=== PATIENT | female | born 1960 | race Caucasian/White ===

== ENCOUNTER 2017-04-04 17:57 | Observation (INO) | payer MEDICAID, SELFPAY ==
[2017-04-04] VITALS (23 sets, daily range): BP systolic 150–192; BP diastolic 57–89; PULSE 47–70; RESP 13–18; TEMP 36.6–37.1; O2SAT 94–100; BMI 44.2; BMI 44.6; BMI 44.7
--- NOTE | 2017-04-04 18:01 | EKG12_ITS ---
Test Reason : STROKE Blood Pressure : / mmHG Vent. Rate : 062 BPM Atrial Rate : 062 BPM P-R Int : 196 ms QRS Dur : 080 ms QT Int : 456 ms P-R-T Axes : 083 003 -17 degrees QTc Int : 462 ms Normal sinus rhythm Normal ECG Confirmed by ESAU VALLEJO, JAIDEN ([id number]), assistant production editor KARIN BLACKBURN ([id number]) on 04/10/2017 2:52:18 PM Referred By: GUDELIA Confirmed By:JAIDEN CIFUENTES MD
--- NOTE | 2017-04-04 18:01 | CT_ITS ---
STUDY: CT BRAIN WITHOUT CONTRAST REASON FOR EXAM: Female, 57 years old. Facial droop, slurred speech RADIATION DOSAGE (If Supplied By Facility): CTDIvol = ( 44.99 ) mGy, DLP = ( 796.11 ) mGycm TECHNIQUE: Transaxial CT imaging of the brain was performed without administration of intravenous contrast material. Individualized dose optimization techniques were used for this CT. COMPARISON: May 20, 2014. FINDINGS: Normal soft tissue structures. Normal calvarium. Normal size ventricles and extra-axial spaces for the patient's age. Normal white matter tracts of the cerebral hemispheres. Normal basal ganglia and thalami. Normal brainstem. Normal cerebellum. There is no intracranial hemorrhage. There are no findings of an acute ischemic infarction. Mucosal thickening of the maxillary sinuses. CT/Brain/Head without Contrast IMPRESSION: No acute intracranial pathology of the brain. Bilateral maxillary sinus disease. N.B. : The above information has been verbally conveyed by Roberto Carlos Parkinson DO to Martín Dyer [facility] ED RN, on 04/04/2017 20:21:01 (ET). Electronically Signed: Roberto Carlos Parkinson DO at 20:18 EST Tel [phone], Service support , N.B. : The above information has been verbally conveyed by Roberto Carlos Parkinson DO to Martín Dyer [facility] ED RN, on 04/04/2017 20:21:01 (ET).
[2017-04-04 18:31] LABS: Absolute Lymphocyte Count 3.05 X10^3/ul (0.83-4.51); Absolute Neutrophil Count 4.2 X10^3/uL (2.0-7.7); Basophil# 0.07 X10^3/uL; Basophil% 0.8 % (0-1); Eosinophil# 0.14 X10^3/uL; Eosinophils% 1.6 % (0-5); Hematocrit 41.5 % (37-47); Hemoglobin 13.9 g/dl (12.0-15.0); Lymphocyte # 3.05 X10^3/ul (4.0); Lymphocyte % 35.2 % (19-41); Mean Corp Hgb Conc 33.5 g/gl (32-36); Mean Corpuscular Volume 89.6 fL (81-99); Mean Platelet Vol. 9.8 fl (6.2-12.0); Monocyte# 1.15 X10^3/uL; Monocyte% 13.3 % (0-10); Neutrophil # 4.19 X10^3/uL (2.7-7.7); Neutrophil % 48.3 % (47-70); Platelet Count 195 K/mm3 (150-450); RBC Distribution Width CV 14.6 % (11.6-14.6); RBC Distribution Width SD 47.4 fl (35.1-43.9); Red Blood Count 4.63 M/mm3 (4.2-5.4); White Blood Count 8.7 K/mm3 (4.4-11.0)
[2017-04-04 18:34] LABS: POSITIVE COUNT NO; POSITIVE DIFFERENTIAL NO; POSITIVE MORPHOLOGY NO
[2017-04-04] MEDS: Labetalol 20 MG/4 ML Vial IV (18:35)
--- NOTE | 2017-04-04 18:38 | ED.RN ---
PER DR GALEAS GIVE 20 MG LABETOLOL
[2017-04-04] MEDS: 0.9% Normal Saline 1,000 ML 100 ML IV (18:41)
[2017-04-04 18:45] LABS: Anion Gap 9 (5-15); BUN 23 mg/dL (7-18); BUN/Creat Ratio 23.6 RATIO (10-20); Calcium,Total 9.3 mg/dL (8.5-10.1); Chloride 106 mmol/L (98-107); Creatinine, Serum 0.98 mg/dL (0.55-1.02); EST Glomerular Filtration Rate 63 mL/min (>60); Est Glom Filt Rate - Afr Amer 76 mL/min (>60); Estimated Creatinine Clearance 68.49 ml/min; Glucose 93 mg/dL (70-110); Potassium 3.5 mmol/L (3.5-5.1); Sodium Level 138 mmol/L (136-145)
--- NOTE | 2017-04-04 18:47 | ED.RN ---
DR GALEAS NOTIFIED PT HR 49
[2017-04-04 19:01] LABS: International Normalized Ratio 1.1; Prothrombin Time (Protime)PT. 14.1 SECONDS (11.7-14.9)
--- NOTE | 2017-04-04 19:03 | ED.RN ---
TPA STOPPED PER DR GALEAS. PT FACIAL DROOP NOW ON THE RIGHT SIDE. DR GALEAS AT THE BEDSIDE
--- NOTE | 2017-04-04 19:06 | ED.RN ---
TPA DISCONNECTED FROM THE PT IV SITE
--- NOTE | 2017-04-04 19:09 | ED.RN ---
FACIAL DROOP ON THE RIGHT RATHER THAN THE LEFT
--- NOTE | 2017-04-04 19:39 | NURSING ---
PT WENT THROUGH A DYSPHAGIA SCREEN AND SHE HAD PASSED WAS ABLE TO SWALLOW WATER AND CONSUME THE APPLESAUCE WITH NO PROBLEM AND NO EVIDENCE OF CHOKING. WHILE IN THE ROOM THE PT HAS BEEN TALKING WITH THE SISTER NO PROBLEM AND NO EVIDENCE OF APHASIA/ DYSARTHRIA WHEN SPEAKING BUT WHEN DOING THE MINI STROKE BOOKLET WITH HER SHE HAD SOME APHASIA.
[2017-04-04 20:31] LABS: Valproic Acid (Depakene) Level 74 ug/mL (50-100)
--- NOTE | 2017-04-04 21:07 | PCM.HP.STD ---
Problem List (1) Conversion disorder Status: Acute (2) Coronary atherosclerosis of [place] coronary vessel Status: Chronic Qualifiers: Associated angina: angina presence unspecified (3) Hyperlipidemia Status: Chronic Qualifiers: Hyperlipidemia type: unspecified Qualified Code(s): E78.5 - Hyperlipidemia, unspecified (4) Hypertension Status: Chronic Qualifiers: Hypertension type: essential hypertension Qualified Code(s): I10 - Essential (primary) hypertension (5) Hypothyroidism Status: Chronic Qualifiers: Hypothyroidism type: unspecified Qualified Code(s): E03.9 - Hypothyroidism, unspecified (6) Obesity Status: Chronic Qualifiers: Body mass index: BMI 40.0-44.9 (7) Tobacco use disorder Status: Chronic (8) History of TIAs Status: Chronic History of Present Illness Date of Admission: 04/04/17 Chief Complaint: Facial droop - 1 day The patient is a 57 year old F with PMHx of depression, hypothyroidism, hyperlipidemia, hypertension, CVA status post mastectomy comes in with complains of facial droop which was noticed today. Patient admits to being under lots of stress. Patient was being worked up for TIA and was started on TPA when the right facial droop switched to left facial droop. Patient admits that she gets these symptoms when she is on the stress, no weakness in her extremities or headaches. Denies any dizziness or palpitations or chest pain. Vitals in the ED was stable with temperature of 98.0 Fahrenheit, heart rate of 58, respiratory rate was 13, SPO2 is 97% on room air. His admitting CBCD and CMP as well as INR PTT were all normal. CT scan of the brain was negative for any acute intracranial pathology. Past Medical History Past Medical History (Chronic Problems): Chronic Problems Coronary atherosclerosis of [place] coronary vessel (Chronic) History of epilepsy (Chronic) Hyperlipidemia (Chronic) Hypertension (Chronic) Hypothyroidism (Chronic) Obesity (Chronic) Tobacco use disorder (Chronic) History of TIAs (Chronic) Breast cancer, left breast (Chronic) 04/07/15 L mastectomy w/ L sentinel node Bx Morbid obesity (Chronic) Anxiety and depression (Chronic) COPD (chronic obstructive pulmonary disease) (Chronic) Bilateral leg edema (Chronic) Delayed wound healing (Chronic) Malnutrition (Chronic) Leg edema (Chronic) Allergies No Known Allergies Allergy (Verified 05/09/15 13:53) Home Medications: Ambulatory Orders Medication Instructions Recorded Aspirin [Aspirin, Baby] 81 mg PO DAILY@0800 05/09/15 Atorvastatin Calcium [Lipitor] 40 mg PO QHS 05/09/15 BuPROPion (SR) [Wellbutrin Sr] 300 mg PO DAILY 05/09/15 Divalproex Sodium [Depakote] 1,000 mg PO BID 05/09/15 Furosemide [Lasix] 40 mg PO DAILY 05/09/15 Levothyroxine [Synthroid] 200 mcg PO DAILY 05/09/15 Pregabalin [Lyrica] 50 mg PO BID 05/09/15 Sertraline HCl [Zoloft] 100 mg PO BID 05/09/15 Amlodipine [Norvasc] 10 mg PO DAILY 07/12/16 Anastrozole [Arimidex] 1 mg PO DAILY 07/12/16 Ergocalciferol [Vitamin D] 50,000 unit PO 07/12/16 Furosemide [Lasix] 20 mg PO QHS 07/12/16 Oxcarbazepine [Trileptal] 300 mg PO BID 07/12/16 Spironolactone [Aldactone] 25 mg PO DAILY 07/12/16 Lisinopril [Zestril] 20 mg PO BID 04/04/17 Surgical History: noncontributory, - - L breast masectomy, x 2, T+A. Smoking Status: Current every day smoker Tobacco Use: Cigarettes Alcohol: None Drugs: None - *Family History Maternal History Items: Heart Disease Paternal History Items: No pertinent history Sibling History Items: - - Cirrhosis of the liver Review of Systems Constitutional: Denies: Anorexia, Chills, Fever, Weakness, Weight Change Eyes: Denies: Blurred vision, Cataracts, Conjunctivae Inflammation HEENT: Denies: Difficulty Hearing, Difficulty Swallowing, Head Aches, Sinus Congestion, Sinus Drainage Cardiovascular: Denies: Chest Pain, Claudication, Chest Pressure, Chest Tightness, Orthopnea, Palpitations, Paroxysmal Noc. Dyspnea Respiratory: Denies: Cough, Shortness of Breath, Shortness of breath at rest, Shortness of breath upon exertion, Sputum production Gastrointestinal: Denies: Abdominal Pain, Nausea, Vomiting Genitourinary: Denies: Dysuria, Frequency, Incontinence Musculoskeletal: Denies: Joint Pain, Joint stiffness, Joint swelling, Joint Tenderness Skin: Denies: Dryness, Jaundice, Rash, Wounds Neurological: Denies: Double vision, Difficulty swallowing, Focal weakness, Numbness, Tingling Psychiatric: Denies: Anxiety, Depression, Homicidal Ideations, Suicidal Ideations Hematologic/ Lymphatic: Denies: Easy Bruising, Easy Bleeding VTE Information - Inpt Only VTE Present on Admission: No VTE Pharm Prophylaxis ordered?: Yes Patient Problems: Active and Suspected Problems Conversion disorder (Acute) - Physical Exam General: Alert, Oriented x3, Cooperative, No apparent distress HEENT: Atraumatic, PERRLA, EOMI, Normocephalic Oral: Moist Mucosa Neck: Supple Lungs: Clear to auscultation, Normal air movement Cardiovascular: Regular rate, Regular Rhythm, Normal S1, Normal S2, No murmurs Abdomen: Bowel Sounds Present, Soft, Non Tender, Non-Distended, No Hepato-splenomegaly Extremities: No edema Skin: No rashes Musculoskeletal: No Tenderness to Palpation of Joints or Extremities Lymphatic: No Cervical, Supraclavicular, or Inguinal Adenopathy Neurological: Cranial nerves II-XII grossly intact Psych/Mental Status: Normal Affect, Appropriate Vital Signs Temp Pulse Resp BP Pulse Ox 98.7 F 53 L 15 158/62 H 96 04/04/17 19:10 04/04/17 21:00 04/04/17 21:00 04/04/17 21:00 04/04/17 21:00 Oxygen Flow Rate 2 Oxygen Delivery Method Nasal Cannula Weight: 140 kg Body Mass Index (BMI) 44.2 Finger Stick Blood Glucose 112 Laboratory Tests Past 24 Hrs 04/04/17 04/04/17 04/04/17 18:10 18:10 18:10 WBC 8.7 RBC 4.63 Hgb 13.9 Hct 41.5 MCV 89.6 MCH 30.0 MCHC 33.5 RDW 14.6 RDW Differential 47.4 H Plt Count 195 MPV 9.8 Immature Gran % (Auto) 0.800 Neut % (Auto) 48.3 Lymph % (Auto) 35.2 [place] % (Auto) 13.3 H Eos % (Auto) 1.6 Baso % (Auto) 0.8 Absolute Neuts (auto) 4.2 Absolute Lymphs (auto) 3.05 Total Counted Not Reportable PT 14.1 INR 1.1 APTT 31.0 Sodium 138 Potassium 3.5 Chloride 106 Carbon Dioxide 23.0 Anion Gap 9 BUN 23 H Creatinine 0.98 Estim Creat Clear Calc 68.49 Est GFR (MDRD) Af Amer 76 Est GFR (MDRD) Non-Af 63 BUN/Creatinine Ratio 23.6 H Glucose 93 Calcium 9.3 Troponin I < 0.02 Valproic Acid 04/04/17 19:23 WBC RBC Hgb Hct MCV MCH MCHC RDW RDW Differential Plt Count MPV Immature Gran % (Auto) Neut % (Auto) Lymph % (Auto) [place] % (Auto) Eos % (Auto) Baso % (Auto) Absolute Neuts (auto) Absolute Lymphs (auto) Total Counted PT INR APTT Sodium Potassium Chloride Carbon Dioxide Anion Gap BUN Creatinine Estim Creat Clear Calc Est GFR (MDRD) Af Amer Est GFR (MDRD) Non-Af BUN/Creatinine Ratio Glucose Calcium Troponin I Valproic Acid 74 Assessment/Plan Active and Suspected Problems Conversion disorder (Acute) 70-year-old female past medical history of depression, breast CA status post mastectomy, history of TIAs, comes in with complaints of left facial droop, was worked up in the ED for TIA, started to receive TPA, patient was noted to still have switched from right facial droop to left facial droop. 1. Conversion disorder, less likely to be TIA, discussed with neurologist by the emergency physician, recommended admission to telemetry bed Plan: Admit to telemetry, monitor patient closely, would not go through the TIA/stroke protocol, would only repeat MRI of the brain as well as MRA the head and neck because of patient's reported history of TIAs. Will give patient 1 dose of Ativan before she goes for MRI because of history of claustrophobia, neurologyconsult 2. Depression, on Wellbutrin 3. Hypertension, controlled, on lisinopril, spironolactone, her vitals closely 4. Hypothyroidism, on Synthroid 5. Hyperlipidemia, on atorvastatin 6. DVT prophylaxis with Lovenox subcu Code Visit OBSV E&M: [id number] Initial observation care L3
--- NOTE | 2017-04-04 21:20 | HP.PCM_ITS ---
Problem List (1) Conversion disorder Status: Acute (2) Coronary atherosclerosis of [place] coronary vessel Status: Chronic Qualifiers: Associated angina: angina presence unspecified (3) Hyperlipidemia Status: Chronic Qualifiers: Hyperlipidemia type: unspecified Qualified Code(s): E78.5 - Hyperlipidemia , unspecified (4) Hypertension Status: Chronic Qualifiers: Hypertension type: essential hypertension Qualified Code(s): I10 - Essential (primary) hypertension (5) Hypothyroidism Status: Chronic Qualifiers: Hypothyroidism type: unspecified Qualified Code(s): E03.9 - Hypothyroidism , unspecified (6) Obesity Status: Chronic Qualifiers: Body mass index: BMI 40.0-44.9 (7) Tobacco use disorder Status: Chronic (8) History of TIAs Status: Chronic History of Present Illness Date of Admission: 04/04/17 Chief Complaint: Facial droop - 1 day The patient is a 57 year old F with PMHx of depression, hypothyroidism, hyperlipidemia, hypertension, CVA status post mastectomy comes in with complains of facial droop which was noticed today. Patient admits to being under lots of stress. Patient was being worked up for TIA and was started on TPA when the right facial droop switched to left facial droop. Patient admits that she gets these symptoms when she is on the stress, no weakness in her extremities or headaches. Denies any dizziness or palpitations or chest pain. Vitals in the ED was stable with temperature of 98.0 Fahrenheit, heart rate of 58, respiratory rate was 13, SPO2 is 97% on room air. His admitting CBCD and CMP as well as INR PTT were all normal. CT scan of the brain was negative for any acute intracranial pathology. Past Medical History Past Medical History (Chronic Problems): Chronic Problems Coronary atherosclerosis of [place] coronary vessel (Chronic) History of epilepsy (Chronic) Hyperlipidemia (Chronic) Hypertension (Chronic) Hypothyroidism (Chronic) Obesity (Chronic) Tobacco use disorder (Chronic) History of TIAs (Chronic) Breast cancer, left breast (Chronic) 04/07/15 L mastectomy w/ L sentinel node Bx Morbid obesity (Chronic) Anxiety and depression (Chronic) COPD (chronic obstructive pulmonary disease) (Chronic) Bilateral leg edema (Chronic) Delayed wound healing (Chronic) Malnutrition (Chronic) Leg edema (Chronic) Allergies No Known Allergies Allergy (Verified 05/09/15 13:53) Home Medications: Ambulatory Orders Medication Instructions Recorded Aspirin [Aspirin, Baby] 81 mg PO DAILY@0800 05/09/15 Atorvastatin Calcium [Lipitor] 40 mg PO QHS 05/09/15 BuPROPion (SR) [Wellbutrin Sr] 300 mg PO DAILY 05/09/15 Divalproex Sodium [Depakote] 1,000 mg PO BID 05/09/15 Furosemide [Lasix] 40 mg PO DAILY 05/09/15 Levothyroxine [Synthroid] 200 mcg PO DAILY 05/09/15 Pregabalin [Lyrica] 50 mg PO BID 05/09/15 Sertraline HCl [Zoloft] 100 mg PO BID 05/09/15 Amlodipine [Norvasc] 10 mg PO DAILY 07/12/16 Anastrozole [Arimidex] 1 mg PO DAILY 07/12/16 Ergocalciferol [Vitamin D] 50,000 unit PO 07/12/16 Furosemide [Lasix] 20 mg PO QHS 07/12/16 Oxcarbazepine [Trileptal] 300 mg PO BID 07/12/16 Spironolactone [Aldactone] 25 mg PO DAILY 07/12/16 Lisinopril [Zestril] 20 mg PO BID 04/04/17 Surgical History: noncontributory, - - L breast masectomy, x 2, T+A. Smoking Status: Current every day smoker Tobacco Use: Cigarettes Alcohol: None Drugs: None - *Family History Maternal History Items: Heart Disease Paternal History Items: No pertinent history Sibling History Items: - - Cirrhosis of the liver Review of Systems Constitutional: Denies: Anorexia, Chills, Fever, Weakness, Weight Change Eyes: Denies: Blurred vision, Cataracts, Conjunctivae Inflammation HEENT: Denies: Difficulty Hearing, Difficulty Swallowing, Head Aches, Sinus Congestion, Sinus Drainage Cardiovascular: Denies: Chest Pain, Claudication, Chest Pressure, Chest Tightness, Orthopnea, Palpitations, Paroxysmal Noc. Dyspnea Respiratory: Denies: Cough, Shortness of Breath, Shortness of breath at rest, Shortness of breath upon exertion, Sputum production Gastrointestinal: Denies: Abdominal Pain, Nausea, Vomiting Genitourinary: Denies: Dysuria, Frequency, Incontinence Musculoskeletal: Denies: Joint Pain, Joint stiffness, Joint swelling, Joint Tenderness Skin: Denies: Dryness, Jaundice, Rash, Wounds Neurological: Denies: Double vision, Difficulty swallowing, Focal weakness, Numbness, Tingling Psychiatric: Denies: Anxiety, Depression, Homicidal Ideations, Suicidal Ideations Hematologic/ Lymphatic: Denies: Easy Bruising, Easy Bleeding VTE Information - Inpt Only VTE Present on Admission: No VTE Pharm Prophylaxis ordered?: Yes Patient Problems: Active and Suspected Problems Conversion disorder (Acute) - Physical Exam General: Alert, Oriented x3, Cooperative, No apparent distress HEENT: Atraumatic, PERRLA, EOMI, Normocephalic Oral: Moist Mucosa Neck: Supple Lungs: Clear to auscultation, Normal air movement Cardiovascular: Regular rate, Regular Rhythm, Normal S1, Normal S2, No murmurs Abdomen: Bowel Sounds Present, Soft, Non Tender, Non-Distended, No Hepato- splenomegaly Extremities: No edema Skin: No rashes Musculoskeletal: No Tenderness to Palpation of Joints or Extremities Lymphatic: No Cervical, Supraclavicular, or Inguinal Adenopathy Neurological: Cranial nerves II-XII grossly intact Psych/Mental Status: Normal Affect, Appropriate Vital Signs Temp Pulse Resp BP Pulse Ox 98.7 F 53 L 15 158/62 H 96 04/04/17 19:10 04/04/17 21:00 04/04/17 21:00 04/04/17 21:00 04/04/17 21:00 Oxygen Flow Rate 2 Oxygen Delivery Method Nasal Cannula Weight: 140 kg Body Mass Index (BMI) 44.2 Finger Stick Blood Glucose 112 Laboratory Tests Past 24 Hrs 04/04/17 04/04/17 04/04/17 18:10 18:10 18:10 WBC 8.7 RBC 4.63 Hgb 13.9 Hct 41.5 MCV 89.6 MCH 30.0 MCHC 33.5 RDW 14.6 RDW Differential 47.4 H Plt Count 195 MPV 9.8 Immature Gran % (Auto) 0.800 Neut % (Auto) 48.3 Lymph % (Auto) 35.2 [place] % (Auto) 13.3 H Eos % (Auto) 1.6 Baso % (Auto) 0.8 Absolute Neuts (auto) 4.2 Absolute Lymphs (auto) 3.05 Total Counted Not Reportable PT 14.1 INR 1.1 APTT 31.0 Sodium 138 Potassium 3.5 Chloride 106 Carbon Dioxide 23.0 Anion Gap 9 BUN 23 H Creatinine 0.98 Estim Creat Clear Calc 68.49 Est GFR (MDRD) Af Amer 76 Est GFR (MDRD) Non-Af 63 BUN/Creatinine Ratio 23.6 H Glucose 93 Calcium 9.3 Troponin I < 0.02 Valproic Acid 04/04/17 19:23 WBC RBC Hgb Hct MCV MCH MCHC RDW RDW Differential Plt Count MPV Immature Gran % (Auto) Neut % (Auto) Lymph % (Auto) [place] % (Auto) Eos % (Auto) Baso % (Auto) Absolute Neuts (auto) Absolute Lymphs (auto) Total Counted PT INR APTT Sodium Potassium Chloride Carbon Dioxide Anion Gap BUN Creatinine Estim Creat Clear Calc Est GFR (MDRD) Af Amer Est GFR (MDRD) Non-Af BUN/Creatinine Ratio Glucose Calcium Troponin I Valproic Acid 74 Assessment/Plan Active and Suspected Problems Conversion disorder (Acute) 70-year-old female past medical history of depression, breast CA status post mastectomy, history of TIAs, comes in with complaints of left facial droop, was worked up in the ED for TIA, started to receive TPA, patient was noted to still have switched from right facial droop to left facial droop. 1. Conversion disorder, less likely to be TIA, discussed with neurologist by the emergency physician, recommended admission to telemetry bed Plan: Admit to telemetry, monitor patient closely, would not go through the TIA/ stroke protocol, would only repeat MRI of the brain as well as MRA the head and neck because of patient's reported history of TIAs. Will give patient 1 dose of Ativan before she goes for MRI because of history of claustrophobia, neurologyconsult 2. Depression, on Wellbutrin 3. Hypertension, controlled, on lisinopril, spironolactone, her vitals closely 4. Hypothyroidism, on Synthroid 5. Hyperlipidemia, on atorvastatin 6. DVT prophylaxis with Lovenox subcu Code Visit OBSV E&M: [id number] Initial observation care L3
--- NOTE | 2017-04-04 21:38 | NURSING ---
This RN reviewing patient information for admission to floor, transfer orders state to continue tpa order for tpa vital signs, Dr Garza contacted to verify orders. Dr Garza states to call Dr. Cruz to clarify where patient needs to go. Dr Cruz contacted to clarify... states that due to patient receiving partial dose of tpa that patient needs to go to ICU. Nursing gas meter repair supervisor notified, Dr Garza paged to notify.
--- NOTE | 2017-04-04 22:00 | NURSING ---
Pt recieved to icu 5 via ed cart, pt moves self to icu bed without waiting for asssitance from staff. [facility] completed with Doreen CALLOWAY from ER.
--- NOTE | 2017-04-04 22:27 | NURSING ---
NOTICED WITH THE PT THAT WHEN NEW STAFF SEE THE PT SHE WILL CHANGE SOME OF HER SYMPTOMS, FAMILY HAS STATED THAT SHE CAN BE ATTENTION SEEKING.
--- NOTE | 2017-04-04 22:29 | ED.DCSUM_ITS ---
- ER Visit Summary Date of Service: 04/04/17 Chief Complaint: Stroke History of Present Illness: The patient is a [address] Jackson. Family reports that they left to go shopping and came back 2 hours later and that she had a difficult time speaking, had a facial droop, and was unable to move her left side. Patient has a history of seizures, but she reports that she did not have a seizure today. She denies having had similar symptoms previously. Physical Examination: Vitals: Stable. Afebrile. Neurological: NIH scale is 10. She is unable to state her age. She has a left facial droop. She has weakness in her left arm and leg. She has paresthesias in her left arm and leg. General: A&O x 3. NAD. Cardiovascular exam: Regular rate and rhythm, no murmur, rub or gallop. Respiratory exam: Clear to auscultation bilaterally. No wheezes or stridor. Abdominal exam: Soft, nontender, nondistended, normal bowel sounds. No peritoneal signs. Extremity: No clubbing, cyanosis, or edema. Test Results: CT brain shows bilateral maxillary sinus disease. No intracranial hemorrhage. EKG is sinus at 62 with artifact. No ischemic changes. Troponin is negative. CBC is remarkable for monocytes of 13. Chem-7 is remarkable for BUN of 23. Emergency Department Course and Treatment: I had a prolonged discussion with the patient and family at the bedside. The contraindications for TPA were gone through individually. I did discuss further the risk of intracranial hemorrhage. They have opted to receive this medication. As we infused the TPA the nurse alerted me that the patient's facial droop was now on the right. She continues to have left-sided weakness. I reviewed the patient's prior records. She had a similar presentation in 2013 that was deemed to be a conversion disorder and at that time refused an MRI. I spoke with Dr. Cruz and had a rocio conversation with the patient in the TPA was stopped. She does report that she is under a great deal of stress. Treatment Plan: After discussion with Dr. Cruz it was decided that the patient would best be served by admission to the hospital and MRI. She was discussed with the hospitalist who has admitted her. Disposition: Admitted in improved condition. Impression: 1. Left-sided weakness. 2. History of conversion disorder. This note was generated with Dragon dictation software. It may contain incorrect words, spelling, and punctuation that were not noted in review of the chart prior to signing ED Disposition - Plan for ED Patient: Disposition: Acute Care Hospital [facility] Chief Complaint: Neuro S/Sx
[2017-04-04] MEDS: Furosemide 20 MG Tablet PO (23:15)
[2017-04-04] MEDS: Lisinopril 20 MG Tablet PO (23:15)
[2017-04-04] MEDS: Divalproex Sodium 250 MG Tablet 1000 MG PO (23:15)
[2017-04-04] MEDS: Pregabalin 50 MG Capsule PO (23:15)
[2017-04-04] MEDS: Sertraline 100 MG Tablet PO (23:15)
[2017-04-04] MEDS: Atorvastatin Calcium 40 MG Tablet PO (23:15)
[2017-04-04] MEDS: OXcarbazepine 300 MG Tablet PO (23:16)
[2017-04-04 23:46] LABS: M R Staph aureus DNA By PCR Negative (Negative); Probe Check PASS; Specimen Processing Control PASS
[2017-04-05] VITALS (34 sets, daily range): BP systolic 109–169; BP diastolic 58–127; PULSE 44–67; RESP 10–25; TEMP 36.4–37.3; O2SAT 89–99; BMI 44.6
[2017-04-05] MEDS: Acetaminophen 325 MG Tablet 650 MG PO ×2 (00:34→20:50)
[2017-04-05 05:01] LABS: Hemoglobin 12.4 g/dl (12.0-15.0); Mean Corp Hgb Conc 32.6 g/gl (32-36); Mean Corpuscular Hgb 29.8 pg (27.0-32.0); Mean Corpuscular Volume 91.3 fL (81-99); Mean Platelet Vol. 9.3 fl (6.2-12.0); Platelet Count 152 K/mm3 (150-450); RBC Distribution Width CV 14.6 % (11.6-14.6); RBC Distribution Width SD 49.1 fl (35.1-43.9); Red Blood Count 4.16 M/mm3 (4.2-5.4); White Blood Count 9.6 K/mm3 (4.4-11.0)
[2017-04-05 05:03] LABS: Scan Indicated on CBC? Y/N NO
[2017-04-05 05:16] LABS: Anion Gap 10 (5-15); BUN 22 mg/dL (7-18); BUN/Creat Ratio 25.1 RATIO (10-20); Calcium,Total 8.7 mg/dL (8.5-10.1); Chloride 107 mmol/L (98-107); Creatinine, Serum 0.88 mg/dL (0.55-1.02); EST Glomerular Filtration Rate 71 mL/min (>60); Est Glom Filt Rate - Afr Amer 86 mL/min (>60); Estimated Creatinine Clearance 73.71 ml/min; Glucose 82 mg/dL (70-110); Potassium 3.5 mmol/L (3.5-5.1); Sodium Level 143 mmol/L (136-145)
[2017-04-05] MEDS: Levothyroxine 100 MCG Tablet 200 MCG PO (05:56)
[2017-04-05] MEDS: 0.9% NaCl Peripheral Flush Adult/Peds IV (05:58)
--- NOTE | 2017-04-05 06:55 | PCM.CON.CC ---
Reason for Consult Date of Consultation: 04/05/17 Reason for Consultation: CVA status post TPA History of Present Illness: The patient is a 57-year-old female, with a history as outlined below, who presented to the emergency department on April 04 with complaints of dysarthric speech, left-sided weakness and a facial droop. The patient reportedly had a similar presentation in 2013, which was deemed to be a conversion disorder. On initial presentation, the patient was noted to be bradycardic with a heart rate of 49. She was, nonetheless, hemodynamically stable and maintaining appropriate oxygen saturations on 2 L via nasal cannula. She had no evidence of a leukocytosis and her coagulation profile was within normal limits. Chemistry profile was largely unremarkable. The patient underwent a CT scan of her head which revealed no acute intracranial pathology, but did reveal bilateral maxillary sinus disease. The patient's initial NIH score was documented to be 10. Given her symptoms, and following a discussion with neurology, the decision was made to proceed with TPA administration. Nevertheless, the patient only received a partial dose of the TPA, as it was stopped prematurely due to inconsistencies in the patient's neurological findings. The patient was subsequently admitted to the medical intensive care unit for ongoing management, with plans for repeat head imaging today. Past Medical History Past Medical History (Chronic Problems): Chronic Problems Coronary atherosclerosis of [place] coronary vessel (Chronic) History of epilepsy (Chronic) Hyperlipidemia (Chronic) Hypertension (Chronic) Hypothyroidism (Chronic) Obesity (Chronic) Tobacco use disorder (Chronic) History of TIAs (Chronic) Breast cancer, left breast (Chronic) 04/07/15 L mastectomy w/ L sentinel node Bx Morbid obesity (Chronic) Anxiety and depression (Chronic) COPD (chronic obstructive pulmonary disease) (Chronic) Bilateral leg edema (Chronic) Delayed wound healing (Chronic) Malnutrition (Chronic) Leg edema (Chronic) Allergies No Known Allergies Allergy (Verified 05/09/15 13:53) Home Medications: Ambulatory Orders Medication Instructions Recorded Aspirin [Aspirin, Baby] 81 mg PO DAILY@0800 05/09/15 Atorvastatin Calcium [Lipitor] 40 mg PO QHS 05/09/15 BuPROPion (SR) [Wellbutrin Sr] 300 mg PO DAILY 05/09/15 Divalproex Sodium [Depakote] 1,000 mg PO BID 05/09/15 Furosemide [Lasix] 40 mg PO DAILY 05/09/15 Levothyroxine [Synthroid] 200 mcg PO DAILY 05/09/15 Pregabalin [Lyrica] 50 mg PO BID 05/09/15 Sertraline HCl [Zoloft] 100 mg PO BID 05/09/15 Amlodipine [Norvasc] 10 mg PO DAILY 07/12/16 Anastrozole [Arimidex] 1 mg PO DAILY 07/12/16 Ergocalciferol [Vitamin D] 50,000 unit PO 07/12/16 Furosemide [Lasix] 20 mg PO QHS 07/12/16 Oxcarbazepine [Trileptal] 300 mg PO BID 07/12/16 Spironolactone [Aldactone] 25 mg PO DAILY 07/12/16 Lisinopril [Zestril] 20 mg PO BID 04/04/17 Surgical History: noncontributory, - - L breast masectomy, x 2, T+A. Smoking Status: Current every day smoker Tobacco Use: Cigarettes Alcohol: None Drugs: None - *Family History Maternal History Items: Heart Disease Paternal History Items: No pertinent history Sibling History Items: - - Cirrhosis of the liver Review of Systems Constitutional: Denies: Chills, Fever, Weight Change HEENT: Denies: Head Aches, Sinus Congestion, Sinus Drainage Cardiovascular: Denies: Chest Pain, Palpitations Respiratory: Denies: Cough, Shortness of breath at rest, Sputum production Gastrointestinal: Denies: Abdominal Pain, Nausea, Vomiting Genitourinary: Denies: Dysuria Musculoskeletal: Denies: Joint Pain, Joint Tenderness Skin: Denies: Rash, Wounds Neurological: Reports: Change in Speech Psychiatric: Reports: Anxiety, Depression Hematologic/ Lymphatic: Denies: Easy Bruising, Easy Bleeding Patient Problems: Active and Suspected Problems Conversion disorder (Acute) Headache (Acute) Objective: The patient's most recent lab work, culture data and imaging studies have all been personally reviewed. - Physical Exam General: Alert, Cooperative, No apparent distress HEENT: Atraumatic, PERRLA, Normocephalic Oral: Moist Mucosa, No Gingival or Mucosal Lesions/ Ulcerations Neck: Supple, No Nodes, Trachea Midline Lungs: Normal air movement, No rhonchi, No wheeze, No rales Cardiovascular: Regular rate, Regular Rhythm, Normal S1, Normal S2, No murmurs Abdomen: Bowel Sounds Present, Soft, Non Tender, Obese Extremities: No clubbing, No cyanosis, No edema Skin: No rashes, No breakdown Musculoskeletal: No Tenderness to Palpation of Joints or Extremities Lymphatic: No Cervical, Supraclavicular, or Inguinal Adenopathy Neurological: - - No focal deficits. Psych/Mental Status: Flat Affect Vital Signs Temp Pulse Resp BP Pulse Ox 97.6 F L 47 L 12 131/64 H 92 04/05/17 06:00 04/05/17 06:00 04/05/17 06:00 04/05/17 06:00 04/05/17 06:00 Oxygen Flow Rate 2 Oxygen Delivery Method Nasal Cannula Weight: 308 lb 13.882 oz Body Mass Index (BMI) 44.6 Intake and Output for Last 24 Hours 04/03/17 04/04/17 04/05/17 23:59 23:59 23:59 Intake Total 100 / 100 691 / 691 Output Total 250 / 250 400 / 400 Balance -150 / -150 291 / 291 Laboratory Tests Past 24 Hrs 04/04/17 04/05/17 04/05/17 22:20 04:50 04:50 WBC 9.6 RBC 4.16 L Hgb 12.4 Hct 38.0 MCV 91.3 MCH 29.8 MCHC 32.6 RDW 14.6 RDW Differential 49.1 H Plt Count 152 MPV 9.3 Sodium 143 Potassium 3.5 Chloride 107 Carbon Dioxide 26.0 Anion Gap 10 BUN 22 H Creatinine 0.88 Estim Creat Clear Calc 73.71 Est GFR (MDRD) Af Amer 86 Est GFR (MDRD) Non-Af 71 BUN/Creatinine Ratio 25.1 H Glucose 82 Calcium 8.7 MRSA (PCR) Negative Clinical Impression(s) from Imaging Studies Brain CT 04/04/17 18:01 IMPRESSION: No acute intracranial pathology of the brain. Bilateral maxillary sinus disease. N.B. : The above information has been verbally conveyed by Roberto Carlos Parkinson DO to Martín Dyer [facility] ED RN, on 04/04/2017 20:21:01 (ET). Electronically Signed: Roberto Carlos Parkinson DO at 20:18 EST Tel [phone], Service support , N.B. : The above information has been verbally conveyed by Roberto Carlos Parkinson DO to Martín Dyer, [facility] ED RN, on 04/04/2017 20:21:01 (ET). Assessment/Plan Active and Suspected Problems Conversion disorder (Acute) Headache (Acute) RECOMMENDATIONS: 1. Continue management per TPA protocol. 2. MRI plan for this morning. Neurology is following. 3. Follow-up CT head this evening. 4. Permissive hypertension in bedside swallow evaluation. 5. Wean supplemental oxygen to maintain saturations at or above 90%. Encourage incentive spirometer use. 6. Mobilize patient as tolerated. Physical therapy evaluation. 7. Check TSH, given bradycardia. IMPRESSIONS: 1. Facial droop and transient weakness There was initial concern for CVA, for which the patient received a partial dose of TPA. She was subsequently admitted to the ICU for ongoing observation. Neurology has been consulted with plans for MRI this morning. Repeat CT scan has been scheduled for this evening 24 hours post TPA administration. We will plan to continue management per TPA protocol. The patient reportedly had a similar episode to this multiple years ago, which was felt to be the consequence of a conversion disorder. 2. Hypothyroidism Continue Synthroid. Given the patient's bradycardia, will check TSH level. 3. History of breast cancer/hypertension/hyperlipidemia/depression/anxiety/unspecified seizure disorder/morbid obesity Complicates care, management, recovery and prognosis. Continue home medications as indicated. This note was generated with Qpynation software. It may contain incorrect words, spelling, and punctuation that were not noted in checking the note before signing. Given the lack of ongoing ICU needs, will sign off. Please call with any additional questions. Code Visit Inpatient E&M: 30393 Init Hosp L2
--- NOTE | 2017-04-05 07:27 | MRI_ITS ---
STUDY: MRA NECK WITH AND WITHOUT CONTRAST REASON FOR EXAM: Female, 57 years old. Facial droop. Previous TIAs. History of breast carcinoma. TECHNIQUE: 3-D gmmc-ol-[id number] (TOF) imaging was performed in an 1.5 T MRI scanner. 9 ml of Gadavist was administered for the contrast enhanced images. COMPARISON: None. FINDINGS: RIGHT CAROTID ARTERIES: Normal right common carotid artery (CCA). Normal right common carotid bulb. Normal origin of the right internal carotid (ICA) artery without a hemodynamically significant stenosis. Normal visualized cervical portion of the right internal carotid artery. Normal origin of the right external carotid artery (ECA). LEFT CAROTID ARTERIES: Normal left common carotid artery (CCA). Normal left common carotid bulb. Normal origin of the left internal carotid (ICA) artery without a hemodynamically significant stenosis. Normal visualized cervical portion of the left internal carotid artery. Normal origin of the left external carotid artery (ECA). VERTEBRAL ARTERIES: Normal antegrade flow within the bilateral vertebral artery without a hemodynamically significant stenosis.Widely patent intradural segments of the vertebral arteries. There is an intersegmental anastomosis between the distal intradural segments of the vertebral arteries from the fenestrated proximal basilar artery. This is a developmental variation of normal MRI/MRA Neck WITH and W/O Contrast IMPRESSION: 1. Normal aortic arch and origins of the great vessels. 2. Widely patent common carotid arteries, common carotid bifurcations, internal and external carotid arteries. 3. Widely patent codominant vertebral arteries in the cervical segments and intradural segments. 4. Persistent intersegmental anastomosis between the distal intradural segments of the vertebral arteries rather than a fenestrated proximal basilar artery. This is a developmental variation of normal. 5. Nonvisualization of the subclavian origin of the codominant right vertebral artery. High-grade stenosis of the subclavian origin of the right vertebral artery is difficult to exclude. 6. No suspicious stenosis of the subclavian origin of the codominant left vertebral artery. Electronically Signed: Brice Sanford MD at 12:56 EST , Service support ,
[2017-04-05 07:30] LABS: Bedside Glucose 112 mg/dL (70-110)
--- NOTE | 2017-04-05 07:31 | PCM.PN.HOSP ---
Patient Problems: Active and Suspected Problems Conversion disorder (Acute) Subjective: 70-year-old lady with past medical history is none for left breast CA status post mastectomy currently on Arimidex who presented with left facial droop. A suspicion of acute CVA was entertained in the ED patient apparently did receive TPA and subsequently admitted to the intensive care unit for further management Objective: GENERAL: cooperative HEENT: Clear conjunctiva, NECK; supple, normal thyroid, . CHEST: Clear to auscultation bilaterally, HEART: Regular S1 S2, no audible murmurs ABDOMEN: soft, non-tender, normoactive bowel sounds, RECTAL: deferred EXTREMITIES: No edema, no clubbing, no cyanosis. PLATING OPERATOR: Awake, alert and oriented to time, place and person, no lateralizing signs. SKIN: No Rash Vitals/I&O's: Vital Signs Temp Pulse Resp BP Pulse Ox 97.6 F L 47 L 12 131/64 H 92 04/05/17 06:00 04/05/17 06:00 04/05/17 06:00 04/05/17 06:00 04/05/17 06:00 Oxygen Flow Rate 2 Oxygen Delivery Method Nasal Cannula Weight: 140.1 kg Body Mass Index (BMI) 44.6 Intake and Output for Last 24 Hours 04/03/17 04/04/17 04/05/17 23:59 23:59 23:59 Intake Total 100 / 100 691 / 691 Output Total 250 / 250 400 / 400 Balance -150 / -150 291 / 291 Laboratory Results 04/04/17 22:20: MRSA (PCR) Negative 04/05/17 04:50: WBC 9.6, RBC 4.16 L, Hgb 12.4, Hct 38.0, MCV 91.3, MCH 29.8, MCHC 32.6, RDW 14.6, RDW Differential 49.1 H, Plt Count 152, MPV 9.3 04/05/17 04:50: Sodium 143, Potassium 3.5, Chloride 107, Carbon Dioxide 26.0, Anion Gap 10, BUN 22 H, Creatinine 0.88, Estim Creat Clear Calc 73.71, Est GFR (MDRD) Af Amer 86, Est GFR (MDRD) Non-Af 71, BUN/Creatinine Ratio 25.1 H, Glucose 82, Calcium 8.7 Current Medications Acetaminophen (Tylenol) 650 mg PO Q6H PRN PRN PRN Reason: PAIN Last Admin: 04/05/17 00:34 Dose: 650 mg Amlodipine Besylate (Norvasc) 10 mg PO DAILY [facility] Anastrozole (Arimidex) 1 mg PO DAILY [facility] Aspirin (Aspirin, Baby) 81 mg PO DAILY@0800 [facility] Atorvastatin Calcium (Lipitor) 40 mg PO QHS [facility] Last Admin: 04/04/17 23:15 Dose: 40 mg Bupropion HCl (Wellbutrin Xl) 300 mg PO DAILY [facility] Divalproex Sodium (Depakote) 1,000 mg PO BID [facility] Last Admin: 04/04/17 23:15 Dose: 1,000 mg Furosemide (Lasix) 20 mg PO QHS [facility] Last Admin: 04/04/17 23:15 Dose: 20 mg Furosemide (Lasix) 40 mg PO DAILY [facility] Influenza Virus Vaccine Quadrival (Fluarix/Fluzone) 0.5 ml IM .ONCE ONE Stop: 04/05/17 10:01 Levothyroxine Sodium (Synthroid) 200 mcg PO DAILY@0600 [facility] Last Admin: 04/05/17 05:56 Dose: 200 mcg Lisinopril (Zestril) 20 mg PO BID [facility] Last Admin: 04/04/17 23:15 Dose: 20 mg Magnesium Hydroxide (Milk Of Magnesia) 30 ml PO DAILY PRN PRN Reason: Constipation Oxcarbazepine (Trileptal) 300 mg PO BID [facility] Last Admin: 04/04/17 23:16 Dose: 300 mg Pregabalin (Lyrica) 50 mg PO BID [facility] Last Admin: 04/04/17 23:15 Dose: 50 mg Sertraline HCl (Zoloft) 100 mg PO BID [facility] Last Admin: 04/04/17 23:15 Dose: 100 mg Sodium Chloride () 5 - 30 ml IV UD PRN PRN Reason: SALINE FLUSH Last Admin: 04/05/17 05:58 Dose: 10 ml Spironolactone (Aldactone) 25 mg PO DAILY [facility] Assessment/Plan Active and Suspected Problems Conversion disorder (Acute) 70-year-old lady with past medical history is none for left breast CA status post mastectomy currently on Arimidex who presented with left facial droop. A suspicion of acute CVA was entertained in the ED patient apparently did receive TPA and subsequently admitted to the intensive care unit for further management 1. Right facial droop: Initial MRI was negative for acute CVA subsequent imaging studies with MRI MRA ordered for further evaluation. Admitted to the intensive care unit where patient is being management protocol with consultation placed to neurology 2. Left breast CA status post mastectomy patient currently on Arimidex 4. Essential hypertension blood pressure stable 5. Hypothyroidism-patient is on levothyroxine home dose continued 6. Dyslipidemia-patient is on statin therapy, continued at home dose X 7. Obstructive sleep apnea per history 8. Depression with anxiety patient is on Wellbutrin 9. Morbid obesity with BMI of 45 lifestyle modification including weight loss advised 10. History of seizure disorder patient is on TEDs did continue 11. DVT prophylaxis SCDs for now since patient did receive TPA Code Visit Inpatient E&M: 74899 Subs Hosp L3
--- NOTE | 2017-04-05 07:49 | MRI_ITS ---
STUDY: MRA OF THE HEAD WITHOUT CONTRAST REASON FOR EXAM: Female, 57 years old. Facial droop. Previous TIAs. History of breast carcinoma. TECHNIQUE: 3-D wgfd-[id number]-twvybb (TOF) imaging was performed with MIPs. The study was performed unenhanced. COMPARISON: 01/07/2013. FINDINGS: Normal bilateral petrous carotid arteries. Normal right cavernous carotid artery with a normal supraclinoid bifurcation. Normal left cavernous carotid artery with a normal supraclinoid bifurcation. Normal right A1 segment of the anterior cerebral artery. Normal left A1 segment of the anterior cerebral artery. Normal intact anterior communicating artery (ACOM). Normal bilateral A2 segments of the anterior cerebral arteries. Normal right M1 and M2 segments of the middle cerebral arteries, with a normal M1 bifurcation. Normal left M1 and M2 segments of the middle cerebral arteries, with a normal M1 bifurcation. Widely patent right posterior communicating artery (PCOM). Hypoplastic left posterior communicating artery (PCOM). Normal bilateral vertebral arteries. Normal basilar artery with a normal basilar bifurcation. The visualized bilateral superior cerebellar (SCA) arteries are normal. Normal bilateral P1, P2 and visualized P3 segments of the posterior cerebral arteries. There is no demonstrated aneurysm of the [place] of [place]. There is no major vessel occlusion or hemodynamically significant stenosis. There is no demonstrated abnormality of the visualized brain. MRI/MRA Head ONLY without Contrast IMPRESSION: Normal MRA of the head Electronically Signed: Brice Sanford MD at 12:31 EST , Service support ,
--- NOTE | 2017-04-05 07:49 | MRI_ITS ---
STUDY: MRI BRAIN WITHOUT CONTRAST REASON FOR EXAM: Female, 57 years old. Facial droop. Previous TIAs. History of breast carcinoma. TECHNIQUE: Standardized multiplanar fat and water weighted pulse sequences were obtained. COMPARISON: 01/01/2013. FINDINGS: No restricted diffusion to suspect acute or subacute ischemic infarct. No focal signal abnormalities throughout the brain parenchyma. All the pulse sequences are within normal limits. The lind matter, white matter, ventricles and cisterns are normal. Normal size of the ventricles and extra-axial spaces for the patient's age. Normal white matter tracts of the supratentorial brain. Normal bilateral basal ganglia. Normal thalami. There is no extra-axial fluid accumulation. Normal flow voids within the major intracranial circulation suggesting patency by spin echo criteria. Normal sella turcica, pituitary gland, infundibular stalk, optic chiasm and hypothalamus. Normal tectal plate and pineal gland. Normal midbrain, naye and medulla. Normal cerebellum. Normal basal cisterns. Normal bilateral temporal bones. Normal bilateral internal auditory canals. No demonstrated orbital abnormality, within the constraints of a routine brain study. Pronounced mucosal thickening of the maxillary sinuses. Normal calvarium and skull base. Normal visualized soft tissue structures. Normal visualized upper cervical spine. MRI/Brain without Contrast IMPRESSION: 1. Normal unenhanced MRI of the brain. 2. Pronounced mucosal thickening in the maxillary sinuses are the only new findings since 01/01/2013. Electronically Signed: Brice Sanford MD at 12:33 EST , Service support ,
[2017-04-05] MEDS: Sertraline 100 MG Tablet PO ×2 (08:49→21:52)
[2017-04-05] MEDS: Spironolactone 25 MG Tablet PO (08:49)
[2017-04-05] MEDS: Furosemide 40 MG Tablet PO (08:50)
[2017-04-05] MEDS: Lisinopril 20 MG Tablet PO ×2 (08:50→21:52)
[2017-04-05] MEDS: amLODIPine 10 MG Tablet PO (08:50)
[2017-04-05] MEDS: Anastrozole 1 MG Tablet PO (08:52)
[2017-04-05] MEDS: LORazepam 1 MG Tablet PO (08:56)
[2017-04-05] MEDS: Pregabalin 50 MG Capsule PO ×2 (08:56→21:52)
[2017-04-05] MEDS: OXcarbazepine 300 MG Tablet PO ×2 (08:57→21:52)
[2017-04-05] MEDS: Divalproex Sodium 250 MG Tablet 1000 MG PO ×2 (08:58→21:51)
[2017-04-05 12:46] LABS: Thyroid Stim Hormone (TSH) 3.51 uIU/mL (0.358-3.74)
--- NOTE | 2017-04-05 13:38 | CON.PCM_ITS ---
Problem List (1) Headache Status: Acute Qualifiers: Headache type: unspecified Headache chronicity pattern: chronic headache Intractability: intractable Qualified Code(s): R51 - Headache (2) Left-sided muscle weakness Status: Acute (3) Weakness on left side of face Status: Acute Reason for Consult Date of Consultation: 04/05/17 Reason for Consultation: Left sided weakness, slurred speech and headache History of Present Illness: The patient is a 57 year old CF with PMH HTN, HLD, H/O Epilepsy, H/O breast cancer s/p mastectomy and chemotherapy, Depression, ? H/O TIA, hypothyroidism, morbid obesity admitted with acute onset slurred speech, left facial droop. Patient was admitted with stroke like symptoms, NIHSS documented to be 10 on admission, discussed with Dr. Cruz and IVtpa was started, but then per documentation patient had inconsistent neurological findings with right facial droop and it was noted that she probably had malingering episode similar to this in 2013 (when she had refused MRI brain per documentation) and hence tpa was stopped by the ED. History is obtained from patient, her daughter and medical records. Per daughter prior to this event she had palpitations, felt as if her heart was racing but was no diaphoretic. Per daughter patient is under lot of stress. Patient also complained of FONTAINE prior to this episode and along with the episode, which was more frontal and pressure like, with photophobia. She did have HAs for some time but have not been diagnosed with Migraine. She has Epilepsy for about 8 years per daughter and gets GTCs lasting few seconds, with occasional tongue bite, urinary incontinence and post ictal state. The last seizure she had was about 2 yrs ago, takes Depakote and Trileptal for the seizure prophylaxis per daughter. At present patient denies any facial droop, motor weakness but continues to complaint of some numbness in the face and left LE. At baseline per daughter, she lives with her, does not drive, denies repeated falls, ambulates with a walker, needs assistance for her ADLs. [] Past Medical History Past Medical History (Chronic Problems): Chronic Problems Coronary atherosclerosis of [place] coronary vessel (Chronic) History of epilepsy (Chronic) Hyperlipidemia (Chronic) Hypertension (Chronic) Hypothyroidism (Chronic) Obesity (Chronic) Tobacco use disorder (Chronic) History of TIAs (Chronic) Breast cancer, left breast (Chronic) 04/07/15 L mastectomy w/ L sentinel node Bx Morbid obesity (Chronic) Anxiety and depression (Chronic) COPD (chronic obstructive pulmonary disease) (Chronic) Bilateral leg edema (Chronic) Delayed wound healing (Chronic) Malnutrition (Chronic) Leg edema (Chronic) Allergies No Known Allergies Allergy (Verified 05/09/15 13:53) Home Medications: Ambulatory Orders Medication Instructions Recorded Aspirin [Aspirin, Baby] 81 mg PO DAILY@0800 05/09/15 Atorvastatin Calcium [Lipitor] 40 mg PO QHS 05/09/15 BuPROPion (SR) [Wellbutrin Sr] 300 mg PO DAILY 05/09/15 Divalproex Sodium [Depakote] 1,000 mg PO BID 05/09/15 Furosemide [Lasix] 40 mg PO DAILY 05/09/15 Levothyroxine [Synthroid] 200 mcg PO DAILY 05/09/15 Pregabalin [Lyrica] 50 mg PO BID 05/09/15 Sertraline HCl [Zoloft] 100 mg PO BID 05/09/15 Amlodipine [Norvasc] 10 mg PO DAILY 07/12/16 Anastrozole [Arimidex] 1 mg PO DAILY 07/12/16 Ergocalciferol [Vitamin D] 50,000 unit PO 07/12/16 Furosemide [Lasix] 20 mg PO QHS 07/12/16 Oxcarbazepine [Trileptal] 300 mg PO BID 07/12/16 Spironolactone [Aldactone] 25 mg PO DAILY 07/12/16 Lisinopril [Zestril] 20 mg PO BID 04/04/17 Surgical History: noncontributory, - - L breast masectomy, x 2, T+A. Lives: With Family Smoking Status: Current every day smoker - smokes more than a PPD Tobacco Use: Cigarettes Alcohol: None Drugs: None - *Family History Maternal History Items: Heart Disease Paternal History Items: No pertinent history Sibling History Items: - - Cirrhosis of the liver Review of Systems Constitutional: Reports: - - complete ROS negative except as documented in HPI Patient Problems: Active and Suspected Problems Conversion disorder (Acute) Headache (Acute) - Physical Exam General: Alert, Oriented x3, Cooperative HEENT: Atraumatic, PERRLA, EOMI, Normocephalic Neck: Supple, No JVD, Negative Carotid Bruits Lungs: Clear to auscultation, Normal air movement Cardiovascular: Regular rate, No murmurs Abdomen: Bowel Sounds Present, Soft, Non Tender Extremities: No edema, Capillary Refill Less than 3 Seconds Skin: No rashes, No breakdown Musculoskeletal: No Tenderness to Palpation of Joints or Extremities Neurological: - - consious, awake, just woke up from sleep, CN 2-12 grossly intact, Power 5/5 both UE/LE, no pronator drift, no sensory loss except subjective evidence of decreased sensation to light touch left LE, no cerebellar signs, Reflexes + B/L B/S/T/K/A, gait deferred, speech normal. Psych/Mental Status: Normal Affect, Appropriate Vital Signs Temp Pulse Resp BP Pulse Ox 98.3 F 51 L 15 132/67 H 92 04/05/17 13:00 04/05/17 13:00 04/05/17 13:00 04/05/17 13:00 04/05/17 13:00 Oxygen Flow Rate 2 Oxygen Delivery Method Room Air Weight: 140.1 kg Body Mass Index (BMI) 44.6 Intake and Output for Last 24 Hours 04/03/17 04/04/17 04/05/17 23:59 23:59 23:59 Intake Total 100 / 100 991 / 991 Output Total 250 / 250 650 / 650 Balance -150 / -150 341 / 341 Laboratory Tests Past 24 Hrs 04/04/17 04/05/17 04/05/17 22:20 04:50 04:50 WBC 9.6 RBC 4.16 L Hgb 12.4 Hct 38.0 MCV 91.3 MCH 29.8 MCHC 32.6 RDW 14.6 RDW Differential 49.1 H Plt Count 152 MPV 9.3 Sodium 143 Potassium 3.5 Chloride 107 Carbon Dioxide 26.0 Anion Gap 10 BUN 22 H Creatinine 0.88 Estim Creat Clear Calc 73.71 Est GFR (MDRD) Af Amer 86 Est GFR (MDRD) Non-Af 71 BUN/Creatinine Ratio 25.1 H Glucose 82 Calcium 8.7 TSH MRSA (PCR) Negative 04/05/17 04:50 WBC RBC Hgb Hct MCV MCH MCHC RDW RDW Differential Plt Count MPV Sodium Potassium Chloride Carbon Dioxide Anion Gap BUN Creatinine Estim Creat Clear Calc Est GFR (MDRD) Af Amer Est GFR (MDRD) Non-Af BUN/Creatinine Ratio Glucose Calcium TSH 3.51 MRSA (PCR) Assessment/Plan Active and Suspected Problems Conversion disorder (Acute) Headache (Acute) The patient is a 57 year old CF with PMH HTN, HLD, H/O Epilepsy, H/O breast cancer s/p mastectomy and chemotherapy, Depression, ? H/O TIA, hypothyroidism, morbid obesity admitted with acute onset slurred speech, left facial droop. Patient was admitted with stroke like symptoms, NIHSS documented to be 10 on admission, ED discussed with Dr. Cruz and IVtpa was started, but then per documentation patient had inconsistent neurological findings with right facial droop and it was noted that she probably had malingering episode similar to this in 2013 (when she had refused MRI brain per documentation) and hence tpa was stopped by the ED. Per daughter prior to this event she had palpitations, felt as if her heart was racing but was no diaphoretic. Per daughter patient is under lot of stress. Patient also complained of FONTAINE prior to this episode and along with the episode, which was more frontal and pressure like, with photophobia. She did have HAs for some time but have not been diagnosed with Migraine. She has Epilepsy for about 8 years per daughter and gets GTCs lasting few seconds, with occasional tongue bite, urinary incontinence and post ictal state. The last seizure she had was about 2 yrs ago, takes Depakote and Trileptal for the seizure prophylaxis per daughter. At present patient denies any facial droop, motor weakness but continues to complaint of some numbness in the face and left LE. At baseline per daughter, she lives with her, does not drive, denies repeated falls, ambulates with a walker, needs assistance for her ADL Impression Possible Complicated Migraine vs TIA (less likely) vs Conversion d/o H/O Epilepsy Plan -Post tpa protocol -Recommend repeat CT head 24 hrs post tpa -MRI Brain and MRA head/neck reported normal -Recommend continuing ASA post 24 hrs after tpa -Continue Depakote 1000 mg BID and Trileptal 300 mg BID (home dose of her AEDs) -On Lipitor 40 mg PO q hs -Recommend TTE, LDL, Hba1c -Recommend Decadron 4 mg IV q 6 hrly for 24 hrs -Recommend Magnesium Sulphate 1 g IV once -GI/DVT prophylaxis -Recommend PT/OT -Fall precautions. -Goal BP < 130/80 mmHg and Hba1c < 7% -Recommend follow up with Psychiatry and psychology as outpatient. Patient does see a psychiatrist and counselor as outpatient. -Follow up with Neurology as outpatient in 4-6 weeks for FONTAINE. -Please call with questions if any -Thank you for allowing us to participate in patient's care and management I spent 60 minutes of critical care time in the ICU taking history, doing physical examination, reviewing records, coordinating care and counseling the patient and her daughter.
--- NOTE | 2017-04-05 13:45 | ECHOD_ITS ---
Reason For Study: TIA Procedure This was a 2D Doppler, Color Flow transthoracic echocardiogram. Exam performed portable in ICU/CCU. Left Ventricle Normal size and thickness. The estimated ejection fraction is 65 %. Normal diastology for age. No regional wall motion abnormalities noted. Right Ventricle Normal size and thickness. Normal systolic function. Atria Normal left atrium. Normal right atrium. Normal atrial septum. Mitral Valve The mitral valve is structurally normal. No prolapse or stenosis seen. Tricuspid Valve Normal tricuspid valve. Unable to estimate RV systolic pressure/pulmonary artery pressure due to technically difficult study. Aortic Valve Normal aortic valve. Trisinus/trileaflet aortic valve. Pulmonic Valve Normal pulmonic valve. Great Vessels Normal aortic root. Normal arch. Normal inferior vena cava. Inferior vena cava collapse with sniff. MMode/2D Measurements & Calculations LVIDd: 5.3 cm IVSd: 1.3 cm LVOT diam: 2.0 cm LVIDs: 3.2 cm LVPWd: 1.1 cm LVOT area: 3.2 cm2 FS: 38.7 % Ao root diam: 3.0 cm LAV(MOD-bp): 51.5 ml LA dimension: 4.2 cm LAV(MOD-bp) Indexed: 20.8 ml/m2 LA A4 area: 17.8 cm2 LAV(MOD-sp2): 52.6 ml LAV(MOD-sp4): 47.1 ml RA A4 area: 15.2 cm2 Time Measurements MV dec time: 0.26 sec Doppler Measurements & Calculations MV E max nathan: 95.8 cm/sec Lat Peak E' Nathan: 8.6 cm/sec Med Peak E' Nathan: 8.3 cm/sec MV A max nathan: 81.6 cm/sec E/E' lat: 11.1 E/E' med: 11.6 MV E/A: 1.2 MV V2 max: 131.9 cm/sec MV P1/2t max nathan: 131.9 cm/sec Ao V2 max: 148.3 cm/sec MV max P.0 mmHg MV P1/2t: 69.2 msec Ao max P.8 mmHg MV V2 mean: 60.7 cm/sec MV dec slope: 558.8 cm/sec2 Ao V2 mean: 95.0 cm/sec MV mean P.8 mmHg MVA(P1/2t): 3.2 cm2 Ao mean P.0 mmHg MV V2 VTI: 44.5 cm Ao V2 VTI: 30.0 cm MVA(VTI): 1.9 cm2 AURELIA(I,D): 2.8 cm2 AURELIA(V,D): 2.2 cm2 LV V1 max: 103.2 cm/sec SV(LVOT): 82.9 ml PA V2 max: 123.3 cm/sec LV V1 max P.3 mmHg LV V1 mean P.1 mmHg LV V1 mean: 67.6 cm/sec LV V1 VTI: 26.3 cm Interpretation Summary The estimated ejection fraction is 65 %. Normal diastology for age. Unable to estimate RV systolic pressure/pulmonary artery pressure due to technically difficult study. Compared to echo report dated 12/03/2013, no appreciable changes noted. The study was technically difficult. Ordering Physician: Johan Turpin Referring Physician: Moni Jackson Performed By: Jamel Coleman RCS
[2017-04-05 14:09] LABS: Cholesterol 137 mg/dL (200); High Density Lipoprotein 40 mg/dL; Triglycerides 138 mg/dL; Very Low Density Lipoprotein 28 mg/dL (5-40)
[2017-04-05 14:33] LABS: Hemoglobin A1c 5.7 % (4.2-6.3)
--- NOTE | 2017-04-05 15:28 | CASEMGMT ---
Social Work: Referral to see patient from Jovani Gomes RN for possible mental health concerns. Patient admitted for TIA vs. conversion disorder. Attempted to speak with patient in room. Patient's daughter present in room as well. Patient was very lethargic and aroused only long enough to give this SW permission to speak with her daughter. Patient's daughter (Ami) who is 17 and her brother ([place]) who is 14 live with patient. Daughter states that patient's sister is also very involved in patient's life. Daughter states that patient needs help with ADL's although patient does try to be things on her own. Patient has left side weakness form a stroke about 2 1/2 years ago per daughter. Daughter states that patient went to [place] after the stroke for rehab. Patient has a walker, BSC, hospital bed, wheelchair, shower chair and CPAP machine in the home. Patient had a home health nurse who visits once a week for an assessment according to daughter. Daughter believes the RN is from [facility]. Per daughter, patient has someone with her 95% of the time. Patient has [employer] and collects [employer] benefits. Patient receives $347.00 in food stamps for the household. Patient utilizes [employer] for transportation. Per daughter patient's monthly income is able to meet monthly expenses. Patient's daughter states that patient does not drink alcohol or use illicit drugs but does states that patient smokes one plus packs of cigarettes a day. Per daughter patient has a history of depression and daughter states I think it is from all of her health issues. Daughter does state that patient's depression appears to be getting worse. Per patient's MAR, patient is currently taking Zoloft and Wellbutrin. Per daughter, [facility]. Per daughter, patient sees Dr. Regalado 2-3 times a month. Daughter states that patient does have stressors in the home at this time but does not elaborate except to say that my brother is very mean to my mom and they yell at each other alot. This SW asked if brother's father is involved to assist with the behaviors. Daughter states that father is involved but does not live in the home. Discussed options for discharge. Patient's daughter states it is the goal for patient to return home if able but daughter feels patient would be willing to go to a SNF short term if needed and recommended for rehab. Daughter with questions regarding assistance in the home wheel worker. Discussed possibility of home care waiver for care in the home. Daughter aware that this service may take months to set up so this is not a current option for assistance in the home. Daughter states that she is willing take care of my mom but states that she would need some help. Support provided to daughter as she appears to be concerned about future care for patient. Daughter aware that SW will follow closely to assist with D/C planning and emotional support. PLAN: D/C destination undetermined at this time. TONY Rojas
--- NOTE | 2017-04-05 19:43 | CT_ITS ---
STUDY: CT BRAIN WITHOUT CONTRAST REASON FOR EXAM: Female, 57 years old. Post TPA RADIATION DOSAGE (If Supplied By Facility): CTDIvol = ( 44.99 ) mGy, DLP = ( 812.98 ) mGycm TECHNIQUE: Transaxial CT imaging of the brain was performed without administration of intravenous contrast material. Individualized dose optimization techniques were used for this CT. COMPARISON: April 04, 2017. FINDINGS: Normal soft tissue structures. Normal calvarium. Normal size ventricles and extra-axial spaces for the patient's age. Normal white matter tracts of the cerebral hemispheres. Normal basal ganglia and thalami. Normal brainstem. Normal cerebellum. There is no intracranial hemorrhage. There are no findings of an acute ischemic infarction. Mucosal thickening of the maxillary sinuses. CT/Brain/Head without Contrast IMPRESSION: No acute intracranial pathology of the brain. Electronically Signed: Roberto Carlos Parkinson DO at 21:06 EST Tel [phone], Service support ,
[2017-04-05] MEDS: Furosemide 20 MG Tablet PO (21:52)
[2017-04-05] MEDS: Atorvastatin Calcium 40 MG Tablet PO (21:52)
[2017-04-06] VITALS (12 sets, daily range): BP systolic 138–167; BP diastolic 52–75; PULSE 46–61; RESP 11–21; TEMP 36.6–37.1; O2SAT 93–100
[2017-04-06] MEDS: 0.9% NaCl Peripheral Flush Adult/Peds IV ×2 (00:12→05:42)
[2017-04-06] MEDS: CHLORHEXIDINE GLUC 2% CLOTH 1 EACH TOWELETTE TOPICAL (05:43)
[2017-04-06] MEDS: Levothyroxine 100 MCG Tablet 200 MCG PO (06:16)
--- NOTE | 2017-04-06 09:46 | PCM.DC ---
- Discharge Diagnoses Current Active Problems: Current Active and Chronic Problems Conversion disorder (Acute) Headache (Acute) You will use the following diet at home:: Cardiac Discharge Activity: May Not Drive Allergies/Adverse Reactions: Allergies No Known Allergies Allergy (Verified 05/09/15 13:53) Medications to take at Discharge Aspirin [Aspirin, Baby] 81 mg PO DAILY@0800 05/09/15 Atorvastatin Calcium [Lipitor] 40 mg PO QHS 05/09/15 BuPROPion (SR) [Wellbutrin Sr] 300 mg PO DAILY 05/09/15 Divalproex Sodium [Depakote] 1,000 mg PO BID 05/09/15 Furosemide [Lasix] 40 mg PO DAILY 05/09/15 Levothyroxine [Synthroid] 200 mcg PO DAILY 05/09/15 Pregabalin [Lyrica] 50 mg PO BID 05/09/15 Sertraline HCl [Zoloft] 100 mg PO BID 05/09/15 Amlodipine [Norvasc] 10 mg PO DAILY 07/12/16 Anastrozole [Arimidex] 1 mg PO DAILY 07/12/16 Ergocalciferol [Vitamin D] 50,000 unit PO 07/12/16 Furosemide [Lasix] 20 mg PO QHS 07/12/16 Oxcarbazepine [Trileptal] 300 mg PO BID 07/12/16 Spironolactone [Aldactone] 25 mg PO DAILY 07/12/16 Lisinopril [Zestril] 20 mg PO BID 04/04/17 Primary Care Physician: Moni Jackson MD [Primary Care Provider] - Please follow up with your Primary Care Physician in: in 5-7 days Proposed Discharge Date: 04/06/17
--- NOTE | 2017-04-06 09:49 | DS.PCM_ITS ---
Discharge Date and Diagnosis - Problem List Patient Problems: Active and Suspected Problems Conversion disorder (Acute) Headache (Acute) Date of Admission: 04/04/17 Date of Discharge: 04/06/17 - Primary Discharge Diagnosis Active and Suspected Problems Conversion disorder (Acute) Headache (Acute) - Secondary Discharge Diagnosis Chronic Problems Coronary atherosclerosis of [place] coronary vessel (Chronic) History of epilepsy (Chronic) Hyperlipidemia (Chronic) Hypertension (Chronic) Hypothyroidism (Chronic) Obesity (Chronic) Tobacco use disorder (Chronic) History of TIAs (Chronic) Breast cancer, left breast (Chronic) 04/07/15 L mastectomy w/ L sentinel node Bx Morbid obesity (Chronic) Anxiety and depression (Chronic) COPD (chronic obstructive pulmonary disease) (Chronic) Bilateral leg edema (Chronic) Delayed wound healing (Chronic) Malnutrition (Chronic) Leg edema (Chronic) Hospital Course and Treatment Imaging Results: Clinical Impression(s) from Imaging Studies Brain CT 04/04/17 18:01 IMPRESSION: No acute intracranial pathology of the brain. Bilateral maxillary sinus disease. N.B. : The above information has been verbally conveyed by Roberto Carlos Parkinson DO to Martín Dyer [facility] ED RN, on 04/04/2017 20:21:01 (ET). Electronically Signed: Roberto Carlos Parkinson DO at 20:18 EST Tel [phone], Service support , N.B. : The above information has been verbally conveyed by Roberto Carlos Parkinson DO to Martín Dyer [facility] RN, on 04/04/2017 20:21:01 (ET). Neck MRA 04/05/17 07:27 IMPRESSION: 1. Normal aortic arch and origins of the great vessels. 2. Widely patent common carotid arteries, common carotid bifurcations, internal and external carotid arteries. 3. Widely patent codominant vertebral arteries in the cervical segments and intradural segments. 4. Persistent intersegmental anastomosis between the distal intradural segments of the vertebral arteries rather than a fenestrated proximal basilar artery. This is a developmental variation of normal. 5. Nonvisualization of the subclavian origin of the codominant right vertebral artery. High-grade stenosis of the subclavian origin of the right vertebral artery is difficult to exclude. 6. No suspicious stenosis of the subclavian origin of the codominant left vertebral artery. Electronically Signed: Brice Sanford MD at 12:56 EST , Service support , Brain MRI 04/05/17 07:49 IMPRESSION: 1. Normal unenhanced MRI of the brain. 2. Pronounced mucosal thickening in the maxillary sinuses are the only new findings since 01/01/2013. Electronically Signed: Brice Sanford MD at 12:33 EST , Service support , Head MRA 04/05/17 07:49 IMPRESSION: Normal MRA of the head Electronically Signed: Brice Sanford MD at 12:31 EST , Service support , Brain CT 04/05/17 19:43 IMPRESSION: No acute intracranial pathology of the brain. Electronically Signed: Roberto Carlos Parkinson DO at 21:06 EST Tel [phone], Service support , Operations: None Summary of Care Provided: 70-year-old lady with past medical history is none for left breast CA status post mastectomy currently on Arimidex who presented with left facial droop. A suspicion of acute CVA was entertained in the ED patient apparently did receive TPA and subsequently admitted to the intensive care unit for further management 1. Right facial droop: Acute CVA was ruled out with MRI. Patient was seen in consultation by Dr. Turpin with neurology who felt patient had a complex migraine management was as he recommended 2. Acute complex migraine patient was managed with magnesium sulfate as well as Decadron as recommended by neurology 3. Left breast CA status post mastectomy patient currently on Arimidex 4. Essential hypertension blood pressure stable 5. Hypothyroidism-patient is on levothyroxine home dose continued 6. Dyslipidemia-patient is on statin therapy, continued at home dose X 7. Obstructive sleep apnea per history 8. Depression with anxiety patient is on Wellbutrin 9. Morbid obesity with BMI of 45 lifestyle modification including weight loss advised 10. History of seizure disorder patient is on TEDs did continue 11. DVT prophylaxis SCDs for now since patient did receive TPA Discharge Diet: Low fat/ Low Cholesterol Discharge Activity: May Not Drive Home Medications: Medications to take at Discharge Aspirin [Aspirin, Baby] 81 mg PO DAILY@0800 05/09/15 Atorvastatin Calcium [Lipitor] 40 mg PO QHS 05/09/15 BuPROPion (SR) [Wellbutrin Sr] 300 mg PO DAILY 05/09/15 Divalproex Sodium [Depakote] 1,000 mg PO BID 05/09/15 Furosemide [Lasix] 40 mg PO DAILY 05/09/15 Levothyroxine [Synthroid] 200 mcg PO DAILY 05/09/15 Pregabalin [Lyrica] 50 mg PO BID 05/09/15 Sertraline HCl [Zoloft] 100 mg PO BID 05/09/15 Amlodipine [Norvasc] 10 mg PO DAILY 07/12/16 Anastrozole [Arimidex] 1 mg PO DAILY 07/12/16 Ergocalciferol [Vitamin D] 50,000 unit PO 07/12/16 Furosemide [Lasix] 20 mg PO QHS 07/12/16 Oxcarbazepine [Trileptal] 300 mg PO BID 07/12/16 Spironolactone [Aldactone] 25 mg PO DAILY 07/12/16 Lisinopril [Zestril] 20 mg PO BID 04/04/17 Primary Care Physician: Moni Jackson MD [Primary Care Provider] - Please follow up with your Primary Care Physician in: in 5-7 days Disposition: Home Minutes spent on discharge:: 35 Patient Condition:: Stable Meaningful Use Info Meaningful Use Diagnoses (Choose all that apply): None applicable Code Visit Inpatient E&M: 59431 Disch Hosp
--- NOTE | 2017-04-06 10:51 | CASEMGMT ---
Pt is being discharged home today. SW spoke w/pt, SW woke pt up several times during our conversation. Pt confirms can manage at home. Pt confirms has [facility] for nursing, is agreeable to have SW add PT and aide services. SW called [facility], spoke w/Myriam, they can add aide services if authorized and PT. SW faxed all discharge instructions including face to face and order to [facility]. SW also spoke w/pt about counseling, pt confirms sees a psychiatrist at [facility], is agreeable to have counseling there as well. SW called [facility], pt has not been to see the psychiatrist since June, missed two appointments and cancelled one appointment. SW was able to make an appt for counseling on April 10 at 4:30pm and to see the psychiatrist on April 18 at 2:30pm. They asked SW to fax clinical information to them. SW wrote the appointments down and reviewed them w/the pt, then left them w/the nurse to review again w/the pt and give to her w/the discharge instructions. SW asked pt about getting to the appointments. Pt states she ran out of rides from [facility], but called and got more rides so she will be able to get to these appointments. SW encouraged her to call and set up transport as soon as she gets home. Pt signed a release for SW to send clinical information to [facility]. SW also asked pt about Waiver Services, pt is agreeable to complete the application and have SW mail it in to [facility]. SW and pt completed the application and SW mailed it to [facility]. SW faxed clinical information to [facility]. No further needs anticipated, pt home w/home health w/PT, RN and aide services, application sent to [facility] for Waiver, and appts set up at [facility]. TONY Mcmanus, MANAGER [place]
--- NOTE | 2017-04-06 10:57 | NURSING ---
pt states she wants to take all of her medications at home since she is being discharged
== END 2017-04-06 13:30 | disposition home or self-care (01) | DRG 425 ==
LOC: ED 20:34 → ICU 21:54 → PCU 10-25 09:57
PROVIDERS: Internal Medicine Critical Care Medicine; Psychiatry & Neurology Neurology; Admitting Provider Internal Medicine; Emergency Provider Emergency Medicine; Family Provider Internal Medicine; PCP Internal Medicine; Visit Provider Internal Medicine
DX: F44.9 Dissociative and conversion disorder, unspecified (principal); E66.01 Morbid (severe) obesity due to excess calories; J44.9 Chronic obstructive pulmonary disease, unspecified; G43.109 Migraine with aura, not intractable, without status migrainosus; R29.810 Facial weakness; E03.9 Hypothyroidism, unspecified; F17.210 Nicotine dependence, cigarettes, uncomplicated; I10 Essential (primary) hypertension; E78.5 Hyperlipidemia, unspecified; I25.10 Atherosclerotic heart disease of native coronary artery without angina pectoris; G40.909 Epilepsy, unspecified, not intractable, without status epilepticus; F41.8 Other specified anxiety disorders; G47.33 Obstructive sleep apnea (adult) (pediatric); Z79.82 Long term (current) use of aspirin; Z85.3 Personal history of malignant neoplasm of breast; Z90.10 Acquired absence of unspecified breast and nipple; Z68.42 Body mass index [BMI] 45.0-49.9, adult
CPT/HCPCS: 51702; 70450; 70544; 70549; 70551; 80048; 80061; 80164; 82962; 83036; 84443; 84484; 85025; 85027; 85610; 85730; 87641; 93005; 93306; 97802; 99218; 99251; 99285; A9585; J2997; J7030; Q9957; 90686; A4216; G0378; G0463

== ENCOUNTER 2017-07-12 14:20 | Emergency (ER) | payer MEDICAID, SELFPAY ==
[2017-07-12 14:21] VITALS: BP 142/69; PULSE 46; RESP 22; TEMP 36.2; O2SAT 96; BMI 43.7
[2017-07-12 14:25] VITALS: PULSE 44
--- NOTE | 2017-07-12 14:43 | NURSING ---
CALLED [facility] FOR MED LIST, TALKED TO DAVIS. SHE WILL FAX MED LIST
--- NOTE | 2017-07-12 15:02 | RAD_ITS ---
STUDY: X-RAY CHEST REASON FOR EXAM: Female, 57 years old. Chest pain. TECHNIQUE: Single AP portable view of the chest. COMPARISON: Comparison is made with prior study dated December 01, 2014. FINDINGS: EKG electrodes are seen. The lungs are clear and expanded. There is no demonstrated pleural abnormality. There is borderline cardiomegaly. Normal mediastinum and janice. Normal visualized pulmonary arteries. Normal visualized aortic arch and descending thoracic aorta. Normal visualized thoracic spine. Normal visualized ribs, clavicles, and shoulders. There is no demonstrated abnormality of the visualized soft tissue structures of the upper abdomen. RAD/Chest 1 View (Portable) IMPRESSION: No acute abnormality is seen. Electronically Signed: Jerry Sellers MD at 15:34 EDT Tel [phone], Service support ,
--- NOTE | 2017-07-12 15:02 | EKG12_ITS ---
Test Reason : CP Blood Pressure : / mmHG Vent. Rate : 046 BPM Atrial Rate : 046 BPM P-R Int : 202 ms QRS Dur : 096 ms QT Int : 538 ms P-R-T Axes : 061 -06 025 degrees QTc Int : 470 ms Sinus bradycardia Otherwise normal ECG Confirmed by AUDRA HUERTAS ([id number]), assistant editor KARIN BLACKBURN ([id number]) on 07/17/2017 2:05:41 PM Referred By: JOLIE Confirmed By:AUDRA HUERTAS
[2017-07-12 15:20] LABS: Absolute Lymphocyte Count 3.31 X10^3/ul (0.83-4.51); Absolute Neutrophil Count 3.4 X10^3/uL (2.0-7.7); Basophil# 0.06 X10^3/uL; Basophil% 0.8 % (0-1); Eosinophil# 0.14 X10^3/uL; Eosinophils% 1.8 % (0-5); Hematocrit 40.7 % (37-47); Hemoglobin 13.2 g/dl (12.0-15.0); Lymphocyte # 3.31 X10^3/ul (4.0); Lymphocyte % 41.5 % (19-41); Mean Corp Hgb Conc 32.4 g/gl (32-36); Mean Corpuscular Hgb 29.7 pg (27.0-32.0); Mean Corpuscular Volume 91.7 fL (81-99); Mean Platelet Vol. 9.7 fl (6.2-12.0); Monocyte# 1.08 X10^3/uL; Monocyte% 13.5 % (0-10); Neutrophil # 3.36 X10^3/uL (2.7-7.7); POSITIVE COUNT NO; POSITIVE DIFFERENTIAL NO; POSITIVE MORPHOLOGY NO; Platelet Count 188 K/mm3 (150-450); RBC Distribution Width CV 13.9 % (11.6-14.6); RBC Distribution Width SD 46.5 fl (35.1-43.9); Red Blood Count 4.44 M/mm3 (4.2-5.4)
--- NOTE | 2017-07-12 15:27 | ED.VISSUMM ---
- ER Visit Summary Date of Service: 07/12/17 Chief Complaint: Chest pain and confusion History of Present Illness: The patient is a 57 F who states when she woke this morning she felt weak and slightly not levelheaded. She states her daughter took her heart rate as well as her nurse and they noted to be the high 30s low 40s. She states that she felt a stabbing left-sided chest pain while waiting for the ambulance. EMS documents that she noted a chest pressure for them. Prehospital EKG showed a heart rate of 52. She notes no recent medication changes other than the addition of a new anxiety medicine several months ago. Multiple medical problems including hypertension high cholesterol COPD obesity hypothyroidism conversion disorder lymphedema. Physical Examination: Afebrile vital signs are stable. Noted heart rate of 44 Gen: Well-nourished well-developed obese Head: Normocephalic atraumatic Eyes: Perrl EOMI ENT: TMs clear no rhinorrhea moist mucous membranes Neck: Supple no lymphadenopathy no JVD nontender CVS: Bradycardic rate rhythm no murmurs normal S1-S2 Respiratory: No distress clear to auscultation bilaterally chest nontender Abdomen: Soft nontender nondistended normal bowel sounds no masses Back: Nontender Extremity: Nontender bilateral 2+ lower extremity edema Skin: Normal color no rash Neuro: alert orientated ?3 CN II-XII intact normal strength sensation reflexes gait cerebellar Psych: Flat affect Test Results: eKG shows a sinus bradycardia at a rate of 46. CBC BMP magnesium troponin were negative. Chest x-ray negative. Emergency Department Course and Treatment: Patient's heart rate has remained in the 40s. She ambulated without difficulty. Reviewing the patient's chart going back to 2013 and she has documented heart rates in the 40s in the 50s. I do not believe that this is a new finding for the patient. Patient also has a significant psychiatric history which includes conversion disorder. I believe the patient can follow-up with her primary care doctor. Patient's MARITZA score is 2. There is a report in the computer about coronary artery disease I do not see any heart catheterization report. Patient has no prior knowledge of cardiac disease. Her only other point is for aspirin use. Impression: 1. Sinus bradycardia 2. Chest pain This note was generated with [employer] dictation software. It may contain incorrect words, spelling, and punctuation that were not noted in review of the chart prior to signing ED Disposition - Plan for ED Patient: Disposition: Home or Assisted Living Chief Complaint: Chest Pain Instructions: ED Bradycardia, ED Chest Pain Atypical Unkn Cause Referrals: Moni Jackson MD [Primary Care Provider] - (Call today to schedule follow-up from today's visit) Victorino Chilel MD [STAFF PHYSICIAN] - (Call today to schedule follow-up from today's visit)
[2017-07-12 15:30] LABS: Anion Gap 7 (5-15); BUN 21 mg/dL (7-18); BUN/Creat Ratio 19.8 RATIO (10-20); Calcium,Total 9.1 mg/dL (8.5-10.1); Chloride 106 mmol/L (98-107); Creatinine, Serum 1.06 mg/dL (0.55-1.02); EST Glomerular Filtration Rate 57 mL/min (>60); Est Glom Filt Rate - Afr Amer 69 mL/min (>60); Glucose 88 mg/dL (74-106); Potassium 3.8 mmol/L (3.5-5.1); Sodium Level 142 mmol/L (136-145)
[2017-07-12 15:32] LABS: Valproic Acid (Depakene) Level 46 ug/mL (50-100)
[2017-07-12 16:00] LABS: Magnesium 2.5 mg/dL (1.6-2.6)
[2017-07-12 16:07] VITALS: BP 165/77; PULSE 43; RESP 18; O2SAT 94
[2017-07-12 16:22] VITALS: BP 151/59; PULSE 43; RESP 14; O2SAT 97
[2017-07-12 17:16] VITALS: BP 159/74; PULSE 42; RESP 18; O2SAT 97
--- NOTE | 2017-07-12 17:16 | ED.RN ---
THIS NURSE REVIEWED D/C INSTRUCTIONS WITH PT. PT VERBALIZED UNDERSTANDING OF INSTRUCTIONS. IV D/C. IV CATHETER INTACT. PT TOLERATED WELL. PT DENIES FURTHER NEEDS OR QUESTIONS AT THIS TIME
== END 2017-07-12 17:25 | disposition home or self-care (01) ==
PROVIDERS: Emergency Provider Emergency Medicine; Family Provider Internal Medicine; PCP Internal Medicine
DX: R07.89 Other chest pain (principal); R00.1 Bradycardia, unspecified; R53.1 Weakness; F41.9 Anxiety disorder, unspecified; I10 Essential (primary) hypertension; E78.00 Pure hypercholesterolemia, unspecified; J44.9 Chronic obstructive pulmonary disease, unspecified; E03.9 Hypothyroidism, unspecified; I89.0 Lymphedema, not elsewhere classified; E66.9 Obesity, unspecified; Z68.41 Body mass index [BMI] 40.0-44.9, adult; Z71.3 Dietary counseling and surveillance; F44.9 Dissociative and conversion disorder, unspecified; Z86.73 Personal history of transient ischemic attack (TIA), and cerebral infarction without residual deficits; Z72.0 Tobacco use; Z79.899 Other long term (current) drug therapy; Z79.82 Long term (current) use of aspirin
CPT/HCPCS: 71045; 80048; 80164; 83735; 84484; 85025; 93005; 99285; A4216

== ENCOUNTER → 2017-09-05 08:55 | Outpatient (CLI) | payer MEDICAID, SELFPAY | PROVIDERS: Family Provider Internal Medicine; PCP Internal Medicine; Visit Provider Internal Medicine Cardiovascular Disease | DX: R00.1 Bradycardia, unspecified (principal); I25.10 Atherosclerotic heart disease of native coronary artery without angina pectoris; R07.89 Other chest pain | CPT/HCPCS: 93225; 93226 ==

== ENCOUNTER → 2017-11-07 06:57 | Outpatient (CLI) | payer MEDICAID, SELFPAY ==
--- NOTE | 2017-11-07 10:00 | STRESSREP_ITS ---
Stress Test Report Date: 11/07/2017 Procedure: Pharmacologic stress nuclear imaging study Indications: Chest pain Consent: Per the patient Procedure: The patient underwent pharmacologic (Regadenoson) evaluation with a peak heart rate of 121 beats per minute (74 predicted maximal heart rate) and a peak blood pressure of 150/92 mmHg. The baseline ECG demonstrated sinus bradycardia. The peak pharmacologic ECG demonstrated no obvious ECG changes. There were no cardiac dysrhythmias pretest, during pharmacologic infusion, or recovery. There was no complaint of chest discomfort during pharmacologic infusion or recovery. The examination was discontinued secondary to completion of protocol. Impression: 1. Pharmacologic (Regadenoson) evaluation 2. Peak pharmacologic ECG with no obvious ECG changes. 3. There were no cardiac dysrhythmias pretest, during pharmacologic infusion, or recovery 4. Nuclear images pending Myocardial perfusion imaging study: Technique: The patient was injected with 14.2 millicuries of technetium 99m Cardiolite and subsequently rest SPECT Cardiolite nuclear imaging was obtained in the horizontal long, vertical long, and short axis views. The patient underwent pharmacologic (Regadenoson) evaluation with a peak heart rate of 121 beats per minute (74 % percent predicted maximal heart rate) and a peak blood pressure of 150/92 mmHg. The patient was injected with 45 millicuries of technetium 99m Cardiolite and subsequently stress SPECT Cardiolite nuclear imaging was obtained in the horizontal long, vertical long, and short axis views. A gated Cardiolite study at peak stress was obtained. Interpretation: Rest and stress SPECT Cardiolite nuclear imaging status post realignment, normalization, and attenuation correction demonstrate relative uniform tracer uptake and myocardial perfusion appearing within normal limits. There is end systolic thickening and brightening. The gated Cardiolite study demonstrates myocardial thickening and inward wall motion. The reported LVEF is 55 %. Impression: 1. Rest and stress SPECT Cardiolite nuclear imaging demonstrate relative uniform tracer uptake and myocardial perfusion appearing within normal limits. 2. The gated Cardiolite study reports an LVEF of 55 %. This note was generated with [employer] software. It may contain incorrect words, spelling, and punctuation that were not noted in checking the note before signing.
== END ==
PROVIDERS: Family Provider Internal Medicine; PCP Internal Medicine; Visit Provider Internal Medicine Cardiovascular Disease
DX: R00.1 Bradycardia, unspecified (principal); R07.89 Other chest pain
CPT/HCPCS: 78452; 93017; A9500; A4216; J2785

== ENCOUNTER 2018-05-03 12:49 | Inpatient (IN) | payer MEDICAID, SELFPAY ==
[2018-05-03] VITALS (13 sets, daily range): BP systolic 171–189; BP diastolic 73–85; PULSE 54–62; RESP 13–16; TEMP 36.2–36.5; O2SAT 88–98; BMI 44.2; BMI 44.3; BMI 43.2
--- NOTE | 2018-05-03 13:11 | CT_ITS ---
STUDY: CT CERVICAL SPINE WITHOUT CONTRAST REASON FOR EXAM: Female, 58 years old. History of fall. RADIATION DOSAGE (If Supplied By Facility): CTDIvol = ( 47.5 ) mGy, DLP = ( 1891.06 ) mGycm TECHNIQUE: High resolution transaxial imaging was performed without contrast material. Sagittal and coronal images were reconstructed. Individualized dose optimization techniques were used for this CT. COMPARISON: None FINDINGS: Normal craniovertebral junction. There are degenerative changes of the anterior atlantoaxial articulation. Normal odontoid process. There is straightening of the normal cervical lordosis. Normal vertebral bodies and posterior osseous elements. C2-3: Normal endplates. Normal disc height and morphology. Normal central canal and intervertebral neuroforamina. C3-4: Normal endplates. Normal disc height and morphology. Normal central canal and intervertebral neuroforamina. Facet joint osteoarthritis and hypertrophy on the left side. C4-5: Mild anterior spondylosis. The disc space is relatively well maintained. C5-6: Moderate degree of disc space narrowing. Anterior spondylosis. C6-7: Moderate degree of disc space narrowing. Anterior and posterior spondylosis causing deformity of the anterior thecal sac and mild degree of bilateral neural foraminal stenosis. C7-T1: Normal endplates. Normal disc height and morphology. Normal central canal and intervertebral neuroforamina. Normal visualized soft tissue structures. CT/Spine Cervical without Contras IMPRESSION: Multilevel degenerative changes, as described above. Electronically Signed: Jerry Sellers MD at 15:15 EST Tel [phone], Service support ,
--- NOTE | 2018-05-03 13:11 | EKG12_ITS ---
Test Reason : FALL Blood Pressure : / mmHG Vent. Rate : 057 BPM Atrial Rate : 057 BPM P-R Int : 194 ms QRS Dur : 094 ms QT Int : 518 ms P-R-T Axes : 042 -02 032 degrees QTc Int : 504 ms Sinus bradycardia Left ventricular hypertrophy with repolarization abnormality Prolonged QT Abnormal ECG Confirmed by GERARDO VALLEJO, MAKAYLA ([id number]), content editor KARIN BLACKBURN ([id number]) on 05/08/2018 10:58:12 AM Referred By: JOSH Confirmed By:MAKAYLA CARRILLO MD
--- NOTE | 2018-05-03 13:11 | RAD_ITS ---
STUDY: X-RAY - PELVIS REASON FOR EXAM: Female, 58 years old. Pain following a fall. TECHNIQUE: One view of the pelvis was obtained. COMPARISON: None. FINDINGS: There is a non-specific bowel gas pattern. Normal visualized soft tissue structures. Normal bilateral iliac wings, sacroiliac joints and visualized sacrum. Normal visualized bilateral superior and inferior pubic rami. Normal pubic symphysis. Normal ischial tuberosities. Normal visualized right femoral head. There is osteoarthritic spur formation of the right acetabular rim. There is mild articular joint space narrowing of the right hip. Normal visualized left femoral head. Normal left acetabulum. There is mild articular joint space narrowing of the left hip. RAD/Pelvis 1 or 2 Views IMPRESSION: Mild degree of degenerative changes of the hip joints. Electronically Signed: Jerry Sellers MD at 14:44 EST Tel [phone], Service support ,
--- NOTE | 2018-05-03 13:11 | RAD_ITS ---
STUDY: X-RAY - RIGHT KNEE REASON FOR EXAM: Female, 58 years old. History of fall. Pain. TECHNIQUE: 2 view(s) of the knee. COMPARISON: None. FINDINGS: Normal visualized distal femur. Normal visualized proximal tibia and fibula. Normal proximal tibiofibular articulation. There is moderate degenerative arthrosis of the medial femorotibial compartment with moderate joint space narrowing. There is moderate degenerative arthrosis of the lateral femorotibial compartment with moderate joint space narrowing. There is mild degenerative arthrosis of the patellofemoral articulation. Small joint effusion. Soft tissue swelling. RAD/Knee 1 or 2 Views IMPRESSION: Degenerative arthrosis. Soft tissue swelling. Small joint effusion. Electronically Signed: Jerry Sellers MD at 14:30 EST Tel [phone], Service support ,
--- NOTE | 2018-05-03 13:11 | RAD_ITS ---
STUDY: X-RAY - LUMBAR SPINE REASON FOR EXAM: Female, 58 years old. History of fall. Low back pain. TECHNIQUE: 3 view(s) of the lumbar spine were obtained. COMPARISON: None FINDINGS: Normal lumbar lordosis. There is no substantial scoliosis. There is a normal alignment of the vertebrae. There is multilevel endplate spondylosis of the lumbar vertebrae. There is multi-level degenerative disc disease with multi-level disc space narrowing. Facet joint osteoarthritis. Moderate amount of fecal material is seen in rectosigmoid colon. RAD/Lumbar Spine 2 or 3 Views IMPRESSION: Degenerative changes of the spine, as detailed above. Electronically Signed: Jerry Sellers MD at 14:40 EST Tel [phone], Service support ,
--- NOTE | 2018-05-03 13:11 | RAD_ITS ---
STUDY: X-RAY - LEFT KNEE REASON FOR EXAM: Female, 58 years old. Pain following a fall. TECHNIQUE: AP and lateral view(s) of the knee. COMPARISON: None. FINDINGS: Normal visualized distal femur. Normal visualized proximal tibia and fibula. Normal proximal tibiofibular articulation. There is moderate degenerative arthrosis of the medial femorotibial compartment with moderate joint space narrowing. There is mild degenerative arthrosis of the lateral femorotibial compartment. There is mild degenerative arthrosis of the patellofemoral articulation. Small joint effusion. RAD/Knee 1 or 2 Views IMPRESSION: Degenerative arthrosis. Small joint effusion. Electronically Signed: Jerry Sellers MD at 14:30 EST Tel [phone], Service support ,
--- NOTE | 2018-05-03 13:11 | CT_ITS ---
STUDY: CT BRAIN WITHOUT CONTRAST REASON FOR EXAM: Female, 58 years old. History of fall. RADIATION DOSAGE (If Supplied By Facility): CTDIvol = ( 60.81 ) mGy, DLP = ( 1089.89 ) mGycm TECHNIQUE: Transaxial CT imaging of the brain was performed without administration of intravenous contrast material. Individualized dose optimization techniques were used for this CT. COMPARISON: Comparison is made with prior study dated April 05, 2017. FINDINGS: Normal soft tissue structures. Normal calvarium. There is mild cerebral atrophy with widening of the extra-axial spaces and ventricular dilatation. Normal white matter tracts of the cerebral hemispheres. Normal basal ganglia and thalami. Normal brainstem. Normal cerebellum. There is no intracranial hemorrhage. There are no findings of an acute ischemic infarction. Atherosclerotic calcification of the cavernous portions of the internal carotid arteries bilaterally. Normal visualized paranasal sinuses. CT/Brain/Head without Contrast IMPRESSION: Chronic involutional changes of the brain. Electronically Signed: Jerry Sellers MD at 14:59 EST Tel [phone], Service support ,
--- NOTE | 2018-05-03 13:11 | RAD_ITS ---
STUDY: X-RAY CHEST REASON FOR EXAM: Female, 58 years old. History of fall. Drowsiness. TECHNIQUE: Single AP portable view of the chest. COMPARISON: None. FINDINGS: EKG electrodes are seen. Stable mild elevation of the right hemidiaphragm. There is no demonstrated pleural abnormality. Normal size heart. Normal mediastinum and janice. Normal visualized pulmonary arteries. There is atherosclerotic tortuosity of the aortic arch and descending thoracic aorta. Normal visualized thoracic spine. Normal visualized ribs, clavicles, and shoulders. There is no demonstrated abnormality of the visualized soft tissue structures of the upper abdomen. RAD/Chest 1 View (Portable) IMPRESSION: No acute abnormality is seen. Electronically Signed: Jerry Sellers MD at 14:29 EST Tel [phone], Service support ,
--- NOTE | 2018-05-03 13:15 | RAD_ITS ---
STUDY: X-RAY - LEFT HAND REASON FOR EXAM: Female, 58 years old. History of fall. Pain TECHNIQUE: 3 view(s) of the hand. COMPARISON: None. FINDINGS: Normal radiocarpal articulation. Normal distal radioulnar joint. Normal visualized carpal bones. Normal carpal articulations Normal carpometacarpal articulation of the thumb. Normal second through fifth carpometacarpal joints. Normal metacarpi. Normal metacarpophalangeal joint of the thumb. Normal interphalangeal joint of the thumb. Normal proximal and distal phalanges of the thumb. Normal metacarpophalangeal joints of the second through fifth fingers. Normal proximal and distal interphalangeal joints of the second through fifth fingers. Normal phalanges of the second through fifth fingers. The soft tissue structures are unremarkable. RAD/Hand Min 3 Views IMPRESSION: Normal x-ray examination of the hand. Electronically Signed: Jerry Sellers MD at 14:31 EST Tel [phone], Service support ,
[2018-05-03 13:46] LABS: Base Excess -1 mmol/L (-2 to +2); Bicarbonate 23.7 mmol/L (22-26); Blood Gas Specimen Type ART; O2 Delivery Device Room Air; PO2 55 mmHG (75-100); SITE R Radial; SO2 88 % (95-99); Time Given 1342; Total Carbon Dioxide 25 mmol/L; pCO2 40.6 mmHg (35-45); pH 7.38 (7.35-7.45)
[2018-05-03 13:48] LABS: Absolute Lymphocyte Count 2.31 X10^3/ul (0.83-4.51); Absolute Neutrophil Count 3.2 X10^3/uL (2.0-7.7); Basophil# 0.03 X10^3/uL; Basophil% 0.4 % (0-1); Hematocrit 39.8 % (37-47); Lymphocyte # 2.31 X10^3/ul (4.0); Lymphocyte % 34.2 % (19-41); Mean Corp Hgb Conc 32.7 g/gl (32-36); Mean Corpuscular Hgb 29.2 pg (27.0-32.0); Mean Corpuscular Volume 89.4 fL (81-99); Mean Platelet Vol. 9.2 fl (6.2-12.0); Monocyte# 0.99 X10^3/uL; Monocyte% 14.6 % (0-10); Neutrophil % 47.4 % (47-70); POSITIVE COUNT NO; POSITIVE DIFFERENTIAL NO; POSITIVE MORPHOLOGY NO; Platelet Count 173 K/mm3 (150-450); RBC Distribution Width CV 15.2 % (11.6-14.6); RBC Distribution Width SD 49.7 fl (35.1-43.9); Red Blood Count 4.45 M/mm3 (4.2-5.4); White Blood Count 6.8 K/mm3 (4.4-11.0)
[2018-05-03 14:04] LABS: Anion Gap 8 (5-15); BUN 17 mg/dL (7-18); Calcium,Total 8.7 mg/dL (8.5-10.1); Chloride 108 mmol/L (98-107); Creatinine, Serum 1.06 mg/dL (0.55-1.02); EST Glomerular Filtration Rate 57 mL/min (>60); Est Glom Filt Rate - Afr Amer 68 mL/min (>60); Estimated Creatinine Clearance 62.56 ml/min; Glucose 96 mg/dL (74-106); Potassium 3.3 mmol/L (3.5-5.1); Sodium Level 142 mmol/L (136-145); Thyroid Stim Hormone (TSH) 4.12 uIU/mL (0.358-3.74)
[2018-05-03 14:35] LABS: Valproic Acid (Depakene) Level 109 ug/mL (50-100)
[2018-05-03 14:57] LABS: Bacteria 0 SEEN /hpf (None Seen); Red Blood Cells-Urine 0 SEEN /hpf (0-5); White Blood Cells 0 SEEN /hpf (0-5)
[2018-05-03 15:13] LABS: Color, Urine Yellow (Yellow); Glucose, Dipstick Normal (Normal); Ketone-Dipstick 5 mg/dl (Negative); Leukocyte Esterase-Dipstick Negative /ul (Negative); Nitrite-Dipstick Negative (Negative); Occult Blood-Urine 10 /ul (Negative); Protein-Dipstick 30 mg/dl (Negative); Urine Bilirubin Dipstick Negative (Negative); Urine Clarity Clear (Clear); Urine Urobilinogen Normal (Normal)
[2018-05-03 15:21] LABS: Squamous Epithelial Cells - UA 0-5 SEEN /hpf (5-10)
[2018-05-03 15:22] LABS: Hyaline Cast 0-5 SEEN /lpf (0-5); Mucous, Urine RARE /hpf (<or=2+)
--- NOTE | 2018-05-03 15:35 | ED.VISSUMM ---
- ER Visit Summary Date of Service: 05/03/18 Chief Complaint: Falls History of Present Illness: The patient is a 58 F with a history of morbid obesity and obstructive sleep apnea among her other chronic medical conditions. [facility] They have her leave the facility for 8 hours a day. She left today and has fallen twice since leaving the facility. On 1 of the falls, she did lose consciousness briefly. She did hit her head. She also complains of left hand and bilateral knee pain. Denies blood thinner use. She is not compliant with BiPAP. No other complaints. History is very limited as the patient is very somnolent. Physical Examination: Afebrile and hemodynamically normal. Patient is somnolent but arouses to voice. She will answer with very brief answers and then fall asleep again. Head and neck are grossly atraumatic. Neck is nontender. Heart regular. Lungs clear. Abdomen soft and nontender. Tender to palpation to her left hand and bilateral knees. No deformity. No laxity. Neurovascularly intact distally. Patient has venous stasis changes and lymphedema to her legs bilaterally. No focal or lateralizing neurologic abnormalities. GCS 14. Test Results: EKG showed sinus rhythm with a rate of 57. CBC normal. Potassium 3.3 and chloride 108. Creatinine 1.06. Urinalysis unremarkable. Troponin normal. Depakote level slightly elevated at 109. TSH slightly elevated at 4.12. PH 7.345, PCO2 40.6, PO2 55. Chest x-ray was unremarkable. X-rays of her hands, knees, pelvis, and lumbar spine show degenerative changes and bilateral knee effusions, but was otherwise unremarkable for fractures. CT head and C-spine unremarkable. Chronic changes only. Emergency Department Course and Treatment: Patient presents with hypersomnolence. I suspect a lot of this is related to non-adherence to her BiPAP. Her machine is in storage. According to her family, she sleeps throughout most of the day. She is extremely somnolent and I believe this contributed to her falls. I suspect that her medications also play a role. I cannot find signs of sepsis, cardiac condition, or any other causes of her symptoms. She does not have any apparent serious trauma from her falls. On reevaluation, the patient can only stay awake for a few seconds. She was placed on a nasal cannula for borderline hypoxia. I cannot safely discharge her as she cannot stay awake for more than a few seconds. She does not feel safe being discharged. I am concerned that if she is discharged, she will fall again at this point. I spoke with the hospitalist for further care. Treatment Plan: As above Disposition: Admission Impression: 1. Falls 2. Closed head injury 3. Hypothyroidism 4. Bilateral knee pain 5. Hypersomnolence This note was generated with [employer] dictation software. It may contain incorrect words, spelling, and punctuation that were not noted in review of the chart prior to signing ED Disposition - Plan for ED Patient: Chief Complaint: Fall Referrals: Moni Jackson MD [Primary Care Provider] -
--- NOTE | 2018-05-03 15:39 | HP.PCM_ITS ---
Problem List (1) Conversion disorder Status: Chronic (2) Anxiety and depression Status: Chronic (3) Bilateral leg edema Status: Chronic (4) Breast cancer, left breast Status: Chronic Qualifiers: Breast location: unspecified site of breast Qualified Code(s): C50.912 - Malignant neoplasm of unspecified site of left female breast Comment: 04/07/15 L mastectomy w/ L sentinel node Bx (5) COPD (chronic obstructive pulmonary disease) Status: Chronic Qualifiers: COPD type: unspecified COPD Qualified Code(s): J44.9 - Chronic obstructive pulmonary disease, unspecified (6) Coronary atherosclerosis of lummi coronary vessel Status: Chronic Qualifiers: Associated angina: angina presence unspecified (7) History of TIAs Status: Chronic (8) History of epilepsy Status: Chronic (9) Hyperlipidemia Status: Chronic Qualifiers: Hyperlipidemia type: unspecified Qualified Code(s): E78.5 - Hyperlipidemia, unspecified (10) Hypertension Status: Chronic Qualifiers: Hypertension type: essential hypertension Qualified Code(s): I10 - Essential (primary) hypertension (11) Hypothyroidism Status: Chronic Qualifiers: Hypothyroidism type: unspecified Qualified Code(s): E03.9 - Hypothyroidism, unspecified (12) Morbid obesity Status: Chronic (13) Tobacco use disorder Status: Chronic History of Present Illness Date of Admission: 05/03/18 Chief Complaint: Fall, hit head and face The patient is a 58 y/o F w/ PMHx: Chronic COPD w/ Chronic Hypoxic Respiratory Failure w/ continued Tobacco use, Hypertension, Hyperlipidemia, CAD without PCI, Morbid Obesity, Hypothyroidism, Seizure disorder, Anxiety and Depression, MOI supposed to be on CPAP, Hx Breast CA s/p L mastectomy w/ L sentinel node Bx, History of Conversion disorder w/ prior TIA evaluations who presents to the [facility] ED on 05/03/17 with history of recent transition to the [employer] as her and her son lost their usual living situation starting this past Monday he notes with history of patient leaving the [employer] per protocol for 8 hours with her walker catching on a curb, falling forward onto her head which occurred then again a second time with a brief seconds only loss of consciousness witnessed per her son prompting transition to the ED. Upon presentation to the ED the patient is lethargic and has remained so in the ED. Work-up in the ED included T 97.7, heart rate 62, BP 172/79, respiratory rate 16, 95% on room air although does have single noted vital sign point of 88% on room air improving to 94% on 2 L nasal cannula, BC with WBC 6.8, hemoglobin 13, platelet 173 without market shift, ABG with PO2 88%, PO2 55 on room air, BMP with potassium 3.3, chloride 108, BUN/creatinine 17/1.06, troponin <0.015, TSH 4.12, UA w/ ascitic gravity 1.020, urine protein 30 was unremarkable, valproic acid level 109, EKG with no acute evidence of ischemia, CT brain with chronic involutional changes, the cervical spine with multilevel degenerative changes with no acute findings, chest x-ray with no acute findings, plain film of the right knee with dege nerative arthrosis, soft tissue swelling and small joint effusion, pain film of the left knee with degenerative arthrosis and small joint effusion, lumbar spine plain film with degenerative changes with no acute findings, plain film pelvis with mild degree of degenerative changes of both hip joints, left hand plain film unremarkable. In the ED patient administered normal saline. Past Medical History Past Medical History (Chronic Problems): Chronic Problems History of TIAs (Chronic) Tobacco use disorder (Chronic) Obesity (Chronic) Hypothyroidism (Chronic) Hypertension (Chronic) Hyperlipidemia (Chronic) Conversion disorder (Chronic) Leg edema (Chronic) Malnutrition (Chronic) Delayed wound healing (Chronic) History of epilepsy (Chronic) Bilateral leg edema (Chronic) COPD (chronic obstructive pulmonary disease) (Chronic) Anxiety and depression (Chronic) Morbid obesity (Chronic) Breast cancer, left breast (Chronic) 04/07/15 L mastectomy w/ L sentinel node Bx Coronary atherosclerosis of lummi coronary vessel (Chronic) Allergies No Known Allergies Allergy (Verified 05/03/18 12:53) Home Medications: Ambulatory Orders Medication Instructions Recorded Aspirin [Aspirin, Baby] 81 mg PO DAILY@0800 05/09/15 Atorvastatin Calcium [Lipitor] 40 mg PO QHS 05/09/15 Pregabalin [Lyrica] 50 mg PO BID 05/09/15 Amlodipine [Norvasc] 10 mg PO DAILY 07/12/16 Anastrozole [Arimidex] 1 mg PO DAILY 07/12/16 Ergocalciferol [Vitamin D] 50,000 unit PO QWEEK 07/12/16 Furosemide [Lasix] 20 mg PO QHS 07/12/16 Oxcarbazepine [Trileptal] 300 mg PO BID 07/12/16 Spironolactone [Aldactone] 25 mg PO DAILY 07/12/16 Lisinopril [Zestril] 20 mg PO BID 04/04/17 Albuterol Inhaler [Ventolin Hfa 2 puff INHALATION Q4H PRN PRN 07/12/17 (SP)] Naproxen [Naprosyn] 500 mg PO BID PRN PRN 07/12/17 Bupropion HCl [Wellbutrin Sr] 100 mg PO BID 05/03/18 Divalproex Sodium 1,000 mg PO BID 05/03/18 Furosemide [Lasix] 40 mg PO DAILY 05/03/18 Levothyroxine Sodium [Synthroid] 100 mcg PO SUSA 05/03/18 Levothyroxine Sodium [Synthroid] 200 mcg PO MOTUWETHFR 05/03/18 Sertraline HCl [Zoloft] 200 mg PO DAILY 05/03/18 hydrOXYzine pamoate capsule 25 mg PO TID PRN PRN 05/03/18 [Vistaril pamoate capsule] traZODone [Desyrel] 100 mg PO QHS 05/03/18 Surgical History: - - L breast masectomy, x 2, T+A. 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 Tobacco Use: Cigarettes Alcohol: None Drugs: None - *Family History Maternal History Items: Heart Disease Paternal History Items: No pertinent history Sibling History Items: - - Cirrhosis of the liver Review of Systems Constitutional: Reports: Malaise, Weakness, Fatigue. Denies: Chills, Fever, Weight Change HEENT: Reports: Head Aches. Denies: Sinus Congestion, Sinus Drainage Cardiovascular: Denies: Chest Pain, Palpitations Respiratory: Denies: Cough, Shortness of breath at rest, Sputum production Gastrointestinal: Denies: Abdominal Pain, Nausea, Vomiting Genitourinary: Denies: Dysuria Musculoskeletal: Denies: Joint Pain, Joint Tenderness Skin: Denies: Rash, Wounds Neurological: Reports: Balance problems, Confusion, Seizures. Denies: Focal weakness, Numbness, Tingling Psychiatric: Reports: Anxiety, Depression. Denies: Homicidal Ideations, Suicidal Ideations Hematologic/ Lymphatic: Denies: Easy Bruising, Easy Bleeding VTE Information - Inpt Only VTE Present on Admission: No VTE Mechan Device Prophylaxis: SCD's VTE Pharm Prophylaxis ordered?: Yes Subjective: Seated upright in the ED bed, awakens to stimuli, lethargic. Objective: Physical Examination: General: awakens to stimuli, intermittently alert, not answering orientation questions, intermittently cooperative, lethargic, seated upright in the ED bed in no apparent distress. Skin: normal color, turgor, no icterus, cyanosis, although she was falling onto her face there is no obvious acute ecchymoses, chronic BL LE chronic venous stasis skin changes. HEENT: AT/NC, EOMI, PERRLA, mildly dry MM, no carotid bruits, unable to discern JVD secondary to habitus. Lungs: Diminished BS BL, > bases, decreased effort, no rales, ronchi or wheezing. Heart: Regular rate and rhythm; no gallop, rub audible. Abdomen: soft, morbidly obese, NTTP, ND, normal BS, unable to discern HSM secondary to habitus. Extremities: no cyanosis, clubbing, or edema. Neurological: awakens to stimuli, intermittently alert, not answering orientation questions, intermittently cooperative, lethargic, seated upright in the ED bed in no apparent distress; cognitive function not baseline intact; pupils equally reactive to light and accomodation; cranial nerves difficult to be assessed given lethargy; moving all 4 extremities, strength difficult to assess given sedate status, severely globally decreased. Psychiatric: affect appears flat, lethargic, no acute evidence of depressive or anxiety feelings. - Physical Exam Vital Signs Temp Pulse Resp BP Pulse Ox 97.7 F L 55 L 14 186/73 H 94 05/03/18 12:56 05/03/18 15:03 05/03/18 15:03 05/03/18 15:03 05/03/18 15:29 Oxygen Flow Rate (L/min) 2 Oxygen Delivery Method Nasal Cannula Weight: 308 lb 6.827 oz Body Mass Index (BMI) 44.2 Finger Stick Blood Glucose 112 Laboratory Tests Past 24 Hrs 05/03/18 05/03/18 05/03/18 13:30 13:30 13:30 WBC 6.8 RBC 4.45 Hgb 13.0 Hct 39.8 MCV 89.4 MCH 29.2 MCHC 32.7 RDW 15.2 H RDW Differential 49.7 H Plt Count 173 MPV 9.2 Immature Gran % (Auto) 0.400 Neut % (Auto) 47.4 Lymph % (Auto) 34.2 [place] % (Auto) 14.6 H Eos % (Auto) 3.0 Baso % (Auto) 0.4 Absolute Neuts (auto) 3.2 Absolute Lymphs (auto) 2.31 Total Counted Not Reportable Specimen Type Sample Site pH Bicarbonate Actual POC Total CO2 Base Excess O2 Saturation ABG pCO2 ABG pO2 O2 Delivery Device Blood Gas Notified Whom Blood Gas Notified Time Sodium 142 Potassium 3.3 L Chloride 108 H Carbon Dioxide 26.0 Anion Gap 8 BUN 17 Creatinine 1.06 H Estim Creat Clear Calc 62.56 Est GFR (MDRD) Af Amer 68 Est GFR (MDRD) Non-Af 57 L BUN/Creatinine Ratio 16.0 Glucose 96 Calcium 8.7 Troponin I < 0.015 TSH 4.12 H Urine Color Urine Clarity Urine pH Ur Specific [place] Urine Protein Urine Glucose (UA) Urine Ketones Urine Occult Blood Urine Nitrite Urine Bilirubin Urine Urobilinogen Ur Leukocyte Esterase Urine RBC Urine WBC Ur Squamous Epith Cells Urine Bacteria Hyaline Casts Urine Mucus Valproic Acid 109 H 05/03/18 05/03/18 13:43 14:50 WBC RBC Hgb Hct MCV MCH MCHC RDW RDW Differential Plt Count MPV Immature Gran % (Auto) Neut % (Auto) Lymph % (Auto) [place] % (Auto) Eos % (Auto) Baso % (Auto) Absolute Neuts (auto) Absolute Lymphs (auto) Total Counted Specimen Type ART Sample Site R Radial pH 7.38 Bicarbonate Actual 23.7 POC Total CO2 25 Base Excess -1 O2 Saturation 88 L ABG pCO2 40.6 ABG pO2 55 L O2 Delivery Device Room Air Blood Gas Notified Whom ED Blood Gas Notified Time 1342 Sodium Potassium Chloride Carbon Dioxide Anion Gap BUN Creatinine Estim Creat Clear Calc Est GFR (MDRD) Af Amer Est GFR (MDRD) Non-Af BUN/Creatinine Ratio Glucose Calcium Troponin I TSH Urine Color Yellow Urine Clarity Clear Urine pH 6.0 Ur Specific [place] 1.020 Urine Protein 30 H Urine Glucose (UA) Normal Urine Ketones 5 H Urine Occult Blood 10 H Urine Nitrite Negative Urine Bilirubin Negative Urine Urobilinogen Normal Ur Leukocyte Esterase Negative Urine RBC 0 SEEN Urine WBC 0 SEEN Ur Squamous Epith Cells 0-5 SEEN Urine Bacteria 0 SEEN Hyaline Casts 0-5 SEEN Urine Mucus RARE Valproic Acid Assessment/Plan All Active Problems Left-sided muscle weakness (Acute) Headache (Acute) Non-pressure chronic ulcer of left calf with fat layer exposed (Acute) Non-pressure chronic ulcer of other part of left lower leg with fat layer exposed (Acute) Deep incisional surgical site infection (Acute) Weakness on left side of face (Acute) The patient is a 58 y/o F w/ PMHx: Chronic COPD w/ Chronic Hypoxic Respiratory Failure w/ continued Tobacco use, Hypertension, Hyperlipidemia, CAD without PCI, Morbid Obesity, Hypothyroidism, Seizure disorder, Anxiety and Depression, MOI supposed to be on CPAP, Hx Breast CA s/p L mastectomy w/ L sentinel node Bx, History of Conversion disorder w/ prior TIA evaluations who presents to the [facility] ED on 05/03/17 with history of recent transition to the [employer] as her and her son lost their usual living situation starting this past Monday he notes wi th history of patient leaving the [employer] per protocol for 8 hours with her walker catching on a curb, falling forward onto her head which occurred then again a second time with a brief seconds only loss of consciousness witnessed per her son prompting transition to the ED. (1) Mechanical Fall with Brief LOC, Acute Encephalopathy, Possible Concussion: ED included T 97.7, heart rate 62, BP 172/79, respiratory rate 16, 95% on room air although does have single noted vital sign point of 88% on room air improving to 94% on 2 L nasal cannula, BC with WBC 6.8, hemoglobin 13, platelet 173 without market shift, ABG with PO2 88%, PO2 55 on room air, BMP with potassium 3.3, chloride 108, BUN/creatinine 17/1.06, troponin <0.015, TSH 4.12, UA w/ ascitic gravity 1.020, urine protein 30 was unremarkable, valproic acid level 109, EKG with no acute evidence of ischemia, CT brain with chronic involutional changes, the cervical spine with multilevel degenerative changes with no acute findings, chest x-ray with no acute findings, plain film of the right knee with degenerative arthrosis, soft tissue swelling and small joint effusion, pain film of the left knee with degenerative arthrosis and small joint effusion, lumbar spine plain film with degenerative changes with no acute findings, plain film pelvis with mild degree of degenerative changes of both hip joints, left hand plain film unremarkable. Will admit to [facility], maintain on fall precautions, consult PT, OT, CM, suspect fall mechanical initially and then fell again with concern given twice with brief LOC second time and noted head involvement high risk for concussion, neuro checks, holding depakote with repeat level in AM given elevated, need to assure CM/SW assist w/ oxygen as hypoxia noted with chronic respiratory failure history and needs CPAP q HS likely contributing also to her notable daytime fatigue. UDS requested, pending. Has had noted conversion disorder prior, some concern on evaluation. (2) Hypokalemia: Admission K+ 3.3, supplementation given, repeat level in AM. (3) Seizure disorder: ? Seizure activity, very lethargic in the ED, possible concussion with unremarkable CT head, holding depakote however as level elevated, UDS pending, seizure precautions, repeat depakote level in AM, continue home trileptal regimen. (4) Chronic COPD w/ Chronic Hypoxic Respiratory Failure: Will maintain on oxygen, will need CM/SW assist as recent [employer] transition with no oxygen and CPAP usage, will continue ATC duonebs, PRN albuterol, HOB, IS parameters. (5) Tobacco Abuse: Encouraged cessation, inpatient consultation per RT, NR if desired. (6) CAD: No PCI history, continue home regimen asa, statin, defer BB given patient COPD history as noted. (7) Hypertension: Continue home regimen including lasix, lisinopril, norvasc, spironolactone, PRN hydralazine. (8) Hyperlipidemia: Continue home statin regimen. (9) Hypothyroidism: TSH mildly elevated, will obtain FT4, continue home Synthroid regimen in interim. (10) Morbid Obesity: Weight loss and lifestyle changes encouraged, nutrition consulted. (11) Anxiety and Depression: Continue home wellbutrin, zoloft, holding buspar and trazodone until improved. (12) L Breast s/p Mastectomy: Continue home arimidex regimen. (13) MOI: CPAP q HS. CM/SW consultation as needs to have access to this at night and has not been able to use at [facility]. (14) DVT prophylaxis: SCDs, lovenox. Code Visit OBSV E&M: 13029 Initial observation care L3
[2018-05-03 16:55] LABS: Magnesium 2.2 mg/dL (1.6-2.6); T4 Free Direct 0.86 ng/dL (0.76-1.46)
[2018-05-03 17:05] LABS: Amphetamine Urine VISTA NEGATIVE (<1000 ng/mL); Barbiturate Urine VISTA NEGATIVE (< 200 ng/mL); Benzodiazepine Urine VISTA NEGATIVE (< 200 ng/mL); Cocaine Urine VISTA NEGATIVE (< 300 ng/mL); Ecstacy Urine VISTA POSITIVE (< 500 ng/mL); Methadone Urine VISTA NEGATIVE (< 300 ng/mL); PCP Urine VISTA NEGATIVE (< 25 ng/mL); THC Urine VISTA NEGATIVE (< 50 ng/mL); Vista UDS pH Range 5
[2018-05-03] MEDS: 0.9% Normal Saline 1,000 ML 100 ML IV (17:16)
[2018-05-03] MEDS: Potassium Chloride 10mEq/100mL 10 MEQ/100 ML IV.SOLN. 100 MEQ IV BOLUS ×4 (17:17→21:00)
[2018-05-03] MEDS: hydrALAZINE 20 MG/ML Vial 10 MG IV ×2 (18:56→23:41)
--- NOTE | 2018-05-03 19:31 | NURSING ---
per pt request, this RN called the [facility] ([phone]) and spoke with Chen. pt asked that I give update to staff and let them know that she fell, hit her head, and would be staying here tonight. Chen verbalized understanding.
[2018-05-03] MEDS: Ipratropium/Albuterol Sulfate 3 ML AMPUL.NEB INHALATION (19:55)
[2018-05-03] MEDS: Menthol/Lanolin/Calamine/Znox 113 GM Tube 1 APPLIC TOPICAL (20:57)
[2018-05-03] MEDS: Lisinopril 20 MG Tablet PO (21:00)
[2018-05-03] MEDS: OXcarbazepine 300 MG Tablet PO (21:00)
[2018-05-03] MEDS: buPROPion (SR) 100 MG TABLET.SA PO (21:00)
[2018-05-03] MEDS: Atorvastatin Calcium 40 MG Tablet PO (21:00)
[2018-05-04] VITALS (15 sets, daily range): BP systolic 148–171; BP diastolic 62–82; PULSE 52–68; RESP 15–20; TEMP 36.1–37.1; O2SAT 97–100
--- NOTE | 2018-05-04 04:49 | CPS ---
Pt refused at this time
[2018-05-04] MEDS: Levothyroxine 100 MCG Tablet 200 MCG PO (05:42)
[2018-05-04] MEDS: hydrALAZINE 20 MG/ML Vial 10 MG IV (05:43)
[2018-05-04] MEDS: amLODIPine 10 MG Tablet PO (06:34)
[2018-05-04] MEDS: Ipratropium/Albuterol Sulfate 3 ML AMPUL.NEB INHALATION ×3 (07:16→19:30)
[2018-05-04 07:25] LABS: Absolute Neutrophil Count 3.7 X10^3/uL (2.0-7.7); Basophil# 0.04 X10^3/uL; Basophil% 0.5 % (0-1); Eosinophil# 0.17 X10^3/uL; Eosinophils% 2.1 % (0-5); Hemoglobin 13.5 g/dl (12.0-15.0); Lymphocyte % 32.7 % (19-41); Mean Corp Hgb Conc 32.9 g/gl (32-36); Mean Corpuscular Hgb 29.7 pg (27.0-32.0); Mean Corpuscular Volume 90.1 fL (81-99); Mean Platelet Vol. 9.8 fl (6.2-12.0); Monocyte# 1.38 X10^3/uL; Monocyte% 17.3 % (0-10); Neutrophil # 3.72 X10^3/uL (2.7-7.7); Neutrophil % 46.8 % (47-70); Platelet Count 205 K/mm3 (150-450); RBC Distribution Width CV 15.5 % (11.6-14.6); RBC Distribution Width SD 50.5 fl (35.1-43.9); Red Blood Count 4.55 M/mm3 (4.2-5.4)
[2018-05-04 07:26] LABS: POSITIVE COUNT NO; POSITIVE DIFFERENTIAL NO; POSITIVE MORPHOLOGY NO
[2018-05-04 07:47] LABS: Valproic Acid (Depakene) Level 75 ug/mL (50-100)
[2018-05-04 07:50] LABS: ALB/GLOB Ratio 0.9 RATIO (0.9-2.4); AST(SGOT) 18 U/L (15-37); Alanine Aminotransfer ALT/SGPT 23 U/L (13-56); Albumin, Serum 3.4 g/dL (3.2-5.0); Alkaline Phosphatase 70 U/L (45-117); Anion Gap 7 (5-15); BUN 14 mg/dL (7-18); BUN/Creat Ratio 17.7 RATIO (10-20); Chloride 110 mmol/L (98-107); Creatinine, Serum 0.79 mg/dL (0.55-1.02); EST Glomerular Filtration Rate 79 mL/min (>60); Est Glom Filt Rate - Afr Amer 96 mL/min (>60); Estimated Creatinine Clearance 83.94 ml/min; Globulin 3.8 g/dL (2.2-4.2); Glucose 81 mg/dL (74-106); Potassium 3.7 mmol/L (3.5-5.1); Protein, Total 7.2 g/dL (6.4-8.2); Sodium Level 142 mmol/L (136-145)
--- NOTE | 2018-05-04 08:17 | NURSING ---
Addendum entered by Zuly Emerson 05/04/18 08:23: pt has international student counselor through [facility] has psychiatrist at [facility] and gets meds there Original Note: Pt reports that she was feeling unsafe leaving [facility] per their guidelines- as she felt very unsteady. She also states that brakes are broken on her walker and that is why she fell. Will speak with SW/ CM.
[2018-05-04] MEDS: Aspirin 81 MG TAB.CHEW PO (08:21)
--- NOTE | 2018-05-04 09:56 | CASEMGMT ---
Addendum entered by Delaney Roberson 05/04/18 11:52: SW called [facility], they may have bed availability. Pt did actually already have PT/OT, SW faxed referral w/PT and OT to [facility], will wait for a call back. TONY Mcmanus, [place] Original Note: Addendum entered by Delaney Roberson 05/04/18 11:31: Pt is more awake now, SW spoke w/pt at bedside. SW spoke w/pt initially about being at [facility], [place] [employer] pt states she has been there since the , got kicked out of her apartment. Her son who will be 16 in June is staying with a friend, and her daughter is at [facility] in [place]. SW asked pt about her follow up w/[facility]. Pt states she was seeing Dr. Regalado but she left, and is still waiting to be assigned to another psychiatrist. Pt states does not see a counselor there. Pt agreeable to have SW call to check on this for her. SW also asked pt about her walker. She states she bought the walker herself. SW explained if a new walker is needed we can order one through insurance, if she goes back to a long-term from here. Pt states understanding. SW spoke w/pt about SNF as an option also, as pt is falling and struggling to take her medications correctly as per physician. Pt is agreeable to a referral to [facility] if SNF is needed. SW explained will see how she is moving w/PT and OT, to determine for certain if longterm needed. SW did give the pt the number for the [facility] through [employer], encouraged her to call here also to check about availability. Pt again seeming to struggle to stay awake during our conversation, asked SW to turn off the lights so she can rest. SW called [facility], spoke w/[place] in psychiatry services. Pt has been assigned to [facility] Millicent Guzman, pt just needs to call to make an appointment. SW will let pt know when she wakes up. SW will call [facility] to check about beds. TONY Mcmanus, [place] Original Note: As per RN, pt is homeless, staying at [facility], and has stated does not want to go back there as she has to leave each day and return at 4:30pm. SW attempted to speak w/pt, pt is very sleepy and SW was not able to keep pt awake long enough to have a conversation. Pt did confirm is staying at [facility] and does not want to go back since she has to leave every day. SW explained she can call the [facility] to see if they would have a spot for her, but she would need to call herself, this SW cannot call for her. Pt nodded in understanding but immediately closed her eyes. SW attempted to ask her about going to [facility], pt is not staying awake long enough for SW to have a coherent conversation w/pt. SW asked RN to let this SW know when she is more awake and pt will speak w/her again. TONY Mcmanus, [place]
[2018-05-04] MEDS: Lisinopril 20 MG Tablet PO ×2 (10:18→21:11)
[2018-05-04] MEDS: OXcarbazepine 300 MG Tablet PO ×2 (10:18→21:11)
[2018-05-04] MEDS: Spironolactone 25 MG Tablet PO (10:18)
[2018-05-04] MEDS: Sertraline 100 MG Tablet 200 MG PO (10:18)
[2018-05-04] MEDS: Furosemide 40 MG Tablet PO (10:18)
[2018-05-04] MEDS: buPROPion (SR) 100 MG TABLET.SA PO ×2 (10:18→21:11)
[2018-05-04] MEDS: Menthol/Lanolin/Calamine/Znox 113 GM Tube 1 APPLIC TOPICAL ×2 (10:19→21:11)
[2018-05-04] MEDS: Enoxaparin 40 MG/0.4 ML Syringe SC (10:20)
[2018-05-04] MEDS: Pregabalin 50 MG Capsule PO ×2 (10:22→21:11)
[2018-05-04] MEDS: Anastrozole 1 MG Tablet PO (10:22)
--- NOTE | 2018-05-04 12:34 | PCM.PROGNOTE ---
Subjective: Patient seen and examined. Alert and oriented. Denies headache, drowsiness. States she did not sleep well overnight. Reports she has been falling frequently. Currently without home, staying at [facility]. Agreeable to SNF for further therapy given frequent falls. - Physical Exam General: Alert, Oriented x3, Cooperative HEENT: Atraumatic, PERRLA, EOMI, Normocephalic Neck: Supple, No JVD, Negative Carotid Bruits Lungs: Clear to auscultation, Diminished Cardiovascular: Regular rate, Regular Rhythm, Normal S1, Normal S2, No murmurs Abdomen: Bowel Sounds Present, Soft, Non Tender, Non-Distended, Obese Extremities: No clubbing, No cyanosis, No edema, Capillary Refill Less than 3 Seconds Skin: No rashes, No breakdown, - - Chronic venous stasis skin changes bilateral lower extremities. Musculoskeletal: No Tenderness to Palpation of Joints or Extremities Neurological: Cranial nerves II-XII grossly intact, Neuro grossly intact Psych/Mental Status: Flat Affect Vital Signs Temp Pulse Resp BP Pulse Ox 98.8 F 58 L 16 157/72 H 98 05/04/18 09:00 05/04/18 10:00 05/04/18 09:00 05/04/18 09:00 05/04/18 09:00 Oxygen Flow Rate (L/min) 2 Oxygen Delivery Method Room Air Weight: 302 lb 4.8 oz Body Mass Index (BMI) 43.2 Finger Stick Blood Glucose 112 Intake and Output for Last 24 Hours 05/02/18 05/03/18 05/04/18 23:59 23:59 23:59 Intake Total 200 / 200 1456 / 1456 Output Total 2 / 2 Balance 200 / 200 1454 / 1454 Laboratory Tests Past 24 Hrs 05/03/18 05/03/18 05/03/18 13:30 13:30 13:30 WBC 6.8 RBC 4.45 Hgb 13.0 Hct 39.8 MCV 89.4 MCH 29.2 MCHC 32.7 RDW 15.2 H RDW Differential 49.7 H Plt Count 173 MPV 9.2 Immature Gran % (Auto) 0.400 Neut % (Auto) 47.4 Lymph % (Auto) 34.2 [place] % (Auto) 14.6 H Eos % (Auto) 3.0 Baso % (Auto) 0.4 Absolute Neuts (auto) 3.2 Absolute Lymphs (auto) 2.31 Total Counted Not Reportable Specimen Type Sample Site pH Bicarbonate Actual POC Total CO2 Base Excess O2 Saturation ABG pCO2 ABG pO2 O2 Delivery Device Blood Gas Notified Whom Blood Gas Notified Time Sodium 142 Potassium 3.3 L Chloride 108 H Carbon Dioxide 26.0 Anion Gap 8 BUN 17 Creatinine 1.06 H Estim Creat Clear Calc 62.56 Est GFR (MDRD) Af Amer 68 Est GFR (MDRD) Non-Af 57 L BUN/Creatinine Ratio 16.0 Glucose 96 Calcium 8.7 Magnesium Total Bilirubin AST ALT Alkaline Phosphatase Troponin I < 0.015 Total Protein Albumin Globulin Albumin/Globulin Ratio TSH 4.12 H Free T4 Urine Color Urine Clarity Urine pH Ur Specific [place] Urine Protein Urine Glucose (UA) Urine Ketones Urine Occult Blood Urine Nitrite Urine Bilirubin Urine Urobilinogen Ur Leukocyte Esterase Urine RBC Urine WBC Ur Squamous Epith Cells Urine Bacteria Hyaline Casts Urine Mucus Urine Opiates Screen Urine Methadone Screen Ur Barbiturates Screen Valproic Acid 109 H Ur Phencyclidine Scrn Ur Amphetamines Screen U Methamphetamin-MDMA U Benzodiazepines Scrn Urine Cocaine Screen U Cannabinoids Screen Ur Drug Screen Comment 05/03/18 05/03/18 05/03/18 13:30 13:43 14:50 WBC RBC Hgb Hct MCV MCH MCHC RDW RDW Differential Plt Count MPV Immature Gran % (Auto) Neut % (Auto) Lymph % (Auto) [place] % (Auto) Eos % (Auto) Baso % (Auto) Absolute Neuts (auto) Absolute Lymphs (auto) Total Counted Specimen Type ART Sample Site R Radial pH 7.38 Bicarbonate Actual 23.7 POC Total CO2 25 Base Excess -1 O2 Saturation 88 L ABG pCO2 40.6 ABG pO2 55 L O2 Delivery Device Room Air Blood Gas Notified Whom ED Blood Gas Notified Time 1342 Sodium Potassium Chloride Carbon Dioxide Anion Gap BUN Creatinine Estim Creat Clear Calc Est GFR (MDRD) Af Amer Est GFR (MDRD) Non-Af BUN/Creatinine Ratio Glucose Calcium Magnesium 2.2 Total Bilirubin AST ALT Alkaline Phosphatase Troponin I Total Protein Albumin Globulin Albumin/Globulin Ratio TSH Free T4 0.86 Urine Color Yellow Urine Clarity Clear Urine pH 6.0 Ur Specific [place] 1.020 Urine Protein 30 H Urine Glucose (UA) Normal Urine Ketones 5 H Urine Occult Blood 10 H Urine Nitrite Negative Urine Bilirubin Negative Urine Urobilinogen Normal Ur Leukocyte Esterase Negative Urine RBC 0 SEEN Urine WBC 0 SEEN Ur Squamous Epith Cells 0-5 SEEN Urine Bacteria 0 SEEN Hyaline Casts 0-5 SEEN Urine Mucus RARE Urine Opiates Screen Urine Methadone Screen Ur Barbiturates Screen Valproic Acid Ur Phencyclidine Scrn Ur Amphetamines Screen U Methamphetamin-MDMA U Benzodiazepines Scrn Urine Cocaine Screen U Cannabinoids Screen Ur Drug Screen Comment 05/03/18 05/04/18 05/04/18 14:50 06:45 06:45 WBC 8.0 RBC 4.55 Hgb 13.5 Hct 41.0 MCV 90.1 MCH 29.7 MCHC 32.9 RDW 15.5 H RDW Differential 50.5 H Plt Count 205 MPV 9.8 Immature Gran % (Auto) 0.600 Neut % (Auto) 46.8 L Lymph % (Auto) 32.7 [place] % (Auto) 17.3 H Eos % (Auto) 2.1 Baso % (Auto) 0.5 Absolute Neuts (auto) 3.7 Absolute Lymphs (auto) 2.60 Total Counted Not Reportable Specimen Type Sample Site pH Bicarbonate Actual POC Total CO2 Base Excess O2 Saturation ABG pCO2 ABG pO2 O2 Delivery Device Blood Gas Notified Whom Blood Gas Notified Time Sodium 142 Potassium 3.7 Chloride 110 H Carbon Dioxide 25.0 Anion Gap 7 BUN 14 Creatinine 0.79 Estim Creat Clear Calc 83.94 Est GFR (MDRD) Af Amer 96 Est GFR (MDRD) Non-Af 79 BUN/Creatinine Ratio 17.7 Glucose 81 Calcium 9.0 Magnesium Total Bilirubin 0.50 AST 18 ALT 23 Alkaline Phosphatase 70 Troponin I Total Protein 7.2 Albumin 3.4 Globulin 3.8 Albumin/Globulin Ratio 0.9 TSH Free T4 Urine Color Urine Clarity Urine pH Ur Specific [place] Urine Protein Urine Glucose (UA) Urine Ketones Urine Occult Blood Urine Nitrite Urine Bilirubin Urine Urobilinogen Ur Leukocyte Esterase Urine RBC Urine WBC Ur Squamous Epith Cells Urine Bacteria Hyaline Casts Urine Mucus Urine Opiates Screen NEGATIVE Urine Methadone Screen NEGATIVE Ur Barbiturates Screen NEGATIVE Valproic Acid Ur Phencyclidine Scrn NEGATIVE Ur Amphetamines Screen NEGATIVE U Methamphetamin-MDMA POSITIVE H U Benzodiazepines Scrn NEGATIVE Urine Cocaine Screen NEGATIVE U Cannabinoids Screen NEGATIVE Ur Drug Screen Comment 05/04/18 06:45 WBC RBC Hgb Hct MCV MCH MCHC RDW RDW Differential Plt Count MPV Immature Gran % (Auto) Neut % (Auto) Lymph % (Auto) [place] % (Auto) Eos % (Auto) Baso % (Auto) Absolute Neuts (auto) Absolute Lymphs (auto) Total Counted Specimen Type Sample Site pH Bicarbonate Actual POC Total CO2 Base Excess O2 Saturation ABG pCO2 ABG pO2 O2 Delivery Device Blood Gas Notified Whom Blood Gas Notified Time Sodium Potassium Chloride Carbon Dioxide Anion Gap BUN Creatinine Estim Creat Clear Calc Est GFR (MDRD) Af Amer Est GFR (MDRD) Non-Af BUN/Creatinine Ratio Glucose Calcium Magnesium Total Bilirubin AST ALT Alkaline Phosphatase Troponin I Total Protein Albumin Globulin Albumin/Globulin Ratio TSH Free T4 Urine Color Urine Clarity Urine pH Ur Specific [place] Urine Protein Urine Glucose (UA) Urine Ketones Urine Occult Blood Urine Nitrite Urine Bilirubin Urine Urobilinogen Ur Leukocyte Esterase Urine RBC Urine WBC Ur Squamous Epith Cells Urine Bacteria Hyaline Casts Urine Mucus Urine Opiates Screen Urine Methadone Screen Ur Barbiturates Screen Valproic Acid 75 Ur Phencyclidine Scrn Ur Amphetamines Screen U Methamphetamin-MDMA U Benzodiazepines Scrn Urine Cocaine Screen U Cannabinoids Screen Ur Drug Screen Comment Medical Necessity - Tobacco Use Smoking Status: Current every day smoker Tobacco Use: Cigarettes Assessment/Plan All Active Problems Left-sided muscle weakness (Acute) Headache (Acute) Non-pressure chronic ulcer of left calf with fat layer exposed (Acute) Non-pressure chronic ulcer of other part of left lower leg with fat layer exposed (Acute) Deep incisional surgical site infection (Acute) Weakness on left side of face (Acute) 1. Mechanical fall prior to admission, debility, possible concussion-PT/OT. SNF pending acceptance. Brain CT negative. Multiple imaging on admission without acute fracture including cervical spine CT, hand x-ray, pelvis x-ray, lumbar spine x-ray, knee x-ray. 2. History of seizures- elevated valproic acid level-Depakote on hold. Repeat valproic acid level. Continue Trileptal regimen. 3. MOI-patient has not been using CPAP due to currently homeless. CPAP nightly. 4. Anxiety/depression-continue home regimen. 5. Chronic COPD with chronic hypoxic respiratory failure-continue supplement oxygen to maintain O2 at or above 90%. PRN albuterol. 6. Tobacco dependence-encourage smoking cessation. 7. CAD-continue aspirin, statin. 8. Hypertension-continue home Lasix, lisinopril, Norvasc, spironolactone regimen. 9. Hyperlipidemia-continue statin. 10. Hypothyroidism-continue Synthroid regimen. 11. Left breast cancer status post mastectomy-continue Arimidex regimen. 12. Morbid obesity-encouraged diet lifestyle modifications. DVT prophylaxis-Lovenox Discharge planning: SNF pending acceptance. This patient was seen by HUMBERTO Shaikh under the supervision of Dr. Clay.
--- NOTE | 2018-05-04 14:01 | CASEMGMT ---
Addendum entered by Delaney Roberson 05/04/18 15:56: SW called [facility] and asked Marietta to call the nurse's station directly if they get precert. Green sheet is on chart for staff to follow if precert is attained today for staff to follow. Otherwise pt will be here until Monday. TONY Mcmanus, DAILY RELEASE AND DUPE PRINTER Original Note: Addendum entered by Delaney Roberson 05/04/18 15:33: SW let pt know that [facility] can definitely take her and they are working on precert. SW explained if we do not hear back today from insurance however pt will be here with us through the weekend. Pt states understanding. TONY Mcmanus, DAILY RELEASE AND DUPE PRINTER Original Note: Addendum entered by Delaney Roberson 05/04/18 14:29: SW spoke w/Marietta from [facility], they can definitely take pt and submitted for precert. She will let this SW know if they get precert today. TONY Mcmanus, DAILY RELEASE AND DUPE PRINTER Original Note: SW spoke w/Marietta at [facility], she does anticipate they will be able to take pt, will call this SW back to let SW know for certain. Marietta said that pt's son cannot come stay w/her there however. SW spoke w/pt, let her know it is likely [facility] can take pt, let her know her son cannot stay with her at the assisted however. Pt states understanding. SW explained will let her know as soon as SW hears for certain. SW did also let pt know that Millicent Guzman can see pt at [facility] for psychiatry, and pt just needs to call to make an appointment. Pt states understanding. SW will continue to follow, PAS/RR completed. TONY Mcmanus, DAILY RELEASE AND DUPE PRINTER
--- NOTE | 2018-05-04 15:58 | NURSING ---
Pt notified this RN that ex was coming to visit and that he probably wants money. Pt states that if that is the case he has the wrong person- as she is tired of giving him money. She states that he had alcohol and drug abuse issues in past after their daughter (lives in [place]) was born and that she told ex that if he wanted to see her he would stop. She reports that he did. They did have a son together as well. She states that way after son was born ex began using alcohol and drugs and found a younger woman in her 20's. This RN notified pt that when he came- if she felt unsafe- to use call light and this RN would come in. Pt verbalized understanding. Stephanie MANZANARES entered room after this RN and notified this RN that she had her wallet open and was writing out finances on paper in room. Thin gentleman came to unit with female friend. Female friend went into ICU waiting area directly while male entered pt's room and closed door. For patient's protection, room camera was turned on. Observed dollar bills on table and pt and male conversing. Then male picked up a small laminated card off of floor and put in an inside pocket and left room directly. This RN entered room as male was leaving. This RN asked pt if he took money or her card and if she wanted it back. Pt states that he took her food card and really doesn't want him to have it but that she doesn't want this RN to get it either. She states that male told her he needs bologna and bread from the store and that she offered him $7. somehow male convinced pt to give him her food card instead. Pt verbalized that she will check to see how much was taken off when he returns. Pt states she makes around $700 a month. This RN notified pt that she could use the money to find a place to live that is more suitable [place] [facility] and that she should not allow people to use her resources. Also reminded that she has a 15 year old son to think about. Pt verbalized understanding. She states that her son is not talking to him right now but did not elaborate. This RN asked pt if she had anyone that could help with finances- she states no. She states she has a sister but she lives too far away. GLENNA Brown notified but states that pt has a gauge operator and that they can provide her with resources but that she has to reach out and do her part to obtain help.
[2018-05-04] MEDS: Furosemide 20 MG Tablet PO (18:11)
[2018-05-04] MEDS: Atorvastatin Calcium 40 MG Tablet PO (21:11)
[2018-05-05] VITALS (12 sets, daily range): BP systolic 154–161; BP diastolic 75–79; PULSE 57–68; RESP 14–19; TEMP 36.3–37.1; O2SAT 95–98
[2018-05-05] MEDS: Levothyroxine 100 MCG Tablet PO (06:34)
[2018-05-05] MEDS: Ipratropium/Albuterol Sulfate 3 ML AMPUL.NEB INHALATION ×2 (07:24→18:50)
[2018-05-05] MEDS: Aspirin 81 MG TAB.CHEW PO (09:16)
[2018-05-05] MEDS: Spironolactone 25 MG Tablet PO (09:16)
[2018-05-05] MEDS: Furosemide 40 MG Tablet PO (09:16)
[2018-05-05] MEDS: Sertraline 100 MG Tablet 200 MG PO (09:17)
[2018-05-05] MEDS: OXcarbazepine 300 MG Tablet PO ×2 (09:17→20:59)
[2018-05-05] MEDS: amLODIPine 10 MG Tablet PO (09:17)
[2018-05-05] MEDS: buPROPion (SR) 100 MG TABLET.SA PO ×2 (09:17→20:59)
[2018-05-05] MEDS: Lisinopril 20 MG Tablet PO ×2 (09:18→20:58)
[2018-05-05] MEDS: Menthol/Lanolin/Calamine/Znox 113 GM Tube 1 APPLIC TOPICAL ×2 (09:19→20:58)
[2018-05-05] MEDS: Enoxaparin 40 MG/0.4 ML Syringe SC (09:19)
[2018-05-05] MEDS: Anastrozole 1 MG Tablet PO (09:19)
[2018-05-05] MEDS: Pregabalin 50 MG Capsule PO ×2 (09:24→21:03)
--- NOTE | 2018-05-05 11:52 | PCM.PROGNOTE ---
Subjective: Patient seen and examined. No acute events overnight. States drowsiness is improved. Awaiting precept to SNF. - Physical Exam General: Alert, Oriented x3, Cooperative HEENT: Atraumatic, PERRLA, EOMI, Normocephalic Neck: Supple, No JVD, Negative Carotid Bruits Lungs: Clear to auscultation, Diminished Cardiovascular: Regular rate, Regular Rhythm, Normal S1, Normal S2, No murmurs Abdomen: Bowel Sounds Present, Soft, Non Tender, Non-Distended, Obese Extremities: No clubbing, No cyanosis, No edema, Capillary Refill Less than 3 Seconds Skin: No rashes, No breakdown, - - Chronic venous stasis skin changes bilateral lower extremities. Musculoskeletal: No Tenderness to Palpation of Joints or Extremities Neurological: Cranial nerves II-XII grossly intact, Neuro grossly intact Psych/Mental Status: Flat Affect Vital Signs Temp Pulse Resp BP Pulse Ox 98.4 F 59 L 16 161/75 H 97 05/05/18 09:15 05/05/18 09:15 05/05/18 09:15 05/05/18 09:15 05/05/18 09:15 Oxygen Flow Rate (L/min) 4 Oxygen Delivery Method Room Air Weight: 302 lb 4.765 oz Body Mass Index (BMI) 43.2 Finger Stick Blood Glucose 112 Intake and Output for Last 24 Hours 05/03/18 05/04/18 05/05/18 23:59 23:59 23:59 Intake Total 200 / 200 3656 / 3656 1370 / 1370 Output Total 802 / 802 Balance 200 / 200 2854 / 2854 1370 / 1370 Medical Necessity - Tobacco Use Smoking Status: Current every day smoker Tobacco Use: Cigarettes Assessment/Plan All Active Problems Left-sided muscle weakness (Acute) Headache (Acute) Non-pressure chronic ulcer of left calf with fat layer exposed (Acute) Non-pressure chronic ulcer of other part of left lower leg with fat layer exposed (Acute) Deep incisional surgical site infection (Acute) Weakness on left side of face (Acute) 1. Mechanical fall prior to admission, debility, possible concussion-PT/OT. SNF pending acceptance. Brain CT negative. Multiple imaging on admission without acute fracture including cervical spine CT, hand x-ray, pelvis x-ray, lumbar spine x-ray, knee x-ray. 2. History of seizures/Depakote toxicity- Depakote on hold. Continue Trileptal regimen. Repeat valproic acid level in a.m. 3. MOI, noncompliant with CPAP. Refusing CPAP during admission. 4. Suspected substance use-urine tox screen positive for methamphetamines. 5. Chronic COPD with chronic hypoxic respiratory failure-continue supplement oxygen to maintain O2 at or above 90%. PRN albuterol. 6. Tobacco dependence-encourage smoking cessation. 7. CAD-continue aspirin, statin. 8. Hypertension-continue home Lasix, lisinopril, Norvasc, spironolactone regimen. 9. Hyperlipidemia-continue statin. 10. Hypothyroidism-continue Synthroid regimen. 11. Left breast cancer status post mastectomy-continue Arimidex regimen. 12. Anxiety/depression-continue home regimen. 13. Morbid obesity-encouraged diet lifestyle modifications. DVT prophylaxis-Lovenox Discharge planning: SNF pending acceptance. This patient was seen by HUMBERTO Shaikh under the supervision of Dr. Clay.
[2018-05-05] MEDS: Acetaminophen 325 MG Tablet 650 MG PO ×2 (13:36→20:57)
[2018-05-05] MEDS: Furosemide 20 MG Tablet PO (17:25)
[2018-05-05] MEDS: Atorvastatin Calcium 40 MG Tablet PO (20:59)
[2018-05-06] VITALS (13 sets, daily range): BP systolic 136–189; BP diastolic 67–83; PULSE 55–70; RESP 16–18; TEMP 36.3–36.9; O2SAT 95–98
[2018-05-06] MEDS: hydrALAZINE 20 MG/ML Vial 10 MG IV ×2 (03:45→14:22)
[2018-05-06 06:26] LABS: Valproic Acid (Depakene) Level 25 ug/mL (50-100)
[2018-05-06] MEDS: Levothyroxine 100 MCG Tablet PO (06:45)
[2018-05-06] MEDS: Ipratropium/Albuterol Sulfate 3 ML AMPUL.NEB INHALATION ×3 (07:19→19:00)
[2018-05-06] MEDS: Acetaminophen 325 MG Tablet 650 MG PO ×2 (09:08→14:22)
[2018-05-06] MEDS: Spironolactone 25 MG Tablet PO (09:08)
[2018-05-06] MEDS: Aspirin 81 MG TAB.CHEW PO (09:08)
[2018-05-06] MEDS: Anastrozole 1 MG Tablet PO (09:08)
[2018-05-06] MEDS: buPROPion (SR) 100 MG TABLET.SA PO ×2 (09:09→21:07)
[2018-05-06] MEDS: Lisinopril 20 MG Tablet PO ×2 (09:09→21:07)
[2018-05-06] MEDS: Furosemide 40 MG Tablet PO (09:09)
[2018-05-06] MEDS: OXcarbazepine 300 MG Tablet PO ×2 (09:09→21:07)
[2018-05-06] MEDS: Enoxaparin 40 MG/0.4 ML Syringe SC (09:09)
[2018-05-06] MEDS: Pregabalin 50 MG Capsule PO ×2 (09:09→21:07)
[2018-05-06] MEDS: Sertraline 100 MG Tablet 200 MG PO (09:09)
[2018-05-06] MEDS: amLODIPine 10 MG Tablet PO (09:09)
[2018-05-06] MEDS: Menthol/Lanolin/Calamine/Znox 113 GM Tube 1 APPLIC TOPICAL ×2 (09:09→20:47)
[2018-05-06] MEDS: Divalproex Sodium 250 MG Tablet 1000 MG PO ×2 (11:47→21:07)
--- NOTE | 2018-05-06 12:25 | PCM.PROGNOTE ---
Subjective: Patient seen and examined. No acute events overnight. SNF pending acceptance. - Physical Exam General: Alert, Oriented x3, Cooperative HEENT: Atraumatic, PERRLA, EOMI, Normocephalic Neck: Supple, No JVD, Negative Carotid Bruits Lungs: Clear to auscultation, Diminished Cardiovascular: Regular rate, Regular Rhythm, Normal S1, Normal S2, No murmurs Abdomen: Bowel Sounds Present, Soft, Non Tender, Non-Distended, Obese Extremities: No clubbing, No cyanosis, No edema, Capillary Refill Less than 3 Seconds Skin: No rashes, No breakdown Musculoskeletal: No Tenderness to Palpation of Joints or Extremities Neurological: Cranial nerves II-XII grossly intact, Neuro grossly intact Psych/Mental Status: Flat Affect Vital Signs Temp Pulse Resp BP Pulse Ox 97.5 F L 55 L 16 163/67 H 97 05/06/18 09:05 05/06/18 09:05 05/06/18 09:05 05/06/18 09:05 05/06/18 09:05 Oxygen Flow Rate (L/min) 4 Oxygen Delivery Method Room Air Weight: 302 lb 4.765 oz Body Mass Index (BMI) 43.2 Finger Stick Blood Glucose 112 Intake and Output for Last 24 Hours 05/04/18 05/05/18 05/06/18 23:59 23:59 23:59 Intake Total 3656 / 3656 2029 / 2029 490.5 / 490.5 Output Total 802 / 802 Balance 2854 / 2854 2029 490.5 / 490.5 Laboratory Tests Past 24 Hrs 05/06/18 05:24 Valproic Acid 25 L Medical Necessity - Tobacco Use Smoking Status: Current every day smoker Tobacco Use: Cigarettes Assessment/Plan All Active Problems Left-sided muscle weakness (Acute) Headache (Acute) Non-pressure chronic ulcer of left calf with fat layer exposed (Acute) Non-pressure chronic ulcer of other part of left lower leg with fat layer exposed (Acute) Deep incisional surgical site infection (Acute) Weakness on left side of face (Acute) 1. Mechanical fall prior to admission, debility, possible concussion-PT/OT. SNF pending acceptance. Brain CT negative. Multiple imaging on admission without acute fracture including cervical spine CT, hand x-ray, pelvis x-ray, lumbar spine x-ray, knee x-ray. 2. History of seizures/Depakote toxicity- Continue Trileptal regimen. Repeat valproic acid level 25. Resume depakote. 3. MOI, noncompliant with CPAP. Refusing CPAP during admission. 4. Suspected substance use-urine tox screen positive for methamphetamines. 5. Chronic COPD with chronic hypoxic respiratory failure-continue supplement oxygen to maintain O2 at or above 90%. PRN albuterol. 6. Tobacco dependence-encourage smoking cessation. 7. CAD-continue aspirin, statin. 8. Hypertension-continue home Lasix, lisinopril, Norvasc, spironolactone regimen. 9. Hyperlipidemia-continue statin. 10. Hypothyroidism-continue Synthroid regimen. 11. Left breast cancer status post mastectomy-continue Arimidex regimen. 12. Anxiety/depression-continue home regimen. 13. Morbid obesity-encouraged diet lifestyle modifications. DVT prophylaxis-Lovenox Discharge planning: SNF pending acceptance. This patient was seen by HUMBERTO Shaikh under the supervision of Dr. Clay.
[2018-05-06] MEDS: 0.9% NaCl Peripheral Flush Adult/Peds IV (14:22)
[2018-05-06] MEDS: Furosemide 20 MG Tablet PO (17:32)
[2018-05-06] MEDS: Atorvastatin Calcium 40 MG Tablet PO (21:07)
[2018-05-07] VITALS (9 sets, daily range): BP systolic 130–181; BP diastolic 62–87; PULSE 61–72; RESP 16–18; TEMP 36.3–37.1; O2SAT 97–98
[2018-05-07] MEDS: Levothyroxine 100 MCG Tablet 200 MCG PO (05:20)
[2018-05-07] MEDS: Ipratropium/Albuterol Sulfate 3 ML AMPUL.NEB INHALATION ×3 (06:48→14:54)
[2018-05-07] MEDS: Aspirin 81 MG TAB.CHEW PO (07:53)
--- NOTE | 2018-05-07 09:22 | CASEMGMT ---
Addendum entered by Janae Morley 05/07/18 13:39: GLENNA spoke with Marietta at [facility]. Per Marietta she hasn't received pre-cert yet. Original Note: Social Work Note SW faxed updated clinicals to Marietta at [facility]. Plan: [facility] pending pre-cert Janae Morley SCALE EXPERT, ELECTROENCEPHALOGRAPHIC TECHNICIAN
[2018-05-07] MEDS: Sertraline 100 MG Tablet 200 MG PO (10:08)
[2018-05-07] MEDS: buPROPion (SR) 100 MG TABLET.SA PO ×2 (10:08→22:27)
[2018-05-07] MEDS: Divalproex Sodium 250 MG Tablet 1000 MG PO ×2 (10:08→22:27)
[2018-05-07] MEDS: OXcarbazepine 300 MG Tablet PO ×2 (10:09→22:27)
[2018-05-07] MEDS: amLODIPine 10 MG Tablet PO (10:09)
[2018-05-07] MEDS: Spironolactone 25 MG Tablet PO (10:09)
[2018-05-07] MEDS: Furosemide 40 MG Tablet PO (10:09)
[2018-05-07] MEDS: Anastrozole 1 MG Tablet PO (10:10)
[2018-05-07] MEDS: Enoxaparin 40 MG/0.4 ML Syringe SC (10:10)
[2018-05-07] MEDS: Lisinopril 20 MG Tablet PO ×2 (10:10→22:27)
[2018-05-07] MEDS: Menthol/Lanolin/Calamine/Znox 113 GM Tube 1 APPLIC TOPICAL ×2 (10:13→22:26)
[2018-05-07] MEDS: Pregabalin 50 MG Capsule PO ×2 (10:13→22:27)
--- NOTE | 2018-05-07 12:18 | PCM.EXTCARCO ---
- Diet 05/03/18 16:28 Diet: Cardiac/Low Cholesterol Food consistency:: Regular Liquid Consistency:: Regular/Thin - Routine Orders/Code Status Enema Type: Fleetz Enema Frequency: Daily PRN Suppository Type: Dulcolax 10mg Suppository Frequency: Daily PRN O2 Liters per Minute: 2 O2 Frequency: PRN Keep PO Greater than or Equal to (%): 90 Routine Lab Work: CBC, BMP, - - Q Week Code Status: Full Code - Wound(s) bilateral knees Wound Type: Abrasion - Suggestions for Active Care Change Position every (hours): 2 Times a day to sit in chair: 3 - Therapies Physical Therapy: Eval and Treat Occupational Therapy: Eval and Treat - Problem/Diagnosis (1) History of TIAs Status: Chronic Current Visit: No (2) Tobacco use disorder Status: Chronic Current Visit: No (3) Obesity Status: Chronic Current Visit: No (4) Hypothyroidism Status: Chronic Current Visit: No (5) Hypertension Status: Chronic Current Visit: No (6) Hyperlipidemia Status: Chronic Current Visit: No (7) History of epilepsy Status: Chronic Current Visit: No (8) COPD (chronic obstructive pulmonary disease) Status: Chronic Current Visit: No (9) Anxiety and depression Status: Chronic Current Visit: No (10) Morbid obesity Status: Chronic Current Visit: No (11) Fall Status: Acute Comment: Mechanical fall, prior to admission. Debility. Current Visit: Yes - Allergies/Procedures Done in Hospital Allergies/Adverse Reactions: Allergies No Known Allergies Allergy (Verified 05/03/18 12:53) Procedures: None - Type of Care/Length of Stay Estimated LOS: Convalescent Care Less Than 30 days Type of Care Needed: Skilled Rehab Potential: Fair Prognosis: Fair - Additional Orders/Day of Discharge H&P will serve as current which was dated: 05/03/18 Day of Discharge: 05/07/18 - Dietary and Speech Recommendations Dietitian Recommendations/Changes: Rec diet change to Cardiac/1800 calorie controlled diet. D/c-ed Ensure Enlive as no longer indicated. - Follow Up Care Primary Care Physician: Moni Jackson MD [Primary Care Provider] - Please follow up with your Primary Care Physician in: 1 Week
--- NOTE | 2018-05-07 13:14 | PCM.PROGNOTE ---
<Magaly Carlos - Last Filed: 05/07/18 13:16> Subjective: Patient seen and examined. No acute events overnight. Awaiting precept to SNF. - Physical Exam General: Alert, Oriented x3, Cooperative, No apparent distress HEENT: Atraumatic, PERRLA, EOMI, Normocephalic Neck: Supple, No JVD, Negative Carotid Bruits Lungs: Clear to auscultation, Diminished Cardiovascular: Regular rate, Regular Rhythm, Normal S1, Normal S2, No murmurs Abdomen: Bowel Sounds Present, Soft, Non Tender, Non-Distended, Obese Extremities: No clubbing, No cyanosis, No edema, Capillary Refill Less than 3 Seconds Skin: No rashes, No breakdown Musculoskeletal: No Tenderness to Palpation of Joints or Extremities Neurological: Cranial nerves II-XII grossly intact, Neuro grossly intact Psych/Mental Status: Flat Affect Vital Signs Temp Pulse Resp BP Pulse Ox 97.7 F L 67 16 145/87 H 98 05/07/18 09:00 05/07/18 10:57 05/07/18 10:57 05/07/18 09:00 05/07/18 09:00 Oxygen Flow Rate (L/min) 4 Oxygen Delivery Method Room Air Weight: 302 lb 4.765 oz Body Mass Index (BMI) 43.2 Finger Stick Blood Glucose 112 Intake and Output for Last 24 Hours 05/05/18 05/06/18 05/07/18 23:59 23:59 23:59 Intake Total 2029 1250.5 / 1250.5 600 / 600 Output Total 500 / 500 Balance 2029 1250.5 / 1250.5 100 / 100 Medical Necessity - Tobacco Use Smoking Status: Current every day smoker Tobacco Use: Cigarettes Assessment/Plan All Active Problems Fall (Acute) 1. Mechanical fall prior to admission, debility, possible concussion-PT/OT. SNF pending acceptance. Brain CT negative. Multiple imaging on admission without acute fracture including cervical spine CT, hand x-ray, pelvis x-ray, lumbar spine x-ray, knee x-ray. 2. History of seizures/Depakote toxicity- Continue Trileptal regimen. Repeat valproic acid level 25. Resume depakote. 3. MOI, noncompliant with CPAP. Refusing CPAP during admission. 4. Suspected substance use-urine tox screen positive for methamphetamines. 5. Chronic COPD with chronic hypoxic respiratory failure-continue supplement oxygen to maintain O2 at or above 90%. PRN albuterol. 6. Tobacco dependence-encourage smoking cessation. 7. CAD-continue aspirin, statin. 8. Hypertension-continue home Lasix, lisinopril, Norvasc, spironolactone regimen. 9. Hyperlipidemia-continue statin. 10. Hypothyroidism-continue Synthroid regimen. 11. Left breast cancer status post mastectomy-continue Arimidex regimen. 12. Anxiety/depression-continue home regimen. 13. Morbid obesity-encouraged diet lifestyle modifications. DVT prophylaxis-Lovenox Discharge planning: SNF pending acceptance. This patient was seen by THREESE ShaikhC under the supervision of Dr. Jackson. <Mima Jackson E - Last Filed: 05/07/18 13:39> - Physical Exam Vital Signs Temp Pulse Resp BP Pulse Ox 97.7 F L 67 16 145/87 H 98 05/07/18 09:00 05/07/18 10:57 05/07/18 10:57 05/07/18 09:00 05/07/18 09:00 Oxygen Flow Rate (L/min) 4 Oxygen Delivery Method Room Air Weight: 302 lb 4.765 oz Body Mass Index (BMI) 43.2 Finger Stick Blood Glucose 112 Intake and Output for Last 24 Hours 05/05/18 05/06/18 05/07/18 23:59 23:59 23:59 Intake Total 2029 1250.5 / 1250.5 600 / 600 Output Total 500 / 500 Balance 2029 1250.5 / 1250.5 100 / 100 Assessment/Plan Hospitalist note: I am seeing this patient in conjunction with Magaly Carlos. I independently seen and examined the patient. Progress note above , laboratory data and imaging studies reviewed and I agree with above treatment and workup plan. This morning, she complained of right knee pain. She had x-ray of both knees on admission that revealed arthritic changes and small effusion which is likely due to osteoarthritis. She is on Tylenol as needed as well as Lyrica. Her vital signs are stable. - Physical Exam General: Alert, Oriented x3, Cooperative, No apparent distress. HEENT: Atraumatic, PERRLA, EOMI. Neck: Supple, No JVD, Negative Carotid Bruits, Trachea Midline, Thyroid Normal. Lungs: Clear to auscultation, Normal air movement, No rhonchi, No wheeze, No rales. Cardiovascular: Regular rate, Regular Rhythm, Normal S1, Normal S2, PMI Normal. Abdomen: Bowel Sounds Present, Soft, Non Tender, Non-Distended, No Hepato-splenomegaly. Extremities: No clubbing, No cyanosis, + edema, stasis dermatitis Skin: No rashes, No breakdown Neurological: Neuro grossly intact Vital Signs are stable. #1 fall/physical debility/functional decline: Patient complaining of bilateral knee pain, more on the right knee. This is likely because of osteoarthritis. She had imaging studies on admission that was unremarkable for acute fractures or dislocations. CT scan brain, CT scan cervical spine, chest x-ray, x-ray of both knees, x-ray of the lumbar spine, x-ray pelvis and hand performed and showed no acute fractures. Patient has been on Tylenol as needed for pain as well as Lyrica. She has been having recurrent falls at home. We are waiting insurance approval for placement to longterm facility. #2 history of seizure: Continue Trileptal and Depakote. Depakote level was elevated, recommend repeat Depakote level and 1-2 weeks as outpatient. #3 suspected substance abuse: Urine drug screen was positive for methamphetamines. #4 other chronic medical problems: Stable, continue current medications as above. This note was generated with Moni dictation software. It may contain incorrect words, spelling, and punctuation that were not noted in checking the note before signing. Code Visit Inpatient E&M: 70274 Subs Hosp L2
--- NOTE | 2018-05-07 13:17 | PCM.DC.SUM ---
Discharge Date and Diagnosis Date of Admission: 05/03/18 Date of Discharge: 05/07/18 - Primary Discharge Diagnosis Active and Suspected Problems 1. Mechanical fall, prior to admission, debility 2. Depakote toxicity with history of seizures 3. MOI, noncompliant with CPAP 4. Possible substance use-urine tox screen positive for methamphetamines 5. Chronic COPD with chronic hypoxic respiratory failure 6. Tobacco dependence 7. CAD 8. Hypertension 9. Hyperlipidemia 10. Hypothyroidism 11. Left breast cancer status post mastectomy 12. Anxiety/depression 13. Morbid obesity - Secondary Discharge Diagnosis Chronic Problems History of TIAs (Chronic) Tobacco use disorder (Chronic) Obesity (Chronic) Hypothyroidism (Chronic) Hypertension (Chronic) Hyperlipidemia (Chronic) Conversion disorder (Chronic) Leg edema (Chronic) Malnutrition (Chronic) Delayed wound healing (Chronic) History of epilepsy (Chronic) Bilateral leg edema (Chronic) COPD (chronic obstructive pulmonary disease) (Chronic) Anxiety and depression (Chronic) Morbid obesity (Chronic) Breast cancer, left breast (Chronic) 04/07/15 L mastectomy w/ L sentinel node Bx Coronary atherosclerosis of [place] coronary vessel (Chronic) Hospital Course and Treatment Imaging Results: Diagnostic Data Brain CT 05/03/18 13:11 IMPRESSION: Chronic involutional changes of the brain. Electronically Signed: Jerry Sellers MD at 14:59 EST Tel [phone], Service support , Cervical Spine CT 05/03/18 13:11 IMPRESSION: Multilevel degenerative changes, as described above. Electronically Signed: Jerry Sellers MD at 15:15 EST Tel [phone], Service support , Chest X-Ray 05/03/18 13:11 IMPRESSION: No acute abnormality is seen. Electronically Signed: Jerry Sellers MD at 14:29 EST Tel [phone], Service support , Knee X-Ray 05/03/18 13:11 IMPRESSION: Degenerative arthrosis. Soft tissue swelling. Small joint effusion. Electronically Signed: Jerry Sellers MD at 14:30 EST Tel [phone], Service support , Lumbar Spine X-Ray 05/03/18 13:11 IMPRESSION: Degenerative changes of the spine, as detailed above. Electronically Signed: Jerry Sellers MD at 14:40 EST Tel [phone], Service support , Pelvis X-Ray 05/03/18 13:11 IMPRESSION: Mild degree of degenerative changes of the hip joints. Electronically Signed: Jerry Sellers MD at 14:44 EST Tel [phone], Service support , Hand X-Ray 05/03/18 13:15 IMPRESSION: Normal x-ray examination of the hand. Electronically Signed: Jerry Sellers MD at 14:31 EST Tel [phone], Service support , Operations: None Procedures: None Summary of Care Provided: The patient is a 58 year old F admitted 05/03/2018 due to fall, injuring head and face. 1. Mechanical fall prior to admission, debility, possible concussion-PT/OT. SNF at [facility]. Brain CT negative. Multiple imaging on admission without acute fracture including cervical spine CT, hand x-ray, pelvis x-ray, lumbar spine x-ray, knee x-ray. 2. History of seizures/Depakote toxicity- Continue Trileptal regimen. Repeat valproic acid level 25. Resumed depakote. 3. MOI, noncompliant with CPAP. Refusing CPAP during admission. 4. Possible substance use-urine tox screen positive for methamphetamines. Pt denies elicit drug use. 5. Chronic COPD with chronic hypoxic respiratory failure-continue supplement oxygen to maintain O2 at or above 90%. PRN albuterol. 6. Tobacco dependence-encourage smoking cessation. 7. CAD-continue aspirin, statin. 8. Hypertension-continue home Lasix, lisinopril, Norvasc, spironolactone regimen. 9. Hyperlipidemia-continue statin. 10. Hypothyroidism-continue Synthroid regimen. 11. Left breast cancer status post mastectomy-continue Arimidex regimen. 12. Anxiety/depression-continue home regimen. 13. Morbid obesity-encouraged diet lifestyle modifications. General: Alert, Oriented x3, Cooperative HEENT: Atraumatic, PERRLA, EOMI, Normocephalic Neck: Supple, No JVD, Negative Carotid Bruits Lungs: Clear to auscultation, Diminished Cardiovascular: Regular rate, Regular Rhythm, Normal S1, Normal S2, No murmurs Abdomen: Bowel Sounds Present, Soft, Non Tender, Non-Distended, Obese Extremities: No clubbing, No cyanosis, No edema, Capillary Refill Less than 3 Seconds Skin: No rashes, No breakdown Musculoskeletal: No Tenderness to Palpation of Joints or Extremities Neurological: Cranial nerves II-XII grossly intact, Neuro grossly intact Psych/Mental Status: Flat Affect Patient seen and examined prior to discharge. Physical assessment as noted above. Patient is stable for discharge with follow up recommendations as noted above. This patient was seen by HUMBERTO Shaikh under the supervision of Dr. Jackson. - Physical Exam Vital Signs Temp Pulse Resp BP Pulse Ox 97.7 F L 67 16 145/87 H 98 05/07/18 09:00 05/07/18 10:57 05/07/18 10:57 05/07/18 09:00 05/07/18 09:00 Oxygen Flow Rate (L/min) 4 Oxygen Delivery Method Room Air Weight: 302 lb 4.765 oz Body Mass Index (BMI) 43.2 Finger Stick Blood Glucose 112 Intake and Output for Last 24 Hours 05/05/18 05/06/18 05/07/18 23:59 23:59 23:59 Intake Total 2029 1250.5 / 1250.5 600 / 600 Output Total 500 / 500 Balance 2029 1250.5 / 1250.5 100 / 100 Home Medications: Medications to take at Discharge Aspirin [Aspirin, Baby] 81 mg PO DAILY@0800 05/09/15 Atorvastatin Calcium [Lipitor] 40 mg PO QHS 05/09/15 Pregabalin [Lyrica] 50 mg PO BID 05/09/15 Amlodipine [Norvasc] 10 mg PO DAILY 07/12/16 Anastrozole [Arimidex] 1 mg PO DAILY 07/12/16 Ergocalciferol [Vitamin D] 50,000 unit PO MOTH 07/12/16 Furosemide [Lasix] 20 mg PO QHS 07/12/16 Oxcarbazepine [Trileptal] 300 mg PO BID 07/12/16 Spironolactone [Aldactone] 25 mg PO DAILY 07/12/16 Lisinopril [Zestril] 20 mg PO BID 04/04/17 Albuterol Inhaler [Ventolin Hfa] 2 puff INHALATION Q4H PRN PRN 07/12/17 Naproxen [Naprosyn] 500 mg PO BID PRN PRN 07/12/17 Bupropion HCl [Wellbutrin Sr] 100 mg PO BID 05/03/18 Divalproex Sodium 1,000 mg PO BID 05/03/18 Furosemide [Lasix] 40 mg PO DAILY 05/03/18 Levothyroxine Sodium [Synthroid] 100 mcg PO SUSA 05/03/18 Levothyroxine Sodium [Synthroid] 200 mcg PO MOTUWETHFR 05/03/18 Sertraline HCl [Zoloft] 200 mg PO DAILY 05/03/18 hydrOXYzine pamoate capsule [Vistaril pamoate capsule] 25 mg PO TID PRN PRN 05/03/18 traZODone [Desyrel] 50 - 200 mg PO QHS 05/03/18 Acetaminophen [Tylenol Tablet] 650 mg PO Q4H PRN PRN tablet 05/07/18 Menthol/Lanolin/Calamine/Znox [Calmoseptine Ointment] 1 applic TOPICAL BID tube 05/07/18 Nicotine [Nicoderm] 14 mg TRANSDERM. DAILY patch 05/07/18 Primary Care Physician: Moni Jackson MD [Primary Care Provider] - Please follow up with your Primary Care Physician in: 1 Week Disposition: [facility] facility Minutes spent on discharge:: 35 Patient Condition:: Stable Medical Necessity - Tobacco Use Smoking Status: Current every day smoker Tobacco Use: Cigarettes Meaningful Use Info Meaningful Use Diagnoses (Choose all that apply): None applicable
--- NOTE | 2018-05-07 13:22 | DS.PCM_ITS ---
Discharge Date and Diagnosis Date of Admission: 05/03/18 Date of Discharge: 05/07/18 - Primary Discharge Diagnosis Active and Suspected Problems 1. Mechanical fall, prior to admission, debility 2. Depakote toxicity with history of seizures 3. MOI, noncompliant with CPAP 4. Possible substance use-urine tox screen positive for methamphetamines 5. Chronic COPD with chronic hypoxic respiratory failure 6. Tobacco dependence 7. CAD 8. Hypertension 9. Hyperlipidemia 10. Hypothyroidism 11. Left breast cancer status post mastectomy 12. Anxiety/depression 13. Morbid obesity - Secondary Discharge Diagnosis Chronic Problems History of TIAs (Chronic) Tobacco use disorder (Chronic) Obesity (Chronic) Hypothyroidism (Chronic) Hypertension (Chronic) Hyperlipidemia (Chronic) Conversion disorder (Chronic) Leg edema (Chronic) Malnutrition (Chronic) Delayed wound healing (Chronic) History of epilepsy (Chronic) Bilateral leg edema (Chronic) COPD (chronic obstructive pulmonary disease) (Chronic) Anxiety and depression (Chronic) Morbid obesity (Chronic) Breast cancer, left breast (Chronic) 04/07/15 L mastectomy w/ L sentinel node Bx Coronary atherosclerosis of [place] coronary vessel (Chronic) Hospital Course and Treatment Imaging Results: Diagnostic Data Brain CT 05/03/18 13:11 IMPRESSION: Chronic involutional changes of the brain. Electronically Signed: Jerry Sellers MD at 14:59 EST Tel [phone], Service support , Cervical Spine CT 05/03/18 13:11 IMPRESSION: Multilevel degenerative changes, as described above. Electronically Signed: Jerry Sellers MD at 15:15 EST Tel [phone], Service support , Chest X-Ray 05/03/18 13:11 IMPRESSION: No acute abnormality is seen. Electronically Signed: Jerry Sellers MD at 14:29 EST Tel [phone], Service support , Knee X-Ray 05/03/18 13:11 IMPRESSION: Degenerative arthrosis. Soft tissue swelling. Small joint effusion. Electronically Signed: Jerry Sellers MD at 14:30 EST Tel [phone], Service support , Lumbar Spine X-Ray 05/03/18 13:11 IMPRESSION: Degenerative changes of the spine, as detailed above. Electronically Signed: Jerry Sellers MD at 14:40 EST Tel [phone], Service support , Pelvis X-Ray 05/03/18 13:11 IMPRESSION: Mild degree of degenerative changes of the hip joints. Electronically Signed: Jerry Sellers MD at 14:44 EST Tel [phone], Service support , Hand X-Ray 05/03/18 13:15 IMPRESSION: Normal x-ray examination of the hand. Electronically Signed: Jerry Sellers MD at 14:31 EST Tel [phone], Service support , Operations: None Procedures: None Summary of Care Provided: The patient is a 58 year old F admitted 05/03/2018 due to fall, injuring head and face. 1. Mechanical fall prior to admission, debility, possible concussion-PT/OT. SNF at [facility]. Brain CT negative. Multiple imaging on admission without acute fracture including cervical spine CT, hand x-ray, pelvis x-ray, lumbar spine x-ray, knee x-ray. 2. History of seizures/Depakote toxicity- Continue Trileptal regimen. Repeat valproic acid level 25. Resumed depakote. 3. MOI, noncompliant with CPAP. Refusing CPAP during admission. 4. Possible substance use-urine tox screen positive for methamphetamines. Pt denies elicit drug use. 5. Chronic COPD with chronic hypoxic respiratory failure-continue supplement oxygen to maintain O2 at or above 90%. PRN albuterol. 6. Tobacco dependence-encourage smoking cessation. 7. CAD-continue aspirin, statin. 8. Hypertension-continue home Lasix, lisinopril, Norvasc, spironolactone regimen. 9. Hyperlipidemia-continue statin. 10. Hypothyroidism-continue Synthroid regimen. 11. Left breast cancer status post mastectomy-continue Arimidex regimen. 12. Anxiety/depression-continue home regimen. 13. Morbid obesity-encouraged diet lifestyle modifications. General: Alert, Oriented x3, Cooperative HEENT: Atraumatic, PERRLA, EOMI, Normocephalic Neck: Supple, No JVD, Negative Carotid Bruits Lungs: Clear to auscultation, Diminished Cardiovascular: Regular rate, Regular Rhythm, Normal S1, Normal S2, No murmurs Abdomen: Bowel Sounds Present, Soft, Non Tender, Non-Distended, Obese Extremities: No clubbing, No cyanosis, No edema, Capillary Refill Less than 3 Seconds Skin: No rashes, No breakdown Musculoskeletal: No Tenderness to Palpation of Joints or Extremities Neurological: Cranial nerves II-XII grossly intact, Neuro grossly intact Psych/Mental Status: Flat Affect Patient seen and examined prior to discharge. Physical assessment as noted above. Patient is stable for discharge with follow up recommendations as noted above. This patient was seen by HUMBERTO Shaikh under the supervision of Dr. Jackson. - Physical Exam Vital Signs Temp Pulse Resp BP Pulse Ox 97.7 F L 67 16 145/87 H 98 05/07/18 09:00 05/07/18 10:57 05/07/18 10:57 05/07/18 09:00 05/07/18 09:00 Oxygen Flow Rate (L/min) 4 Oxygen Delivery Method Room Air Weight: 302 lb 4.765 oz Body Mass Index (BMI) 43.2 Finger Stick Blood Glucose 112 Intake and Output for Last 24 Hours 05/05/18 05/06/18 05/07/18 23:59 23:59 23:59 Intake Total 2029 1250.5 / 1250.5 600 / 600 Output Total 500 / 500 Balance 2029 1250.5 / 1250.5 100 / 100 Home Medications: Medications to take at Discharge Aspirin [Aspirin, Baby] 81 mg PO DAILY@0800 05/09/15 Atorvastatin Calcium [Lipitor] 40 mg PO QHS 05/09/15 Pregabalin [Lyrica] 50 mg PO BID 05/09/15 Amlodipine [Norvasc] 10 mg PO DAILY 07/12/16 Anastrozole [Arimidex] 1 mg PO DAILY 07/12/16 Ergocalciferol [Vitamin D] 50,000 unit PO MOTH 07/12/16 Furosemide [Lasix] 20 mg PO QHS 07/12/16 Oxcarbazepine [Trileptal] 300 mg PO BID 07/12/16 Spironolactone [Aldactone] 25 mg PO DAILY 07/12/16 Lisinopril [Zestril] 20 mg PO BID 04/04/17 Albuterol Inhaler [Ventolin Hfa] 2 puff INHALATION Q4H PRN PRN 07/12/17 Naproxen [Naprosyn] 500 mg PO BID PRN PRN 07/12/17 Bupropion HCl [Wellbutrin Sr] 100 mg PO BID 05/03/18 Divalproex Sodium 1,000 mg PO BID 05/03/18 Furosemide [Lasix] 40 mg PO DAILY 05/03/18 Levothyroxine Sodium [Synthroid] 100 mcg PO SUSA 05/03/18 Levothyroxine Sodium [Synthroid] 200 mcg PO MOTUWETHFR 05/03/18 Sertraline HCl [Zoloft] 200 mg PO DAILY 05/03/18 hydrOXYzine pamoate capsule [Vistaril pamoate capsule] 25 mg PO TID PRN PRN 05/03/18 traZODone [Desyrel] 50 - 200 mg PO QHS 05/03/18 Acetaminophen [Tylenol Tablet] 650 mg PO Q4H PRN PRN tablet 05/07/18 Menthol/Lanolin/Calamine/Znox [Calmoseptine Ointment] 1 applic TOPICAL BID tube 05/07/18 Nicotine [Nicoderm] 14 mg TRANSDERM. DAILY patch 05/07/18 Primary Care Physician: Moni Jackson MD [Primary Care Provider] - Please follow up with your Primary Care Physician in: 1 Week Disposition: [facility] facility Minutes spent on discharge:: 35 Patient Condition:: Stable Medical Necessity - Tobacco Use Smoking Status: Current every day smoker Tobacco Use: Cigarettes Meaningful Use Info Meaningful Use Diagnoses (Choose all that apply): None applicable
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
[2018-05-07] MEDS: Furosemide 20 MG Tablet PO (17:35)
[2018-05-07] MEDS: Acetaminophen 325 MG Tablet 650 MG PO (20:49)
[2018-05-07] MEDS: hydrALAZINE 20 MG/ML Vial 10 MG IV (20:49)
[2018-05-07] MEDS: Atorvastatin Calcium 40 MG Tablet PO (22:27)
[2018-05-08] VITALS (11 sets, daily range): BP systolic 132–168; BP diastolic 64–83; PULSE 64–75; RESP 16–18; TEMP 36.2–36.7; O2SAT 94–98
[2018-05-08] MEDS: Acetaminophen 325 MG Tablet 650 MG PO ×2 (02:56→21:27)
[2018-05-08] MEDS: hydrALAZINE 20 MG/ML Vial 10 MG IV (02:56)
[2018-05-08] MEDS: Levothyroxine 100 MCG Tablet 200 MCG PO (05:17)
[2018-05-08] MEDS: Ipratropium/Albuterol Sulfate 3 ML AMPUL.NEB INHALATION ×4 (07:07→19:10)
[2018-05-08] MEDS: Spironolactone 25 MG Tablet PO (07:50)
[2018-05-08] MEDS: Lisinopril 20 MG Tablet PO ×2 (07:50→21:28)
[2018-05-08] MEDS: Aspirin 81 MG TAB.CHEW PO (07:50)
[2018-05-08] MEDS: amLODIPine 10 MG Tablet PO (07:51)
[2018-05-08] MEDS: Furosemide 40 MG Tablet PO (07:51)
[2018-05-08] MEDS: Sertraline 100 MG Tablet 200 MG PO (10:11)
[2018-05-08] MEDS: Divalproex Sodium 250 MG Tablet 1000 MG PO ×2 (10:11→21:28)
[2018-05-08] MEDS: Menthol/Lanolin/Calamine/Znox 113 GM Tube 1 APPLIC TOPICAL ×2 (10:12→21:29)
[2018-05-08] MEDS: Enoxaparin 40 MG/0.4 ML Syringe SC (10:12)
[2018-05-08] MEDS: buPROPion (SR) 100 MG TABLET.SA PO ×2 (10:12→21:28)
[2018-05-08] MEDS: Anastrozole 1 MG Tablet PO (10:13)
[2018-05-08] MEDS: Pregabalin 50 MG Capsule PO ×2 (10:15→21:27)
[2018-05-08] MEDS: OXcarbazepine 300 MG Tablet PO ×2 (10:16→21:27)
--- NOTE | 2018-05-08 10:24 | CASEMGMT ---
Social Work Note SW faxed updated OT notes to [facility] at [facility]. Plan: [facility] pending pre-cert Janae Morley BUSINESS SOLUTIONS DIRECTOR, JEWEL SETTER
--- NOTE | 2018-05-08 12:59 | PN_ITS ---
<Magaly Carlos - Last Filed: 05/08/18 13:00> Subjective: Patient seen and examined. Blood pressure labile. Started on hydralazine 50 mg p.o. 3 times daily. No other current complaints. Awaiting precept to SNF. - Physical Exam General: Alert, Oriented x3, Cooperative HEENT: Atraumatic, PERRLA, EOMI, Normocephalic Neck: Supple, No JVD, Negative Carotid Bruits Lungs: Clear to auscultation, Diminished Cardiovascular: Regular rate, Regular Rhythm, Normal S1, Normal S2, No murmurs Abdomen: Bowel Sounds Present, Soft, Non Tender, Non-Distended, Obese Extremities: No clubbing, No cyanosis, No edema Skin: No rashes, No breakdown Musculoskeletal: No Tenderness to Palpation of Joints or Extremities Neurological: Cranial nerves II-XII grossly intact, Neuro grossly intact Psych/Mental Status: Flat Affect Vital Signs Temp Pulse Resp BP Pulse Ox 97.8 F 66 18 168/64 H 98 05/08/18 08:30 05/08/18 08:30 05/08/18 08:30 05/08/18 08:30 05/08/18 08:30 Oxygen Flow Rate (L/min) 4 Oxygen Delivery Method Room Air Weight: 302 lb 4.765 oz Body Mass Index (BMI) 43.2 Finger Stick Blood Glucose 112 Intake and Output for Last 24 Hours 05/06/18 05/07/18 05/08/18 23:59 23:59 23:59 Intake Total 1250.5 / 1250.5 2650 / 2650 500 / 500 Output Total 500 / 500 700 / 700 Balance 1250.5 / 1250.5 2150 / 2150 -200 / -200 Medical Necessity - Tobacco Use Smoking Status: Current every day smoker Tobacco Use: Cigarettes Assessment/Plan All Active Problems Fall (Acute) 1. Mechanical fall prior to admission, debility, possible concussion-PT/OT. SNF pending acceptance. Brain CT negative. Multiple imaging on admission without acute fracture including cervical spine CT, hand x-ray, pelvis x-ray, lumbar spine x-ray, knee x-ray. 2. History of seizures/Depakote toxicity- Continue Trileptal regimen. Repeat valproic acid level 25. Resume depakote. 3. MOI, noncompliant with CPAP. Refusing CPAP during admission. 4. Suspected substance use-urine tox screen positive for methamphetamines. 5. Chronic COPD with chronic hypoxic respiratory failure-continue supplement oxygen to maintain O2 at or above 90%. PRN albuterol. 6. Tobacco dependence-encourage smoking cessation. 7. CAD-continue aspirin, statin. 8. Hypertension-continue home Lasix, lisinopril, Norvasc, spironolactone regimen. BP labile. Begin hydralazine 50 mill grams p.o. 3 times daily. Continue to monitor. 9. Hyperlipidemia-continue statin. 10. Hypothyroidism-continue Synthroid regimen. 11. Left breast cancer status post mastectomy-continue Arimidex regimen. 12. Anxiety/depression-continue home regimen. 13. Morbid obesity-encouraged diet lifestyle modifications. DVT prophylaxis-Lovenox Discharge planning: SNF pending acceptance. This patient was seen by Magaly Carlos NP-C under the supervision of Dr. Jackson. <Mima Jackson E - Last Filed: 05/08/18 13:55> - Physical Exam Vital Signs Temp Pulse Resp BP Pulse Ox 97.8 F 66 18 168/64 H 98 05/08/18 08:30 05/08/18 08:30 05/08/18 08:30 05/08/18 08:30 05/08/18 08:30 Oxygen Flow Rate (L/min) 4 Oxygen Delivery Method Room Air Weight: 302 lb 4.765 oz Body Mass Index (BMI) 43.2 Finger Stick Blood Glucose 112 Intake and Output for Last 24 Hours 05/06/18 05/07/18 05/08/18 23:59 23:59 23:59 Intake Total 1250.5 / 1250.5 2650 / 2650 500 / 500 Output Total 500 / 500 700 / 700 Balance 1250.5 / 1250.5 2150 / 2150 -200 / -200 Assessment/Plan Hospitalist note: I am seeing this patient in conjunction with Magaly Carlos. I independently seen and examined the patient. Progress note above reviewed and I agree with above treatment and workup plan. Her blood pressure has been on the higher side. She reported intermittent headache. Still complaining of right knee pain but minimally improved. - Physical Exam General: Alert, Oriented x3, Cooperative, No apparent distress. HEENT: Atraumatic, PERRLA, EOMI. Neck: Supple, No JVD, Negative Carotid Bruits, Trachea Midline, Thyroid Normal. Lungs: Clear to auscultation, Normal air movement, No rhonchi, No wheeze, No rales. Cardiovascular: Regular rate, Regular Rhythm, Normal S1, Normal S2, PMI Normal. Abdomen: Bowel Sounds Present, Soft, Non Tender, Non-Distended, No Hepato- splenomegaly. Extremities: No clubbing, No cyanosis, + edema, stasis dermatitis Skin: No rashes, No breakdown Neurological: Neuro grossly intact Vital Signs are stable. #1 fall/physical debility/functional decline: Patient complaining of bilateral knee pain, more on the right knee. This is likely because of osteoarthritis. She had imaging studies on admission that was unremarkable for acute fractures or dislocations. CT scan brain, CT scan cervical spine, chest x-ray, x-ray of both knees, x-ray of the lumbar spine, x-ray pelvis and hand performed and showed no acute fractures. Patient has been on Tylenol as needed for pain as well as Lyrica. Patient may need referral to orthopedic surgery for knee replacement, recommended follow-up with PCP as outpatient and referral to orthopedic surgery as outpatient as well. We are awaiting insurance approval for placement to intermediate facility. #2 uncontrolled hypertension: Blood pressure has been in the 170s-180s systolic persistently. Patient is on Norvasc, Lasix, lisinopril and Aldactone. Her blood pressure could be high because of the pain. Started on hydralazine 3 times daily, monitor blood pressure. #3 history of seizure: Continue Trileptal and Depakote. Depakote level was elevated, recommend repeat Depakote level and 1-2 weeks as outpatient. #4 suspected substance abuse: Urine drug screen was positive for methamphetamines. #5 other chronic medical problems: Stable, continue current medications as above. This note was generated with [employer] dictation software. It may contain incorrect words, spelling, and punctuation that were not noted in checking the note before signing. Code Visit Inpatient E&M: 45471 Subs Hosp L2
--- NOTE | 2018-05-08 14:30 | CASEMGMT ---
Social Work Note GLENNA spoke with Marietta at [facility]. Per Marietta pt's insurance is requesting updated ADLs for pt. GLENNA updated PT/OT on pt's insurance requesting updated notes with ADLs for pt. Plan: [facility] pending pre-cert Janae Morley GIS SPECIALIST, CAN PATCHER
[2018-05-08] MEDS: hydrALAZINE 50 MG Tablet PO ×2 (14:35→21:28)
--- NOTE | 2018-05-08 16:02 | CPS ---
Discussed with patient the CPAP. She has not used it here in the hospital since the night of 05-06-18. She explained that the mask is similar to hers but the headgear on her mask is much more comfortable. Also the CPAP Machine here is much louder. She is currently not interested in wearing it.
[2018-05-08] MEDS: Furosemide 20 MG Tablet PO (18:02)
[2018-05-08] MEDS: Atorvastatin Calcium 40 MG Tablet PO (21:28)
[2018-05-09] VITALS (11 sets, daily range): BP systolic 140–163; BP diastolic 67–76; PULSE 65–87; RESP 16–18; TEMP 36.6–36.7; O2SAT 94–97
[2018-05-09] MEDS: hydrALAZINE 50 MG Tablet PO ×3 (05:30→21:15)
[2018-05-09] MEDS: Levothyroxine 100 MCG Tablet 200 MCG PO (05:32)
[2018-05-09] MEDS: Ipratropium/Albuterol Sulfate 3 ML AMPUL.NEB INHALATION ×4 (06:59→19:03)
--- NOTE | 2018-05-09 08:33 | CASEMGMT ---
GLENNA faxed updated PT/OT notes that included ADL's to [facility]. GLENNA called [facility], let Doreen know that the updated PT/OT notes are faxed. GLENNA emphasized to Doreen that though pt is moving better, as per OT her knee is not strong. Also, it would still benefit the pt to have a week or two of rehab before returning to the retirement as pt is not able to get assist there. Doreen states understanding, will pass the information on to Marietta when she gets to [place] this morning. TONY Mcmanus, MECHANICAL TEST TECHNICIAN
[2018-05-09] MEDS: Aspirin 81 MG TAB.CHEW PO (08:37)
[2018-05-09] MEDS: Sertraline 100 MG Tablet 200 MG PO (09:20)
[2018-05-09] MEDS: amLODIPine 10 MG Tablet PO (09:20)
[2018-05-09] MEDS: Divalproex Sodium 250 MG Tablet 1000 MG PO ×2 (09:21→21:16)
[2018-05-09] MEDS: Spironolactone 25 MG Tablet PO (09:21)
[2018-05-09] MEDS: Anastrozole 1 MG Tablet PO (09:21)
[2018-05-09] MEDS: Menthol/Lanolin/Calamine/Znox 113 GM Tube 1 APPLIC TOPICAL ×2 (09:21→21:14)
[2018-05-09] MEDS: Enoxaparin 40 MG/0.4 ML Syringe SC (09:22)
[2018-05-09] MEDS: buPROPion (SR) 100 MG TABLET.SA PO ×2 (09:23→21:16)
[2018-05-09] MEDS: OXcarbazepine 300 MG Tablet PO ×2 (09:23→21:16)
[2018-05-09] MEDS: Lisinopril 20 MG Tablet PO ×2 (09:23→21:15)
[2018-05-09] MEDS: Furosemide 40 MG Tablet PO (09:33)
[2018-05-09] MEDS: Pregabalin 50 MG Capsule PO ×2 (09:33→21:15)
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
--- NOTE | 2018-05-09 14:23 | PN_ITS ---
<Magaly Carlos - Last Filed: 05/09/18 14:24> Subjective: Patient seen and examined. Blood pressure improved. Complains of lower extremity swelling which she states occurs frequently at home. No other complaints. Awaiting precept. - Physical Exam General: Alert, Oriented x3, Cooperative HEENT: Atraumatic, PERRLA, EOMI, Normocephalic Neck: Supple, No JVD, Negative Carotid Bruits Lungs: Clear to auscultation, Diminished Cardiovascular: Regular rate, Regular Rhythm, Normal S1, Normal S2, No murmurs Abdomen: Bowel Sounds Present, Soft, Non Tender, Non-Distended, Obese Extremities: No clubbing, No cyanosis, Edema - +1 bilateral lower extremities Skin: No rashes, No breakdown, - - Chronic skin changes bilateral lower extre mities Musculoskeletal: No Tenderness to Palpation of Joints or Extremities Neurological: Cranial nerves II-XII grossly intact, Neuro grossly intact Psych/Mental Status: Flat Affect Vital Signs Temp Pulse Resp BP Pulse Ox 97.9 F 78 16 163/76 H 97 05/09/18 09:17 05/09/18 10:44 05/09/18 10:44 05/09/18 09:17 05/09/18 09:17 Oxygen Flow Rate (L/min) 4 Oxygen Delivery Method Room Air Weight: 302 lb 4.765 oz Body Mass Index (BMI) 43.2 Finger Stick Blood Glucose 112 Intake and Output for Last 24 Hours 05/07/18 05/08/18 05/09/18 23:59 23:59 23:59 Intake Total 2650 / 2650 2150 / 2150 800 / 800 Output Total 500 / 500 700 / 700 Balance 2150 / 2150 1450 / 1450 800 / 800 Medical Necessity - Tobacco Use Smoking Status: Current every day smoker Tobacco Use: Cigarettes Assessment/Plan All Active Problems Fall (Acute) 1. Mechanical fall prior to admission, debility, possible concussion-PT/OT. SNF pending acceptance. Brain CT negative. Multiple imaging on admission without acute fracture including cervical spine CT, hand x-ray, pelvis x-ray, lumbar spine x-ray, knee x-ray. 2. History of seizures/Depakote toxicity- Continue Trileptal regimen. Repeat valproic acid level 25. Resume depakote. 3. MOI, noncompliant with CPAP. Refusing CPAP during admission. 4. Suspected substance use-urine tox screen positive for methamphetamines. 5. Chronic COPD with chronic hypoxic respiratory failure-continue supplement oxygen to maintain O2 at or above 90%. PRN albuterol. 6. Tobacco dependence-encourage smoking cessation. 7. CAD-continue aspirin, statin. 8. Hypertension-continue home Lasix, lisinopril, Norvasc, spironolactone regimen. BP labile. Started on hydralazine 50 mill grams p.o. 3 times daily. Continue to monitor. 9. Hyperlipidemia-continue statin. 10. Hypothyroidism-continue Synthroid regimen. 11. Left breast cancer status post mastectomy-continue Arimidex regimen. 12. Anxiety/depression-continue home regimen. 13. Morbid obesity-encouraged diet lifestyle modifications. DVT prophylaxis-Lovenox Discharge planning: SNF pending acceptance. This patient was seen by Magaly Carlos NP-C under the supervision of Dr. Jackson. <Mima Jackson E - Last Filed: 05/10/18 13:31> - Physical Exam Vital Signs Temp Pulse Resp BP Pulse Ox 97.9 F 78 16 163/76 H 97 05/09/18 09:17 05/09/18 10:44 05/09/18 10:44 05/09/18 09:17 05/09/18 09:17 Oxygen Flow Rate (L/min) 4 Oxygen Delivery Method Room Air Weight: 302 lb 4.765 oz Body Mass Index (BMI) 43.2 Finger Stick Blood Glucose 112 Intake and Output for Last 24 Hours 05/07/18 05/08/18 05/09/18 23:59 23:59 23:59 Intake Total 2650 / 2650 2150 / 2150 800 / 800 Output Total 500 / 500 700 / 700 Balance 2150 / 2150 1450 / 1450 800 / 800 Assessment/Plan Hospitalist note: I am seeing this patient in conjunction with Magaly Carlos. I independently seen and examined the patient. Progress note above reviewed and I agree with above treatment and workup plan. Her blood pressure slightly better after started on hydralazine. Other vital signs are stable. #1 fall/physical debility/functional decline: This is likely because of osteoarthritis. She had imaging studies on admission that was unremarkable for acute fractures or dislocations. CT scan brain, CT scan cervical spine, chest x-ray, x-ray of both knees, x-ray of the lumbar spine, x-ray pelvis and hand performed and showed no acute fractures. Patient has been on Tylenol as needed for pain as well as Lyrica. Patient may need referral to orthopedic surgery for knee replacement, recommended follow-up with PCP as outpatient and referral to orthopedic surgery as outpatient as well. We are still awaiting insurance approval for placement to [facility] facility. #2 uncontrolled hypertension: Blood pressure slightly improved after starting hydralazine. Plan to continue same treatment, recommend follow-up with PCP in 1 week. #3 history of seizure: Continue Trileptal and Depakote. #4 suspected substance abuse: Urine drug screen was positive for methamphetamines. #5 other chronic medical problems: Stable, continue current medications as above. This note was generated with [employer] dictation software. It may contain incorrect words, spelling, and punctuation that were not noted in checking the note before signing. Code Visit Inpatient E&M: 02294 Subs Hosp L2
[2018-05-09] MEDS: Furosemide 20 MG/2 ML VIAL IV (15:21)
[2018-05-09] MEDS: 0.9% NaCl Peripheral Flush Adult/Peds IV ×2 (15:21→21:16)
[2018-05-09] MEDS: Furosemide 20 MG Tablet PO (17:46)
[2018-05-09] MEDS: Acetaminophen 325 MG Tablet 650 MG PO (21:16)
[2018-05-09] MEDS: Atorvastatin Calcium 40 MG Tablet PO (21:16)
--- NOTE | 2018-05-09 22:52 | CPS ---
PATIENT REFUSED THERAPY AT TIME OF VISIT. PATIENTS NURSE AWARE.
[2018-05-10] VITALS (7 sets, daily range): BP systolic 145–159; BP diastolic 53–77; PULSE 60–70; RESP 16; TEMP 36.4; O2SAT 96
[2018-05-10] MEDS: hydrALAZINE 50 MG Tablet PO ×2 (05:36→13:01)
[2018-05-10] MEDS: Acetaminophen 325 MG Tablet 650 MG PO (05:39)
[2018-05-10] MEDS: Levothyroxine 100 MCG Tablet 200 MCG PO (05:39)
[2018-05-10] MEDS: Ipratropium/Albuterol Sulfate 3 ML AMPUL.NEB INHALATION ×2 (07:18→11:14)
[2018-05-10] MEDS: Aspirin 81 MG TAB.CHEW PO (08:08)
[2018-05-10] MEDS: amLODIPine 10 MG Tablet PO (08:11)
[2018-05-10] MEDS: buPROPion (SR) 100 MG TABLET.SA PO (08:11)
[2018-05-10] MEDS: OXcarbazepine 300 MG Tablet PO (08:11)
[2018-05-10] MEDS: Lisinopril 20 MG Tablet PO ×2 (08:11→08:12)
[2018-05-10] MEDS: Sertraline 100 MG Tablet 200 MG PO (08:12)
[2018-05-10] MEDS: Anastrozole 1 MG Tablet PO (08:12)
[2018-05-10] MEDS: Spironolactone 25 MG Tablet PO (08:12)
[2018-05-10] MEDS: Divalproex Sodium 250 MG Tablet 1000 MG PO (08:12)
[2018-05-10] MEDS: Enoxaparin 40 MG/0.4 ML Syringe SC (08:12)
[2018-05-10] MEDS: Menthol/Lanolin/Calamine/Znox 113 GM Tube 1 APPLIC TOPICAL (08:13)
[2018-05-10] MEDS: Furosemide 40 MG Tablet PO (08:15)
[2018-05-10] MEDS: Pregabalin 50 MG Capsule PO (08:32)
--- NOTE | 2018-05-10 10:58 | CASEMGMT ---
Precert has been attained for pt to go to [facility] today. Physician and PA notified, discharge instructions written. SW faxed discharge instructions to [facility]. SW spoke w/pt, let her know she was authorized by insurance and can go to [facility] today, pt agreeable. SW set up a 2pm wheelchair van ride w/[facility], [facility] not available until the evening. PAS/RR and results already completed in [facility] system and faxed with results to [facility] last week. SW spoke w/pt, let her know that she is set up for 2pm to go to [facility]. SW also reminded pt that she was reassigned to a nurse practitioner at [facility] for psychiatric services and she just needs to call to make an appointment. Pt states understanding. GLENNA let RN here and Marietta at [facility] know pt will be picked up at 2pm. No further needs are anticipated. TONY Mcmanus, SLUDGE FILTRATION ATTENDANT
--- NOTE | 2018-05-10 13:16 | DS.PCM_ITS ---
<Neel Ford - Last Filed: 05/10/18 13:17> Discharge Date and Diagnosis Date of Admission: 05/03/18 Date of Discharge: 05/10/18 - Primary Discharge Diagnosis Fall secondary to debility and osteoarthritis Lethargy with increased Depakote level History of seizure Anxiety and depression Conversion disorder History of left-sided breast cancer COPD, no exacerbation CAD History of TIA Hyperlipidemia Hypertension Hypothyroidism Morbid obesity Nicotine abuse-smoking - Secondary Discharge Diagnosis Chronic Problems History of TIAs (Chronic) Tobacco use disorder (Chronic) Obesity (Chronic) Hypothyroidism (Chronic) Hypertension (Chronic) Hyperlipidemia (Chronic) Conversion disorder (Chronic) History of epilepsy (Chronic) Bilateral leg edema (Chronic) COPD (chronic obstructive pulmonary disease) (Chronic) Anxiety and depression (Chronic) Morbid obesity (Chronic) Breast cancer, left breast (Chronic) 04/07/15 L mastectomy w/ L sentinel node Bx Coronary atherosclerosis of [place] coronary vessel (Chronic) Hospital Course and Treatment Imaging Results: CT/Brain/Head without Contrast IMPRESSION: Chronic involutional changes of the brain. CT/Spine Cervical without Contras IMPRESSION: Multilevel degenerative changes, as described above. RAD/Chest 1 View (Portable) IMPRESSION: No acute abnormality is seen. RAD/Knee 1 or 2 Views IMPRESSION: Degenerative arthrosis. Soft tissue swelling. Small joint effusion. RAD/Knee 1 or 2 Views IMPRESSION: Degenerative arthrosis. Small joint effusion. RAD/Lumbar Spine 2 or 3 Views IMPRESSION: Degenerative changes of the spine, as detailed above. RAD/Pelvis 1 or 2 Views IMPRESSION: Mild degree of degenerative changes of the hip joints. RAD/Hand Min 3 Views IMPRESSION: Normal x-ray examination of the hand. Operations: None Procedures: None Summary of Care Provided: Hospital course: The patient is a 58 year old F with past medical history as above who presented to the emergency room after falling while leaving the [employer] for the mandatory 8-hour time., She was using her walker but she fell and struck her head and face. She underwent extensive imaging including CT of the brain, CT of the C-spine, chest x-ray, knee x-ray, lumbar spine x-ray, pelvis x-ray, and x- ray, with no fractures, otherwise findings as above. She also appeared lethargic and a Depakote level was checked which was elevated so this was held. She was admitted to the general medical floor with PT and OT evaluations. TSH was elevated but T4 was normal. Urinalysis was negative. She was very debilitated when working with PT and OT at [facility] was recommended. Her Depakote level normalized and her lethargy improved. She was restarted on Depakote. When approved, she was discharged to [facility] in stable condition. She will need a Depakote level checked in 1 week. She will need to follow-up with her psychiatrist in 1-2 weeks, and her PCP in 1-2 weeks. Her blood pressure was fluctuant and somewhat elevated while here, this will need to be followed as an outpatient with possible medication changes if it remains elevated. She will need to continue PT and OT. She was discharged to [facility] in stable condition. This patient was seen by Neel Ford PA-C under the supervision of Doctor Jackson. [] - Physical Exam General: Alert, Oriented x3, Cooperative HEENT: Atraumatic, PERRLA, EOMI, Normocephalic Neck: Supple, No JVD, Negative Carotid Bruits Lungs: Clear to auscultation, Normal air movement Cardiovascular: Regular rate, No murmurs Abdomen: Bowel Sounds Present, Soft, Non Tender Extremities: No edema, Capillary Refill Less than 3 Seconds Skin: No rashes, No breakdown Musculoskeletal: No Tenderness to Palpation of Joints or Extremities Neurological: Cranial nerves II-XII grossly intact Psych/Mental Status: Flat Affect, Alert and oriented to time, place, person, mood and affect Vital Signs Temp Pulse Resp BP Pulse Ox 97.5 F L 70 16 159/68 H 96 05/10/18 08:30 05/10/18 13:01 05/10/18 11:14 05/10/18 08:30 05/10/18 08:30 Oxygen Flow Rate (L/min) 4 Oxygen Delivery Method Room Air Weight: 302 lb 4.765 oz Body Mass Index (BMI) 43.2 Finger Stick Blood Glucose 112 Intake and Output for Last 24 Hours 01/08/19 01/09/19 01/10/19 23:59 23:59 23:59 Intake Total 2150 / 2150 1630 / 1630 1120 / 1120 Output Total 700 / 700 Balance 1450 / 1450 1630 / 1630 1120 / 1120 Discharge Diet: Low fat/ Low Cholesterol, 2000 mg Sodium Diet Discharge Activity: Return to Normal Activity Home Medications: Medications to take at Discharge Aspirin [Aspirin, Baby] 81 mg PO DAILY@0800 05/09/15 Atorvastatin Calcium [Lipitor] 40 mg PO QHS 05/09/15 Pregabalin [Lyrica] 50 mg PO BID 05/09/15 Amlodipine [Norvasc] 10 mg PO DAILY 07/12/16 Anastrozole [Arimidex] 1 mg PO DAILY 07/12/16 Ergocalciferol [Vitamin D] 50,000 unit PO MOTH 07/12/16 Furosemide [Lasix] 20 mg PO QHS 07/12/16 Oxcarbazepine [Trileptal] 300 mg PO BID 07/12/16 Spironolactone [Aldactone] 25 mg PO DAILY 07/12/16 Lisinopril [Zestril] 20 mg PO BID 04/04/17 Albuterol Inhaler [Ventolin Hfa] 2 puff INHALATION Q4H PRN PRN 07/12/17 Naproxen [Naprosyn] 500 mg PO BID PRN PRN 07/12/17 Bupropion HCl [Wellbutrin Sr] 100 mg PO BID 05/03/18 Divalproex Sodium 1,000 mg PO BID 05/03/18 Furosemide [Lasix] 40 mg PO DAILY 05/03/18 Levothyroxine Sodium [Synthroid] 100 mcg PO SUSA 05/03/18 Levothyroxine Sodium [Synthroid] 200 mcg PO MOTUWETHFR 05/03/18 Sertraline HCl [Zoloft] 200 mg PO DAILY 05/03/18 hydrOXYzine pamoate capsule [Vistaril pamoate capsule] 25 mg PO TID PRN PRN 05/03/18 traZODone [Desyrel] 50 - 200 mg PO QHS 05/03/18 Acetaminophen [Tylenol Tablet] 650 mg PO Q4H PRN PRN tablet 05/07/18 Menthol/Lanolin/Calamine/Znox [Calmoseptine Ointment] 1 applic TOPICAL BID tube 05/07/18 Nicotine [Nicoderm] 14 mg TRANSDERM. DAILY patch 05/07/18 hydrALAZINE [Apresoline] 50 mg PO TID tablet 05/09/18 Primary Care Physician: Moni Jackson MD [Primary Care Provider] - Please follow up with your Primary Care Physician in: 1 Week Please Follow Up With: Psychiatrist - your own When: 1-2 weeks Disposition: [facility] facility Minutes spent on discharge:: 35 Patient Condition:: Stable Medical Necessity - Tobacco Use Smoking Status: Current every day smoker Tobacco Use: Cigarettes Meaningful Use Info Meaningful Use Diagnoses (Choose all that apply): None applicable <Mima Jackson E - Last Filed: 05/10/18 13:37> Discharge Date and Diagnosis - Secondary Discharge Diagnosis Chronic Problems History of TIAs (Chronic) Tobacco use disorder (Chronic) Obesity (Chronic) Hypothyroidism (Chronic) Hypertension (Chronic) Hyperlipidemia (Chronic) Conversion disorder (Chronic) History of epilepsy (Chronic) Bilateral leg edema (Chronic) COPD (chronic obstructive pulmonary disease) (Chronic) Anxiety and depression (Chronic) Morbid obesity (Chronic) Breast cancer, left breast (Chronic) 04/07/15 L mastectomy w/ L sentinel node Bx Coronary atherosclerosis of [place] coronary vessel (Chronic) Hospital Course and Treatment Summary of Care Provided: Hospitalist note: Discharge summary above reviewed as well as physical examination and I concur with the above discharge plan. Patient was admitted because of mechanical fall, difficulty ambulating and physical debility. She underwent extensive imaging workup to rule out any acute pathology or fractures. She had CT scan brain that showed no acute findings. CT scan cervical spine showed no acute fractures or dislocations. Chest x-ray showed no acute infiltrate, consolidation or effusion. X-ray of both knees revealed osteoarthritic changes without evidence of acute fractures or dislocations. X-ray of the lumbar spine and x-ray of the pelvis also showed no acute fractures. Her routine blood work was remarkable only for mild hypokalemia which was replaced and corrected, otherwise was normal. Her debility and frequent falls attributed to her weight in addition to osteoarthritis of both knees. Patient was treated conservatively with pain medications. Her blood pressure has been elevated during this hospital stay. She was continued on Norvasc, Lasix and lisinopril as well as Aldactone and because her blood pressure remained above 170 systolic, she was started on hydralazine 50 mg p.o. 3 times daily. Her urinalysis showed no evidence of acute cystitis. Chest x-ray showed no pneumonia. After started on hydralazine, blood pressure started to improve slightly. Patient continued to complain of bilateral knee pain which is more on the right knee and difficulty ambulating. PT OT evaluated the patient and recommended placement to [facility] facility. Patient discharged to [facility] facility in a stable medical condition, started on hydralazine 3 times daily for uncontrolled hypertension, continued on Tylenol as needed, naproxen as needed and Lyrica for joint pain, continued on her other chronic home medications without any changes, recommended to follow-up with PCP in 1 week and follow-up with her psychiatrist in 1-2 weeks. This note was generated with [employer] dictation software. It may contain incorrect words, spelling, and punctuation that were not noted in checking the note before signing. . - Physical Exam Vital Signs Temp Pulse Resp BP Pulse Ox 97.5 F L 62 16 145/53 H 96 05/10/18 08:30 05/10/18 13:18 05/10/18 13:18 05/10/18 13:18 05/10/18 13:18 Oxygen Flow Rate (L/min) 4 Oxygen Delivery Method Room Air Weight: 302 lb 4.765 oz Body Mass Index (BMI) 43.2 Finger Stick Blood Glucose 112 Intake and Output for Last 24 Hours 05/08/18 05/09/18 05/10/18 23:59 23:59 23:59 Intake Total 2150 / 2150 1630 / 1630 1120 / 1120 Output Total 700 / 700 Balance 1450 / 1450 1630 / 1630 1120 / 1120 Meaningful Use Info Meaningful Use Diagnoses (Choose all that apply): None applicable Code Visit Inpatient E&M: 05583 Disch Hosp
== END 2018-05-10 13:52 | DRG 861 ==
LOC: ED 13:38 → MS2 16:18
PROVIDERS: Internal Medicine; Nurse Practitioner Family; Admitting Provider Family Medicine; Emergency Provider Emergency Medicine; Family Provider Internal Medicine; PCP Internal Medicine; Visit Provider Hospitalist
DX: R53.81 Other malaise (principal); S06.0X1A Concussion with loss of consciousness of 30 minutes or less, initial encounter; G47.33 Obstructive sleep apnea (adult) (pediatric); J96.11 Chronic respiratory failure with hypoxia; J44.9 Chronic obstructive pulmonary disease, unspecified; F17.210 Nicotine dependence, cigarettes, uncomplicated; I25.10 Atherosclerotic heart disease of native coronary artery without angina pectoris; E03.9 Hypothyroidism, unspecified; E78.5 Hyperlipidemia, unspecified; E66.01 Morbid (severe) obesity due to excess calories; Z68.41 Body mass index [BMI] 40.0-44.9, adult; Z90.12 Acquired absence of left breast and nipple; R53.83 Other fatigue; C50.912 Malignant neoplasm of unspecified site of left female breast; Z79.811 Long term (current) use of aromatase inhibitors; R40.2412 Glasgow coma scale score 13-15, at arrival to emergency department; W18.30XA Fall on same level, unspecified, initial encounter; Z86.73 Personal history of transient ischemic attack (TIA), and cerebral infarction without residual deficits; E87.6 Hypokalemia; I10 Essential (primary) hypertension; T42.6X5A Adverse effect of other antiepileptic and sedative-hypnotic drugs, initial encounter; Z91.19 Patient's noncompliance with other medical treatment and regimen; M17.0 Bilateral primary osteoarthritis of knee; F41.9 Anxiety disorder, unspecified; F32.9 Major depressive disorder, single episode, unspecified; G40.909 Epilepsy, unspecified, not intractable, without status epilepticus; F44.9 Dissociative and conversion disorder, unspecified
CPT/HCPCS: 36415; 36600; 70450; 71045; 72100; 72125; 72170; 73130; 73560; 80048; 80053; 80164; 80307; 81001; 82803; 83735; 84439; 84443; 84484; 85025; 93005; 94002; 94003; 94640; 94660; 97110; 97116; 97162; 97165; 97530; 97535; 97802; 99285; 99406; J7030; J7040; A4216; J1940

== ENCOUNTER 2018-08-17 07:22 | Inpatient (IN) | payer MEDICAID, SELFPAY ==
[2018-05-03 16:43] VITALS: BMI 43.2
[2018-08-17] VITALS (14 sets, daily range): BP systolic 114–161; BP diastolic 50–92; PULSE 48–79; RESP 16–28; TEMP 36.7–38.8; O2SAT 89–95; BMI 42.5; BMI 41.8
--- NOTE | 2018-08-17 07:44 | EKG12_ITS ---
Test Reason : Blood Pressure : / mmHG Vent. Rate : 075 BPM Atrial Rate : 075 BPM P-R Int : 182 ms QRS Dur : 082 ms QT Int : 392 ms P-R-T Axes : 029 002 029 degrees QTc Int : 437 ms Normal sinus rhythm Normal ECG Confirmed by GERAROD VALLEJO, MAKAYLA ([id number]), editorial clerk ALEXANDRE FLORES ([id number]) on 08/20/2018 10:39:50 AM Referred By: ROMÁN Confirmed By:MAKAYLA CARRILLO MD
--- NOTE | 2018-08-17 08:00 | RAD_ITS ---
STUDY: X-RAY CHEST REASON FOR EXAM: Female, 58 years old. Possible foreign body aspiration. TECHNIQUE: Single AP portable view of the chest. COMPARISON: Comparison is made with prior study dated May 03, 2018. FINDINGS: There is evidence of infiltration in the right lower lobe. Mild increased markings are also seen in the left lower lobe. There is no demonstrated pleural abnormality. Normal size heart. Normal mediastinum and janice. Normal visualized pulmonary arteries. Normal visualized aortic arch and descending thoracic aorta. Normal visualized thoracic spine. Normal visualized ribs, clavicles, and shoulders. There is no demonstrated abnormality of the visualized soft tissue structures of the upper abdomen. RAD/Chest 1 View (Portable) IMPRESSION: Right lower lobe infiltrate. Electronically Signed: Jerry Sellers, at 8:53 EDT , Service support ,
[2018-08-17 08:13] LABS: Absolute Lymphocyte Count 0.97 X10^3/ul (0.83-4.51); Absolute Neutrophil Count 6.5 X10^3/uL (2.0-7.7); Basophil# 0.02 X10^3/uL; Basophil% 0.2 % (0-1); Differential Indicated SCAN CRITERIA MET; Eosinophil# 0.08 X10^3/uL; Eosinophils% 0.8 % (0-5); Hemoglobin 15.1 g/dl (12.0-15.0); International Normalized Ratio 1.1; Lymphocyte # 0.97 X10^3/ul (4.0); Lymphocyte % 10.2 % (19-41); Mean Corp Hgb Conc 33.6 g/gl (32-36); Mean Corpuscular Hgb 30.3 pg (27.0-32.0); Mean Corpuscular Volume 90.2 fL (81-99); Mean Platelet Vol. 9.2 fl (6.2-12.0); Monocyte# 1.88 X10^3/uL; Monocyte% 19.8 % (0-10); Neutrophil # 6.52 X10^3/uL (2.7-7.7); Neutrophil % 68.8 % (47-70); POSITIVE COUNT NO; POSITIVE DIFFERENTIAL YES; POSITIVE MORPHOLOGY NO; Partial Thromboplast Time 29.7 Seconds (24.1-36.2); Platelet Count 113 K/mm3 (150-450); Prothrombin Time (Protime)PT. 14.2 SECONDS (11.7-14.9); RBC Distribution Width CV 15.1 % (11.6-14.6); RBC Distribution Width SD 50.2 fl (35.1-43.9); Red Blood Count 4.99 M/mm3 (4.2-5.4); White Blood Count 9.5 K/mm3 (4.4-11.0)
[2018-08-17 08:22] LABS: ALB/GLOB Ratio 0.7 RATIO (0.9-2.4); AST(SGOT) 20 U/L (15-37); Alanine Aminotransfer ALT/SGPT 19 U/L (13-56); Albumin, Serum 3.3 g/dL (3.2-5.0); Alkaline Phosphatase 86 U/L (45-117); Anion Gap 4 (5-15); BUN 16 mg/dL (7-18); BUN/Creat Ratio 14.7 RATIO (10-20); Calcium,Total 9.4 mg/dL (8.5-10.1); Chloride 103 mmol/L (98-107); Creatinine, Serum 1.09 mg/dL (0.55-1.02); EST Glomerular Filtration Rate 55 mL/min (>60); Est Glom Filt Rate - Afr Amer 66 mL/min (>60); Estimated Creatinine Clearance 58.79 ml/min; Globulin 4.6 g/dL (2.2-4.2); Glucose 99 mg/dL (74-106); Potassium 3.6 mmol/L (3.5-5.1); Protein, Total 7.9 g/dL (6.4-8.2); Sodium Level 138 mmol/L (136-145)
[2018-08-17] MEDS: Acetaminophen 500 MG Tablet 1000 MG PO (08:30)
[2018-08-17 08:31] LABS: Lactic Acid 2.2 mmol/L (0.4-2.0)
--- NOTE | 2018-08-17 08:33 | ED.RN ---
LAB RESULTED LACTIC 2.2
[2018-08-17 08:42] LABS: Bacteria 0 SEEN /hpf (None Seen); Mucous, Urine 0 SEEN /hpf (<or=2+); Red Blood Cells-Urine 0 SEEN /hpf (0-5)
[2018-08-17 08:53] LABS: Color, Urine Yellow (Yellow); Glucose, Dipstick Normal (Normal); Ketone-Dipstick 5 mg/dl (Negative); Leukocyte Esterase-Dipstick 25 /ul (Negative); Nitrite-Dipstick Negative (Negative); Occult Blood-Urine 25 /ul (Negative); Protein-Dipstick 30 mg/dl (Negative); Urine Bilirubin Dipstick Negative (Negative); Urine Clarity Clear (Clear); Urine Urobilinogen 4 mg/dl (Normal)
[2018-08-17 09:00] LABS: Squamous Epithelial Cells - UA 0-5 SEEN /hpf (5-10); White Blood Cells 0-5 SEEN /hpf (0-5)
[2018-08-17 09:00] LABS: Platelet Estimate ADEQUATE (ADEQ); Red Cell Morphology NORM C+C NORMAL (NORM C&C)
--- NOTE | 2018-08-17 09:29 | ED.VISSUMM ---
- ER Visit Summary Date of Service: 08/17/18 Chief Complaint: Cough, shortness of breath History of Present Illness: The patient is a 58 F who presents with cough and shortness of breath. Started yesterday. Staff at the detention states that she aspirated on a piece of chocolate. She then woke up this morning complaining of right-sided chest pain and shaking. History is difficult to obtain from the patient due to her history of cognitive delay. She states that she does smoke. She has a history of hypertension and high cholesterol. She is a COPD patient as well. Physical Examination: No signs reviewed. Temperature 102. Respiratory rate 22. HEENT exam unremarkable. Heart is regular rate and rhythm. Lungs have rhonchi in the right lower lung base. Abdomen soft nontender. She is alert and oriented x2. Her strength is equal bilaterally. Test Results: EKG is sinus rhythm with nonspecific ST and T wave changes. Chest x-ray shows right lower lobe infiltrate. White blood cell count normal, creatinine 1.09, lactate 2.2 Emergency Department Course and Treatment: The patient meets sepsis criteria due to her temperature and respiratory rate. She was given Tylenol. She was hydrated with saline and given vancomycin and Zosyn. The shaking this morning could have been rigors from her elevated temperature. Patient will be admitted to the hospital with severe sepsis and healthcare associated pneumonia Treatment Plan: [] Disposition: Admit Impression: Severe sepsis, healthcare associated pneumonia This note was generated with [employer] dictation software. It may contain incorrect words, spelling, and punctuation that were not noted in review of the chart prior to signing ED Disposition - Plan for ED Patient: Referrals: Moni Jackson MD [Primary Care Provider] -
[2018-08-17] MEDS: 0.9% Normal Saline 1,000 ML 999 ML IV (10:09)
--- NOTE | 2018-08-17 10:39 | NURSING ---
[facility] CALLED FOR [facility]
--- NOTE | 2018-08-17 11:09 | PCM.HP.STD ---
Problem List (1) History of TIAs Status: Chronic (2) Hypothyroidism Status: Chronic Qualifiers: (3) Hypertension Status: Chronic Qualifiers: (4) Hyperlipidemia Status: Chronic Qualifiers: (5) Conversion disorder Status: Chronic (6) History of epilepsy Status: Chronic (7) COPD (chronic obstructive pulmonary disease) Status: Chronic Qualifiers: (8) Anxiety and depression Status: Chronic (9) Breast cancer, left breast Status: Chronic Comment: 04/07/15 L mastectomy w/ L sentinel node Bx (10) Coronary atherosclerosis of [place] coronary vessel Status: Chronic History of Present Illness Date of Admission: 08/17/18 Chief Complaint: Cough, shortness of breath. The patient is a 58 year old F with past medical history as mentioned above presented to the emergency room from the intermediate because of cough and shortness of breath. Her symptoms started last night after she aspirated a piece of chocolate and started having consistent dry cough without sputum production, associated with shortness of breath and without aggravating or relieving factors. She denies fever or chills. She reported some vague right-sided chest discomfort. Denied orthopnea, PND, hypertension, syncope or presyncope. She has history of epilepsy and she has been on Depakote and oxcarbazepine which seems to be under control. She has history of hypertension which has been under control with Norvasc and lisinopril. She had a history of hypothyroidism and she has been on levothyroxine, TSH was 4.1 on May,. In the emergency department, patient was febrile, tachypneic, pulse ox was 89% on room air upon arrival, blood pressure was slightly elevated and heart rate were stable. Her routine blood work was remarkable for mild thrombocytopenia, otherwise normal. LFT, pro time and INR were normal. Lactic acid was 2.2. Urinalysis showed no evidence of acute cystitis. ABG revealed pH of 7.42, PCO2 of 37 and PO2 of 67. EKG revealed normal sinus rhythm, normal NH interval, normal QRS, no acute ischemic changes. Chest x-ray revealed right lower lobe infiltrate versus atelectasis. She is being admitted for healthcare associated versus aspiration pneumonia, severe sepsis, acute hypoxic respiratory failure and encephalopathy. Past Medical History Past Medical History (Chronic Problems): Chronic Problems History of TIAs (Chronic) Tobacco use disorder (Chronic) Obesity (Chronic) Hypothyroidism (Chronic) Hypertension (Chronic) Hyperlipidemia (Chronic) Conversion disorder (Chronic) History of epilepsy (Chronic) Bilateral leg edema (Chronic) COPD (chronic obstructive pulmonary disease) (Chronic) Anxiety and depression (Chronic) Morbid obesity (Chronic) Breast cancer, left breast (Chronic) 04/07/15 L mastectomy w/ L sentinel node Bx Coronary atherosclerosis of [place] coronary vessel (Chronic) Allergies No Known Allergies Allergy (Verified 08/17/18 07:23) Home Medications: Ambulatory Orders Medication Instructions Recorded Aspirin [Aspirin, Baby] 81 mg PO DAILY@0800 05/09/15 Atorvastatin Calcium [Lipitor] 40 mg PO QHS 05/09/15 Pregabalin [Lyrica] 50 mg PO BID 05/09/15 Amlodipine [Norvasc] 10 mg PO DAILY 07/12/16 Anastrozole [Arimidex] 1 mg PO DAILY 07/12/16 Ergocalciferol [Vitamin D] 50,000 unit PO MOTH 07/12/16 Oxcarbazepine [Trileptal] 300 mg PO TID 07/12/16 Spironolactone [Aldactone] 25 mg PO DAILY 07/12/16 Lisinopril [Zestril] 20 mg PO BID 04/04/17 Albuterol Inhaler [Ventolin Hfa] 2 puff INHALATION Q6H PRN PRN 07/12/17 Naproxen [Naprosyn] 500 mg PO BID PRN PRN 07/12/17 Bupropion HCl [Wellbutrin Sr] 100 mg PO BID 05/03/18 Divalproex Sodium 1,000 mg PO BID 05/03/18 Furosemide [Lasix] 40 mg PO BID 05/03/18 Levothyroxine Sodium [Synthroid] 100 mcg PO SUSA 05/03/18 Levothyroxine Sodium [Synthroid] 200 mcg PO MOTUWETHFR 05/03/18 Sertraline HCl [Zoloft] 200 mg PO DAILY 05/03/18 traZODone [Desyrel] 50 mg PO QHS 05/03/18 Acetaminophen [Tylenol Tablet] 650 mg PO Q4H PRN PRN tablet 05/07/18 Bisacodyl [Laxative Suppository] 10 mg RC DAILY PRN PRN 08/17/18 Magnesium Hydroxide [Milk Of 30 ml PO DAILY PRN PRN 08/17/18 Magnesia] Na Phos,M-B/Na Phos,Di-Ba [Fleet 1 bottle RECTAL DAILY PRN PRN 08/17/18 Enema] Surgical History: mastectomy, - - L breast masectomy, x 2, T+A. 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 Denies: Anorexia, Chills, Fever Eyes: Denies: Blurred vision, Double vision, Drainage, Redness HEENT: Denies: Difficulty Hearing, Ear Pain, Eye Pain, Nasal Congestion, Sore Throat Cardiovascular: Denies: Chest Pain, Chest Pressure, Chest Tightness, Edema, Heaviness, Light Headedness, Palpitations, Syncope Respiratory: Reports: Cough, Shortness of Breath. Denies: Sputum production, Wheezing Gastrointestinal: Denies: Abdominal Pain, Constipation, Diarrhea, Nausea, Vomiting Genitourinary: Denies: Dysuria, Frequency, Hematuria Musculoskeletal: Denies: Arm Pain, Back Pain, Foot Pain Skin: Denies: Dryness, Rash Neurological: Denies: Balance problems, Double vision, Change in Speech, Slurred speech, Confusion, Headaches, Incoordination Psychiatric: Reports: Anxiety, Depression VTE Information - Inpt Only VTE Present on Admission: No VTE Mechan Device Prophylaxis: None VTE Pharm Prophylaxis ordered?: Yes - Physical Exam General: Alert, Cooperative, No apparent distress, Lethargic - Falling asleep, arousable. HEENT: Atraumatic, PERRLA, EOMI Oral: Moist Mucosa, No Gingival or Mucosal Lesions/ Ulcerations Neck: Supple, No JVD, Negative Carotid Bruits, Trachea Midline, Thyroid Normal Size and Texture Cardiovascular: Regular rate, Regular Rhythm, Normal S1, Normal S2, No murmurs, PMI Normal Abdomen: Bowel Sounds Present, Soft, Non Tender, Non-Distended, No Hepato-splenomegaly, Obese Extremities: No clubbing, No cyanosis, Edema Skin: No rashes, No breakdown Lymphatic: No Cervical, Supraclavicular, or Inguinal Adenopathy Neurological: Cranial nerves II-XII grossly intact Psych/Mental Status: Flat Affect Vital Signs Temp Pulse Resp BP Pulse Ox 98.7 F 64 18 121/50 H 94 08/17/18 10:54 08/17/18 10:54 08/17/18 10:54 08/17/18 10:54 08/17/18 10:54 Oxygen Flow Rate (L/min) 8 Oxygen Delivery Method Venturi Mask Weight: 283 lb 11.759 oz Body Mass Index (BMI) 41.8 Finger Stick Blood Glucose 112 Laboratory Tests Past 24 Hrs 08/17/18 08/17/18 08/17/18 07:50 07:50 07:50 WBC 9.5 RBC 4.99 Hgb 15.1 H Hct 45.0 MCV 90.2 MCH 30.3 MCHC 33.6 RDW 15.1 H RDW Differential 50.2 H Plt Count 113 L MPV 9.2 Immature Gran % (Auto) 0.200 Neut % (Auto) 68.8 Lymph % (Auto) 10.2 L [place] % (Auto) 19.8 H Eos % (Auto) 0.8 Baso % (Auto) 0.2 Absolute Neuts (auto) 6.5 Absolute Lymphs (auto) 0.97 Total Counted Not Reportable Diff Path Review May foll Platelet Estimate ADEQUATE RBC Morphology NORM C+C PT 14.2 INR 1.1 APTT 29.7 Sodium 138 Potassium 3.6 Chloride 103 Carbon Dioxide 31.0 Anion Gap 4 L BUN 16 Creatinine 1.09 H Estim Creat Clear Calc 58.79 Est GFR (MDRD) Af Amer 66 Est GFR (MDRD) Non-Af 55 L BUN/Creatinine Ratio 14.7 Glucose 99 Lactic Acid Calcium 9.4 Total Bilirubin 0.50 AST 20 ALT 19 Alkaline Phosphatase 86 Total Protein 7.9 Albumin 3.3 Globulin 4.6 H Albumin/Globulin Ratio 0.7 L Urine Color Urine Clarity Urine pH Ur Specific [place] Urine Protein Urine Glucose (UA) Urine Ketones Urine Occult Blood Urine Nitrite Urine Bilirubin Urine Urobilinogen Ur Leukocyte Esterase Urine RBC Urine WBC Ur Squamous Epith Cells Urine Bacteria Urine Mucus Valproic Acid 08/17/18 08/17/18 08/17/18 07:50 07:50 08:30 WBC RBC Hgb Hct MCV MCH MCHC RDW RDW Differential Plt Count MPV Immature Gran % (Auto) Neut % (Auto) Lymph % (Auto) [place] % (Auto) Eos % (Auto) Baso % (Auto) Absolute Neuts (auto) Absolute Lymphs (auto) Total Counted Diff Path Review Platelet Estimate RBC Morphology PT INR APTT Sodium Potassium Chloride Carbon Dioxide Anion Gap BUN Creatinine Estim Creat Clear Calc Est GFR (MDRD) Af Amer Est GFR (MDRD) Non-Af BUN/Creatinine Ratio Glucose Lactic Acid 2.2 H Calcium Total Bilirubin AST ALT Alkaline Phosphatase Total Protein Albumin Globulin Albumin/Globulin Ratio Urine Color Yellow Urine Clarity Clear Urine pH 8.0 Ur Specific [place] 1.010 Urine Protein 30 H Urine Glucose (UA) Normal Urine Ketones 5 H Urine Occult Blood 25 H Urine Nitrite Negative Urine Bilirubin Negative Urine Urobilinogen 4 H Ur Leukocyte Esterase 25 H Urine RBC 0 SEEN Urine WBC 0-5 SEEN Ur Squamous Epith Cells 0-5 SEEN Urine Bacteria 0 SEEN Urine Mucus 0 SEEN Valproic Acid Pending Clinical Impression(s) from Imaging Studies Chest X-Ray 08/17/18 08:00 IMPRESSION: Right lower lobe infiltrate. Electronically Signed: Jerry Sellers, at 8:53 EDT , Service support , Assessment/Plan This is a 58 years old female patient seen on because of cough and shortness of breath after a choking on a piece of chocolate last night, found to have probable new infiltrate on the right lung on the chest x-ray as well as found to be febrile, tachypneic and lactic acid was slightly elevated consistent with severe sepsis and she is being admitted for healthcare versus aspiration pneumonia with severe sepsis and acute hypoxic respiratory failure as well as encephalopathy. #1 healthcare associated versus aspiration pneumonia/severe sepsis: Chest x-ray reviewed, patient is febrile upon arrival to ER, tachypneic, lactic acid is 2.2. Blood pressure stable, no tachycardia. Plan: Admit to MedSurg floor, cardiac monitoring, blood culture, urine culture, sputum culture, pneumococcal and Legionella antigen, start IV vancomycin and Zosyn, aspiration precautions, bronchodilators, MRSA nasal screen, repeat CBC and BMP tomorrow morning, PT OT evaluation and treatment, speech therapy evaluation and treatment. #2 acute hypoxic respiratory failure: Secondary to above. Patient never been oxygen at the intermediate. ABG reviewed, revealed normal pH and PCO2 but PO2 was low. Plan as above, IV antibiotics, bronchodilators, aspiration precautions, treat underlying pneumonia. #3 encephalopathy: Patient is lethargic and sleepy but easily arousable. She has no focal deficit on physical exam. PCO2 on ABG was normal. Patient had a history of admission because of symptoms because of having elevated Depakene level. Plan: We will check Depakene level, avoid sedating drugs and tranquilizers. May consider CT scan brain if no improvement. #4 epilepsy: Continue Depakote and oxcarbazepine, check Depakote level. #5 hypertension: Blood pressure stable, continue Norvasc and lisinopril. #6 hypothyroidism: Continue levothyroxine. #7 COPD: DuoNeb every 6 hours, albuterol as needed, antibiotics, incentive spirometer. #8 anxiety/depression/conversion disorder: Hold Wellbutrin, trazodone and Lyrica, continue Zoloft. #9 DVT prophylaxis: Subcu Lovenox. This note was generated with [employer] dictation software. It may contain incorrect words, spelling, and punctuation that were not noted in checking the note before signing. Code Visit Inpatient E&M: 65726 Init Hosp L3
[2018-08-17 11:11] LABS: Valproic Acid (Depakene) Level 110 ug/mL (50-100)
[2018-08-17 11:11] LABS: Allen Test POS; Base Excess 0 mmol/L (-2 to +2); Bicarbonate 24.4 mmol/L (22-26); Blood Gas Specimen Type ART; FI02 40; PO2 67 mmHG (75-100); SITE L Radial; SO2 93 % (95-99); Time Given 1055; Total Carbon Dioxide 25 mmol/L; pCO2 37.5 mmHg (35-45); pH 7.42 (7.35-7.45)
--- NOTE | 2018-08-17 11:14 | HP.PCM_ITS ---
Problem List (1) History of TIAs Status: Chronic (2) Hypothyroidism Status: Chronic Qualifiers: (3) Hypertension Status: Chronic Qualifiers: (4) Hyperlipidemia Status: Chronic Qualifiers: (5) Conversion disorder Status: Chronic (6) History of epilepsy Status: Chronic (7) COPD (chronic obstructive pulmonary disease) Status: Chronic Qualifiers: (8) Anxiety and depression Status: Chronic (9) Breast cancer, left breast Status: Chronic Comment: 04/07/15 L mastectomy w/ L sentinel node Bx (10) Coronary atherosclerosis of [place] coronary vessel Status: Chronic History of Present Illness Date of Admission: 08/17/18 Chief Complaint: Cough, shortness of breath. The patient is a 58 year old F with past medical history as mentioned above presented to the emergency room from the long-term because of cough and shortness of breath. Her symptoms started last night after she aspirated a piece of chocolate and started having consistent dry cough without sputum production, associated with shortness of breath and without aggravating or relieving factors. She denies fever or chills. She reported some vague right- sided chest discomfort. Denied orthopnea, PND, hypertension, syncope or presyncope. She has history of epilepsy and she has been on Depakote and oxcarbazepine which seems to be under control. She has history of hypertension which has been under control with Norvasc and lisinopril. She had a history of hypothyroidism and she has been on levothyroxine, TSH was 4.1 on May,. In the emergency department, patient was febrile, tachypneic, pulse ox was 89% on room air upon arrival, blood pressure was slightly elevated and heart rate were stable. Her routine blood work was remarkable for mild thrombocytopenia, otherwise normal. LFT, pro time and INR were normal. Lactic acid was 2.2. Urinalysis showed no evidence of acute cystitis. ABG revealed pH of 7.42, PCO2 of 37 and PO2 of 67. EKG revealed normal sinus rhythm, normal NM interval, normal QRS, no acute ischemic changes. Chest x-ray revealed right lower lobe infiltrate versus atelectasis. She is being admitted for healthcare associated versus aspiration pneumonia, severe sepsis, acute hypoxic respiratory failure and encephalopathy. Past Medical History Past Medical History (Chronic Problems): Chronic Problems History of TIAs (Chronic) Tobacco use disorder (Chronic) Obesity (Chronic) Hypothyroidism (Chronic) Hypertension (Chronic) Hyperlipidemia (Chronic) Conversion disorder (Chronic) History of epilepsy (Chronic) Bilateral leg edema (Chronic) COPD (chronic obstructive pulmonary disease) (Chronic) Anxiety and depression (Chronic) Morbid obesity (Chronic) Breast cancer, left breast (Chronic) 04/07/15 L mastectomy w/ L sentinel node Bx Coronary atherosclerosis of [place] coronary vessel (Chronic) Allergies No Known Allergies Allergy (Verified 08/17/18 07:23) Home Medications: Ambulatory Orders Medication Instructions Recorded Aspirin [Aspirin, Baby] 81 mg PO DAILY@0800 05/09/15 Atorvastatin Calcium [Lipitor] 40 mg PO QHS 05/09/15 Pregabalin [Lyrica] 50 mg PO BID 05/09/15 Amlodipine [Norvasc] 10 mg PO DAILY 07/12/16 Anastrozole [Arimidex] 1 mg PO DAILY 07/12/16 Ergocalciferol [Vitamin D] 50,000 unit PO MOTH 07/12/16 Oxcarbazepine [Trileptal] 300 mg PO TID 07/12/16 Spironolactone [Aldactone] 25 mg PO DAILY 07/12/16 Lisinopril [Zestril] 20 mg PO BID 04/04/17 Albuterol Inhaler [Ventolin Hfa] 2 puff INHALATION Q6H PRN PRN 07/12/17 Naproxen [Naprosyn] 500 mg PO BID PRN PRN 07/12/17 Bupropion HCl [Wellbutrin Sr] 100 mg PO BID 05/03/18 Divalproex Sodium 1,000 mg PO BID 05/03/18 Furosemide [Lasix] 40 mg PO BID 05/03/18 Levothyroxine Sodium [Synthroid] 100 mcg PO SUSA 05/03/18 Levothyroxine Sodium [Synthroid] 200 mcg PO MOTUWETHFR 05/03/18 Sertraline HCl [Zoloft] 200 mg PO DAILY 05/03/18 traZODone [Desyrel] 50 mg PO QHS 05/03/18 Acetaminophen [Tylenol Tablet] 650 mg PO Q4H PRN PRN tablet 05/07/18 Bisacodyl [Laxative Suppository] 10 mg RC DAILY PRN PRN 08/17/18 Magnesium Hydroxide [Milk Of 30 ml PO DAILY PRN PRN 08/17/18 Magnesia] Na Phos,M-B/Na Phos,Di-Ba [Fleet 1 bottle RECTAL DAILY PRN PRN 08/17/18 Enema] Surgical History: mastectomy, - - L breast masectomy, x 2, T+A. 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 Denies: Anorexia, Chills, Fever Eyes: Denies: Blurred vision, Double vision, Drainage, Redness HEENT: Denies: Difficulty Hearing, Ear Pain, Eye Pain, Nasal Congestion, Sore Throat Cardiovascular: Denies: Chest Pain, Chest Pressure, Chest Tightness, Edema, Heaviness, Light Headedness, Palpitations, Syncope Respiratory: Reports: Cough, Shortness of Breath. Denies: Sputum production, Wheezing Gastrointestinal: Denies: Abdominal Pain, Constipation, Diarrhea, Nausea, Vomiting Genitourinary: Denies: Dysuria, Frequency, Hematuria Musculoskeletal: Denies: Arm Pain, Back Pain, Foot Pain Skin: Denies: Dryness, Rash Neurological: Denies: Balance problems, Double vision, Change in Speech, Slurred speech, Confusion, Headaches, Incoordination Psychiatric: Reports: Anxiety, Depression VTE Information - Inpt Only VTE Present on Admission: No VTE Mechan Device Prophylaxis: None VTE Pharm Prophylaxis ordered?: Yes - Physical Exam General: Alert, Cooperative, No apparent distress, Lethargic - Falling asleep, arousable. HEENT: Atraumatic, PERRLA, EOMI Oral: Moist Mucosa, No Gingival or Mucosal Lesions/ Ulcerations Neck: Supple, No JVD, Negative Carotid Bruits, Trachea Midline, Thyroid Normal Size and Texture Cardiovascular: Regular rate, Regular Rhythm, Normal S1, Normal S2, No murmurs, PMI Normal Abdomen: Bowel Sounds Present, Soft, Non Tender, Non-Distended, No Hepato- splenomegaly, Obese Extremities: No clubbing, No cyanosis, Edema Skin: No rashes, No breakdown Lymphatic: No Cervical, Supraclavicular, or Inguinal Adenopathy Neurological: Cranial nerves II-XII grossly intact Psych/Mental Status: Flat Affect Vital Signs Temp Pulse Resp BP Pulse Ox 98.7 F 64 18 121/50 H 94 08/17/18 10:54 08/17/18 10:54 08/17/18 10:54 08/17/18 10:54 08/17/18 10:54 Oxygen Flow Rate (L/min) 8 Oxygen Delivery Method Venturi Mask Weight: 283 lb 11.759 oz Body Mass Index (BMI) 41.8 Finger Stick Blood Glucose 112 Laboratory Tests Past 24 Hrs 08/17/18 08/17/18 08/17/18 07:50 07:50 07:50 WBC 9.5 RBC 4.99 Hgb 15.1 H Hct 45.0 MCV 90.2 MCH 30.3 MCHC 33.6 RDW 15.1 H RDW Differential 50.2 H Plt Count 113 L MPV 9.2 Immature Gran % (Auto) 0.200 Neut % (Auto) 68.8 Lymph % (Auto) 10.2 L [place] % (Auto) 19.8 H Eos % (Auto) 0.8 Baso % (Auto) 0.2 Absolute Neuts (auto) 6.5 Absolute Lymphs (auto) 0.97 Total Counted Not Reportable Diff Path Review May foll Platelet Estimate ADEQUATE RBC Morphology NORM C+C PT 14.2 INR 1.1 APTT 29.7 Sodium 138 Potassium 3.6 Chloride 103 Carbon Dioxide 31.0 Anion Gap 4 L BUN 16 Creatinine 1.09 H Estim Creat Clear Calc 58.79 Est GFR (MDRD) Af Amer 66 Est GFR (MDRD) Non-Af 55 L BUN/Creatinine Ratio 14.7 Glucose 99 Lactic Acid Calcium 9.4 Total Bilirubin 0.50 AST 20 ALT 19 Alkaline Phosphatase 86 Total Protein 7.9 Albumin 3.3 Globulin 4.6 H Albumin/Globulin Ratio 0.7 L Urine Color Urine Clarity Urine pH Ur Specific [place] Urine Protein Urine Glucose (UA) Urine Ketones Urine Occult Blood Urine Nitrite Urine Bilirubin Urine Urobilinogen Ur Leukocyte Esterase Urine RBC Urine WBC Ur Squamous Epith Cells Urine Bacteria Urine Mucus Valproic Acid 08/17/18 08/17/18 08/17/18 07:50 07:50 08:30 WBC RBC Hgb Hct MCV MCH MCHC RDW RDW Differential Plt Count MPV Immature Gran % (Auto) Neut % (Auto) Lymph % (Auto) [place] % (Auto) Eos % (Auto) Baso % (Auto) Absolute Neuts (auto) Absolute Lymphs (auto) Total Counted Diff Path Review Platelet Estimate RBC Morphology PT INR APTT Sodium Potassium Chloride Carbon Dioxide Anion Gap BUN Creatinine Estim Creat Clear Calc Est GFR (MDRD) Af Amer Est GFR (MDRD) Non-Af BUN/Creatinine Ratio Glucose Lactic Acid 2.2 H Calcium Total Bilirubin AST ALT Alkaline Phosphatase Total Protein Albumin Globulin Albumin/Globulin Ratio Urine Color Yellow Urine Clarity Clear Urine pH 8.0 Ur Specific [place] 1.010 Urine Protein 30 H Urine Glucose (UA) Normal Urine Ketones 5 H Urine Occult Blood 25 H Urine Nitrite Negative Urine Bilirubin Negative Urine Urobilinogen 4 H Ur Leukocyte Esterase 25 H Urine RBC 0 SEEN Urine WBC 0-5 SEEN Ur Squamous Epith Cells 0-5 SEEN Urine Bacteria 0 SEEN Urine Mucus 0 SEEN Valproic Acid Pending Clinical Impression(s) from Imaging Studies Chest X-Ray 08/17/18 08:00 IMPRESSION: Right lower lobe infiltrate. Electronically Signed: Jerry Sellers, at 8:53 EDT , Service support , Assessment/Plan This is a 58 years old female patient seen on because of cough and shortness of breath after a choking on a piece of chocolate last night, found to have probable new infiltrate on the right lung on the chest x-ray as well as found to be febrile, tachypneic and lactic acid was slightly elevated consistent with severe sepsis and she is being admitted for healthcare versus aspiration pneumonia with severe sepsis and acute hypoxic respiratory failure as well as encephalopathy. #1 healthcare associated versus aspiration pneumonia/severe sepsis: Chest x-ray reviewed, patient is febrile upon arrival to ER, tachypneic, lactic acid is 2.2. Blood pressure stable, no tachycardia. Plan: Admit to MedSurg floor, cardiac monitoring, blood culture, urine culture, sputum culture, pneumococcal and Legionella antigen, start IV vancomycin and Zosyn, aspiration precautions, bronchodilators, MRSA nasal screen, repeat CBC and BMP tomorrow morning, PT OT evaluation and treatment, speech therapy evaluation and treatment. #2 acute hypoxic respiratory failure: Secondary to above. Patient never been oxygen at the long-term. ABG reviewed, revealed normal pH and PCO2 but PO2 was low. Plan as above, IV antibiotics, bronchodilators, aspiration precautions, treat underlying pneumonia. #3 encephalopathy: Patient is lethargic and sleepy but easily arousable. She has no focal deficit on physical exam. PCO2 on ABG was normal. Patient had a history of admission because of symptoms because of having elevated Depakene level. Plan: We will check Depakene level, avoid sedating drugs and tranquilizers. May consider CT scan brain if no improvement. #4 epilepsy: Continue Depakote and oxcarbazepine, check Depakote level. #5 hypertension: Blood pressure stable, continue Norvasc and lisinopril. #6 hypothyroidism: Continue levothyroxine. #7 COPD: DuoNeb every 6 hours, albuterol as needed, antibiotics, incentive spirometer. #8 anxiety/depression/conversion disorder: Hold Wellbutrin, trazodone and Lyrica, continue Zoloft. #9 DVT prophylaxis: Subcu Lovenox. This note was generated with [employer] dictation software. It may contain incorrect words, spelling, and punctuation that were not noted in checking the note before signing. Code Visit Inpatient E&M: 80691 Init Hosp L3
--- NOTE | 2018-08-17 11:55 | CASEMGMT ---
ELLI KENNEY Face to Face with patient for initial transition planning/care coordination assessment. ELLI KENNEY introduced self and role at [facility]. Patient lying in bed, alert and oriented. Patient states she is from [place] and plan is for her to return to [place]. Patient states she has no further needs or concerns at this time. GLENNA Morley updated regarding plan to return to [place]. Disposition Plan: Return to [place] Janae SORENSEN, RN, CM
[2018-08-17 11:59] LABS: Reflex Lactate? Y
[2018-08-17] MEDS: Enoxaparin 40 MG/0.4 ML Syringe SC (12:18)
[2018-08-17] MEDS: 0.9% Normal Saline 1,000 ML 100 ML IV (12:18)
[2018-08-17 12:19] LABS: Thyroid Stim Hormone (TSH) 0.66 uIU/mL (0.358-3.74)
[2018-08-17] MEDS: Ipratropium/Albuterol Sulfate 3 ML AMPUL.NEB INHALATION ×2 (12:59→18:56)
[2018-08-17 13:05] LABS: Lactic Acid 1.2 mmol/L (0.4-2.0)
--- NOTE | 2018-08-17 13:36 | PCM.RX.CS ---
Consult Pharmacy has been consulted to manage selected antiobiotic: Vancomycin Type of Consult: New start Suspected Infection: Sepsis, Pneumonia Labs: Sodium 138 mmol/L (136-145) 08/17/18 07:50 Potassium 3.6 mmol/L (3.5-5.1) 08/17/18 07:50 Chloride 103 mmol/L (98-107) 08/17/18 07:50 Carbon Dioxide 31.0 mmol/L (21.0-32.0) 08/17/18 07:50 Anion Gap 4 (5-15) L 08/17/18 07:50 BUN 16 mg/dL (7-18) 08/17/18 07:50 Creatinine 1.09 mg/dL (0.55-1.02) H 08/17/18 07:50 Est GFR (MDRD) Af Amer 66 mL/min (>60) 08/17/18 07:50 Est GFR (MDRD) Non-Af 55 mL/min (>60) L 08/17/18 07:50 BUN/Creatinine Ratio 14.7 RATIO (10-20) 08/17/18 07:50 Glucose 99 mg/dL (74-106) 08/17/18 07:50 Microbiology: Microbiology 08/17/18 08:30 Urine, Clean Catch Streptococcus pneumoniae Antigen (M - Final 08/17/18 08:30 Urine, Clean Catch Legionella Antigen - Final Weight used for dosin.7 kg Estimated Creatinine Clearance: 81 ml/min Goal Trough: 10-15 mcg/mL Pharmacy Plan for Drug Dosing: Per the [facility] Vancomycin Dosing Protocol, will give initial dose of 2000mg IV x1, then continue with 1250mg IV q12h. Note that the patient's CrCl of 81ml/min was calculated using an adjusted body weight of 91.2 kg. Will obtain a trough before the 4th dose. Pharmacy Service will continue to monitor and adjust dosing as required. Follow-Up Labs: Trough Vancomycin Labs to be done on [date and time ordered]: 08/18/18 at 23:30
[2018-08-17 13:45] LABS: M R Staph aureus DNA By PCR Negative (Negative); Probe Check PASS; Specimen Processing Control PASS
--- NOTE | 2018-08-17 13:47 | PHA.PHARE_ITS ---
Consult Pharmacy has been consulted to manage selected antiobiotic: Vancomycin Type of Consult: New start Suspected Infection: Sepsis, Pneumonia Labs: Sodium 138 mmol/L (136-145) 08/17/18 07:50 Potassium 3.6 mmol/L (3.5-5.1) 08/17/18 07:50 Chloride 103 mmol/L (98-107) 08/17/18 07:50 Carbon Dioxide 31.0 mmol/L (21.0-32.0) 08/17/18 07:50 Anion Gap 4 (5-15) L 08/17/18 07:50 BUN 16 mg/dL (7-18) 08/17/18 07:50 Creatinine 1.09 mg/dL (0.55-1.02) H 08/17/18 07:50 Est GFR (MDRD) Af Amer 66 mL/min (>60) 08/17/18 07:50 Est GFR (MDRD) Non-Af 55 mL/min (>60) L 08/17/18 07:50 BUN/Creatinine Ratio 14.7 RATIO (10-20) 08/17/18 07:50 Glucose 99 mg/dL (74-106) 08/17/18 07:50 Microbiology: Microbiology 08/17/18 08:30 Urine, Clean Catch Streptococcus pneumoniae Antigen (M - Final 08/17/18 08:30 Urine, Clean Catch Legionella Antigen - Final Weight used for dosin.7 kg Estimated Creatinine Clearance: 81 ml/min Goal Trough: 10-15 mcg/mL Pharmacy Plan for Drug Dosing: Per the [facility] Vancomycin Dosing Protocol, will give initial dose of 2000mg IV x1, then continue with 1250mg IV q12h. Note that the patient's CrCl of 81ml/min was calculated using an adjusted body weight of 91.2 kg. Will obtain a trough before the 4th dose. Pharmacy Service will continue to monitor and adjust dosing as required. Follow-Up Labs: Trough Vancomycin Labs to be done on [date and time ordered]: 08/18/18 at 23:30
--- NOTE | 2018-08-17 15:15 | CASEMGMT ---
Social Work Note SW updated that pt is from [place] and would like to return to [place] at discharge. GLENNA placed a call to [place] and spoke with Marietta. Marietta states pt will need pre-cert to return. GLENNA faxed clinicals to [place], informed Marietta that it is likely pt will be at [facility] through the weekend but can initiate pre-cert today. Plan: [place] pending pre-cert Janae Morley SLABBER, CONNECTION WORKER
[2018-08-17] MEDS: OXcarbazepine 300 MG Tablet PO ×2 (15:19→21:10)
--- NOTE | 2018-08-17 15:54 | CASEMGMT ---
ELLI KENNEY Face to Face with patient for initial transition planning/care coordination assessment. ELLI KENNEY introduced self and role at [facility]. Patient lying in bed, alert and oriented. Patient states she is from [place] and plan is for her to return to [place]. Patient states she has no further needs or concerns at this time. GLENNA Morley updated regarding plan to return to [place]. Disposition Plan: Return to [place] Janae SORENSEN, RN, CM
[2018-08-17] MEDS: Divalproex Sodium 250 MG Tablet 1000 MG PO (21:08)
[2018-08-17] MEDS: Atorvastatin Calcium 40 MG Tablet PO (21:09)
[2018-08-17] MEDS: Lisinopril 20 MG Tablet PO (21:10)
[2018-08-17] MEDS: 0.9% NaCl IVPB Med Flush (250 mL) 15 ML IV (23:57)
[2018-08-18] VITALS (14 sets, daily range): BP systolic 149–159; BP diastolic 58–69; PULSE 43–59; RESP 16–18; TEMP 36.6–37; O2SAT 93–96
[2018-08-18] MEDS: 0.9% NaCl Peripheral Flush Adult/Peds IV ×3 (00:04→23:44)
[2018-08-18] MEDS: Ipratropium/Albuterol Sulfate 3 ML AMPUL.NEB INHALATION ×4 (00:56→18:54)
[2018-08-18] MEDS: Levothyroxine 100 MCG Tablet PO (05:15)
[2018-08-18] MEDS: OXcarbazepine 300 MG Tablet PO ×3 (05:15→21:23)
[2018-08-18] MEDS: Sertraline 100 MG Tablet 200 MG PO (07:46)
[2018-08-18] MEDS: Enoxaparin 40 MG/0.4 ML Syringe SC (07:46)
[2018-08-18] MEDS: Lisinopril 20 MG Tablet PO ×2 (07:47→23:32)
[2018-08-18] MEDS: Anastrozole 1 MG Tablet PO (07:47)
[2018-08-18] MEDS: Spironolactone 25 MG Tablet PO (07:47)
[2018-08-18] MEDS: amLODIPine 10 MG Tablet PO (07:47)
[2018-08-18] MEDS: Aspirin 81 MG TAB.CHEW PO (07:47)
[2018-08-18] MEDS: Divalproex Sodium 250 MG Tablet 1000 MG PO (07:47)
--- NOTE | 2018-08-18 07:50 | NURSING ---
all am meds given at this time as pt takes at [facility] per her request
[2018-08-18 08:01] LABS: Absolute Lymphocyte Count 2.27 X10^3/ul (0.83-4.51); Absolute Neutrophil Count 4.3 X10^3/uL (2.0-7.7); Basophil# 0.02 X10^3/uL; Basophil% 0.3 % (0-1); Eosinophil# 0.08 X10^3/uL; Hematocrit 36.2 % (37-47); Hemoglobin 11.9 g/dl (12.0-15.0); Lymphocyte # 2.27 X10^3/ul (4.0); Lymphocyte % 28.4 % (19-41); Mean Corp Hgb Conc 32.9 g/gl (32-36); Mean Corpuscular Hgb 29.7 pg (27.0-32.0); Mean Corpuscular Volume 90.3 fL (81-99); Mean Platelet Vol. 9.3 fl (6.2-12.0); Monocyte# 1.29 X10^3/uL; Monocyte% 16.1 % (0-10); Neutrophil # 4.33 X10^3/uL (2.7-7.7); Neutrophil % 54.1 % (47-70); Platelet Count 96 K/mm3 (150-450); RBC Distribution Width SD 49.1 fl (35.1-43.9); Red Blood Count 4.01 M/mm3 (4.2-5.4)
[2018-08-18 08:06] LABS: POSITIVE COUNT NO; POSITIVE DIFFERENTIAL NO; POSITIVE MORPHOLOGY NO
[2018-08-18 08:18] LABS: Anion Gap 7 (5-15); BUN 13 mg/dL (7-18); BUN/Creat Ratio 16.3 RATIO (10-20); Calcium,Total 8.9 mg/dL (8.5-10.1); Chloride 112 mmol/L (98-107); EST Glomerular Filtration Rate 79 mL/min (>60); Est Glom Filt Rate - Afr Amer 95 mL/min (>60); Estimated Creatinine Clearance 80.11 ml/min; Glucose 88 mg/dL (74-106); Potassium 3.4 mmol/L (3.5-5.1); Sodium Level 142 mmol/L (136-145)
--- NOTE | 2018-08-18 09:30 | PCM.PROGNOTE ---
Subjective: Chief complaint: Follow-up after admission for healthcare associated versus aspiration pneumonia with severe sepsis, acute hypoxic respiratory failure and encephalopathy. Patient seen and examined. No acute events overnight. This morning, she looks more awake and alert. She mentioned that her breathing is better, no more cough. Denies chest pain, abdominal pain, nausea or vomiting. She has been afebrile, heart rate has been in the 50s, blood pressure stable, pulse ox is 95% on 2 L. - Physical Exam General: Alert, Oriented x3, Cooperative, No apparent distress HEENT: Atraumatic, PERRLA, EOMI, Normocephalic Oral: Moist Mucosa, No Gingival or Mucosal Lesions/ Ulcerations Neck: Supple, No JVD, Negative Carotid Bruits, Trachea Midline, Thyroid Normal Size and Texture Lungs: No rhonchi, No wheeze, No rales, Diminished, - - Decreased breath sounds bilateral, more at the bases, otherwise clear. Cardiovascular: Regular rate, Regular Rhythm, Normal S1, Normal S2, PMI Normal Abdomen: Bowel Sounds Present, Soft, Non Tender, Non-Distended, No Hepato-splenomegaly, Obese Extremities: No clubbing, No cyanosis, No edema Skin: No rashes, No breakdown Lymphatic: No Cervical, Supraclavicular, or Inguinal Adenopathy Neurological: Cranial nerves II-XII grossly intact, Motor Exam 5/5 strength throughout Psych/Mental Status: Normal Affect, Appropriate, Alert and oriented to time, place, person, mood and affect Vital Signs Temp Pulse Resp BP Pulse Ox 98.6 F 45 L 18 152/69 H 93 08/18/18 03:40 08/18/18 07:22 08/18/18 07:22 08/18/18 03:40 08/18/18 07:22 Oxygen Flow Rate (L/min) 2 Oxygen Delivery Method Room Air Weight: 283 lb 11.759 oz Body Mass Index (BMI) 41.8 Finger Stick Blood Glucose 112 Intake and Output for Last 24 Hours 08/16/18 08/17/18 08/18/18 23:59 23:59 23:59 Intake Total 1544 / 1544 2169 / 2169 Balance 1544 / 1544 2169 / 2169 Microbiology Past 72 Hours 08/17/18 08:30 Streptococcus pneumoniae Antigen (M - Final Urine, Clean Catch 08/17/18 08:30 Legionella Antigen - Final Urine, Clean Catch Laboratory Tests Past 24 Hrs 08/17/18 08/17/18 08/17/18 07:50 07:50 11:08 WBC RBC Hgb Hct MCV MCH MCHC RDW RDW Differential Plt Count MPV Immature Gran % (Auto) Neut % (Auto) Lymph % (Auto) [place] % (Auto) Eos % (Auto) Baso % (Auto) Absolute Neuts (auto) Absolute Lymphs (auto) Total Counted Specimen Type ART Sample Site L Radial pH 7.42 Bicarbonate Actual 24.4 POC Total CO2 25 Base Excess 0 O2 Saturation 93 L O2 % 40 ABG pCO2 37.5 ABG pO2 67 L Tai Test POS O2 Delivery Device Vent Mask Blood Gas Notified Whom HOSP Blood Gas Notified Time 1055 Sodium Potassium Chloride Carbon Dioxide Anion Gap BUN Creatinine Estim Creat Clear Calc Est GFR (MDRD) Af Amer Est GFR (MDRD) Non-Af BUN/Creatinine Ratio Glucose Lactic Acid Calcium TSH 0.66 Valproic Acid 110 H MRSA (PCR) 08/17/18 08/17/18 08/18/18 12:20 12:30 07:31 WBC 8.0 RBC 4.01 L Hgb 11.9 L Hct 36.2 L MCV 90.3 MCH 29.7 MCHC 32.9 RDW 15.0 H RDW Differential 49.1 H Plt Count 96 L MPV 9.3 Immature Gran % (Auto) 0.100 Neut % (Auto) 54.1 Lymph % (Auto) 28.4 [place] % (Auto) 16.1 H Eos % (Auto) 1.0 Baso % (Auto) 0.3 Absolute Neuts (auto) 4.3 Absolute Lymphs (auto) 2.27 Total Counted Not Reportable Specimen Type Sample Site pH Bicarbonate Actual POC Total CO2 Base Excess O2 Saturation O2 % ABG pCO2 ABG pO2 Tai Test O2 Delivery Device Blood Gas Notified Whom Blood Gas Notified Time Sodium Potassium Chloride Carbon Dioxide Anion Gap BUN Creatinine Estim Creat Clear Calc Est GFR (MDRD) Af Amer Est GFR (MDRD) Non-Af BUN/Creatinine Ratio Glucose Lactic Acid 1.2 Calcium TSH Valproic Acid MRSA (PCR) Negative 08/18/18 07:31 WBC RBC Hgb Hct MCV MCH MCHC RDW RDW Differential Plt Count MPV Immature Gran % (Auto) Neut % (Auto) Lymph % (Auto) [place] % (Auto) Eos % (Auto) Baso % (Auto) Absolute Neuts (auto) Absolute Lymphs (auto) Total Counted Specimen Type Sample Site pH Bicarbonate Actual POC Total CO2 Base Excess O2 Saturation O2 % ABG pCO2 ABG pO2 Tai Test O2 Delivery Device Blood Gas Notified Whom Blood Gas Notified Time Sodium 142 Potassium 3.4 L Chloride 112 H Carbon Dioxide 23.0 Anion Gap 7 BUN 13 Creatinine 0.80 Estim Creat Clear Calc 80.11 Est GFR (MDRD) Af Amer 95 Est GFR (MDRD) Non-Af 79 BUN/Creatinine Ratio 16.3 Glucose 88 Lactic Acid Calcium 8.9 TSH Valproic Acid MRSA (PCR) Medical Necessity - Tobacco Use Smoking Status: Current every day smoker Tobacco Use: Cigarettes Assessment/Plan This is a 58 years old female patient seen on because of cough and shortness of breath after a choking on a piece of chocolate last night, found to have probable new infiltrate on the right lung on the chest x-ray as well as found to be febrile, tachypneic and lactic acid was slightly elevated consistent with severe sepsis and she is being admitted for healthcare versus aspiration pneumonia with severe sepsis and acute hypoxic respiratory failure as well as encephalopathy. #1 healthcare associated versus aspiration pneumonia/severe sepsis: She is on IV vancomycin and Zosyn. She has been afebrile, no leukocytosis, hemodynamically stable. Urine and blood cultures are pending. Pneumococcal and Legionella antigen were negative. Plan: Continue same treatment, ambulate. #2 acute hypoxic respiratory failure: Secondary to above. Today, she feels better, she is requiring less oxygen, pulse ox is maintained on 2 L. She is on bronchodilators and IV antibiotics. Plan as above. #3 encephalopathy: Unclear duration, could be due to supratherapeutic Depakote level. Today, she is more alert and oriented. She is improving, no focal deficit on physical examination. Her TSH was normal. #4 epilepsy: Depakote level is 110, supratherapeutic. Plan to hold Depakote for tonight and tomorrow morning, continue oxcarbazepine. #5 hypertension: Blood pressure stable, continue Norvasc and lisinopril. #6 hypothyroidism: Continue levothyroxine. #7 COPD: Continue DuoNeb every 6 hours, albuterol as needed, antibiotics, incentive spirometer. #8 anxiety/depression/conversion disorder: Keep holding Wellbutrin, trazodone and Lyrica, continue Zoloft. #9 DVT prophylaxis: Subcu Lovenox. This note was generated with [employer] dictation software. It may contain incorrect words, spelling, and punctuation that were not noted in checking the note before signing. Code Visit Inpatient E&M: 07453 Subs Hosp L2
[2018-08-18] MEDS: Atorvastatin Calcium 40 MG Tablet PO (21:24)
[2018-08-18] MEDS: 0.9% NaCl IVPB Med Flush (250 mL) 15 ML IV (23:44)
[2018-08-19] VITALS (14 sets, daily range): BP systolic 115–153; BP diastolic 60–85; PULSE 41–52; RESP 16–20; TEMP 36.3–36.9; O2SAT 93–98
[2018-08-19 00:21] LABS: Vancomycin, Trough Level 12.7 ug/mL (5.0-15.0)
--- NOTE | 2018-08-19 00:28 | NURSING ---
Pt refusing potassium through the IV. Explained that her levels are low and d/t refusing to take the pill form earlier, the hospitalist ordered IV. Pt continues to refuse, states I'm not worried about it. Denies any symptoms with antonio cardia. States, I'm always low, I have a runners heart. Dr Jhaveri made aware of patient refusal of potassium.
--- NOTE | 2018-08-19 00:40 | PCM.RX.CS ---
Consult Pharmacy has been consulted to manage selected antiobiotic: Vancomycin Type of Consult: Follow-up Suspected Infection: Sepsis, Pneumonia Prior Doses of Antibiotics Received/Current Regimen: Medications Vancomycin HCl 1,250 mg/ (Sodium Chloride) 275 mls @ 167 mls/hr IV Q12H ANDREY Last Admin: 08/18/18 23:44 Dose: 167 mls/hr Labs: Sodium 142 mmol/L (136-145) 08/18/18 07:31 Potassium 3.4 mmol/L (3.5-5.1) L 08/18/18 07:31 Chloride 112 mmol/L (98-107) H 08/18/18 07:31 Carbon Dioxide 23.0 mmol/L (21.0-32.0) 08/18/18 07:31 Anion Gap 7 (5-15) 08/18/18 07:31 BUN 13 mg/dL (7-18) 08/18/18 07:31 Creatinine 0.80 mg/dL (0.55-1.02) 08/18/18 07:31 Est GFR (MDRD) Af Amer 95 mL/min (>60) 08/18/18 07:31 Est GFR (MDRD) Non-Af 79 mL/min (>60) 08/18/18 07:31 BUN/Creatinine Ratio 16.3 RATIO (10-20) 08/18/18 07:31 Glucose 88 mg/dL (74-106) 08/18/18 07:31 Vancomycin Trough 12.7 ug/mL (5.0-15.0) 08/18/18 23:33 Microbiology: Microbiology 08/17/18 08:30 Urine, Clean Catch Streptococcus pneumoniae Antigen (M - Final 08/17/18 08:30 Urine, Clean Catch Legionella Antigen - Final Weight used for dosin.7 kg Estimated Creatinine Clearance: 80 Goal Trough: 10-15 mcg/mL Pharmacy Plan for Drug Dosing: Measured vancomycin trough of 12.7 was within target range of 10-15. Will continue same dose and re-draw trough in 4 days. Pharmacy Service will continue to monitor and adjust dosing as required. Follow-Up Labs: Trough Vancomycin Labs to be done on [date and time ordered]: 08/22/18 @1139
[2018-08-19] MEDS: Acetaminophen 325 MG Tablet 650 MG PO ×2 (03:04→09:04)
[2018-08-19] MEDS: 0.9% NaCl Peripheral Flush Adult/Peds IV (05:07)
[2018-08-19] MEDS: Levothyroxine 100 MCG Tablet PO (05:07)
[2018-08-19] MEDS: OXcarbazepine 300 MG Tablet PO ×3 (05:07→22:01)
[2018-08-19] MEDS: Ipratropium/Albuterol Sulfate 3 ML AMPUL.NEB INHALATION ×3 (06:49→19:27)
[2018-08-19] MEDS: Enoxaparin 40 MG/0.4 ML Syringe SC (08:42)
[2018-08-19] MEDS: Ondansetron 4 MG/2 ML Vial IV (08:42)
[2018-08-19] MEDS: Lisinopril 20 MG Tablet PO ×2 (08:43→22:00)
[2018-08-19] MEDS: Aspirin 81 MG TAB.CHEW PO (08:43)
[2018-08-19] MEDS: Sertraline 100 MG Tablet 200 MG PO (08:44)
[2018-08-19] MEDS: Anastrozole 1 MG Tablet PO (08:44)
[2018-08-19] MEDS: Spironolactone 25 MG Tablet PO (08:47)
[2018-08-19] MEDS: amLODIPine 10 MG Tablet PO (09:05)
--- NOTE | 2018-08-19 09:16 | PCM.PROGNOTE ---
Subjective: Chief complaint: Follow-up after admission for healthcare associated versus aspiration pneumonia with severe sepsis, acute hypoxic respiratory failure and encephalopathy. Patient seen and examined. No acute events overnight. Today, she is sitting on her chair, eating breakfast. She is alert and oriented x3. She is feeling better, no more shortness of breath. Reported occasional cough. Denies fever chills. Her vital signs are stable. - Physical Exam General: Alert, Oriented x3, Cooperative, No apparent distress HEENT: Atraumatic, PERRLA, EOMI, Normocephalic Oral: Moist Mucosa, No Gingival or Mucosal Lesions/ Ulcerations Neck: Supple, No JVD, Negative Carotid Bruits, Trachea Midline, Thyroid Normal Size and Texture Lungs: Clear to auscultation, No rhonchi, No wheeze, No rales, Diminished Cardiovascular: Regular rate, Regular Rhythm, Normal S1, Normal S2, PMI Normal, Bradycardic Abdomen: Bowel Sounds Present, Soft, Non Tender, Non-Distended, No Hepato-splenomegaly, Obese Extremities: No clubbing, No cyanosis, No edema Skin: No rashes, No breakdown Lymphatic: No Cervical, Supraclavicular, or Inguinal Adenopathy Neurological: Cranial nerves II-XII grossly intact, Neuro grossly intact Psych/Mental Status: Normal Affect, Appropriate, Alert and oriented to time, place, person, mood and affect Vital Signs Temp Pulse Resp BP Pulse Ox 97.5 F L 47 L 18 140/60 H 96 08/19/18 08:40 08/19/18 08:40 08/19/18 08:40 08/19/18 08:40 08/19/18 08:40 Oxygen Flow Rate (L/min) 2 Oxygen Delivery Method Room Air Weight: 283 lb 11.759 oz Body Mass Index (BMI) 41.8 Finger Stick Blood Glucose 112 Intake and Output for Last 24 Hours 08/17/18 08/18/18 08/19/18 23:59 23:59 23:59 Intake Total 1544 / 1544 2491 / 2491 439 / 439 Balance 1544 / 1544 2491 / 2491 439 / 439 Microbiology Past 72 Hours 08/17/18 07:50 Blood Culture - Preliminary Blood Culture (Wb) - Anticubital Left No growth in 48 hours. 08/17/18 08:25 Blood Culture - Preliminary Blood Culture (Wb) - Left Hand No growth in 48 hours. 08/17/18 08:30 Streptococcus pneumoniae Antigen (M - Final Urine, Clean Catch 08/17/18 08:30 Legionella Antigen - Final Urine, Clean Catch Laboratory Tests Past 24 Hrs 08/18/18 08/18/18 07:31 23:33 Magnesium 2.0 Vancomycin Trough 12.7 Microbiology 08/17/18 07:50 Blood Culture (Wb) - Anticubital Left Blood Culture - Preliminary No growth in 48 hours. 08/17/18 08:25 Blood Culture (Wb) - Left Hand Blood Culture - Preliminary No growth in 48 hours. 08/17/18 08:30 Urine, Clean Catch Streptococcus pneumoniae Antigen (M - Final 08/17/18 08:30 Urine, Clean Catch Legionella Antigen - Final Medical Necessity - Tobacco Use Smoking Status: Current every day smoker Tobacco Use: Cigarettes Assessment/Plan This is a 58 years old female patient seen on because of cough and shortness of breath after a choking on a piece of chocolate last night, found to have probable new infiltrate on the right lung on the chest x-ray as well as found to be febrile, tachypneic and lactic acid was slightly elevated consistent with severe sepsis and she is being admitted for healthcare versus aspiration pneumonia with severe sepsis and acute hypoxic respiratory failure as well as encephalopathy. #1 healthcare associated versus aspiration pneumonia/severe sepsis: Remained on IV vancomycin and Zosyn. She has been afebrile, no leukocytosis, hemodynamically stable. Blood culture showed no growth in 48 hours. Pneumococcal and Legionella antigen were negative. She has been off oxygen, afebrile, other vital signs are stable. Plan: DC IV Zosyn and vancomycin, start oral Augmentin to complete 7 days of treatment. Awaiting insurance approval to [facility]. #2 acute hypoxic respiratory failure: Secondary to above. Today, she feels better, she is requiring less oxygen, pulse ox is maintained on room air. #3 encephalopathy: Probably metabolic. Today, she is fully alert and oriented x3. Resolved. Her TSH was normal. #4 epilepsy: Depakote level is 110, supratherapeutic. Depakote held since yesterday morning, plan to restart Depakote tonight, continue oxcarbazepine. #5 hypertension: Blood pressure stable, continue Norvasc and lisinopril. #6 hypothyroidism: Continue levothyroxine. #7 COPD: Continue DuoNeb every 6 hours, albuterol as needed, antibiotics, incentive spirometer. #8 anxiety/depression/conversion disorder: Keep holding Wellbutrin, trazodone and Lyrica, continue Zoloft. #9 DVT prophylaxis: Subcu Lovenox. This note was generated with [employer] dictation software. It may contain incorrect words, spelling, and punctuation that were not noted in checking the note before signing. Code Visit Inpatient E&M: 10033 Subs Hosp L2
--- NOTE | 2018-08-19 09:20 | PN_ITS ---
Subjective: Chief complaint: Follow-up after admission for healthcare associated versus aspiration pneumonia with severe sepsis, acute hypoxic respiratory failure and encephalopathy. Patient seen and examined. No acute events overnight. Today, she is sitting on her chair, eating breakfast. She is alert and oriented x3. She is feeling better, no more shortness of breath. Reported occasional cough. Denies fever chills. Her vital signs are stable. - Physical Exam General: Alert, Oriented x3, Cooperative, No apparent distress HEENT: Atraumatic, PERRLA, EOMI, Normocephalic Oral: Moist Mucosa, No Gingival or Mucosal Lesions/ Ulcerations Neck: Supple, No JVD, Negative Carotid Bruits, Trachea Midline, Thyroid Normal Size and Texture Lungs: Clear to auscultation, No rhonchi, No wheeze, No rales, Diminished Cardiovascular: Regular rate, Regular Rhythm, Normal S1, Normal S2, PMI Normal, Bradycardic Abdomen: Bowel Sounds Present, Soft, Non Tender, Non-Distended, No Hepato- splenomegaly, Obese Extremities: No clubbing, No cyanosis, No edema Skin: No rashes, No breakdown Lymphatic: No Cervical, Supraclavicular, or Inguinal Adenopathy Neurological: Cranial nerves II-XII grossly intact, Neuro grossly intact Psych/Mental Status: Normal Affect, Appropriate, Alert and oriented to time, place, person, mood and affect Vital Signs Temp Pulse Resp BP Pulse Ox 97.5 F L 47 L 18 140/60 H 96 08/19/18 08:40 08/19/18 08:40 08/19/18 08:40 08/19/18 08:40 08/19/18 08:40 Oxygen Flow Rate (L/min) 2 Oxygen Delivery Method Room Air Weight: 283 lb 11.759 oz Body Mass Index (BMI) 41.8 Finger Stick Blood Glucose 112 Intake and Output for Last 24 Hours 08/17/18 08/18/18 08/19/18 23:59 23:59 23:59 Intake Total 1544 / 1544 2491 / 2491 439 / 439 Balance 1544 / 1544 2491 / 2491 439 / 439 Microbiology Past 72 Hours 08/17/18 07:50 Blood Culture - Preliminary Blood Culture (Wb) - Anticubital Left No growth in 48 hours. 08/17/18 08:25 Blood Culture - Preliminary Blood Culture (Wb) - Left Hand No growth in 48 hours. 08/17/18 08:30 Streptococcus pneumoniae Antigen (M - Final Urine, Clean Catch 08/17/18 08:30 Legionella Antigen - Final Urine, Clean Catch Laboratory Tests Past 24 Hrs 08/18/18 08/18/18 07:31 23:33 Magnesium 2.0 Vancomycin Trough 12.7 Microbiology 08/17/18 07:50 Blood Culture (Wb) - Anticubital Left Blood Culture - Preliminary No growth in 48 hours. 08/17/18 08:25 Blood Culture (Wb) - Left Hand Blood Culture - Preliminary No growth in 48 hours. 08/17/18 08:30 Urine, Clean Catch Streptococcus pneumoniae Antigen (M - Final 08/17/18 08:30 Urine, Clean Catch Legionella Antigen - Final Medical Necessity - Tobacco Use Smoking Status: Current every day smoker Tobacco Use: Cigarettes Assessment/Plan This is a 58 years old female patient seen on because of cough and shortness of breath after a choking on a piece of chocolate last night, found to have probable new infiltrate on the right lung on the chest x-ray as well as found to be febrile, tachypneic and lactic acid was slightly elevated consistent with severe sepsis and she is being admitted for healthcare versus aspiration pneumonia with severe sepsis and acute hypoxic respiratory failure as well as encephalopathy. #1 healthcare associated versus aspiration pneumonia/severe sepsis: Remained on IV vancomycin and Zosyn. She has been afebrile, no leukocytosis, hemodynamically stable. Blood culture showed no growth in 48 hours. Pneumoc occal and Legionella antigen were negative. She has been off oxygen, afebrile, other vital signs are stable. Plan: DC IV Zosyn and vancomycin, start oral Augmentin to complete 7 days of treatment. Awaiting insurance approval to [facility]. #2 acute hypoxic respiratory failure: Secondary to above. Today, she feels better, she is requiring less oxygen, pulse ox is maintained on room air. #3 encephalopathy: Probably metabolic. Today, she is fully alert and oriented x3. Resolved. Her TSH was normal. #4 epilepsy: Depakote level is 110, supratherapeutic. Depakote held since yesterday morning, plan to restart Depakote tonight, continue oxcarbazepine. #5 hypertension: Blood pressure stable, continue Norvasc and lisinopril. #6 hypothyroidism: Continue levothyroxine. #7 COPD: Continue DuoNeb every 6 hours, albuterol as needed, antibiotics, incentive spirometer. #8 anxiety/depression/conversion disorder: Keep holding Wellbutrin, trazodone and Lyrica, continue Zoloft. #9 DVT prophylaxis: Subcu Lovenox. This note was generated with [employer] dictation software. It may contain incorrect words, spelling, and punctuation that were not noted in checking the note before signing. Code Visit Inpatient E&M: 37137 Subs Hosp L2
[2018-08-19] MEDS: Amox/Clavulanate 875 MG Tablet PO ×2 (11:46→22:00)
[2018-08-19] MEDS: Divalproex Sodium 250 MG Tablet 1000 MG PO (22:00)
[2018-08-19] MEDS: Atorvastatin Calcium 40 MG Tablet PO (22:00)
[2018-08-19] MEDS: traZODone 100 MG Tablet PO (23:06)
[2018-08-20] VITALS (12 sets, daily range): BP systolic 141–166; BP diastolic 68–86; PULSE 44–52; RESP 16–18; TEMP 36.6–37; O2SAT 92–98
[2018-08-20 04:15] LABS: Bacteria 0 SEEN /hpf (None Seen)
[2018-08-20 04:23] LABS: Color, Urine Amber (Yellow); Glucose, Dipstick Normal (Normal); Ketone-Dipstick 15 mg/dl (Negative); Leukocyte Esterase-Dipstick 25 /ul (Negative); Nitrite-Dipstick Negative (Negative); Occult Blood-Urine 25 /ul (Negative); Protein-Dipstick 100 mg/dl (Negative); Specific Gravity, Urine 1.025 (1.002-1.030); Urine Clarity Sl. Cloudy (Clear); Urine Urobilinogen 8 mg/dl (Normal)
[2018-08-20 04:33] LABS: Urine Bilirubin Dipstick 1 mg/dL (Negative)
[2018-08-20 04:35] LABS: Amorphous Sediment 1+; Calcium Oxalate Crystals Ur 1+ /hpf (<or=2+); Mucous, Urine 1+ /hpf (<or=2+); Red Blood Cells-Urine 0-5 SEEN /hpf (0-5); Squamous Epithelial Cells - UA 0-5 SEEN /hpf (5-10); White Blood Cells 0-5 SEEN /hpf (0-5)
[2018-08-20] MEDS: OXcarbazepine 300 MG Tablet PO ×3 (05:56→22:40)
[2018-08-20] MEDS: Levothyroxine 100 MCG Tablet 200 MCG PO (05:56)
[2018-08-20] MEDS: Ipratropium/Albuterol Sulfate 3 ML AMPUL.NEB INHALATION ×3 (06:42→19:05)
[2018-08-20] MEDS: Aspirin 81 MG TAB.CHEW PO (07:40)
[2018-08-20] MEDS: Divalproex Sodium 250 MG Tablet 1000 MG PO ×2 (09:25→22:40)
[2018-08-20] MEDS: Sertraline 100 MG Tablet 200 MG PO (09:25)
[2018-08-20] MEDS: Anastrozole 1 MG Tablet PO (09:25)
[2018-08-20] MEDS: Spironolactone 25 MG Tablet PO (09:25)
[2018-08-20] MEDS: Enoxaparin 40 MG/0.4 ML Syringe SC (09:26)
[2018-08-20] MEDS: Amox/Clavulanate 875 MG Tablet PO ×2 (09:26→22:40)
[2018-08-20] MEDS: amLODIPine 10 MG Tablet PO (09:26)
[2018-08-20] MEDS: Lisinopril 20 MG Tablet PO ×2 (09:26→22:40)
--- NOTE | 2018-08-20 10:05 | CASEMGMT ---
Addendum entered by Janae Morley 08/20/18 16:44: GLENNA spoke with Felicity at [facility] who states she still hasn't received pre-cert and states it is unlikely that she will get it today. Original Note: Social Work Note SW faxed updated clinicals to [facility]. Physician aware pt will need pre-cert to return to [facility]. Plan: [facility] pending pre-cert Janae Morley UTILITIES GROUND WORKER, INSTRUMENT MAN
[2018-08-20 12:59] LABS: Pathologist Review Reviewed
--- NOTE | 2018-08-20 18:42 | PN_ITS ---
Subjective: Day #4 antibiotics Patient is a 58-year-old female admitted to the hospital with severe sepsis and acute hypoxic respiratory failure with encephalopathy secondary to healthcare associated pneumonia versus aspiration. Treated with IV Vanco and Zosyn. She resides at a retirement. Past medical history is significant for seizure disorder, hypertension, hypothyroidism, COPD, anxiety/depression/conversion disorder, morbid obesity. Very difficult to arouse. When I did get her to wake up she almost immediately fell back to sleep while I was talking with her. Afebrile since 08/17/2018 at 10 AM. Vital signs are stable. Chronically bradycardic. Systolic blood pressures are mildly increased. She is 92% saturated on room air 98% saturated on a 2 L nasal cannula. Good oral intake today-she has had 2850. No lab was drawn today. Objective: PHYSICAL EXAM: GENERAL: lethargic, difficult to arouse and keeps falling asleep ORAL: moist mucosa, no mucosal lesions NECK: No JVD, supple, trachea midline LUNGS: CTA, symmetric chest expansion, not tachypneic, having apneic episodes while she is sleeping, diminished HEART: Regular rhythm, bradycardic, normal S1 and S2, no rub, no gallop ABDOMEN: soft, NT, ND, BS present, no guarding with palpation, obese EXTREMITIES: no edema, no cyanosis, no calf tenderness, no clubbing SKIN: No rashes, no breakdown NEUROLOGIC: no focal neurologic deficits PSYCH: can not evaluate because I can not get her to stay awake - Physical Exam Vital Signs Temp Pulse Resp BP Pulse Ox 97.8 F 48 L 18 162/68 H 92 08/20/18 16:40 08/20/18 16:40 08/20/18 16:40 08/20/18 16:40 08/20/18 16:40 Oxygen Flow Rate (L/min) 2 Oxygen Delivery Method Room Air Weight: 283 lb 11.759 oz Body Mass Index (BMI) 41.8 Finger Stick Blood Glucose 112 Intake and Output for Last 24 Hours 08/18/18 08/19/18 08/20/18 23:59 23:59 23:59 Intake Total 2491 / 2491 1260 / 1260 2850 / 2850 Balance 2491 / 2491 1260 / 1260 2850 / 2850 Microbiology Past 72 Hours 08/17/18 08:30 Urine Culture - Final Urine, Catheterized Culture exhibits no growth. 08/17/18 07:50 Blood Culture - Preliminary Blood Culture (Wb) - Anticubital Left No growth in 48 hours. 08/17/18 08:25 Blood Culture - Preliminary Blood Culture (Wb) - Left Hand No growth in 48 hours. Laboratory Tests Past 24 Hrs 08/17/18 08/20/18 07:50 04:05 Diff Path Review Reviewed Urine Color Marily Urine Clarity Sl. Cloudy Urine pH 6.0 Ur Specific [place] 1.025 Urine Protein 100 H Urine Glucose (UA) Normal Urine Ketones 15 H Urine Occult Blood 25 H Urine Nitrite Negative Urine Bilirubin 1 H Urine Urobilinogen 8 H Ur Leukocyte Esterase 25 H Urine RBC 0-5 SEEN Urine WBC 0-5 SEEN Ur Squamous Epith Cells 0-5 SEEN Calcium Oxalate Crystal 1+ Amorphous Sediment 1+ Urine Bacteria 0 SEEN Urine Mucus 1+ Medical Necessity - Tobacco Use Smoking Status: Current every day smoker Tobacco Use: Cigarettes Assessment/Plan Impressions 1. Severe sepsis secondary to healthcare associated pneumonia versus aspiration. 2. Acute hypoxic respiratory failure 3. Encephalopathy-likely secondary to infection 4. Seizure disorder-on Depakote 5. Hypertension 6. Hypothyroidism 7. COPD 8. Anxiety/depression/conversion disorder-Wellbutrin, trazodone and Lyrica are on hold 9. MOI? 10. History of breast cancer with left mastectomy in 2014 11. Thrombocytopenia Still waiting on precertification from the insurance company to send the patient to [facility]. Recheck the lab in the AM Code Visit Inpatient E&M: 77760 Subs Hosp L2
--- NOTE | 2018-08-20 22:27 | NURSING ---
HS snack given with medications
[2018-08-20] MEDS: traZODone 100 MG Tablet PO (22:40)
[2018-08-20] MEDS: Atorvastatin Calcium 40 MG Tablet PO (22:40)
[2018-08-21] VITALS (7 sets, daily range): BP systolic 148–181; BP diastolic 67–78; PULSE 43–88; RESP 16–18; TEMP 36.8–37.1; O2SAT 91–95
[2018-08-21] MEDS: Ipratropium/Albuterol Sulfate 3 ML AMPUL.NEB INHALATION ×2 (00:05→07:18)
[2018-08-21] MEDS: OXcarbazepine 300 MG Tablet PO ×2 (05:40→13:06)
[2018-08-21] MEDS: Levothyroxine 100 MCG Tablet 200 MCG PO (05:40)
[2018-08-21 06:55] LABS: Valproic Acid (Depakene) Level 90 ug/mL (50-100)
[2018-08-21] MEDS: Aspirin 81 MG TAB.CHEW PO (07:28)
[2018-08-21] MEDS: Sertraline 100 MG Tablet 200 MG PO (09:05)
[2018-08-21] MEDS: amLODIPine 10 MG Tablet PO (09:05)
[2018-08-21] MEDS: Divalproex Sodium 250 MG Tablet 1000 MG PO (09:05)
[2018-08-21] MEDS: Lisinopril 20 MG Tablet PO (09:05)
[2018-08-21] MEDS: Enoxaparin 40 MG/0.4 ML Syringe SC (09:05)
[2018-08-21] MEDS: Amox/Clavulanate 875 MG Tablet PO (09:06)
[2018-08-21] MEDS: Spironolactone 25 MG Tablet PO (09:06)
[2018-08-21] MEDS: Anastrozole 1 MG Tablet PO (09:07)
--- NOTE | 2018-08-21 10:43 | CASEMGMT ---
Social Work Note SW received message from Marietta at [facility] stating pre-cert has been obtained and pt is able to discharge today. Physician updated. SW updated pt on approval to return to [facility] today. Pt states understanding. SW to fax discharge paperwork once completed. Plan: Return to [facility] skilled today Janae Morley MOLDER FOAM RUBBER, SCRATCHER
[2018-08-21 11:32] LABS: T4 Free Direct 0.73 ng/dL (0.76-1.46)
--- NOTE | 2018-08-21 11:32 | PCM.TXEXTCAR ---
- Diet 08/17/18 10:24 Diet: Cardiac/Low Cholesterol/2000 calorie Food consistency:: Regular Liquid Consistency:: Regular/Thin Do not feed unless she is awake and alert - Routine Orders/Code Status Enema Type: Fleetz Enema Frequency: Daily PRN Suppository Type: Dulcolax 10mg Suppository Frequency: Daily PRN O2 Liters per Minute: 1-2 O2 Frequency: PRN Keep PO Greater than or Equal to (%): 89 Routine Lab Work: - - CBC with diff, BMP and Mag in 1 week - Therapies Weight Bearing: Full weight bearing Physical Therapy: Eval and Treat Occupational Therapy: Eval and Treat - Problem/Diagnosis (1) Severe sepsis Status: Acute Current Visit: Yes (2) HCAP (healthcare-associated pneumonia) Status: Acute Current Visit: Yes (3) Encephalopathy due to infection Status: Acute Current Visit: Yes (4) Thrombocytopenia Status: Acute Current Visit: Yes (5) Sleep-disordered breathing Status: Acute Comment: suspect MOI Current Visit: Yes (6) Anxiety and depression Status: Chronic Current Visit: No (7) Bilateral leg edema Status: Chronic Current Visit: No (8) Breast cancer, left breast Status: Chronic Comment: 04/07/15 L mastectomy w/ L sentinel node Bx Current Visit: No (9) COPD (chronic obstructive pulmonary disease) Status: Chronic Current Visit: No (10) Conversion disorder Status: Chronic Current Visit: No (11) Coronary atherosclerosis of [place] coronary vessel Status: Chronic Current Visit: No (12) History of TIAs Status: Chronic Current Visit: No (13) History of epilepsy Status: Chronic Current Visit: No (14) Hyperlipidemia Status: Chronic Current Visit: No (15) Hypertension Status: Chronic Current Visit: No (16) Hypothyroidism Status: Chronic Current Visit: No (17) Morbid obesity Status: Chronic Current Visit: No (18) Tobacco use disorder Status: Chronic Current Visit: No (19) Hypersomnia Status: Chronic Current Visit: Yes (20) Hypokalemia Status: Acute Current Visit: Yes - Allergies/Procedures Done in Hospital Allergies/Adverse Reactions: Allergies No Known Allergies Allergy (Verified 08/17/18 07:23) Procedures: None - Type of Care/Length of Stay Estimated LOS: Convalescent Care Less Than 30 days Type of Care Needed: Skilled Rehab Potential: Fair Prognosis: Fair - Additional Orders/Day of Discharge Additional Orders: She needs a formal sleep study. She snores loudly, has apneic periods while sleeping and she is hypersomnolent. H&P will serve as current which was dated: 08/17/18 Day of Discharge: 08/21/18 - Dietary and Speech Recommendations Dietitian Recommendations/Changes: Suggest therapeutic diet change to 2000 calorie/cardiac as PO improves at meals; texture/consistency as per FRONT OFFICE REPRESENTATIVE. - Follow Up Care Primary Care Physician: Moni Jackson MD [Primary Care Provider] - Please follow up with your Primary Care Physician in: 10-14 days
--- NOTE | 2018-08-21 11:37 | TREXTCAR_ITS ---
- Diet 08/17/18 10:24 Diet: Cardiac/Low Cholesterol/2000 calorie Food consistency:: Regular Liquid Consistency:: Regular/Thin Do not feed unless she is awake and alert - Routine Orders/Code Status Enema Type: Fleetz Enema Frequency: Daily PRN Suppository Type: Dulcolax 10mg Suppository Frequency: Daily PRN O2 Liters per Minute: 1-2 O2 Frequency: PRN Keep PO Greater than or Equal to (%): 89 Routine Lab Work: - - CBC with diff, BMP and Mag in 1 week - Therapies Weight Bearing: Full weight bearing Physical Therapy: Eval and Treat Occupational Therapy: Eval and Treat - Problem/Diagnosis (1) Severe sepsis Status: Acute Current Visit: Yes (2) HCAP (healthcare-associated pneumonia) Status: Acute Current Visit: Yes (3) Encephalopathy due to infection Status: Acute Current Visit: Yes (4) Thrombocytopenia Status: Acute Current Visit: Yes (5) Sleep-disordered breathing Status: Acute Comment: suspect MOI Current Visit: Yes (6) Anxiety and depression Status: Chronic Current Visit: No (7) Bilateral leg edema Status: Chronic Current Visit: No (8) Breast cancer, left breast Status: Chronic Comment: 04/07/15 L mastectomy w/ L sentinel node Bx Current Visit: No (9) COPD (chronic obstructive pulmonary disease) Status: Chronic Current Visit: No (10) Conversion disorder Status: Chronic Current Visit: No (11) Coronary atherosclerosis of [place] coronary vessel Status: Chronic Current Visit: No (12) History of TIAs Status: Chronic Current Visit: No (13) History of epilepsy Status: Chronic Current Visit: No (14) Hyperlipidemia Status: Chronic Current Visit: No (15) Hypertension Status: Chronic Current Visit: No (16) Hypothyroidism Status: Chronic Current Visit: No (17) Morbid obesity Status: Chronic Current Visit: No (18) Tobacco use disorder Status: Chronic Current Visit: No (19) Hypersomnia Status: Chronic Current Visit: Yes (20) Hypokalemia Status: Acute Current Visit: Yes - Allergies/Procedures Done in Hospital Allergies/Adverse Reactions: Allergies No Known Allergies Allergy (Verified 08/17/18 07:23) Procedures: None - Type of Care/Length of Stay Estimated LOS: Convalescent Care Less Than 30 days Type of Care Needed: Skilled Rehab Potential: Fair Prognosis: Fair - Additional Orders/Day of Discharge Additional Orders: She needs a formal sleep study. She snores loudly, has apneic periods while sleeping and she is hypersomnolent. H&P will serve as current which was dated: 08/17/18 Day of Discharge: 08/21/18 - Dietary and Speech Recommendations Dietitian Recommendations/Changes: Suggest therapeutic diet change to 2000 calorie/cardiac as PO improves at meals; texture/consistency as per DOPE HOUSE OPERATOR HELPER. - Follow Up Care Primary Care Physician: Moni Jackson MD [Primary Care Provider] - Please follow up with your Primary Care Physician in: 10-14 days
--- NOTE | 2018-08-21 11:47 | PCM.DC.SUM ---
Discharge Date and Diagnosis - Problem List Patient Problems: Active and Suspected Problems Severe sepsis (Acute) HCAP (healthcare-associated pneumonia) (Acute) Encephalopathy due to infection (Acute) Thrombocytopenia (Acute) Sleep-disordered breathing (Acute) suspect MOI Hypokalemia (Acute) Date of Admission: 08/17/18 Date of Discharge: 08/21/18 - Primary Discharge Diagnosis Active and Suspected Problems Severe sepsis (Acute) due to PNA HCAP/aspiration (healthcare-associated pneumonia) (Acute) Encephalopathy due to infection (Acute) Thrombocytopenia (Acute) Sleep-disordered breathing (Acute) suspect MOI Hypokalemia (Acute) - Secondary Discharge Diagnosis Chronic Problems Hypersomnia (Chronic) History of TIAs (Chronic) Tobacco use disorder (Chronic) Hypothyroidism (Chronic) Hypertension (Chronic) Hyperlipidemia (Chronic) Conversion disorder (Chronic) History of epilepsy (Chronic) Bilateral leg edema (Chronic) COPD (chronic obstructive pulmonary disease) (Chronic) Anxiety and depression (Chronic) Morbid obesity (Chronic) Breast cancer, left breast (Chronic) 04/07/15 L mastectomy w/ L sentinel node Bx Coronary atherosclerosis of [place] coronary vessel (Chronic) Hospital Course and Treatment Imaging Results: Clinical Impression(s) from Imaging Studies Chest X-Ray 08/17/18 08:00 IMPRESSION: Right lower lobe infiltrate. Electronically Signed: Jerry Sellers, at 8:53 EDT , Service support , Laboratory Results - last 24 hr 08/17/18 08/21/18 08/21/18 07:50 06:12 06:12 Diff Path Review Reviewed Ammonia 45.0 H Free T4 Valproic Acid 90 08/21/18 06:12 Diff Path Review Ammonia Free T4 0.73 L Valproic Acid Microbiology 08/17/18 08:30 Urine, Catheterized Urine Culture - Final Culture exhibits no growth. 08/17/18 07:50 Blood Culture (Wb) - Anticubital Left Blood Culture - Preliminary No growth in 48 hours. 08/17/18 08:25 Blood Culture (Wb) - Left Hand Blood Culture - Preliminary No growth in 48 hours. 08/17/18 08:30 Urine, Clean Catch Streptococcus pneumoniae Antigen (M - Final 08/17/18 08:30 Urine, Clean Catch Legionella Antigen - Final none Operations: None Procedures: None Summary of Care Provided: The patient is a 58 year old F with a past medical history of coronary artery disease, breast cancer with left mastectomy in 2015, anxiety/depression/conversion disorder, COPD, seizure disorder, hyperlipidemia, morbid obesity, hypertension, hypothyroidism and TIAs who currently resides in a senior care. She was sent to the emergency department at [facility] on 08/17/2018 with a history of cough and shortness of breath that started after she aspirated a piece of chocolate. White blood cell count in the emergency department was 9.5 with an unremarkable differential. Hemoglobin was increased at 15.1 secondary to dehydration/hemoconcentration. An ABG on a 40% Ventimask showed a pH of 7.42, PCO2 of 37.5 and a PO2 of 67. BMP was remarkable for an increased creatinine at 1.07. Lactic acid was elevated at 2.2. TSH was 0.66 and a T4 within the past 3 months was within normal limits. UA had 0-5 WBCs. Valproic acid level was mildly increased at 110. Chest x-ray showed a right lower lobe infiltrate. She was admitted to the hospital with a diagnosis of severe sepsis secondary to HCAP/Aspiration and started on Vancomycin and Zosyn. MRSA nasal swab was negative. Legionella and streptococcal antigens in the urine were negative. Urine culture had no growth. Blood cultures had no growth. On 08/19/2018 she was transitioned to oral Augmentin. She is intermittently alert and oriented X 3 and very somnolent and difficult to arouse. When she is sleeping she is having apneic episodes and she snores loudly. She improved with antibiotics and on 08/21/2018 she was afebrile with stable vital signs. She is persistently bradycardic with HR in the high 40's and 50's. She is on no medications to control HR. She was very alert with her nurse while eating breakfast but, very sleepy and difficult to arouse when I examined her. She was discharged back to [place]. I recommend that she get a sleep study in the future for sleep disordered breathing and suspected MOI. PHYSICAL EXAM: GENERAL: lethargic, difficult to arouse and keeps falling asleep....was awake and oriented X 3 while eating breakfast ORAL: moist mucosa, no mucosal lesions NECK: No JVD, supple, trachea midline LUNGS: CTA, symmetric chest expansion, not tachypneic, having apneic episodes while she is sleeping, snores loudly, diminished breath sounds throughout HEART: Regular rhythm, bradycardic, normal S1 and S2, no rub, no gallop ABDOMEN: soft, NT, ND, BS present, no guarding with palpation, obese EXTREMITIES: no edema, no cyanosis, no calf tenderness, no clubbing SKIN: No rashes, no breakdown NEUROLOGIC: no focal neurologic deficits PSYCH: can not evaluate because I can not get her to stay awake This note was generated with Medical Simulation[employer] software. It may contain incorrect words, spelling, and punctuation that were not noted in checking the note before signing. Patient Problems: Active and Suspected Problems Severe sepsis (Acute) HCAP (healthcare-associated pneumonia) (Acute) Encephalopathy due to infection (Acute) Thrombocytopenia (Acute) Sleep-disordered breathing (Acute) suspect MOI Hypokalemia (Acute) - Physical Exam Vital Signs Temp Pulse Resp BP Pulse Ox 98.6 F 48 L 18 148/67 H 95 08/21/18 09:30 08/21/18 09:30 08/21/18 09:30 08/21/18 09:30 08/21/18 09:30 Oxygen Flow Rate (L/min) 2 Oxygen Delivery Method Room Air Weight: 283 lb 11.759 oz Body Mass Index (BMI) 41.8 Finger Stick Blood Glucose 112 Intake and Output for Last 24 Hours 08/19/18 08/20/18 08/21/18 23:59 23:59 23:59 Intake Total 1260 / 1260 3100 / 3100 Balance 1260 / 1260 3100 / 3100 Microbiology Past 72 Hours 08/17/18 08:30 Urine Culture - Final Urine, Catheterized Culture exhibits no growth. 08/17/18 07:50 Blood Culture - Preliminary Blood Culture (Wb) - Anticubital Left No growth in 48 hours. 08/17/18 08:25 Blood Culture - Preliminary Blood Culture (Wb) - Left Hand No growth in 48 hours. Laboratory Tests Past 24 Hrs 08/17/18 08/21/18 08/21/18 07:50 06:12 06:12 Diff Path Review Reviewed Ammonia 45.0 H Free T4 Valproic Acid 90 08/21/18 06:12 Diff Path Review Ammonia Free T4 0.73 L Valproic Acid Home Medications: Medications to take at Discharge Aspirin [Aspirin, Baby] 81 mg PO DAILY@0800 05/09/15 Atorvastatin Calcium [Lipitor] 40 mg PO QHS 05/09/15 Pregabalin [Lyrica] 50 mg PO BID 05/09/15 Amlodipine [Norvasc] 10 mg PO DAILY 07/12/16 Anastrozole [Arimidex] 1 mg PO DAILY 07/12/16 Ergocalciferol [Vitamin D] 50,000 unit PO MOTH 07/12/16 Oxcarbazepine [Trileptal] 300 mg PO TID 07/12/16 Spironolactone [Aldactone] 25 mg PO DAILY 07/12/16 Lisinopril [Zestril] 20 mg PO BID 04/04/17 Albuterol Inhaler [Ventolin Hfa] 2 puff INHALATION Q6H PRN PRN 07/12/17 Naproxen [Naprosyn] 500 mg PO BID PRN PRN 07/12/17 Bupropion HCl [Wellbutrin Sr] 100 mg PO BID 05/03/18 Divalproex Sodium 1,000 mg PO BID 05/03/18 Levothyroxine Sodium [Synthroid] 100 mcg PO SUSA 05/03/18 Levothyroxine Sodium [Synthroid] 200 mcg PO MOTUWETHFR 05/03/18 Sertraline HCl [Zoloft] 200 mg PO DAILY 05/03/18 traZODone [Desyrel] 50 mg PO QHS 05/03/18 Acetaminophen [Tylenol Tablet] 650 mg PO Q4H PRN PRN tablet 05/07/18 Bisacodyl [Laxative Suppository] 10 mg RC DAILY PRN PRN 08/17/18 Magnesium Hydroxide [Milk Of Magnesia] 30 ml PO DAILY PRN PRN 08/17/18 Na Phos,M-B/Na Phos,Di-Ba [Fleet Enema] 1 bottle RECTAL DAILY PRN PRN 08/17/18 Amox/Clavulanate Tablet [Augmentin Tablet] 875 mg PO BID #5 tablet 08/21/18 Furosemide [Lasix] 40 mg PO DAILY #0 08/21/18 Guaifenesin [Robitussin] 20 ml PO Q4H PRN PRN udc 08/21/18 Primary Care Physician: Moni Jackson MD [Primary Care Provider] - Please follow up with your Primary Care Physician in: 10-14 days Disposition: Retirement facility Minutes spent on discharge:: 35 Patient Condition:: Stable Medical Necessity - Tobacco Use Smoking Status: Current every day smoker Tobacco Use: Cigarettes Meaningful Use Info Meaningful Use Diagnoses (Choose all that apply): None applicable Code Visit Inpatient E&M: 69631 Disch Hosp
--- NOTE | 2018-08-21 12:06 | DS.PCM_ITS ---
Discharge Date and Diagnosis - Problem List Patient Problems: Active and Suspected Problems Severe sepsis (Acute) HCAP (healthcare-associated pneumonia) (Acute) Encephalopathy due to infection (Acute) Thrombocytopenia (Acute) Sleep-disordered breathing (Acute) suspect MOI Hypokalemia (Acute) Date of Admission: 08/17/18 Date of Discharge: 08/21/18 - Primary Discharge Diagnosis Active and Suspected Problems Severe sepsis (Acute) due to PNA HCAP/aspiration (healthcare-associated pneumonia) (Acute) Encephalopathy due to infection (Acute) Thrombocytopenia (Acute) Sleep-disordered breathing (Acute) suspect MOI Hypokalemia (Acute) - Secondary Discharge Diagnosis Chronic Problems Hypersomnia (Chronic) History of TIAs (Chronic) Tobacco use disorder (Chronic) Hypothyroidism (Chronic) Hypertension (Chronic) Hyperlipidemia (Chronic) Conversion disorder (Chronic) History of epilepsy (Chronic) Bilateral leg edema (Chronic) COPD (chronic obstructive pulmonary disease) (Chronic) Anxiety and depression (Chronic) Morbid obesity (Chronic) Breast cancer, left breast (Chronic) 04/07/15 L mastectomy w/ L sentinel node Bx Coronary atherosclerosis of [place] coronary vessel (Chronic) Hospital Course and Treatment Imaging Results: Clinical Impression(s) from Imaging Studies Chest X-Ray 08/17/18 08:00 IMPRESSION: Right lower lobe infiltrate. Electronically Signed: Jerry Sellers, at 8:53 EDT , Service support , Laboratory Results - last 24 hr 08/17/18 08/21/18 08/21/18 07:50 06:12 06:12 Diff Path Review Reviewed Ammonia 45.0 H Free T4 Valproic Acid 90 08/21/18 06:12 Diff Path Review Ammonia Free T4 0.73 L Valproic Acid Microbiology 08/17/18 08:30 Urine, Catheterized Urine Culture - Final Culture exhibits no growth. 08/17/18 07:50 Blood Culture (Wb) - Anticubital Left Blood Culture - Preliminary No growth in 48 hours. 08/17/18 08:25 Blood Culture (Wb) - Left Hand Blood Culture - Preliminary No growth in 48 hours. 08/17/18 08:30 Urine, Clean Catch Streptococcus pneumoniae Antigen (M - Final 08/17/18 08:30 Urine, Clean Catch Legionella Antigen - Final none Operations: None Procedures: None Summary of Care Provided: The patient is a 58 year old F with a past medical history of coronary artery disease, breast cancer with left mastectomy in 2015, anxiety/depression/conversion disorder, COPD, seizure disorder, hyperlipidemia, morbid obesity, hypertension, hypothyroidism and TIAs who currently resides in a long term. She was sent to the emergency department at [facility] on 08/17/2018 with a history of cough and shortness of breath that started after she aspirated a piece of chocolate. White blood cell count in the emergency department was 9.5 with an unremarkable differential. Hemoglobin was increased at 15.1 secondary to dehydration/hemoconcentration. An ABG on a 40% Ventimask showed a pH of 7.42, PCO2 of 37.5 and a PO2 of 67. BMP was remarkable for an increased creatinine at 1.07. Lactic acid was elevated at 2.2. TSH was 0.66 and a T4 within the past 3 months was within normal limits. UA had 0-5 WBCs. Valproic acid level was mildly increased at 110. Chest x-ray showed a right lower lobe infiltrate. She was admitted to the hospital with a diagnosis of severe sepsis secondary to HCAP/Aspiration and started on Vancomycin and Zosyn. MRSA nasal swab was negative. Legionella and streptococcal antigens in the urine were negative. Urine culture had no growth. Blood cultures had no growth. On 08/19/2018 she was transitioned to oral Augmentin. She is intermittently alert and oriented X 3 and very somnolent and difficult to arouse. When she is sleeping she is having apneic episodes and she snores loudly. She improved with antibiotics and on 08/21/2018 she was afebrile with stable vital signs. She is persistently bradycardic with HR in the high 40's and 50's. She is on no medications to control HR. She was very alert with her nurse while eating breakfast but, very sleepy and difficult to arouse when I examined her. She was discharged back to [facility]. I recommend that she get a sleep study in the future for sleep disordered breathing and suspected MOI. PHYSICAL EXAM: GENERAL: lethargic, difficult to arouse and keeps falling asleep....was awake and oriented X 3 while eating breakfast ORAL: moist mucosa, no mucosal lesions NECK: No JVD, supple, trachea midline LUNGS: CTA, symmetric chest expansion, not tachypneic, having apneic episodes while she is sleeping, snores loudly, diminished breath sounds throughout HEART: Regular rhythm, bradycardic, normal S1 and S2, no rub, no gallop ABDOMEN: soft, NT, ND, BS present, no guarding with palpation, obese EXTREMITIES: no edema, no cyanosis, no calf tenderness, no clubbing SKIN: No rashes, no breakdown NEUROLOGIC: no focal neurologic deficits PSYCH: can not evaluate because I can not get her to stay awake This note was generated with OneSpotation software. It may contain incorrect words, spelling, and punctuation that were not noted in checking the note before signing. Patient Problems: Active and Suspected Problems Severe sepsis (Acute) HCAP (healthcare-associated pneumonia) (Acute) Encephalopathy due to infection (Acute) Thrombocytopenia (Acute) Sleep-disordered breathing (Acute) suspect MOI Hypokalemia (Acute) - Physical Exam Vital Signs Temp Pulse Resp BP Pulse Ox 98.6 F 48 L 18 148/67 H 95 08/21/18 09:30 08/21/18 09:30 08/21/18 09:30 08/21/18 09:30 08/21/18 09:30 Oxygen Flow Rate (L/min) 2 Oxygen Delivery Method Room Air Weight: 283 lb 11.759 oz Body Mass Index (BMI) 41.8 Finger Stick Blood Glucose 112 Intake and Output for Last 24 Hours 08/19/18 08/20/18 08/21/18 23:59 23:59 23:59 Intake Total 1260 / 1260 3100 / 3100 Balance 1260 / 1260 3100 / 3100 Microbiology Past 72 Hours 08/17/18 08:30 Urine Culture - Final Urine, Catheterized Culture exhibits no growth. 08/17/18 07:50 Blood Culture - Preliminary Blood Culture (Wb) - Anticubital Left No growth in 48 hours. 08/17/18 08:25 Blood Culture - Preliminary Blood Culture (Wb) - Left Hand No growth in 48 hours. Laboratory Tests Past 24 Hrs 08/17/18 08/21/18 08/21/18 07:50 06:12 06:12 Diff Path Review Reviewed Ammonia 45.0 H Free T4 Valproic Acid 90 08/21/18 06:12 Diff Path Review Ammonia Free T4 0.73 L Valproic Acid Home Medications: Medications to take at Discharge Aspirin [Aspirin, Baby] 81 mg PO DAILY@0800 05/09/15 Atorvastatin Calcium [Lipitor] 40 mg PO QHS 05/09/15 Pregabalin [Lyrica] 50 mg PO BID 05/09/15 Amlodipine [Norvasc] 10 mg PO DAILY 07/12/16 Anastrozole [Arimidex] 1 mg PO DAILY 07/12/16 Ergocalciferol [Vitamin D] 50,000 unit PO MOTH 07/12/16 Oxcarbazepine [Trileptal] 300 mg PO TID 07/12/16 Spironolactone [Aldactone] 25 mg PO DAILY 07/12/16 Lisinopril [Zestril] 20 mg PO BID 04/04/17 Albuterol Inhaler [Ventolin Hfa] 2 puff INHALATION Q6H PRN PRN 07/12/17 Naproxen [Naprosyn] 500 mg PO BID PRN PRN 07/12/17 Bupropion HCl [Wellbutrin Sr] 100 mg PO BID 05/03/18 Divalproex Sodium 1,000 mg PO BID 05/03/18 Levothyroxine Sodium [Synthroid] 100 mcg PO SUSA 05/03/18 Levothyroxine Sodium [Synthroid] 200 mcg PO MOTUWETHFR 05/03/18 Sertraline HCl [Zoloft] 200 mg PO DAILY 05/03/18 traZODone [Desyrel] 50 mg PO QHS 05/03/18 Acetaminophen [Tylenol Tablet] 650 mg PO Q4H PRN PRN tablet 05/07/18 Bisacodyl [Laxative Suppository] 10 mg RC DAILY PRN PRN 08/17/18 Magnesium Hydroxide [Milk Of Magnesia] 30 ml PO DAILY PRN PRN 08/17/18 Na Phos,M-B/Na Phos,Di-Ba [Fleet Enema] 1 bottle RECTAL DAILY PRN PRN 08/17/18 Amox/Clavulanate Tablet [Augmentin Tablet] 875 mg PO BID #5 tablet 08/21/18 Furosemide [Lasix] 40 mg PO DAILY #0 08/21/18 Guaifenesin [Robitussin] 20 ml PO Q4H PRN PRN udc 08/21/18 Primary Care Physician: Moni Jackson MD [Primary Care Provider] - Please follow up with your Primary Care Physician in: 10-14 days Disposition: Long-Term facility Minutes spent on discharge:: 35 Patient Condition:: Stable Medical Necessity - Tobacco Use Smoking Status: Current every day smoker Tobacco Use: Cigarettes Meaningful Use Info Meaningful Use Diagnoses (Choose all that apply): None applicable Code Visit Inpatient E&M: 33397 Disch Hosp
--- NOTE | 2018-08-21 12:26 | NURSING ---
[facility] called for wheelchair, will be here at 1400
--- NOTE | 2018-08-21 13:27 | CASEMGMT ---
Social Work: Nancy, health unit supervisor faxed orders and med list to [facility] and called son to update on D/C back to [facility] today. [facility] wheelchair van to pick patient up at 2:00pm. PLAN: Patient to return to [facility] for skilled care. TONY Rojas
== END 2018-08-21 14:10 | disposition skilled nursing facility (03) | DRG 720 ==
LOC: ED 08:34 → MS3 10:10
PROVIDERS: Hospitalist; Admitting Provider Hospitalist; Emergency Provider Emergency Medicine; Family Provider Internal Medicine; PCP Internal Medicine; Visit Provider Internal Medicine
DX: A41.9 Sepsis, unspecified organism (principal); J96.01 Acute respiratory failure with hypoxia; J18.9 Pneumonia, unspecified organism; J69.0 Pneumonitis due to inhalation of food and vomit; R65.20 Severe sepsis without septic shock; Y95 Nosocomial condition; G93.49 Other encephalopathy; D69.6 Thrombocytopenia, unspecified; E87.6 Hypokalemia; E66.01 Morbid (severe) obesity due to excess calories; Z68.41 Body mass index [BMI] 40.0-44.9, adult; E03.9 Hypothyroidism, unspecified; J44.9 Chronic obstructive pulmonary disease, unspecified; G47.33 Obstructive sleep apnea (adult) (pediatric); I25.10 Atherosclerotic heart disease of native coronary artery without angina pectoris; F44.9 Dissociative and conversion disorder, unspecified; F41.9 Anxiety disorder, unspecified; F32.9 Major depressive disorder, single episode, unspecified; E78.5 Hyperlipidemia, unspecified; I10 Essential (primary) hypertension; G40.909 Epilepsy, unspecified, not intractable, without status epilepticus; Z86.73 Personal history of transient ischemic attack (TIA), and cerebral infarction without residual deficits; Z85.3 Personal history of malignant neoplasm of breast; Z90.12 Acquired absence of left breast and nipple; F17.210 Nicotine dependence, cigarettes, uncomplicated
CPT/HCPCS: 36415; 36600; 71045; 80048; 80053; 80164; 80202; 81001; 82140; 82803; 83605; 83735; 84439; 84443; 85025; 85610; 85730; 87040; 87086; 87449; 87641; 92507; 92526; 92610; 93005; 94640; 97110; 97162; 97165; 97530; 97535; 99285; 99406; J7030; J7040; J7050; P9612; A4216; J2405

== ENCOUNTER 2018-10-26 15:57 | Emergency (ER) | payer MEDICAID, SELFPAY ==
[2018-08-17 10:43] VITALS: BMI 41.8
[2018-10-26] VITALS (7 sets, daily range): BP systolic 132–167; BP diastolic 71–96; PULSE 45–54; RESP 16–18; TEMP 36.4–36.9; O2SAT 96–99; BMI 39.9
--- NOTE | 2018-10-26 16:05 | EKG12_ITS ---
Test Reason : LOC Blood Pressure : / mmHG Vent. Rate : 050 BPM Atrial Rate : 050 BPM P-R Int : 210 ms QRS Dur : 086 ms QT Int : 500 ms P-R-T Axes : 035 -09 025 degrees QTc Int : 455 ms Sinus bradycardia with 1st degree A-V block Moderate voltage criteria for LVH, may be normal variant Nonspecific ST abnormality Abnormal ECG Confirmed by GERARDO VALLEJO, MAKAYLA ([id number]), editor in chief newspaper SUNNY ALVARENGA ([id number]) on 10/29/2018 1:38:03 PM Referred By: DAYAMI Confirmed By:MAKAYLA CARRILLO MD
--- NOTE | 2018-10-26 16:07 | ED.DCSUM_ITS ---
- ER Visit Summary Date of Service: 10/26/18 Chief Complaint: Altered mental status and shortness of breath History of Present Illness: The patient is a 58 F who presents for altered mental status and shortness of breath at her nursing facility today. Nursing staff were concerned because patient was having waxing and waning periods of altered mental status. She appeared to be having trouble breathing and was having Hector--Bowden breathing per staff. Patient has a history of obstructive sleep apnea and is not compliant with her CPAP. She also has a history of uric acid cycle disorder and is on treatment for elevated ammonia levels. Patient currently is denying any complaints other than feeling tremulous. She denies any shortness of breath and states that she will fall asleep and staff will wake her up. Patient is not on any oxygen at her facility. Physical Examination: Vital signs: afebrile, hemodynamically stable, no hypoxia on room air General: well nourished, well developed, unkempt, in no distress Skin: warm, dry, no rash, no pallor HEENT: normocephalic and atraumatic; PERRL, EOMI, moist mucous membranes Cardiovascular: regular rate and rhythm without murmurs, trace peripheral edema, 2+ pulses all distal extremities Respiratory: No increased work of breathing, lungs are clear to auscultation bilaterally, no rales, rhonchi or wheezing Abdominal: Abdomen is soft, nontender with normoactive bowel sounds, no guarding or rebound, no masses MSK: Moves all extremities, no deformities, normal strength, tremulousness of extremities, arms greater than legs Neuro: Awake and alert, oriented ?4. No facial droop, sensation and motor function intact and symmetric Test Results: Abnormal Lab Results 10/26/18 10/26/18 10/26/18 16:32 16:35 16:35 WBC 7.6 RBC 4.30 Hgb 13.1 Hct 40.5 MCV 94.2 MCH 30.5 MCHC 32.3 RDW 14.5 RDW Differential 49.4 H Plt Count 109 L MPV 10.0 Immature Gran % (Auto) 0.300 Neut % (Auto) 43.9 L Lymph % (Auto) 39.4 [place] % (Auto) 14.0 H Eos % (Auto) 2.0 Baso % (Auto) 0.4 Absolute Neuts (auto) 3.4 Absolute Lymphs (auto) 3.01 Total Counted Not Reportable PT 16.5 H INR 1.4 APTT 32.0 Specimen Type ART Sample Site L Radial pH 7.37 Bicarbonate Actual 22.3 POC Total CO2 23 Base Excess -3 L O2 Saturation 94 L ABG pCO2 38.4 ABG pO2 71 L Tai Test POS O2 Delivery Device Room Air Blood Gas Notified Whom ED Blood Gas Notified Time 1626 Sodium Potassium Chloride Carbon Dioxide Anion Gap BUN Creatinine Estim Creat Clear Calc Est GFR (MDRD) Af Amer Est GFR (MDRD) Non-Af BUN/Creatinine Ratio Glucose Lactic Acid Calcium Total Bilirubin AST ALT Alkaline Phosphatase Ammonia Troponin I Total Protein Albumin Globulin Albumin/Globulin Ratio TSH Urine Color Urine Clarity Urine pH Ur Specific [place] Urine Protein Urine Glucose (UA) Urine Ketones Urine Occult Blood Urine Nitrite Urine Bilirubin Urine Urobilinogen Ur Leukocyte Esterase Urine RBC Urine WBC Ur Squamous Epith Cells Urine Bacteria Hyaline Casts Fine Granular Casts Urine Mucus Valproic Acid 10/26/18 10/26/18 10/26/18 16:35 16:35 16:35 WBC RBC Hgb Hct MCV MCH MCHC RDW RDW Differential Plt Count MPV Immature Gran % (Auto) Neut % (Auto) Lymph % (Auto) [place] % (Auto) Eos % (Auto) Baso % (Auto) Absolute Neuts (auto) Absolute Lymphs (auto) Total Counted PT INR APTT Specimen Type Sample Site pH Bicarbonate Actual POC Total CO2 Base Excess O2 Saturation ABG pCO2 ABG pO2 Tai Test O2 Delivery Device Blood Gas Notified Whom Blood Gas Notified Time Sodium 138 Potassium 3.9 Chloride 106 Carbon Dioxide 27.0 Anion Gap 5 BUN 21 H Creatinine 1.22 H Estim Creat Clear Calc 50.70 Est GFR (MDRD) Af Amer 58 L Est GFR (MDRD) Non-Af 48 L BUN/Creatinine Ratio 17.2 Glucose 81 Lactic Acid 1.5 Calcium 9.2 Total Bilirubin 0.40 AST 42 H ALT 28 Alkaline Phosphatase 80 Ammonia Troponin I < 0.015 Total Protein 7.7 Albumin 3.2 Globulin 4.5 H Albumin/Globulin Ratio 0.7 L TSH 0.32 L Urine Color Urine Clarity Urine pH Ur Specific [place] Urine Protein Urine Glucose (UA) Urine Ketones Urine Occult Blood Urine Nitrite Urine Bilirubin Urine Urobilinogen Ur Leukocyte Esterase Urine RBC Urine WBC Ur Squamous Epith Cells Urine Bacteria Hyaline Casts Fine Granular Casts Urine Mucus Valproic Acid 102 H 10/26/18 10/26/18 16:35 17:00 WBC RBC Hgb Hct MCV MCH MCHC RDW RDW Differential Plt Count MPV Immature Gran % (Auto) Neut % (Auto) Lymph % (Auto) [place] % (Auto) Eos % (Auto) Baso % (Auto) Absolute Neuts (auto) Absolute Lymphs (auto) Total Counted PT INR APTT Specimen Type Sample Site pH Bicarbonate Actual POC Total CO2 Base Excess O2 Saturation ABG pCO2 ABG pO2 Tai Test O2 Delivery Device Blood Gas Notified Whom Blood Gas Notified Time Sodium Potassium Chloride Carbon Dioxide Anion Gap BUN Creatinine Estim Creat Clear Calc Est GFR (MDRD) Af Amer Est GFR (MDRD) Non-Af BUN/Creatinine Ratio Glucose Lactic Acid Calcium Total Bilirubin AST ALT Alkaline Phosphatase Ammonia 36.0 H Troponin I Total Protein Albumin Globulin Albumin/Globulin Ratio TSH Urine Color Yellow Urine Clarity Clear Urine pH 5.0 Ur Specific [place] 1.025 Urine Protein Negative Urine Glucose (UA) Normal Urine Ketones 5 H Urine Occult Blood 25 H Urine Nitrite Negative Urine Bilirubin Negative Urine Urobilinogen 4 H Ur Leukocyte Esterase 100 H Urine RBC 5-10 SEEN Urine WBC 0-5 SEEN Ur Squamous Epith Cells 5-10 SEEN Urine Bacteria 1+ Hyaline Casts 10-25 SEEN Fine Granular Casts 0-5 SEEN Urine Mucus 3+ Valproic Acid Clinical Impression(s) from Imaging Studies Chest X-Ray 10/26/18 16:15 IMPRESSION: No acute thoracic pathology. Electronically Signed: Axel Sanchez, at 16:31 EDT Tel , Service support , Medications Given Discontinued Medications Sodium Chloride () 1,000 mls @ 250 mls/hr IV .Q4H ANDREY Last Admin: 10/26/18 17:29 Dose: 250 mls/hr Documented by: TRUONG Emergency Department Course and Treatment: Patient was given IV fluids for hydration. Thorough work-up was performed. Patient remained hemodynamically stable and had no hypoxia on room air even when sleeping. EKG showed atrial flutter, consistent with prior EKGs. Chest x-ray showed no sign of pneumonia. Labs were within normal limits. Urine negative for infection. Ammonia was 36. ABG showed a normal pH and a normal bicarb and CO2. Patient on reevaluation was sleeping but woke easily and showed no evidence of abnormal breathing, shortness of breath, or hypoxia even while sleeping. No findings on patient's work-up that would require admission for further treatment. Nursing at the facility were contacted and did state the patient has tremulousness at baseline. [facility] Treatment Plan: [] Disposition: [] Impression: Somnolence, history of obstructive sleep apnea This note was generated with MindMixer dictation software. It may contain incorrect words, spelling, and punctuation that were not noted in review of the chart prior to signing ED Disposition - Plan for ED Patient: Disposition: Shelter Facility Instructions: SLEEP APNEA, Obstructive (Adult) Referrals: Moni Jackson MD [Primary Care Provider] - 1-2 Days if not improving Additional Instructions: Danielle had no findings on her work-up that were concerning for infection or significant lab abnormalities. Ammonia was 36. C diff. was checked due to diarrhea and was negative. Patient has had no difficulty breathing a good oxygen saturation on room air even while sleeping. If you have any worsening of your condition or any new concerning symptoms, please return immediately to the emergency department for another evaluation.
--- NOTE | 2018-10-26 16:15 | RAD_ITS ---
STUDY: X-RAY CHEST REASON FOR EXAM: Female, 58 years old. Chest pain TECHNIQUE: Frontal view of the chest COMPARISON: X-ray chest August 17, 2018 FINDINGS: The lungs are clear. There are no pleural effusions. There is no pneumothorax. The heart is normal in size. The visualized osseous structures are within normal limits. RAD/Chest 1 View (Portable) IMPRESSION: No acute thoracic pathology. Electronically Signed: Axel Sanchez, at 16:31 EDT Tel , Service support ,
[2018-10-26 16:35] LABS: Allen Test POS; Base Excess -3 mmol/L (-2 to +2); Bicarbonate 22.3 mmol/L (22-26); Blood Gas Specimen Type ART; O2 Delivery Device Room Air; PO2 71 mmHG (75-100); SITE L Radial; SO2 94 % (95-99); Time Given 1626; Total Carbon Dioxide 23 mmol/L; pCO2 38.4 mmHg (35-45); pH 7.37 (7.35-7.45)
[2018-10-26 16:52] LABS: Absolute Lymphocyte Count 3.01 X10^3/ul (0.83-4.51); Absolute Neutrophil Count 3.4 X10^3/uL (2.0-7.7); Basophil# 0.03 X10^3/uL; Basophil% 0.4 % (0-1); Eosinophil# 0.15 X10^3/uL; Hematocrit 40.5 % (37-47); Hemoglobin 13.1 g/dl (12.0-15.0); Lymphocyte # 3.01 X10^3/ul (4.0); Lymphocyte % 39.4 % (19-41); Mean Corp Hgb Conc 32.3 g/gl (32-36); Mean Corpuscular Hgb 30.5 pg (27.0-32.0); Mean Corpuscular Volume 94.2 fL (81-99); Monocyte# 1.07 X10^3/uL; Neutrophil # 3.36 X10^3/uL (2.7-7.7); Neutrophil % 43.9 % (47-70); Platelet Count 109 K/mm3 (150-450); RBC Distribution Width CV 14.5 % (11.6-14.6); RBC Distribution Width SD 49.4 fl (35.1-43.9); White Blood Count 7.6 K/mm3 (4.4-11.0)
[2018-10-26 16:54] LABS: POSITIVE COUNT NO; POSITIVE DIFFERENTIAL NO; POSITIVE MORPHOLOGY NO
[2018-10-26 17:01] LABS: International Normalized Ratio 1.4; Prothrombin Time (Protime)PT. 16.5 SECONDS (11.7-14.9)
[2018-10-26 17:12] LABS: ALB/GLOB Ratio 0.7 RATIO (0.9-2.4); AST(SGOT) 42 U/L (15-37); Alanine Aminotransfer ALT/SGPT 28 U/L (13-56); Albumin, Serum 3.2 g/dL (3.2-5.0); Alkaline Phosphatase 80 U/L (45-117); Anion Gap 5 (5-15); BUN 21 mg/dL (7-18); BUN/Creat Ratio 17.2 RATIO (10-20); Calcium,Total 9.2 mg/dL (8.5-10.1); Chloride 106 mmol/L (98-107); Creatinine, Serum 1.22 mg/dL (0.55-1.02); EST Glomerular Filtration Rate 48 mL/min (>60); Est Glom Filt Rate - Afr Amer 58 mL/min (>60); Globulin 4.5 g/dL (2.2-4.2); Glucose 81 mg/dL (74-106); Potassium 3.9 mmol/L (3.5-5.1); Protein, Total 7.7 g/dL (6.4-8.2); Sodium Level 138 mmol/L (136-145); Thyroid Stim Hormone (TSH) 0.32 uIU/mL (0.358-3.74)
[2018-10-26 17:17] LABS: Lactic Acid 1.5 mmol/L (0.4-2.0)
[2018-10-26] MEDS: 0.9% Normal Saline 1,000 ML 250 ML IV (17:29)
[2018-10-26 17:46] LABS: Valproic Acid (Depakene) Level 102 ug/mL (50-100)
[2018-10-26 17:56] LABS: Color, Urine Yellow (Yellow); Glucose, Dipstick Normal (Normal); Ketone-Dipstick 5 mg/dl (Negative); Leukocyte Esterase-Dipstick 100 /ul (Negative); Nitrite-Dipstick Negative (Negative); Occult Blood-Urine 25 /ul (Negative); Protein-Dipstick Negative (Negative); Specific Gravity, Urine 1.025 (1.002-1.030); Urine Bilirubin Dipstick Negative (Negative); Urine Clarity Clear (Clear); Urine Urobilinogen 4 mg/dl (Normal)
[2018-10-26 18:09] LABS: Hyaline Cast 10-25 SEEN /lpf (0-5)
[2018-10-26 18:10] LABS: Fine Granular Cast- Urine 0-5 SEEN /lpf (0-5); Red Blood Cells-Urine 5-10 SEEN /hpf (0-5)
[2018-10-26 18:11] LABS: Bacteria 1+ /hpf (None Seen); Mucous, Urine 3+ /hpf (<or=2+); Squamous Epithelial Cells - UA 5-10 SEEN /hpf (5-10)
[2018-10-26 18:12] LABS: White Blood Cells 0-5 SEEN /hpf (0-5)
== END 2018-10-26 21:04 | disposition skilled nursing facility (03) ==
PROVIDERS: Emergency Provider Emergency Medicine; Family Provider Family Medicine; PCP Family Medicine
DX: R40.0 Somnolence (principal); G47.33 Obstructive sleep apnea (adult) (pediatric); I48.91 Unspecified atrial fibrillation; E66.9 Obesity, unspecified; I48.92 Unspecified atrial flutter; Z91.19 Patient's noncompliance with other medical treatment and regimen
CPT/HCPCS: 36600; 71045; 80053; 80164; 81001; 82140; 82803; 83605; 84443; 84484; 85025; 85610; 85730; 87040; 87086; 87088; 87493; 93005; 96360; 96361; 99285; J7030; A4216

== ENCOUNTER 2018-12-02 11:54 | Emergency (ER) | payer MEDICAID, SELFPAY ==
[2018-10-26 16:00] VITALS: BMI 39.9
[2018-12-02 11:56] VITALS: BP 137/64; PULSE 52; RESP 16; TEMP 36.7; O2SAT 98; BMI 33.6
--- NOTE | 2018-12-02 12:35 | RAD_ITS ---
STUDY: X-RAY - LEFT FEMUR REASON FOR STUDY: Female, 58 years old. Left hip pain after fall TECHNIQUE: 2 view(s) of the femur. COMPARISON: None. FINDINGS: Normal visualized femur. Normal visualized soft tissue structure. RAD/Femur Min 2 Views IMPRESSION: No fracture or malalignment. Electronically Signed: Terry Cruz MD at 13:54 EDT , Service support ,
--- NOTE | 2018-12-02 12:38 | ED.VIS.GEN ---
History of Present Illness Informant: Patient Onset: Yesterday Narrative: 58-year-old female presents from nursing facility with complaint of left hip pain. Patient states that 3 days ago she fell from a standing position. States that she fell on her left shoulder pain and hip pain but wanted to be placed back in bed and not sent to the emergency department. States she is able to ambulate following that but sat down on the bed last night and felt a pop in her left hip. States that she has had persistent pain in this area. Denies any numbness or tingling. Denies any previous surgical intervention on this hip. <Shorty Hernandez - Last Filed: 12/02/18 17:49> <Kiki Griffin - Last Filed: 12/02/18 18:02> Chief Complaint: Lower Extremity Injury Past Medical History Prior records reviewed: Yes Surgical History: mastectomy, - - L breast masectomy, x 2, T+A. Smoking Status: Current every day smoker - Family History Maternal Family History: Reports: Heart Disease Paternal Family History: Reports: No pertinent history Sibling Family History: Reports: - - Cirrhosis of the liver <Shorty Hernandez - Last Filed: 12/02/18 17:49> <Kiki Griffin - Last Filed: 12/02/18 18:02> - Allergies and Home Meds Allergies/Adverse Reactions: Allergies No Known Allergies Allergy (Verified 10/26/18 16:04) Primary Care Physician: Moni Jackson MD [STAFF PHYSICIAN] - Review of Systems General: Denies: Chills, Fever, Sweats Eyes: Denies: Visual changes - bilaterally, Diplopia ENT: Denies: Rhinorrhea, Sore throat Cardiovascular: Denies: Chest pain, Palpitations Respiratory: Denies: Dyspnea, Cough, Dyspnea on exertion Gastrointestinal: Denies: Abdominal pain, Nausea, Vomiting, Diarrhea, Melena, Hematochezia Genitourinary: Denies: Dysuria, Hematuria, Frequency Musculoskeletal: Reports: Arthralgias. Denies: Back pain, Extremity Pain Skin: Denies: Rash, Wounds Neurological: Denies: Headache, Weakness, Numbness <Shorty Hernandez - Last Filed: 12/02/18 17:49> Physical Exam Vital Signs/Narrative: Vital Signs Temp Pulse Resp BP Pulse Ox 12/02/18 11:56 98.1 F 52 L 16 137/64 H 98 Inital Vital Signs reviewed: Yes General: Well nourished, Well developed, No Acute Distress Head: Normocephalic, Atraumatic Eyes: Perrl, EOMI ENT: Moist mucous membranes, No rhinorrhea Neck: Supple, Nontender Cardiovascular: Regular rate, Regular rhythm, No murmurs Respiratory: No distress, CTA bilaterally, Chest nontender Abdomen: Soft, Nontender, Nondistended, Normal bowel sounds Back: Nontender, Normal Inspection Extremities: No edema, Tenderness, - - Strong palpable DP and PT pulses. Sensation intact. Skin: Normal color, No rash Neurological: Alert, Oriented x3, Cranial nerves II-XII grossly intact, Normal Strength, Normal Sensation Psychological: Normal affect, Normal Mood <Shorty Hernandez - Last Filed: 12/02/18 17:49> Vital Signs/Narrative: Vital Signs Pulse Resp 12/02/18 15:30 55 L 16 <Kiki Griffin - Last Filed: 12/02/18 18:02> Diagnostic/Tx/Re-eval Impressions Femur X-Ray 12/02/18 12:35 IMPRESSION: No fracture or malalignment. Electronically Signed: Terry Cruz MD at 13:54 EDT , Service support , 12/02/18 12:35 Femur Min 2 Views [RAD] Stat Laboratory Results 12/02/18 12/02/18 12/02/18 13:05 13:05 13:15 WBC 7.8 RBC 4.01 L Hgb 12.6 Hct 37.7 MCV 94.0 MCH 31.4 MCHC 33.4 RDW Std Deviation 47.4 H RDW Coeff of Yesi 13.8 Plt Count 133 L MPV 9.7 Immature Gran % (Auto) 0.500 Neut % (Auto) 47.4 Lymph % (Auto) 34.8 [place] % (Auto) 14.0 H Eos % (Auto) 2.7 Baso % (Auto) 0.6 Absolute Neuts (auto) 3.7 Absolute Lymphs (auto) 2.71 Nucleated RBC % 0 Sodium 144 Potassium 3.5 Chloride 111 H Carbon Dioxide 27.0 Anion Gap 6 BUN 23 H Creatinine 0.87 Estim Creat Clear Calc 78.78 Est GFR (MDRD) Af Amer 86 Est GFR (MDRD) Non-Af 71 BUN/Creatinine Ratio 26.5 H Glucose 91 Calcium 9.1 Urine Color Yellow Urine Clarity Clear Urine pH 6.0 Ur Specific [place] 1.010 Urine Protein Negative Urine Glucose (UA) Normal Urine Ketones Negative Urine Occult Blood 10 H Urine Nitrite Negative Urine Bilirubin Negative Urine Urobilinogen Normal Ur Leukocyte Esterase Negative Urine RBC 0-5 SEEN Urine WBC 0 SEEN Ur Squamous Epith Cells 0-5 SEEN Urine Bacteria RARE Hyaline Casts 0-5 SEEN Urine Mucus 1+ - Medical Decision Making Patient appears well nontoxic. Vital signs within normal limits. X-ray shows no acute fracture. Lab work unremarkable. Ambulated without difficulty. Asked to follow-up with primary care provider within the next 2 days. Patient will be discharged and return to residential facility. Patient agreeable and discharged home in stable condition. <Shorty Hernandez - Last Filed: 12/02/18 17:49> - Medical Decision Making Patient seen and evaluated with Dr. Hernandez. She presents several days after a fall but noted increased left hip pain yesterday. At the time of my examination she has equal leg lengths. There is minimal pain with logroll. She does have reproducible tenderness over the greater trochanter and pelvic wing. X-rays reveal no evidence of acute fracture. She is able to get up and ambling to the restroom and back. She will be discharged back to [facility]. <Kiki Griffin - Last Filed: 12/02/18 18:02> ED Disposition <Shorty Hernandez - Last Filed: 12/02/18 17:49> <Kiki Griffin - Last Filed: 12/02/18 18:02> - Plan for ED Patient: Disposition: [facility] Facility Diagnosis: Hip pain Instructions: Hip Contusion Referrals: Moni Jackson MD [STAFF PHYSICIAN] -
[2018-12-02] MEDS: fentaNYL 100 MCG/2 ML Ampul 50 MCG IM (13:14)
[2018-12-02 13:16] VITALS: BP 161/72; PULSE 48; RESP 16; O2SAT 95
[2018-12-02 13:19] LABS: Absolute Lymphocyte Count 2.71 X10^3/uL (0.83-4.51); Absolute Neutrophil Count 3.7 X10^3/uL (2.0-7.7); Basophil# 0.05 X10^3/uL; Basophil% 0.6 % (0-1); Eosinophil# 0.21 X10^3/uL; Eosinophils% 2.7 % (0-5); Hematocrit 37.7 % (37-47); Hemoglobin 12.6 g/dL (12.0-15.0); Lymphocyte # 2.71 X10^3/ul (4.0); Lymphocyte % 34.8 % (19-41); Mean Corp Hgb Conc 33.4 g/dL (32-36); Mean Corpuscular Hgb 31.4 pg (27.0-32.0); Mean Platelet Vol. 9.7 fl (6.2-12.0); Monocyte# 1.09 X10^3/uL; NRBC Flagged by Analyzer 0 % (0-5); Neutrophil # 3.69 X10^3/uL (2.7-7.7); Neutrophil % 47.4 % (47-70); Platelet Count 133 K/mm3 (150-450); RBC Distribution Width CV 13.8 % (11.6-14.6); RBC Distribution Width SD 47.4 fl (35.1-43.9); Red Blood Count 4.01 M/mm3 (4.2-5.4); White Blood Count 7.8 K/mm3 (4.4-11.0)
[2018-12-02 13:29] LABS: Anion Gap 6 (5-15); BUN 23 mg/dL (7-18); BUN/Creat Ratio 26.5 RATIO (10-20); Calcium,Total 9.1 mg/dL (8.5-10.1); Chloride 111 mmol/L (98-107); Creatinine, Serum 0.87 mg/dL (0.55-1.02); EST Glomerular Filtration Rate 71 mL/min (>60); Est Glom Filt Rate - Afr Amer 86 mL/min (>60); Estimated Creatinine Clearance 78.78 ml/min; Glucose 91 mg/dL (74-106); Potassium 3.5 mmol/L (3.5-5.1); Sodium Level 144 mmol/L (136-145)
[2018-12-02 13:30] LABS: White Blood Cells 0 SEEN /hpf (0-5)
[2018-12-02 13:33] LABS: Color, Urine Yellow (Yellow); Glucose, Dipstick Normal (Normal); Ketone-Dipstick Negative (Negative); Leukocyte Esterase-Dipstick Negative /ul (Negative); Nitrite-Dipstick Negative (Negative); Occult Blood-Urine 10 /ul (Negative); Protein-Dipstick Negative (Negative); Urine Bilirubin Dipstick Negative (Negative); Urine Clarity Clear (Clear); Urine Urobilinogen Normal (Normal)
--- NOTE | 2018-12-02 13:35 | NURSING ---
SNF CALLED. TOLD STILL WAITING ON RESULTS.
[2018-12-02 13:39] LABS: Bacteria RARE /hpf (None Seen); Hyaline Cast 0-5 SEEN /lpf (0-5); Mucous, Urine 1+ /hpf (<or=2+); Red Blood Cells-Urine 0-5 SEEN /hpf (0-5); Squamous Epithelial Cells - UA 0-5 SEEN /hpf (5-10)
[2018-12-02 15:30] VITALS: PULSE 55; RESP 16
== END 2018-12-02 15:45 | disposition skilled nursing facility (03) ==
PROVIDERS: Emergency Provider Emergency Medicine; Family Provider Family Medicine; PCP Family Medicine
DX: M25.552 Pain in left hip (principal); F17.200 Nicotine dependence, unspecified, uncomplicated; Z90.12 Acquired absence of left breast and nipple
CPT/HCPCS: 73552; 80048; 81001; 85025; 99284; J7030; A4216

== ENCOUNTER → 2019-03-26 15:35 | Outpatient (CLI) | payer MEDICAID, SELFPAY ==
[2019-03-26 13:52] VITALS: BMI 35.9
== END ==
PROVIDERS: Family Provider Family Medicine; PCP Family Medicine; Referring Provider Internal Medicine Cardiovascular Disease; Visit Provider Internal Medicine Cardiovascular Disease
DX: R00.1 Bradycardia, unspecified (principal)
CPT/HCPCS: 36415; 82533

== ENCOUNTER → 2019-04-05 09:32 | Outpatient (CLI) | payer MEDICAID, SELFPAY ==
[2019-03-26 13:52] VITALS: BMI 35.9
--- NOTE | 2019-04-05 09:34 | ECHOD_ITS ---
Reason For Study: ARRHYTHMIA Procedure This was a 2D Doppler, Color Flow transthoracic echocardiogram. Exam performed in department. Left Ventricle Normal size and thickness. The estimated ejection fraction is 65 %. Stage 1 diastolic dysfunction. No regional wall motion abnormalities noted. Right Ventricle Mildly dilated right ventricle. A moderator band is seen in the right ventricle. Normal systolic function. Atria Normal left atrium. Normal right atrium. Normal atrial septum. Mitral Valve Mild diffuse mitral valve thickening. Mild mitral annular calcification extending into the posterior leaflet. Trivial mitral valve insufficiency. Tricuspid Valve Normal tricuspid valve. Mild (1+) tricuspid valve insufficiency. Right ventricular systolic pressure estimated to be 34 mmHg. Aortic Valve Trisinus/trileaflet aortic valve. Pulmonic Valve Normal pulmonic valve. Great Vessels Normal aortic root. Normal arch. Normal inferior vena cava. Inferior vena cava collapse with sniff. Pericardium/Pleural No pericardial effusion. MMode/2D Measurements & Calculations LVIDd: 4.8 cm IVSd: 0.94 cm Ao root diam: 3.1 cm LVIDs: 3.3 cm LVPWd: 0.84 cm RVDd: 3.7 cm FS: 32.5 % LAV(MOD-bp): 69.7 ml LVAd ap4: 39.1 cm2 SV(MOD-sp4): 94.3 ml LAV(MOD-bp) Indexed: 30.9 ml/m2 EDV(MOD-sp4): 142.1 ml LAV(MOD-sp2): 80.4 ml EDV(sp4-el): 143.5 ml LAV(MOD-sp4): 61.6 ml LVAs ap4: 20.2 cm2 ESV(MOD-sp4): 47.8 ml ESV(sp4-el): 49.1 ml EF(MOD-sp4): 66.4 % EF(sp4-el): 65.8 % SV(sp4-el): 94.4 ml LA A4 area: 21.4 cm2 LA dimension(2D): 4.1 cm RA A4 area: 18.2 cm2 Time Measurements MV dec time: 0.22 sec Doppler Measurements & Calculations MV E max mitch: 100.5 cm/sec Ao V2 max: 146.3 cm/sec LV V1 max: 106.7 cm/sec MV A max mitch: 86.8 cm/sec Ao max P.6 mmHg LV V1 max P.6 mmHg MV E/A: 1.2 PA V2 max: 97.1 cm/sec TR max mitch: 268.2 cm/sec TR max P.8 mmHg Interpretation Summary The estimated ejection fraction is 65 %. Stage 1 diastolic dysfunction. Mildly dilated right ventricle. Trivial mitral valve insufficiency. Mild (1+) tricuspid valve insufficiency. Right ventricular systolic pressure estimated to be 34 mmHg. Comapred to echo report dated 04/05/2017, no appreciable changes noted. Ordering Physician: Carlos Martin Referring Physician: MAKAYLA FLYNN Performed By: Kay Escalera RDCS
== END ==
PROVIDERS: Family Provider Family Medicine; PCP Family Medicine; Referring Provider Internal Medicine Cardiovascular Disease; Visit Provider Internal Medicine Cardiovascular Disease
DX: R00.1 Bradycardia, unspecified (principal); G47.33 Obstructive sleep apnea (adult) (pediatric); I10 Essential (primary) hypertension; F17.200 Nicotine dependence, unspecified, uncomplicated
CPT/HCPCS: 93270; 93306

== ENCOUNTER → 2019-04-05 09:37 | Outpatient (REF) | payer MEDICAID, SELFPAY ==
[2019-03-26 13:52] VITALS: BMI 35.9
== END ==
LOC: CVS 09:37
PROVIDERS: Family Provider Family Medicine; PCP Family Medicine; Referring Provider Internal Medicine Cardiovascular Disease; Visit Provider Internal Medicine Cardiovascular Disease
DX: R55 Syncope and collapse (principal)
CPT/HCPCS: 93270; 93271

== ENCOUNTER → 2019-04-12 12:23 | Outpatient (CLI) | payer MEDICAID, SELFPAY ==
[2019-03-26 13:52] VITALS: BMI 35.9
--- NOTE | 2019-04-12 12:25 | STEWCON_ITS ---
Reason For Study: ARRHYTHMIA-OTHER Stress Results Protocol: Dobutamine Stress Echo With Definity Maximum Predicted HR: 161 bpm Target HR: 137 bpm % Maximum Predicted HR: 86 % DurationHeart Rate Stage (mm:ss) (bpm) BP Dose Comment BASELINE 55 160/92 2 CC DEFINITY STAGE 1 3:43 69 142/6210.002 CC DEFINITY STAGE 2 3:00 92 154/7020.00 STAGE 3 3:00 113 164/7030.00 STAGE 4 1:53 139 / 40.00ATROPINE 0.5MG GIVEN RECOVERY 92 142/70 2 CC DEFINITY Stress Duration: 11:36 mm:ss Maximum Stress HR: 139 bpm Baseline Echocardiogram Findings The estimated ejection fraction is 65 %. Stress Echo Wall motion Data Resting WM Intermediate WM Stress WM Resting Wall Motion Wall Motion Stress No regional wall motion No regional wall motion abnormalities noted. abnormalities noted. EKG Data The baseline ECG displays normal sinus rhythm. The patient was titrated from 10 mcg to a maximum of 40 mcg of dobutamine during the stress. The maximum heart rate attained was 142 beats per minute. This was 88% of maximum predicted heart rate. During dobutamine infusion, there were no ST or T wave changes noted to suggest ischemia. No arrhythmias noted. No clinical angina was noted. Interpretation Summary The estimated ejection fraction is 65 %. Normal, adequate, dobutamine echocardiogram. Negative for ischemia by EKG and echocardiographic anterior. No anginal symptoms noted. Appropriate blood pressure response to dobutamine. Test terminated due to the attainment of target heart rate. Final LVEF is 75%. Decrease sensitivity due to poor echo windows requiring Definity agent. Patient tolerated the procedure well. No complications. The study was technically difficult. Contrast injection was performed. Ordering Physician: Carlos Martin Referring Physician: Carlos Martin Performed By: Doreen Lutz, ELBERT, RVT
== END ==
PROVIDERS: Family Provider Family Medicine; PCP Family Medicine; Referring Provider Internal Medicine Cardiovascular Disease; Visit Provider Internal Medicine Cardiovascular Disease
DX: R00.1 Bradycardia, unspecified (principal); G47.33 Obstructive sleep apnea (adult) (pediatric); F17.200 Nicotine dependence, unspecified, uncomplicated; E78.5 Hyperlipidemia, unspecified
CPT/HCPCS: 93017; 93350; J7040; Q9957; A4216; C8928

== ENCOUNTER 2020-02-08 20:31 | Emergency (ER) | payer MEDICAID, SELFPAY ==
[2019-09-26 11:39] VITALS: BMI 25.3
[2020-02-08 20:32] VITALS: BP 170/76; PULSE 58; RESP 16; TEMP 36.7; O2SAT 93; BMI 45.4
--- NOTE | 2020-02-08 20:53 | RAD_ITS ---
STUDY: X-RAY - LEFT RADIUS AND ULNA REASON FOR EXAM: Female, 59 years old. Hit arm on door this evening. TECHNIQUE: 2 view(s) of the forearm. COMPARISON: None. FINDINGS: There is no demonstrated soft tissue swelling. Normal visualized radius. Normal visualized ulna. RAD/Forearm 2 Views IMPRESSION: Normal x-ray examination of the radius and ulna. Electronically Signed: Ismael Stroud MD at 21:19 EDT , Service support ,
--- NOTE | 2020-02-08 20:55 | ED.DCSUM_ITS ---
- ER Visit Summary Date of Service: 02/08/20 Chief Complaint: [Injury to left arm] History of Present Illness: The patient is a 59 F [presents with injury to left arm that occurred today. Patient was in a wheelchair going through a door which was spring-loaded and it came back and struck her on the left forearm. Patient is right-hand dominant. Patient continues to complain of pain. She denies any other injuries. She has history of hypertension and chronic back pain.] Physical Examination: [HEENT-PERRLA, EOMI. Cranial nerves II through XII grossly intact. TMs clear. Mucous membranes moist. No adenopathy. Cardiovascular-regular rate and rhythm without murmur or ectopy Lungs-clear to auscultation, chest wall stable without crepitus or subcu emphysema Abdomen-normoactive bowel sounds, soft, nontender, no rebound or rigidity, no peritoneal signs. Extremities-intact ?4, normal range of motion, normal pulses. Left arm-patient has some mild soft tissue swelling over the mid medial forearm. Patient has no obvious deformity. She is neurovascular intact distally. No pain at the elbow.] Test Results: [X-rays of the left forearm were obtained and read as normal.] Emergency Department Course and Treatment: [Patient would like an Torito wrap and a sling.] Treatment Plan: [Patient will be given an Torito wrap and sling for comfort and she is advised to remove the arm out of the sling frequently to retain movement at the shoulder. Patient advised use ibuprofen or Tylenol for discomfort. She is to keep ice to the area.] Disposition: [Discharged home in stable condition] Impression: [Contusion left forearm] This note was generated with [employer] dictation software. It may contain incorrect words, spelling, and punctuation that were not noted in review of the chart prior to signing ED Disposition - Plan for ED Patient: Referrals: NOT,DEFINED [NON-STAFF] -
--- NOTE | 2020-02-08 21:26 | ED.DEP ---
ED Disposition - Plan for ED Patient: Instructions: ED EXTREMITY CONTUSION Upper Referrals: NOT,DEFINED [NON-STAFF] - 5-7 Days
[2020-02-08 21:53] VITALS: BP 168/72; PULSE 86; RESP 16; O2SAT 98
== END 2020-02-08 21:54 | disposition home or self-care (01) ==
PROVIDERS: Emergency Provider Emergency Medicine; PCP Internal Medicine
DX: S50.12XA Contusion of left forearm, initial encounter (principal); I10 Essential (primary) hypertension; Z79.899 Other long term (current) drug therapy; W20.8XXA Other cause of strike by thrown, projected or falling object, initial encounter; Y93.89 Activity, other specified; Y92.89 Other specified places as the place of occurrence of the external cause; Y99.8 Other external cause status
CPT/HCPCS: 73090; 99284

== ENCOUNTER → 2021-11-22 | Outpatient (CLI) | payer MEDICAID, SELFPAY ==
--- NOTE | 2021-11-22 09:19 | BI_ITS ---
MAMMOGRAPHY - BILATERAL DIAGNOSTIC REASON FOR EXAM: Female, 61 years old. Left breast lump in the region of the mastectomy scar. PERTINENT HISTORY: Personal history of breast cancer. Prior left mastectomy. Sister with breast cancer. Aunts with breast cancer. TECHNIQUE: Digital bilateral breast jo (3D mammographic acquisition) in the CC and MLO projections. 2-D mediolateral oblique (MLO) and craniocaudad (CC) views of both breasts were obtained. CAD: Full Field Digital Mammography with Computer Added Detection was performed. COMPARISON: Comparison is made with prior study of 09/14/2015. FINDINGS: Breast Composition: The breasts are heterogeneously dense, which may obscure small masses. Questionable 1 cm well-defined nodule in the central slightly lateral aspect of the right breast. Stable benign-appearing bilateral axillary lymph nodes. No other significant abnormalities are identified. BI/DIAG MAMM W/CAD, BILAT IMPRESSION: Questionable 1 cm well-defined nodule in the central slightly lateral aspect of the right breast. With the patient''s history of a palpable lump in the left mastectomy site, correlation with ultrasound is recommended. ASSESSMENT CATEGORY: BIRADS Category 0: Incomplete. Need additional imaging evaluation. A letter regarding these results will be sent to the patient by the facility within 30 days. Approximately 10% of breast cancers are not detected by mammography. A normal mammogram should not delay biopsy of a clinically suspicious abnormality. Electronically Signed: eJrry Sellers MD at 10:25 EDT ,
--- NOTE | 2021-11-22 09:19 | US_ITS ---
STUDY: ULTRASOUND BREAST - LEFT REASON FOR EXAM: Female, 61 years old. Left breast lump along the superior aspect of the left mastectomy scar. TECHNIQUE: Axial and longitudinal images of the LEFT breast were performed with a high resolution ultrasound transducer. # OF IMAGES: 81 COMPARISON: Comparison is made with prior mammogram done earlier today. FINDINGS: LEFT Breast: The palpable abnormality corresponds to a 2.2 cm x 1.8 cm lobulated hypoechoic solid mass at the 3 o''clock position of the breast at 3 cm from the mastectomy scar. Increased vascularity. Biopsy recommended. IMPRESSION: The palpable abnormality corresponds to a 2.2 cm x 1.8 cm lobulated hypoechoic solid mass at the 3 o''clock position of the breast at 3 cm from the mastectomy scar. Biopsy recommended. ASSESSMENT CATEGORY: BIRADS Category 5: Highly Suggestive of Malignancy - Appropriate Action Should Be Taken. A letter regarding these results will be sent to the patient by the facility within 30 days. Electronically Signed: Jerry Sellers MD at 13:17 EDT , STUDY: ULTRASOUND BREAST - RIGHT REASON FOR EXAM: Female, 61 years old. Abnormal screening mammogram. TECHNIQUE: Axial and longitudinal images of the RIGHT breast were performed with a high resolution ultrasound transducer. # OF IMAGES: 81 COMPARISON: Comparison is made with prior mammogram done earlier today. FINDINGS: RIGHT Breast: There is a 6 mm x 5 mm x 3 mm cyst at the 7 o''clock position of the breast at 4 cm from nipple. Dilated ducts. US/Breast Limited Unilateral IMPRESSION: 6 mm x 5 mm x 3 mm cyst at the 7 o''clock position of the breast at 4 cm from nipple. Dilated ducts. ASSESSMENT CATEGORY: BIRADS Category 2: Benign. A letter regarding these results will be sent to the patient by the facility within 30 days. Electronically Signed: Jerry Sellers MD at 13:17 EDT ,
== END | disposition home or self-care (01) ==
LOC: OPBI 09:13
PROVIDERS: PCP Internal Medicine; Visit Provider Nurse Practitioner Adult Health
DX: N63.21 Unspecified lump in the left breast, upper outer quadrant (principal); Z80.3 Family history of malignant neoplasm of breast; Z90.12 Acquired absence of left breast and nipple; Z85.3 Personal history of malignant neoplasm of breast
CPT/HCPCS: 77062; 76642; 77066; G0279

== ENCOUNTER → 2021-11-25 | Outpatient (CLI) | payer MEDICAID, SELFPAY ==
--- NOTE | 2021-11-25 | IMM_PTH ---
PATIENT: JENNIFER MATT LOC: [facility] U#:[id number] AGE/SX: 61/F ROOM: RE11/25/[address]: Dr. Eliazar Miller MD : 1960 BED: DIS: 11/25/2021 SPEC #: [id number] RECD: 11/26/21 12:05 STATUS: AJAY REQ #: [id number] FÉLIX: 11/25/21 00:[address]: Eliazar Miller DEPT: IMMUNOHISTOCHEMISTRY RECD BY: Montserrat Strong ENTERED: 11/26/21 12:07 SP TYPE: IMMUNO OTHR DR: Dr. Moni Jackson MD Tissues: Left breast, NOS Procedures: CALPONIN-1 (add) CK5-6 (add) CK8 (add) E-CAD (add) HER2 VIRGIL (add) KI-67 (add) P53 (add) AZ (add) P40 (add) ER (initial) PHYSICIAN & INSTITUTION [address] [address] SPECIMEN INFORMATION: Tissue Source: Left breast tissue Clinical Info: Abnormal left breast ultrasound Specimen Number: [id number] CPT code: 72890, 81465 x6, 75750 x3 METHODOLOGY: Deparaffinized sections of prefer/formalin-fixed tissue or PAP/DQ stained slides are incubated with monoclonal/polyclonal antibodies/oligonucleotide probes. Localization is made via biotin free immunoperoxidase method. Appropriate controls are performed and reacted as expected. Results on target cell population are indicated in the following table: RESULTS: ANTIBODY / CLONE RESULT E-Cad (ECH-6) positive CK8 (48jvqbV89) positive Calponin-1 (IF252E) negative CK5-6 (D5 & 1684) negative P40 (BC28) negative P53 (DO-7) negative Ki-67 (30-9) positive, moderate to high MORPHOMETRIC ANALYSIS ER (clone 6F11) >95%, strong intensity AZ (clone 16/1E2) >95%, moderate to strong intensity Her-2Neu (clone CB11) 0 The prognostic test for HER2 is performed on formalin-fixed paraffin embedded tissue. A 3+ (positive) staining pattern is defined as intense, homogeneous, complete, circumferential membranous staining in >10% of contiguous tumor cells. A similar weak (2+) staining pattern is interpreted as equivocal. MINI follow-up testing is recommended for all equivocal cases. Positivity/negativity for ER/AZ is reported if > or < 1% of the tumor cells are immuno- reactive, respectively. The ASCO/CAP criteria is used for scoring. Reference: Journal of Clinical Oncology, 2013; 31:3158-8562 & 2010; 16:0299-5662. Duration of fixation: 12.5 Hrs; Sample Adequate: Yes. These assays have not been validated on decalcified tissues. Results should be interpreted with caution given the likelihood of false negativity on decalcified specimens. These tests were developed and their performance characteristics determined by [facility]. They may not have been cleared or approved by the U.S. Food and Drug Administration. The FDA has determined that such clearance or approval is not necessary. The above immunohistochemical/dualISH markers are ordered and reviewed by the Pathologist. INTERPRETATION: Left breast tissue, core biopsy: Invasive ductal carcinoma. Positive for estrogen receptors (favorable prognostic indicator). Positive for progesterone receptors (favorable prognostic indicator). Negative for overexpression of QSQ3jbc. SJ:rosaline 11/29/2021
--- NOTE | 2021-11-25 07:15 | BRBX_PTH ---
PATIENT: JENNIFER MATT LOC: [facility] U#:[id number] AGE/SX: 61/F ROOM: RE11/25/[address]: Dr. Eliazar Miller MD : 1960 BED: DIS: 11/25/2021 SPEC #: [id number] RECD: 11/25/21 10:30 STATUS: AJAY MERAZ #: [id number] FÉLIX: 11/25/21 07:[address]: Eliazar Miller DEPT: SURGICAL PATHOLOGY RECD BY: Meenu Bonilla ENTERED: 11/25/21 11:09 SP TYPE: BREAST BX OTHR DR: Dr. Moni Jackson MD Tissues: Left breast, NOS Procedures: Surgery Specimen Level IV HEADER OPERATION: Left breast biopsy PRE-OP DIAGNOSIS: Abnormal left breast ultrasound TISSUE SUBMITTED: Left breast tissue FIXATION TIME: 12.5 hours MICROSCOPIC DIAGNOSIS Left breast tissue, core biopsy: Invasive ductal carcinoma, nuclear grade 2 (1 cm in greatest dimension). See comment. JOSE:rosaline 11/26/2021 COMMENT Immunohistochemistry ([id number]) supports the above diagnosis. ER/OH/Gpq1kyu studies are being performed on sections of tumor and the results from this study will be reported separately ([id number]). MICROSCOPIC DESCRIPTION Slides are reviewed. GROSS DESCRIPTION Received in fixative is one container labeled with the patient's name and designated left breast. The specimen consists of one elongated fragment of chinchilla soft tissue measuring 1.4 cm in length and 0.1 cm in diameter. The entire specimen is submitted in one cassette. / JOSE:rosaline 11/25/2021 TC:0 CPT: 18064
== END | disposition home or self-care (01) ==
LOC: LABSPEC 10:46
PROVIDERS: PCP Internal Medicine; Referring Provider Surgery; Visit Provider Surgery
DX: C50.912 Malignant neoplasm of unspecified site of left female breast (principal); Z17.0 Estrogen receptor positive status [ER+]
CPT/HCPCS: 88305; 88341; 88342

== ENCOUNTER → 2021-12-06 | Outpatient (CLI) | payer MEDICAID, SELFPAY ==
--- NOTE | 2021-12-06 15:35 | CT_ITS ---
STUDY: CT CHEST, ABDOMEN T PELVIS WITH CONTRAST REASON FOR EXAM: Female, 61 years old. History of breast cancer, follow-up RADIATION DOSAGE (If Supplied By Facility): CTDIvol = ( 24.10 ) mGy, DLP = ( 2335.93 ) mGycm TECHNIQUE: Transaxial imaging was performed following intravenous administration of IV 100mL Isovue-370. Multiplanar coronal and sagittal images were reformatted. Individualized dose optimization techniques were used for this CT. COMPARISON: CT chest from 05/09/2015 FINDINGS: CHEST Chronic interstitial changes in both lung collins without organized infiltrate, or suspicious noncalcified mass or nodule. Soft tissue windows show normal-appearing thyroid. There are left axillary lymph nodes again identified one in particular has increased in size or is new since the previous study measuring 1.46 cm in short axis dimension on axial image 23. This warrants further evaluation as this is the site of the patient''s known breast cancer. A metastatic lymph node is to be excluded. There are subcentimeter axillary mediastinal lymph nodes otherwise. No suspicious perihilar adenopathy. Normal heart and pericardium. Calcified coronary vessels noted. No pleural or pericardial effusions. Normal unenhanced pulmonary arteries. Normal aorta arch and descending thoracic aorta. There are multi-level degenerative changes of the thoracic spine. There are also subcentimeter in short axis dimension lymph nodes noted in the paraesophageal fat. Evidence of previous left mastectomy, surgical clips noted, no new lesion is identified within the residual left breast tissue, no skin thickening. ABDOMEN There is decreased attenuation of the liver consistent with steatosis. There are surgical clips in the gallbladder fossa consistent with a prior cholecystectomy. Normal spleen. Normal pancreas. Normal bilateral adrenal glands. Normal right kidney. Normal left kidney. Normal visualized stomach. Normal small intestine. Normal colon. There is non-visualization of the appendix. Normal abdominal aorta. Normal inferior vena cava. Normal retroperitoneum. Normal abdominal wall. There are diffuse degenerative changes of the visualized lumbar spine. PELVIS Normal urinary bladder. Uterus is present, the endometrium cannot be accurately evaluated with CT. There is a small amount of dependent free fluid in the pelvis There is no pelvic lymphadenopathy or mass lesion. Normal visualized pelvic arteries. CT/CT Chest, Abd, Pel w/Contrast IMPRESSION: Enlarged left axillary lymph node measuring 1.46 cm in short axis dimension. Patient has known left breast CA, metastatic adenopathy needs to be excluded. There are other lymph nodes in the axilla and mediastinum but all measure well less than 1 cm in short axis dimension. Chronic interstitial changes in both lung collins without a superimposed acute pulmonary process No pleural or pericardial effusions Degenerative bony changes Fatty liver, no discrete lesion Uterus is present, the endometrium cannot be accurately evaluated with CT. No free intraperitoneal fluid, air, or suspicious adenopathy Small amount of free pelvic fluid of uncertain etiology or significance Electronically Signed: Jerald Peñaloza MD at 9:51 EDT ,
[2021-12-06 16:01] LABS: CREATININE FINGERSTICK 1.4 mg/dL (0.55-1.02)
== END | disposition home or self-care (01) ==
LOC: CT 15:33
PROVIDERS: PCP Internal Medicine; Referring Provider Surgery; Visit Provider Surgery
DX: K76.0 Fatty (change of) liver, not elsewhere classified (principal); C50.912 Malignant neoplasm of unspecified site of left female breast; R59.0 Localized enlarged lymph nodes
CPT/HCPCS: 71260; 74177; Q9967

== ENCOUNTER → 2021-12-13 | Outpatient (CLI) | payer MEDICAID, SELFPAY ==
--- NOTE | 2021-12-13 | IMM_PTH ---
PATIENT: JENNIFER MATT LOC: [facility] U#:[id number] AGE/SX: 61/F ROOM: RE12/13/[address]: Dr. Eliazar Miller MD : 1960 BED: DIS: 12/13/2021 SPEC #: [id number] RECD: 12/15/21 06:12 STATUS: AJAY RE #: [id number] FÉLIX: 12/13/21 00:[address]: Eliazar Miller DEPT: IMMUNOHISTOCHEMISTRY RECD BY: Meenu Bonilla ENTERED: 12/15/21 06:14 SP TYPE: IMMUNO OTHR DR: Dr. Moni Jackson MD Tissues: Lymph node, NOS Procedures: BCL-2 (add) BCL-6 (add) CD10 (add) CD20 (add) CD23 (add) CD34 (add) CD45 (add) CD5 (add) CD79A (add) CK7 (add) CK8 (add) CYCLIN (add) KI-67 (add) Pankeratin (add) CD3 (initial) PHYSICIAN & [facility] SJ:gerber [id number] [place], [place] [address] SPECIMEN INFORMATION: Tissue Source: Left axillary tissue Clinical Info: Enlarged lymph node Specimen Number: [id number] CPT code: 90921, 24038 x14 METHODOLOGY: Deparaffinized sections of prefer/formalin-fixed tissue or PAP/DQ stained slides are incubated with monoclonal/polyclonal antibodies/oligonucleotide probes. Localization is made via biotin free immunoperoxidase method. Appropriate controls are performed and reacted as expected. Results on target cell population are indicated in the following table: RESULTS: ANTIBODY / CLONE RESULT CD3 (PS1) positive CD5 (SP10) positive CD20 (L26) positive CD43 (L60) positive CD45 (RP2/18) positive CD79a (11E3) positive CD10 (56C6) negative CD23 (1B12) negative BCL-2 (bcl-2/100/D5) positive BCL-6 (WN403V/A8) negative Cyclin D1/BCL-1 (SP4) negative Ki-67 (30-9) positive, low CK8 (60kcaiA78) negative AE1-3 (AE1/AE3/PCK26) negative CK7 (OV-TL12/30) negative These tests were developed and their performance characteristics determined by Laboratory. They may not have been cleared or approved by the U.S. Food and Drug Administration. The FDA has determined that such clearance or approval is not necessary. The above immunohistochemical/dualISH markers are ordered and reviewed by the Pathologist. INTERPRETATION: Left axillary lymph node, core biopsy: Lymph node tissue negative for metastatic carcinoma or lymphoma. Case has been reviewed in consultation with Dr. Herzog who concurs with the above diagnosis. IDC:MICHELLE SJ:gerber
--- NOTE | 2021-12-13 12:30 | LYMN_PTH ---
PATIENT: JENNIFER MATT LOC: [facility] U#:[id number] AGE/SX: 61/F ROOM: RE12/13/[address]: Dr. Eliazar Miller MD : 1960 BED: DIS: 12/13/2021 SPEC #: [id number] RECD: 12/13/21 13:31 STATUS: AJAY MERAZ #: [id number] FÉLIX: 12/13/21 12:[address]: Eliazar Miller DEPT: SURGICAL PATHOLOGY RECD BY: Yisel Morrissey ENTERED: 12/13/21 14:10 SP TYPE: LYMPH NODE OTHR DR: Dr. Moni Jackson MD Tissues: LYMPH NODE BIOPSY Procedures: Surgery Specimen Level IV HEADER OPERATION: Left axillary biopsy PRE-OP DIAGNOSIS: Enlarged lymph node, left axilla TISSUE SUBMITTED: Left axillary tissue MICROSCOPIC DIAGNOSIS Left axillary lymph node, core biopsy: Lymph node tissue, negative for metastatic carcinoma or lymphoma. See comment. JOSE 12/16/21 COMMENT Touch imprint evaluation by Dr. Silveira: Numerous lymphocytes are noted. Flow cytometry studies for [facility] show no evidence of a B-cell lymphoma. The complete report is viewable in patient?s EMR. Immunohistochemistry ([id number]) supports the above diagnosis. Please make reference to previous specimen [id number], left breast tissue, core biopsy with diagnosis of ?invasive ductal carcinoma?. Correlation with clinical, radiologic findings and appropriate follow up are necessary. Case has been reviewed in consultation with Dr. Herzog who concurs with the above diagnosis. IDC:AM MICROSCOPIC DESCRIPTION Slides are reviewed. GROSS DESCRIPTION Received in saline is one container labeled with the patient's name and designated left axillary tissue. The specimen consists of multiple irregular fragments of light yellow soft tissue that in aggregate measure 1.0 x 0.5 x 0.1 cm. Two touch imprints are prepared. One core is submitted for flow cytometry studies. /JOSE:gerber 12/13/21 TC:5 CPT:60474, 07964
== END | disposition home or self-care (01) ==
LOC: LABSPEC 13:32
PROVIDERS: PCP Internal Medicine; Referring Provider Surgery; Visit Provider Surgery
DX: R59.0 Localized enlarged lymph nodes (principal)
CPT/HCPCS: 88305; 88341; 88342

== ENCOUNTER 2021-12-23 08:44 | Day surgery (SDC) | payer MEDICAID, SELFPAY ==
[2021-12-23] VITALS (8 sets, daily range): BP systolic 118–155; BP diastolic 32–88; PULSE 46–69; RESP 14–16; TEMP 36.3–36.8; O2SAT 87–97; BMI 43.6
--- NOTE | 2021-12-23 | BRBX_PTH ---
PATIENT: JENNIFER MATT LOC: [facility] [place] U#:[id number] AGE/SX: 61/F ROOM: RE12/23/[address]: Dr. Eliazar Miller MD : 1960 BED: DIS: 12/23/2021 SPEC #: [id number] RECD: 12/23/21 10:24 STATUS: AJAY MARIYA #: [id number] FÉLIX: 12/23/21 00:[address]: Eliazar Miller DEPT: SURGICAL PATHOLOGY RECD BY: Montserrat Strong ENTERED: 12/23/21 11:51 SP TYPE: BREAST BX OTHR DR: Dr. Le Bowers, DO Tissues: Chest wall, NOS Procedures: Surgery Specimen Level V HEADER OPERATION: Transverse wide elliptical excision chest wall, recurrent breast cancer PRE-OP DIAGNOSIS: Recurrent breast cancer, axillary adenopathy TISSUE SUBMITTED: Left chest wall recurrent (transverse ellipse, suture lateral) MICROSCOPIC DIAGNOSIS Left chest wall recurrent breast cancer, excisional biopsy: Consistent with recurrent invasive ductal carcinoma (4 cm in greatest dimension). See comment. SJ:rosaline 12/27/2021 COMMENT The tumor is completely excised and it is 0.2 cm away from the closest superior margin. Histologic grade: Papito score: Nuclear grade ? 3 Mitotic count ? score 3 Glandular/tubular differentiation ? score 3. The tumor shows extensive lymphocytic infiltrate. Skeletal muscle tissue is also noted in the specimen and tumor invade into the skeletal muscle tissue. Please make reference to previous specimens ([id number]) left breast tissue, core biopsy with diagnosis of ?invasive ductal carcinoma? and morphometric analysis of ER, NC and [id number] are as follows: ER >95%, strong intensity, NC >95%, moderate to strong intensity and Her-2Neu negative (0) and also ([id number]), left axillary lymph node, core biopsy with diagnosis of ?lymph node tissue, negative for metastatic carcinoma or lymphoma? and also ([id number]) left breast, simple mastectomy with diagnosis of ?invasive ductal carcinoma.? Case has been reviewed in consultation with Dr. Herzog who concurs with the above diagnosis. IDC:AM MICROSCOPIC DESCRIPTION Slides are reviewed. GROSS DESCRIPTION Received fresh for intraoperative consultation labeled with the patient's name is a specimen designated left chest wall. The specimen consists of a piece of chinchilla-white skin ellipse with underlying tissue measuring 13 x 4 x 4.5 cm. The specimen is oriented by a suture as follows: suture - lateral. The specimen is inked as follows: medial tip - yellow, lateral tip - green, superior margin - black, inferior margin - blue, deep margin - red. The specimen is serially sectioned and reveals a tumor mass in the deep underlying tissue measuring 4 x 3 x 2 cm. This mass is 0.1 cm away from the closest superior margin. The tumor appears to be completely excised. This information is conveyed to the surgeon intraoperatively. No additional mass lesion is identified. Underground Drill Operator sections are submitted in six cassettes as follows: 1 - medial and lateral tip and inferior margin and skin, 2-6 - tumor and also contains the closest superior and deep margin. / SJ:rosaline 12/24/2021 TC:0 CPT: 05806, 00886
--- NOTE | 2021-12-23 09:09 | HP.PCM_ITS ---
History and Physical Date of Admission: 12/23/21 Allergies No Known Allergies Allergy (Verified 12/06/21 14:59) PFSH Medical History?(Updated 12/13/21 @ 05:[address] Eliazar Miller MD) Anxiety and depression Bilateral leg edema Bradycardia BRCA gene positive Breast cancer, left breast Conversion disorder COPD (chronic obstructive pulmonary disease) Fatigue History of epilepsy History of TIAs Hyperlipidemia Hypersomnia Hypertension Hypothyroidism Morbid obesity Obstructive sleep apnea Seizure disorder Tobacco use disorder Surgical History?(Updated 12/06/21 @ 14:58 by Mitra Fernandez) History of left breast biopsy (~10/2021) History of left mastectomy (04/07/15) Family History? Sister Breast cancerAunt Breast cancer,? Onset Age: 40Aunt Breast cancer Social History? Smoking Status:? Current every day smoker HPI HPI HPI: JENNIFER MATT, is a 61 F who presents to the office today for an ultrasound- guided core biopsy left axillary lymph node. My previous notes reflect the following Chief Complaint: post left breast/chest wall biopsy [employer] And Wellness Director Required: No Is patient in pain?: No Allergies No Known Allergies Allergy (Verified 12/06/21 14:59) Medications aspirin 81 mg chewable tablet 81 mg PO DAILY@0800 HEART HEATLH 05/09/15 [History Confirmed 12/06/21] amlodipine 10 mg tablet 10 mg PO DAILY bp 07/12/16 [History Confirmed 12/06/21] spironolactone 25 mg tablet 25 mg PO DAILY EDEMA 07/12/16 [History Confirmed 12/06/21] lisinopril 20 mg tablet 20 mg PO BID BP 04/04/17 [History Confirmed 12/06/21] pregabalin 50 mg capsule 50 mg PO BID 10/26/18 [History Confirmed 12/06/21] atorvastatin 40 mg tablet 40 mg PO QHS 03/26/19 [History Confirmed 12/06/21] cholecalciferol (vitamin D3) 50 mcg (2,000 unit) capsule 3,000 unit PO DAILY 03/26/19 [History Confirmed 12/06/21] furosemide 40 mg tablet 40 mg PO DAILY 03/26/19 [History Confirmed 12/06/21] oxcarbazepine 300 mg tablet 300 mg PO TID SEIZURE 03/26/19 [History Confirmed 12/06/21] sertraline 100 mg tablet 200 mg PO DAILY 09/26/19 [History Confirmed 12/06/21] trazodone 100 mg tablet 100 mg PO QHS 02/08/20 [History Confirmed 12/06/21] buspirone 7.5 mg tablet 15 mg PO BID 11/25/21 [History Confirmed 12/06/21] chlorhexidine gluconate 0.12 % mouthwash 15 ml buccal BID 11/25/21 [History Confirmed 12/06/21] hydrochlorothiazide 25 mg tablet 25 mg PO DAILY 11/25/21 [History Confirmed 12/06/21] levothyroxine 175 mcg tablet 175 mcg PO DAILY 11/25/21 [History Confirmed 12/06/21] omeprazole 40 mg capsule,delayed release 40 mg PO DAILY 11/25/21 [History Confirmed 12/06/21] oxybutynin chloride 5 mg tablet 5 mg PO BID 11/25/21 [History Confirmed 12/06/21] Is last menstrual period known: No Post menopausal: Yes Patient : No [facility] Medical History?(Updated 12/06/21 @ 15:[address] Eliazar Miller MD) Anxiety and depression Bilateral leg edema Bradycardia BRCA gene positive Breast cancer, left breast Conversion disorder COPD (chronic obstructive pulmonary disease) Fatigue History of epilepsy History of TIAs Hyperlipidemia Hypersomnia Hypertension Hypothyroidism Morbid obesity Obstructive sleep apnea Seizure disorder Tobacco use disorder Surgical History?(Updated 12/06/21 @ 14:58 by Mitra Fernandez) History of left breast biopsy (~10/2021) History of left mastectomy (04/07/15) Family History? Sister Breast cancerAunt Breast cancer,? Onset Age: 40Aunt Breast cancer Social History? Smoking Status:? Current every day smoker HPI HPI HPI: JENNIFER MATT, is a 61 F who presents to the office today for surgical follow-up of a left chest wall mass.? I saw her on November 25, 2021.? We had made her appointment for the very following week but she canceled that appointment and rescheduled pushing it further week out.? We will perform an ultrasound-guided needle core left breast/chest wall biopsy.? Pathology showed invasive ductal carcinoma nuclear grade 2.Estrogen receptor greater than 95% positive.? Progesterone receptor greater than 95% positive.? HER2/scarlett 0.? This is very similar to May [address] Johnson's left mastectomy.? She is to be obtaining a metastatic work-up with chest, abdomen, pelvic CT.? I did have an opportunity to discuss her care with Dr. Yuridia Castellon and he will additionally be seeing the patient in oncologic support. The patient states that it was suggested to her possible chemotherapy or radiation therapy with the first ground.? She states that she turned around both of those potential options.? She states that on this occasion she remains uninterested in radiation treatment. My previous notes reflect the following Visit Reasons:?Birads 5 Left Breast Chief Complaint: left breast/chest wall biopsy [employer] And Wellness Director Required: No Is patient in pain?: No Allergies No Known Allergies Allergy (Verified 11/25/21 06:59) Medications aspirin 81 mg chewable tablet 81 mg PO DAILY@0800 HEART HEATLH 05/09/15 [History Confirmed 11/25/21] amlodipine 10 mg tablet 10 mg PO DAILY bp 07/12/16 [History Confirmed 11/25/21] spironolactone 25 mg tablet 25 mg PO DAILY EDEMA 07/12/16 [History Confirmed 11/25/21] lisinopril 20 mg tablet 20 mg PO BID BP 04/04/17 [History Confirmed 11/25/21] pregabalin 50 mg capsule 50 mg PO BID 10/26/18 [History Confirmed 11/25/21] atorvastatin 40 mg tablet 40 mg PO QHS 03/26/19 [History Confirmed 11/25/21] cholecalciferol (vitamin D3) 50 mcg (2,000 unit) capsule 3,000 unit PO DAILY 03/26/19 [History Confirmed 11/25/21] furosemide 40 mg tablet 40 mg PO DAILY 03/26/19 [History Confirmed 11/25/21] oxcarbazepine 300 mg tablet 300 mg PO TID SEIZURE 03/26/19 [History Confirmed 11/25/21] sertraline 100 mg tablet 200 mg PO DAILY 09/26/19 [History Confirmed 11/25/21] trazodone 100 mg tablet 100 mg PO QHS 02/08/20 [History Confirmed 11/25/21] buspirone 7.5 mg tablet 15 mg PO BID 11/25/21 [History Confirmed 11/25/21] chlorhexidine gluconate 0.12 % mouthwash 15 ml buccal BID 11/25/21 [History Confirmed 11/25/21] hydrochlorothiazide 25 mg tablet 25 mg PO DAILY 11/25/21 [History Confirmed 11/25/21] levothyroxine 175 mcg tablet 175 mcg PO DAILY 11/25/21 [History Confirmed 11/25/21] omeprazole 40 mg capsule,delayed release 40 mg PO DAILY 11/25/21 [History Confirmed 11/25/21] oxybutynin chloride 5 mg tablet 5 mg PO BID 11/25/21 [History Confirmed 11/25/21] Is last menstrual period known: No Post menopausal: Yes Patient : No PFSH Medical History?(Updated 11/25/21 @ 07:[address] Eliazar Miller MD) Anxiety and depression Bilateral leg edema Bradycardia BRCA gene positive Breast cancer, left breast Conversion disorder COPD (chronic obstructive pulmonary disease) Fatigue History of epilepsy History of TIAs Hyperlipidemia Hypersomnia Hypertension Hypothyroidism Morbid obesity Obstructive sleep apnea Seizure disorder Tobacco use disorder Surgical History? History of left mastectomy (04/07/15) Family History? Sister Breast cancerAunt Breast cancer,? Onset Age: 40Aunt Breast cancer Social History? Smoking Status:? Current every day smoker HPI HPI HPI: JENNIFER MATT, is a 61 F who presents to the office today for surgical consultation regarding left chest wall mass.? The patient is referred by Dr. Moni Jackson and a written copy my surgical consult recommendations will return to her.? Per Dr. Carlos Johnson on April 07, 2015 she had a blue dye left axillary sentinel lymph node biopsy with left total mastectomy for breast c ancer.? It is of note that on May 09, 2015 she was taken back to the operating room and 50 cc of pus was withdrawn and a drain was left in position.? Pathology suggested invasive ductal carcinoma nuclear grade 3.? The tumor measured 1.5 x 1 x 1 cm single focus.? There was no skeletal muscle present.? There was no invasion of the dermis.? 4 out of 4 lymph nodes were negative.? Closest surgical margin was posteriorly at 1 cm.? Lymph vascular invasion was not identified.? ER positive greater than 95%.? IL positive greater than 95%.? HER2/scarlett 0.? pT1c pN0 (sn) Mx Recently the patient has been found to have a palpable left chest wall mass superior aspect of the mastectomy scar.Bilateral mammography was performed on November 22, 2021.? This was felt to suggest a 1 cm well-defined nodule in the c entral slightly lateral aspect of the right breast with stable bilateral axillary adenopathy.? BI-RADS 0.? An ultrasound was obtained in the right breast findings include a 6 x 5 x 3 mm cyst at the 7 o'clock position +4 cm.? Dilated ducts were also noted.? BI-RADS Category 2 of the right breast.? Regarding the left chest wall mastectomy site there is felt to be a 2.2 x 1.8 cm lobulated hypoechoic solid mass at the 3 o'clock position of left breast 3 cm from the mastectomy scar BI-RADS Category 5 biopsy recommended. The patient was by bending over a shopping cart noted tenderness on the left.? On self-exam she noticed a mass. She has been a lifelong cigarette smoker since age 12.? She is not currently demonstrating any interest in significant cessation. November 22, 2021 MAMMOGRAPHY - BILATERAL DIAGNOSTIC REASON FOR EXAM: ? Female, 61 years old.? Left breast lump in the region of the mastectomy scar. PERTINENT HISTORY:? Personal history of breast cancer.? Prior left mastectomy.? Sister with breast cancer.? Aunts with breast cancer. TECHNIQUE: ? Digital bilateral breast jo (3D mammographic acquisition) in the CC and MLO projections. 2-D mediolateral oblique (MLO) and craniocaudad (CC) views of both breasts were obtained.? CAD: Full Field Digital Mammography with Computer Added Detection was performed. COMPARISON:? Comparison is made with prior study of 09/14/2015. FINDINGS: Breast Composition:? The breasts are heterogeneously dense, which may obscure small masses. Questionable 1 cm well-defined nodule in the central slightly lateral aspect of the right breast.? Stable benign-appearing bilateral axillary lymph nodes. No other significant abnormalities are identified. BI/DIAG MAMM W/CAD, BILAT IMPRESSION: Questionable 1 cm well-defined nodule in the central slightly lateral aspect of the right breast.? With the patient''s history of a palpable lump in the left mastectomy site, correlation with ultrasound is recommended. ? ? ASSESSMENT CATEGORY: BIRADS Category 0:? Incomplete.? Need additional imaging evaluation.? A letter regarding these results will be sent to the patient by the facility within 30 days. ? Approximately 10% of breast cancers are not detected by mammography.? A normal mammogram should not delay biopsy of a clinically suspicious abnormality. ? Electronically Signed: Jerry Sellers MD at 10:25 EDT , November 22, 2021 STUDY: ? ULTRASOUND BREAST - LEFT REASON FOR EXAM: ? Female, 61 years old.? Left breast lump along the superior aspect of the left mastectomy scar. TECHNIQUE: ? Axial and longitudinal images of the LEFT breast were performed with a high resolution ultrasound transducer. # OF IMAGES:? 81 COMPARISON: ? Comparison is made with prior mammogram done earlier today. FINDINGS: LEFT Breast: The palpable abnormality corresponds to a 2.2 cm x 1.8 cm lobulated hypoechoic solid mass at the 3 o''clock position of the breast at 3 cm from the mastectomy scar.? Increased vascularity.? Biopsy recommended. IMPRESSION: The palpable abnormality corresponds to a 2.2 cm x 1.8 cm lobulated hypoechoic solid mass at the 3 o''clock position of the breast at 3 cm from the mastectomy scar.? Biopsy recommended. ASSESSMENT CATEGORY: BIRADS Category 5:? Highly Suggestive of Malignancy - Appropriate Action Should Be Taken.? A letter regarding these results will be sent to the patient by the facility within 30 days. Electronically Signed: Jerry Sellers MD at 13:17 EDT , STUDY: ? ULTRASOUND BREAST - RIGHT REASON FOR EXAM: ? Female, 61 years old.? Abnormal screening mammogram. TECHNIQUE: ? Axial and longitudinal images of the RIGHT breast were performed with a high resolution ultrasound transducer. # OF IMAGES:? 81 COMPARISON: ? Comparison is made with prior mammogram done earlier today. FINDINGS: RIGHT Breast: There is a 6 mm x 5 mm x 3 mm cyst at the 7 o''clock position of the breast at 4 cm from nipple.? Dilated ducts.? US/Breast Limited Unilateral IMPRESSION: 6 mm x 5 mm x 3 mm cyst at the 7 o''clock position of the breast at 4 cm from nipple. Dilated ducts. ? ASSESSMENT CATEGORY: BIRADS Category 2:? Benign.? A letter regarding these results will be sent to the patient by the facility within 30 days. ? Electronically Signed: Jerry Sellers MD at 13:17 EDT , Exam Const General: cooperative, comfortable and no acute distress Nutritional Appearance: obese morbidly obese Orientation: alert and awake Other: Heavy odor of tobacco about her HENMT Head: normal to inspection Eyes General: appearance normal, both eyes and all related structures Neck Neck: normal visual inspection Chest Chest palpation & inspection: normal inspection of the chest Other: Right breast: No focal mass.? No nipple discharge.? No axillary clavicular adenopathy Left mastectomy, well-healed mastectomy incision.? Superior chin incision in the lateral third there is a easily palpable slightly tender approximately 2 and half centimeter mass.? Does not appear to have deep fixation.? There also does not seem to be skin disruption or dimpling.? Left axillary clinical exam is technically challenging secondary to body habitus.? I do not detect any enlarged lymph nodes. Cardio Rate: regular rate Rhythm: regular rhythm GI Palpation: soft and no hepatosplenomegaly Musc Cervical Spine: normal cervical lordosis Skin Other: Left dorsal forearm have scattered areas of excoriation consistent with cat scratch injury reported by patient Neuro General: patient alert, patient awake and patient oriented x3 Extrem General: no calf tenderness Psych Appearance: grossly normal Office Procedures Biopsy Provider Documentation Ultrasound guided needle core biopsy left mastectomy site chest wall mass Timeout informed consent was obtained.? The patient was taken the procedure room placed upon the table left chest wall mastectomy site prepped with Betadine.? Under ultrasound guidance 1% lidocaine mixed 50-50 with 0.5% Marcaine was used as a local anesthetic.? Total 5 cc was used.? Local was instilled under ultrasound guidance.? A small stab incision was created.? A 14-gauge Monopty needle was advanced to prefire depth.? Pre and post fire films were obtained.? Single core was obtained.? A marking clip was left in position.? The specimen was immediately transferred to formalin.? Pressure was held for hemostasis.? Steri-Strip Telfa OpSite dressing applied.? She tolerated procedure well.? Blood loss minimal.? No apparent complications. Eliazar Miller M.D., F.A.C.S. Biopsy Breast Biopsy: [id number] US Guidance Procedure Time Out Time Out Informed consent given: Yes Consent signed: Yes Time out checklist: patient, procedure, site marked/identified, positioning of p atient, supplies available, allergies confirmed and team agrees on procedure Time out staff in room: Yes Time out verified: Yes Time out date: 11/25/21 Time out time: 07:58 Assessment and Plan Assessment and Plan (1) History of left mastectomy: ?Status:?Chronic ?Comment: 04/07/15 L mastectomy w/ L sentinel node Bx ?Plan: Successful needle core biopsy left mastectomy site subcutaneous mass.? Patient with a previous history of invasive ductal carcinoma.? This is highly suspicious for recurrent disease.? The patient is noted to still be on anastrozole therapy.? Her medical oncologist is Dr. Yuridia Castellon. I have vigorously recommended to the patient to cease her tobacco use as this will affect her long-term prognosis and wound healing.? She does not demonstrate a significant interest in doing so. Recommend to the patient that she return to the office next week for pathology review and ongoing surgical care.? At this point I am suspecting malignancy.? Based upon clinical examination however there does not appear to be deep fixation and I think that a transverse elliptical excision of the area with primary repair likely will be appropriate.? The patient of course will need ongoing medical oncology and radiation oncology review. She has had an opportunity to ask and have questions answered.? Further surgical follow-up is scheduled. Copy: Neeta Portillo CNP and Dr. Yuridia Castellon and Dr. Moni Jackson Assessment and Plan Assessment and Plan (1) Recurrent breast cancer: ?Status:?Acute ?Plan: Based upon the findings and pathology I am suspicious that this represents recurrent left breast cancer.? Clinically this does not appear to have deep fixation.? I propose for her a transverse wide elliptical excision of the area.? She would much prefer this over radiation treatment.? She is scheduled today to proceed with chest abdomen and pelvic CT scanning.? She has had an opportunity to ask and have questions answered.? She states that she has an additional appointment with Dr. Yuridia Castellon on December 09, 2021.? We will schedule procedure at her discretion.? I appreciate the ongoing opportunity of assisting with her surgical care. Copy: Dr. Yuridia Castellon and MD Eliazar Sousa M.D., F.A.C.S Office Procedures Biopsy Provider Documentation Sound guided needle core biopsy left axillary 1.5 cm diameter lymph node Timeout informed consent was obtained.? The patient taken the procedure room placed a left shoulder elevated position.? The left axilla was prepped with Betadine.? Ultrasound was performed.? A 1.5 cm diameter lymph node was identified.? I believe that this correlates with the finding on CT.? Under ultrasound guidance 1% lidocaine mixed 50-50 with 0.5% Marcaine was used as a local anesthetic.? Total of 10 cc was used.? Small stab incision was created and 14-gauge biopsy needle was advanced to prefire depth pre and post fire films were obtained 5 cores were obtained.? Marking clip was left in position.? The cores were transferred to formalin.? Blood loss was minimal.? Pressure was held for hemostasis.? Steri-Strip Telfa OpSite dressing applied.? She was given activity wound care instructions. Eliazar Miller M.D., F.A.C.S. Alert Needle Molder Yes Biopsy Breast Biopsy: [id number] US Guidance Procedure Time Out Time Out Informed consent given: Yes Consent signed: Yes Time out checklist: patient, procedure, site marked/identified, positioning of patient, supplies available, allergies confirmed and team agrees on procedure Time out staff in room: Yes Time out verified: Yes Time out date: 12/13/21 Time out time: 12:30 Assessment and Plan Assessment and Plan (1) Recurrent breast cancer: ?Status:?Acute (2) Axillary adenopathy: ?Status:?Acute Plan The patient has a larger body habitus.? I felt that I had adequate visualization of of what I perceived as a 1.5 cm diameter enlarged left axillary lymph node.? Several cores were obtained.? Marking clip was left in position. I discussed with the patient plans for a transverse elliptical excision of a recurrence to the left chest wall.? I discussed with her the possible need for a left axillary level 1 level 2 lymph node dissection.? Although the patient currently remains adamant against chemotherapy she today is wavering regarding whether she would accept radiation treatment.? Previously this was a hard no.? She might be amenable to this therapy. She is scheduled for surgery on the .? She will be notified prior to that of surgical recommendations. Copy: Dr. Yuridia Miller M.D., F.A.C.S We were able to achieve an ultrasound-guided core biopsy of the left axillary lymph node. Fortunately pathology was benign. She presents now for a wide excision of what would appear to be recurrent breast cancer within her left mastectomy site. She is aware of the technique, benefit, risk of alternatives. She has had an opportunity to ask and have questions answered. We will proceed as noted. I appreciate the ongoing opportunity of assisting with her surgical care. Eliazar Miller M.D., F.A.C.S.
[2021-12-23] MEDS: Lactated Ringers 1,000 ML 15 ML IV ×2 (09:24→11:15)
--- NOTE | 2021-12-23 09:42 | DCINST_ITS ---
Discharge Instructions Procedure Breast Surgery Diet Discharge Diet: No restrictions Activity Discharge Activity: May Not Drive (for 2-3 days or while taking narcotic pain meds.) May shower in (days): 1 Lifting Restrictions: 10 pounds for 1 week. Dressing / Incision Call your doctor if your incision/area has: Continuous Slow Oozing and Sudden Increased Bleeding Call your doctor if you observe: Fever of 101 or Higher Suture Line Care: Avoid Pulling/Pushing and Avoid Pinching/Bending Remove Dressing in: 1 day Additional Dressing/Incision Instructions:: Remove bulky dressing tomorrow. May leave any opsite dressing for 3-4 days. Keep dressing in place until your follow-up appointment. Follow Up Care Test Results: Test results from this visit will be discussed in further detail at your follow- up appointment, if applicable. Discharge Plan Admission Primary Reason for Your Visit: Recurrent left breast cancer Attending Provider: Eliazar Miller Primary Care Provider: Le Bowers Discharge Orders/Prescriptions Prescriptions: New hydrocodone-acetaminophen 5-325 mg tablet 1 tab PO Q6H PRN (Reason: pain) 2 Days Qty: 6 0RF Continued atorvastatin 40 mg tablet 40 mg PO QHS furosemide 40 mg tablet 40 mg PO DAILY cholecalciferol (vitamin D3) 2,000 unit capsule 3,000 unit PO DAILY buspirone 7.5 mg tablet 15 mg PO BID sertraline 100 mg tablet 200 mg PO DAILY omeprazole 40 mg capsule,delayed release(DR/EC) 40 mg PO DAILY Label Comments: 1 CAPSULE BY MOUTH ONCEIDAILY DX: GERD hydrochlorothiazide 25 mg tablet 25 mg PO DAILY Label Comments: 1 TABLET BY MOUTH DAILYXDX: HTN levothyroxine 175 mcg tablet 175 mcg PO DAILY Label Comments: 1 TABLET BY MOUTH EVERYIMORNING DX:HYPOTHYROID/TNURSE TO REORDER chlorhexidine gluconate 0.12 % mouthwash 15 ml buccal BID Label Comments: 15 ML BY MOUTH TWICE AADAY DX: ORAL TRX *DO NOT SWALLOW MKAB aspirin 81 MG tablet,chewable 81 mg PO DAILY@0800 Label Comments: heart health amlodipine 10 MG tablet 10 mg PO DAILY Label Comments: blood pressure oxcarbazepine 300 mg tablet 300 mg PO TID lisinopril 20 MG tablet 20 mg PO BID pregabalin 50 MG capsule 50 mg PO BID trazodone 100 MG tablet 100 mg PO QHS Referrals / Follow Up: Le Bowers DO [Primary Care Provider] - Disposition Disposition (needs filled in before D/C Order can be placed): Home, Self Care
[2021-12-23] MEDS: Cefazolin 2 GM in 0.9% Normal Saline 100 ML IV (09:45)
[2021-12-23] MEDS: Lidocaine 1% (20 ml mdv) 20 ML Vial (11:03)
[2021-12-23] MEDS: Bupivacaine 0.25% 30 ML Vial (11:03)
--- NOTE | 2021-12-23 11:08 | PCM.OPRPT ---
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 61-year-old female was taken to the operating placed on the table underwent general anesthesia Ancef 2 g given intravenously the left arm was carefully placed it right angles to the table left chest wall was prepped with chlorhexidine on inspection today the patient is asleep more concerned that the tumor could be involving the portion of the pectoralis major was excised and it is empty completely around the tumor. Transverse ellipse was marked the skin was incised electrocautery was used to dissect down through the subcutaneous tissue then became apparent that the tumor is actually beneath There is some fibroareolar tissue posteriorly close to the tumor resection but clinically completely around the tumor. Electrocautery was performed for most of the dissection. Then palpable rest of the skin flaps were created superiorly all the way up to the clavicle and inferiorly down upon the abdominal musculature. Hemostasis obtained with electrocautery. A suture was placed on the lateral aspect of the elliptical excision gross margins provided by pathology suggested that margins were close at 1 mm but was felt to be completely excised. Wound was irrigated with sterile water. Stab incision was made inferior and laterally and a 15 round BRISA drain was exited placed the superior flap area. The flaps were then briefly approximated with simple sutures of 3-0 nylon. 3-0 Vicryl was used to help secure the flaps to the chest wall with multiple cutaneous stitches. Subdermal tissues were approximated with the same. Nylon sutures removed surgical karen were applied and medially there was one area that I did very carefully approximated with some simple sutures of 3-0 nylon. Blood loss had been minimal. Specimen fluids for recurrent chest wall mass with skin subcutaneous fat and pectoralis major musculature. Drains 15 round BRISA. Transverse ellipse was marked the skin was incised electrocautery was used to dissect down through the subcutaneous tissue then became apparent that the tumor is actually beneath. 1% lidocaine mixed 50-50 with 0.25% Marcaine was used as a local anesthetic. 40 cc was used. This was a chest wall recurrence did not fit the MELECIO guidelines. Eliazar Miller M.D., F.A.C.S. Surgeon: Eliazar Miller Type of Anesthesia: General and Local Anesthesiologist: Delmy Arana
--- NOTE | 2021-12-23 11:48 | SUR.PHASEI ---
Hx MOI BY QUESTIONS, PATIENT KNOWN TO BE SCHEDULED FOR SLEEP STUDY BUT HAS NOT YET COMPLETED. 10-15 SECOND PERIODS OF APNEA NOTED, DESATS TO 89% ON O2, AROUSES VERY EASILY, O2 QUICKLY RECOVERS INTO MID-UPPER 90'S% WHEN AWAKENED. REPORTEDLY WAS 91% ON ROOM AIR WHEN STARTING IN O.R. PER GRACIELA AGUILA. DR DIEZ UPDATED.
[2021-12-23] MEDS: HYDROcodone Bitartrate/Apap 5/325 Tablet PO (13:09)
--- NOTE | 2021-12-23 14:52 | SUR.PHASEII ---
Patient left chest dressing changed in phase [address] Miller. Split gauze and 4x4 gauze over BRISA drain insertion site. 4x4 gauze over gauze tegaderm over incision maintained from OR. Dressing is completely occlusive with 2 inch paper tape. Basehor tape in place on BRISA drain and patient instructed about purpose of paper tape.
== END 2021-12-23 14:56 | disposition home or self-care (01) ==
LOC: SDC 08:49 → AC 08:50
PROVIDERS: PCP Internal Medicine; Referring Provider Surgery; Visit Provider Surgery
PROC: (CPT 19301; principal; 2021-12-23 10:45)
DX: C50.912 Malignant neoplasm of unspecified site of left female breast (principal); J44.9 Chronic obstructive pulmonary disease, unspecified; E66.01 Morbid (severe) obesity due to excess calories; Z68.43 Body mass index [BMI] 50.0-59.9, adult; C76.1 Malignant neoplasm of thorax; I25.10 Atherosclerotic heart disease of native coronary artery without angina pectoris; Z17.0 Estrogen receptor positive status [ER+]; Z80.3 Family history of malignant neoplasm of breast; F17.210 Nicotine dependence, cigarettes, uncomplicated; Z79.899 Other long term (current) drug therapy; Z79.82 Long term (current) use of aspirin; Z79.890 Hormone replacement therapy; E03.9 Hypothyroidism, unspecified; G47.33 Obstructive sleep apnea (adult) (pediatric); F41.9 Anxiety disorder, unspecified; F32.A Depression, unspecified; I10 Essential (primary) hypertension; K21.9 Gastro-esophageal reflux disease without esophagitis; E78.00 Pure hypercholesterolemia, unspecified
CPT/HCPCS: 11606; 12032; 00400; 88305; 88307; J7120; J2405

== ENCOUNTER → 2022-01-24 | Outpatient (CLI) | payer MEDICAID, SELFPAY ==
--- NOTE | 2022-01-24 09:30 | NM_ITS ---
CLINICAL: 61-year-old female with history of carcinoma of the breast with current complaint of low back discomfort. WHOLE BODY 99m Tc MDP RADIONUCLIDE BONE SCINTIGRAPHY COMPARISON: None available FINDINGS: Following the intravenous administration of 25.4 mCi of 99m Tc MDP, whole body bone images reveal: 1. There is an increase in tracer concentration defined in the second-fourth lumbar vertebra posteriorly on the right, the acromioclavicular compartments of both shoulders, the sternoclavicular compartment of the left shoulder, the fourth-fifth thoracic vertebra, the left posterior sacrum, the knees bilaterally. 2. The remaining skeletal structures are scintigraphically unremarkable with normal-appearing renal images and urinary bladder activity identified. Facilitated uptake is noted in the interorbital aspect of the skull consistent with periostitis. NM/Bone Scan Whole Body IMPRESSION: 1. The increase in tracer concentration identified in the thoracic and lumbar spine, bilateral shoulders, the left posterior sacrum and bilateral knees is commensurate with degenerative arthritis. 2. No other definitive scintigraphic abnormalities are identified. There is no definitive scintigraphic evidence of multifocal axial metastatic disease. Electronically Signed: Carlos Crenshaw, at 21:28 EDT ,
== END | disposition home or self-care (01) ==
PROVIDERS: PCP Internal Medicine; Referring Provider Internal Medicine Hematology & Oncology; Visit Provider Internal Medicine Hematology & Oncology
DX: M19.011 Primary osteoarthritis, right shoulder (principal); M17.0 Bilateral primary osteoarthritis of knee; M19.012 Primary osteoarthritis, left shoulder; M47.16 Other spondylosis with myelopathy, lumbar region; M47.14 Other spondylosis with myelopathy, thoracic region; Z85.3 Personal history of malignant neoplasm of breast
CPT/HCPCS: 78306; A9503

== ENCOUNTER 2022-06-11 17:59 | Emergency (ER) | payer MEDICAID, SELFPAY ==
[2022-06-11 18:00] VITALS: BP 173/93; PULSE 56; RESP 18; TEMP 36; O2SAT 97; BMI 40.7
--- NOTE | 2022-06-11 18:21 | EDS_ITS ---
HPI <HUMBERTO Membreno - Last Filed: 06/11/22 18:36> History of Present Illness Chief Complaint: Edema Narrative Narrative: Patient is a 62-year-old female with history of tobacco use, history of TIA, hypothyroidism, hypertension, COPD, presents to the emergency department with 2.5 days of left lower leg edema, redness. Patient denies any injury. Patient denies any recent car trips, patient [place] any history of DVT, PE. Patient denies any fever or chills. Patient states the pain is worse, throbbing sensation when she walks. PFSH <HUMBERTO Membreno - Last Filed: 06/11/22 18:36> [facility] Medical History Abrasion Anxiety and depression Back pain Bilateral leg edema Bladder disease Bradycardia BRCA gene positive Breast cancer, left breast Cancer Cardiology follow-up encounter Compliance poor Conversion disorder COPD (chronic obstructive pulmonary disease) Fatigue Gastric reflux High cholesterol History of epilepsy History of stress test History of TIAs Hyperlipidemia Hypersomnia Hypertension Hypothyroidism Morbid obesity Obstructive sleep apnea Recurrent infiltrating ductal carcinoma of breast Seizure disorder Smoker Thyroid disease Tobacco use disorder Uses wheelchair Walker as ambulation aid Wears glasses Home Medications aspirin 81 mg chewable tablet 81 mg PO DAILY@0800 HEART HEATLH 05/09/15 [History Last Taken 12/16/21] amlodipine 10 mg tablet 10 mg PO DAILY bp 07/12/16 [History Last Taken 12/23/21] lisinopril 20 mg tablet 20 mg PO BID BP 04/04/17 [History Last Taken 12/23/21] pregabalin 50 mg capsule 50 mg PO BID 10/26/18 [History Last Taken 10/26/18] atorvastatin 40 mg tablet 40 mg PO QHS 03/26/19 [History Last Taken Unknown] cholecalciferol (vitamin D3) 50 mcg (2,000 unit) capsule 3,000 unit PO DAILY 03/26/19 [History Last Taken Unknown] furosemide 40 mg tablet 40 mg PO DAILY 03/26/19 [History Last Taken Unknown] oxcarbazepine 300 mg tablet 300 mg PO TID SEIZURE 03/26/19 [History Last Taken 12/23/21] sertraline 100 mg tablet 200 mg PO DAILY 09/26/19 [History Last Taken Unknown] trazodone 100 mg tablet 100 mg PO QHS 02/08/20 [History Last Taken Unknown] buspirone 7.5 mg tablet 15 mg PO BID 11/25/21 [History Last Taken Unknown] chlorhexidine gluconate 0.12 % mouthwash 15 ml buccal BID 11/25/21 [History Last Taken Unknown] levothyroxine 175 mcg tablet 175 mcg PO DAILY 11/25/21 [History Last Taken 12/23/21] omeprazole 40 mg capsule,delayed release 40 mg PO DAILY 11/25/21 [History Last Taken 12/23/21] omega-3 fatty acids-fish oil 300 mg-500 mg capsule (Fish Oil) 1 cap PO BID 01/12/22 [History Last Taken Unknown] cephalexin 500 mg capsule 500 mg PO Q6 #40 CAPSULES 06/11/22 [Rx Last Taken Unknown] Allergy/AdvReac Type Severity Reaction Status Date / Time No Known Allergies Allergy Verified 06/11/22 18:00 Family History Sister Breast cancer Aunt Breast cancer, Onset Age: 40 Aunt Breast cancer Surgical History History of excision of lesion History of left breast biopsy (~10/2021) History of left mastectomy (04/07/15) Social History Smoking Status: Current every day smoker tobacco type: cigarettes ROS <HUMBERTO Membreno - Last Filed: 06/11/22 18:36> ROS ED ROS Narrative Constitutional: Negative for fever, chills, weight loss, weakness Eyes: Negative for vision loss, vision change, double vision ENT: Negative for any sore throat, ear pain, congestion Cardiovascular: Negative for any chest pain, tightness, palpitations Respiratory: Negative for any cough, sputum production, hemoptysis, dyspnea, dyspnea on exertion, orthopnea Gastrointestinal: Negative for any abdominal pain, nausea, vomiting, diarrhea, constipation, blood in stool, blood in vomit : Negative for any urinary frequency, dysuria, retention, blood in urine Muscle skeletal: Negative for any muscle joint pain, stiffness, myalgias, arthralgias, neck pain, back pain. Positive for left leg pain, left leg redness Neurological: Negative for any headache, syncope, numbness or tingling, dizziness Skin: Negative for any rashes, lumps, itching, abrasions, lacerations Psychiatric: Negative for any depression, anxiety, stress, suicidal ideation, homicidal ideation Hematologic: Negative for any easy bruising, excessive bruising, easy bleeding Allergies: Negative for any eczema, hives, rash EXAM <HUMBERTO Membreno - Last Filed: 06/11/22 18:36> Physical Exam Narrative Exam Narrative: Vital signs reviewed. HEET: Head normocephalic atraumatic, TMs clear bilaterally. Posterior pharynx is clear, moist mucous membranes. Nares clear bilaterally. Neck: Supple with no lymphadenopathy or tenderness. No signs of meningismus, negative jolt sign. Cardiac: Regular rate and rhythm no murmurs gallops or rubs, equal peripheral pulses bilaterally. Respiratory: Lungs clear to auscultation bilaterally. No chest tenderness. Abdomen: Soft, nontender, nondistended. No abdominal bruit or pulsatile masses. No hepatosplenomegaly Extremities: Patient does have left lower leg edema, there is redness to the lateral aspect just before the knee. There is pain on palpation. Patient has no pain to the posterior leg, no pain in the calf. Negative Homans' sign. no signs of gross trauma or deformity. Active full range of motion of all extremities. Patient has no neurological focal deficits. Neuro: Cranial nerves II through XII intact, no focal neurological deficits. Skin: Clean dry and intact with no rash, purpura, petechiae, vesicles or pustules. Backs/flank: No CVA tenderness, no midline spinal tenderness, no deformity. Psych: Normal mood and affect. No SI, HI or acute psychosis. Const Vital Signs: 06/11/22 18:00 Temperature 96.8 F L Temperature Source Temporal Pulse Rate 56 L Respiratory Rate 18 Blood Pressure 173/93 H Blood Pressure Mean 119 Pulse Ox 97 Oxygen Delivery Method Room Air <Dr. Fidencio Mendez MD - Last Filed: 06/11/22 18:39> Physical Exam Const Vital Signs: 06/11/22 18:00 Temperature 96.8 F L Temperature Source Temporal Pulse Rate 56 L Respiratory Rate 18 Blood Pressure 173/93 H Blood Pressure Mean 119 Pulse Ox 97 Oxygen Delivery Method Room Air MDM <HUMBERTO Membreno - Last Filed: 06/11/22 18:36> [facility] Treatment and Re-Evaluation Narrative: Patient appears generally well, patient is in no distress. Patient is in no signs or symptoms of sepsis. Patient presents to the emergency department 2.5 days of left lower extremity pain, redness. Patient's physical examination is consistent with a cellulitis. There is no deformity, no signs of trauma. Patient has no pain to the posterior leg, negative Homans' sign, patient has no pain on palpation to the calf. Patient does have what appears to be cellulitis that goes from the lateral malleolus to the lateral distal patella. It is warm. Patient has no systemic symptoms, patient has not have a compromise immune system. Patient be treated with Keflex 500 mg 4 times a day for 10 days. She will be given strict return precaution. I did speak with the patient's son who is also at bedside, they are both aware that they will return for worsening symptoms. Patient will take the antibiotics until completion. Patient stable for discharge. <Dr. Fidencio Mendez MD - Last Filed: 06/11/22 18:39> [facility] Narrative Medical decision making narrative: I have personally performed a face to face assessment of the patient and have reviewed the KULDEEP Note. I performed a substantive portion of the visit including all aspects of the following. My dow findings include: History is [62-year-old female that I am evaluate with her SPIRITUAL ADVISOR. Complaining of left lower leg discomfort laterally. Warmth and tenderness. Denies any fall or trauma. No history of DVT or PE or risk factors.] Exam is [62-year-old female. No acute distress. Vital signs are stable and afebrile. Patient does not look septic or toxic. HEENT exam unremarkable. Neck nontender. Lungs clear. Heart regular rhythm no murmur. Abdomen soft nontender. Moving all 4 extremities. Left lower leg is slightly swollen compared to the right. Calf is nontender. The left anterior lower jimenez laterally is tender to palpation and warm consistent with an early cellulitis. No lymphangitic streaking. No subcu air crepitance. No inguinal lymphadenopathy. No septic joint. Normal range of motion. Foot is neurovascularly intact.] Medical Decision Making [patient will be treated for a left lower leg cellulitis. Started on Keflex 500 4 times daily for 10 days. First dose given in the ER. Outpatient follow-up. Return if not improving. At this time there is no signs of a DVT or risk factors I do not think she needs a noninvasive study.] Other additions or changes: [None] Discharge Plan Triage Chief Complaint: Edema Other Complaint: Cellulitis ED Midlevel Provider: Waqas Pearson ED Provider: Fidencio Mendez Dx/Rx/DC Orders Clinical Impression: Acute leg pain, Cellulitis Instructions: ED Cellulitis Prescriptions: New cephalexin 500 mg capsule 500 mg PO Q6 Qty: 40 0RF No Action atorvastatin 40 mg tablet 40 mg PO QHS furosemide 40 mg tablet 40 mg PO DAILY cholecalciferol (vitamin D3) 2,000 unit capsule 3,000 unit PO DAILY buspirone 7.5 mg tablet 15 mg PO BID sertraline 100 mg tablet 200 mg PO DAILY omeprazole 40 mg capsule,delayed release(DR/EC) 40 mg PO DAILY Label Comments: 1 CAPSULE BY MOUTH ONCEIDAILY DX: GERD levothyroxine 175 mcg tablet 175 mcg PO DAILY Label Comments: 1 TABLET BY MOUTH EVERYIMORNING DX:HYPOTHYROID/TNURSE TO REORDER chlorhexidine gluconate 0.12 % mouthwash 15 ml buccal BID Label Comments: 15 ML BY MOUTH TWICE AADAY DX: ORAL TRX *DO NOT SWALLOW MKAB Fish Oil 300-500 mg capsule 1 cap PO BID aspirin 81 MG tablet,chewable 81 mg PO DAILY@0800 Label Comments: heart health amlodipine 10 MG tablet 10 mg PO DAILY Label Comments: blood pressure oxcarbazepine 300 mg tablet 300 mg PO TID lisinopril 20 MG tablet 20 mg PO BID pregabalin 50 MG capsule 50 mg PO BID trazodone 100 MG tablet 100 mg PO QHS Primary Care Provider: Le Bowers Referrals: Le Bowers DO [Primary Care Provider] - Activity Restrictions/Additional Instructions: If the redness, edema does not go away, or improve the next 24 to 40 hours, you need to come back in for reevaluation. Disposition Disposition: Home, Self Care
[2022-06-11] MEDS: Cephalexin 250 MG Capsule 500 MG PO (18:41)
== END 2022-06-11 18:45 | disposition home or self-care (01) ==
PROVIDERS: Emergency Provider Emergency Medicine; PCP Internal Medicine; Visit Provider Emergency Medicine
DX: L03.119 Cellulitis of unspecified part of limb (principal); J44.9 Chronic obstructive pulmonary disease, unspecified; M79.606 Pain in leg, unspecified; I10 Essential (primary) hypertension; E78.5 Hyperlipidemia, unspecified; R60.0 Localized edema; F17.210 Nicotine dependence, cigarettes, uncomplicated
CPT/HCPCS: 99283

== ENCOUNTER → 2022-11-25 | Outpatient (CLI) | payer MEDICAID, SELFPAY ==
--- NOTE | 2022-11-25 13:59 | BI_ITS ---
MAMMOGRAPHY - UNILATERAL SCREENING: RIGHT BREAST REASON FOR EXAM: Female, 62 years old. Routine annual screening examination (unilateral). PERTINENT HISTORY: Personal history of breast cancer. Prior left mastectomy. Sister with breast cancer. Aunt with breast cancer. TECHNIQUE: Digital unilateral breast lolis (3D mammographic acquisition) in the CC and MLO projections. 2-D mediolateral oblique (MLO) and craniocaudad (CC) views of both breasts were obtained. CAD: Full Field Digital Mammography with Computer Added Detection was performed. COMPARISON: Comparison is made with prior study November 22, 2021 and September 14, 2015. FINDINGS: Breast Composition: The breasts are heterogeneously dense, which may obscure small masses. There are no dominant masses or suspicious calcifications. No other significant abnormalities are identified. There has been no significant change since the prior study. BI/SCREEN MAMM (CAD) W/LOLIS UNI R IMPRESSION: Stable unilateral screening mammogram. Yearly follow-up mammogram recommended. (A) ASSESSMENT CATEGORY: BIRADS Category 1: Negative. A letter regarding these results will be sent to the patient by the facility within 30 days. Approximately 10% of breast cancers are not detected by mammography. A normal mammogram should not delay biopsy of a clinically suspicious abnormality. [id number] Electronically Signed: Jerry Sellers MD at 15:37 EDT ,
--- NOTE | 2022-11-25 13:59 | US_ITS ---
STUDY: ULTRASOUND BREAST - LEFT REASON FOR EXAM: Female, 62 years old. Recent left mastectomy. TECHNIQUE: Axial and longitudinal images of the LEFT breast were performed with a high resolution ultrasound transducer. # OF IMAGES: 66 COMPARISON: Comparison is made with prior mammogram dated November 22, 2021. FINDINGS: LEFT Breast: There is evidence of a 5 mm x 4 mm x 2 mm cyst in the lower outer quadrant of the breast. The nipple as been resected. US/Breast Limited Unilateral IMPRESSION: 5 mm x 4 mm x 2 mm cyst in the lower outer quadrant of the right breast. ASSESSMENT CATEGORY: BIRADS Category 2: Benign. A letter regarding these results will be sent to the patient by the facility within 30 days. Electronically Signed: Jerry Sellers MD at 14:50 EDT ,
== END | disposition home or self-care (01) ==
PROVIDERS: PCP Nurse Practitioner Adult Health; Referring Provider Internal Medicine Hematology & Oncology; Visit Provider Internal Medicine Hematology & Oncology
DX: Z12.31 Encounter for screening mammogram for malignant neoplasm of breast (principal); C50.912 Malignant neoplasm of unspecified site of left female breast; Z90.12 Acquired absence of left breast and nipple
CPT/HCPCS: 76642; 77063; 77067

== ENCOUNTER 2022-11-28 08:30 | Outpatient (RCR) | payer MEDICAID, SELFPAY ==
[2022-11-23 10:15] VITALS: BP 177/74; PULSE 53; RESP 20; TEMP 36.8; BMI 42.8
--- NOTE | 2022-11-23 11:26 | PCM.WC.HP ---
History of Present Illness Date of Service: 11/23/22 Chief Complaint: Right leg ulcer cluster History of Wound: 62 year old female presents to the wound healing center with bilateral leg swelling and right leg ulcer cluster. She states she has been to the wound healing center in the past for these issues. She states that she has not been wearing her compression stockings. She lives in [facility] and they have been placing Aquacel covered with Kerlix to the ulcers. She states that this started a couple months ago. She has a history of breast cancer with mastectomy, PAD, CAD, HTN, COPD, back pain and Epilepsy. She recently was seen by Dr. Mecca Henao's PA on 10/11/22 for wounds on her left leg. She was ordered venous and arterial studies which were never done. She was also give a prescription for compression stockings which she never obtained the compression stockings either. She had venous doppler done in 2017 which showed no incompetence. Today she denies fever, chills, nausea or vomiting. Progress of Wound: Bilateral leg edema with an ulcer cluster on right anterior leg. [facility] Medical History (Reviewed 11/25/22 @ 16:46 by Thalia Harper CONTINUOUS IMPROVEMENT SPECIALIST, CONTINUOUS IMPROVEMENT SPECIALIST-C) Abrasion Anxiety and depression Back pain Bilateral leg edema Bladder disease Bradycardia BRCA gene positive Breast cancer, left breast Cancer Cardiology follow-up encounter Compliance poor Conversion disorder COPD (chronic obstructive pulmonary disease) Fatigue Gastric reflux High cholesterol History of epilepsy History of stress test History of TIAs Hyperlipidemia Hypersomnia Hypertension Hypothyroidism Morbid obesity Obstructive sleep apnea Recurrent infiltrating ductal carcinoma of breast Seizure disorder Smoker Thyroid disease Tobacco use disorder Uses wheelchair Walker as ambulation aid Wears glasses Home Medications aspirin 81 mg chewable tablet 81 mg PO DAILY@0800 HEART HEATLH 05/09/15 [History Last Taken 11/23/22] amlodipine 10 mg tablet 10 mg PO DAILY bp 07/12/16 [History Last Taken 11/23/22] lisinopril 20 mg tablet 20 mg PO BID BP 04/04/17 [History Last Taken 11/23/22] atorvastatin 40 mg tablet 40 mg PO QHS 03/26/19 [History Last Taken 11/23/22] furosemide 40 mg tablet 40 mg PO DAILY 03/26/19 [History Last Taken 11/23/22] oxcarbazepine 300 mg tablet 300 mg PO TID SEIZURE 03/26/19 [History Last Taken 11/23/22] sertraline 100 mg tablet 200 mg PO DAILY 09/26/19 [History Last Taken 11/23/22] trazodone 100 mg tablet 100 mg PO QHS 02/08/20 [History Last Taken 11/22/22] buspirone 7.5 mg tablet 15 mg PO BID 11/25/21 [History Last Taken 11/23/22] chlorhexidine gluconate 0.12 % mouthwash 15 ml buccal BID 11/25/21 [History Last Taken Unknown] levothyroxine 175 mcg tablet 175 mcg PO DAILY 11/25/21 [History Last Taken 11/23/22] omeprazole 40 mg capsule,delayed release 40 mg PO DAILY 11/25/21 [History Last Taken 11/23/22] omega-3 fatty acids-fish oil 300 mg-500 mg capsule (Fish Oil) 1 cap PO BID 01/12/22 [History Last Taken 11/23/22] Allergy/AdvReac Type Severity Reaction Status Date / Time No Known Allergies Allergy Verified 10/17/22 14:08 Family History (Reviewed 11/25/22 @ 16:46 by Thalia Harper CONTINUOUS IMPROVEMENT SPECIALIST, CONTINUOUS IMPROVEMENT SPECIALIST-C) Sister Breast cancer Aunt Breast cancer, Onset Age: 40 Aunt Breast cancer Surgical History (Reviewed 11/25/22 @ 16:46 by Thalia Harper CONTINUOUS IMPROVEMENT SPECIALIST, CONTINUOUS IMPROVEMENT SPECIALIST-C) History of excision of lesion History of left breast biopsy (~10/2021) History of left mastectomy (04/07/15) Social History Smoking Status: Current every day smoker tobacco type: cigarettes ROS Constitutional Constitutional: Denies chills, fever(s) or frequent falls Eyes Eyes: Reports none ENT HEENT: Reports none Cardiovascular Cardiovascular: Denies chest pain or dyspnea Respiratory/Chest Respiratory/Chest: Reports systems reviewed and no addt'l complaints, except as documented Gastrointestinal Gastrointestinal: Reports none Musculoskeletal Musculoskeletal: Reports joint pain Integumentary Integumentary: Reports skin ulcer and skin swelling Neurologic Neurologic: Reports as per HPI Psychiatric Psychiatric: Reports as per HPI Vital Signs Vital Signs Vital Signs: 11/23/22 10:15 Temperature 98.3 F Temperature Source Temporal Pulse Rate 53 L Respiratory Rate 20 H Blood Pressure 177/74 H Blood Pressure Mean 108 Weight Weight: 290 lb 5.448 oz Body Mass Index (BMI) 42.8 Physical Exam Const alert, oriented x3 and no apparent distress General Appearance: cooperative HEENT normocephalic Eyes General Eye: normal appearance of both eyes Neck full ROM Resp normal respiratory effort, normal air movement and clear to auscultation bilaterally Effort and Inspection: able to speak in complete sentences Cardio regular rate and regular rhythm Peripheral Pulses: pulses 2+ throughout GI normal to inspection, nondistended, normoactive bowel sounds, soft to palpation and non-tender Back/Spine normal ROM Extremity normal capillary refill Extremity Narrative: Bilateral +3 pitting edema with weeping areas present. Peripheral Pulses: Yes pulses 2+ throughout Skin Wound Narrative: Right anterior leg ulcer cluster is superficial and draining serous fluid Neuro oriented x3 and moves all extremities Sensorium / Orientation: awake and alert Psych cooperative Psych Narrative: Flat affect Debridement Note Debridement Note Wound debrided: Anterior lower leg ulcer cluster Laterality: Right Wound Grade/Stage: Stage II Type of Debridement: Excisional debridement Anesthesia Used: 5% Lidocaine Gel Depth: Down to and including healthy tissue and in the subcutaneous layer Percentage of wound debrided: 100 Instrument Used: 5mm curette Tissue Removed: Devitalized tissue and slough Severity: Limited To Skin Breakdown Amount of bleeding with debridement: Mild Bleeding Controlled with: Pressure and Compression and gauze Post-Debridement Measurements and Additional Note: Post-Debridement Measurements/Treatment - Nurse 1 - General Ulcer Assessment Start: 11/23/22 10:09 Freq: Status: Active Protocol: MIGUEL Activity Type Activity Date Activity User E-sign Co-sign Detail Recorded Client Recorded Date Recorded By Document 11/23/22 10:15 DL [id number] 11/23/22 10:34 DL 11/23/22 10:15 - Today's Visit Information Type of service Initial Visit Arrival Mode Ambulatory, Wheelchair Transfer Assistance None Patient Identification Verified (Name & Yes ) Patient Requires Transmission-Based No Precautions Height and Weight Height 5 ft 9 in Weight 290 lb 5.448 oz Weight in Pounds 290.3 lbs Body Mass Index (BMI) 42.8 BMI Classification Obese BSA - Mark 2.42 Vital Signs Temperature (97.8 F-99.1 F) 98.3 F Temperature Source Temporal Pulse Rate (60-100) 53 L Pulse Location Monitor Respiratory Rate (12-18) 20 H Respiratory rate source Observation Blood Pressure (90/60-120/80) 177/74 H Blood Pressure Mean 108 Pain Scale: 0-10 Numeric Is Patient Pain Free? Yes Lower Extremity Assessment/ Foot Assessment/ Toe Nail Assessment Left -Posterior Tibial Palpable Yes -Dorsalis Pedis Palpable Yes -Extremity Color Hyperpigmented, Hemosiderin -Hair Growth on Legs No -Hair Growth on Toes No -Temperature of Extremity Warm -Capillary Refill Greater than 3 Seconds -Dependent Rubor No -Blanched when Elevated No -Lipodermatosclerosis No -Other Deformity No -Prior Foot Ulcer No -Charcot Joint No -Prior Amputation No -Thick Yes -Discolored Yes -Deformed No -Improper Length & Hygeine No Right -Posterior Tibial Palpable Yes -Dorsalis Pedis Palpable Yes -Extremity Color Hyperpigmented, Hemosiderin -Hair Growth on Legs No -Hair Growth on Toes No -Temperature of Extremity Warm -Capillary Refill Greater than 3 Seconds -Dependent Rubor No -Blanched when Elevated No -Lipodermatosclerosis No -Other Deformity No -Prior Foot Ulcer No -Charcot Joint No -Prior Amputation No -Thick Yes -Discolored Yes -Deformed No -Improper Length & Hygeine No Neuropathy Assessment Feet - Top Side and Bottom <Entered> (a) Communication Assessment Preferred language Citizen Of [place] Able to Read Yes Able to Write Yes Right Hearing Abillity Normal Left Hearing Abillity Normal Visual Assistive Devices Glasses Teaching Assessment Preferences Verbal,Written, Demonstration Barriers to Learning None Readiness To Learn Fair Willingness to Engage in Self Management Med Activies Readiness to Engage in Self Management Med Activities Anxiety Level Calm Cooperation Cooperative Perception Coherent Interest in Health Problem Asks Questions Education Importance Acknowledges Need Does Patient Smoke tobacco or other Yes substances Smoking Status Current every day smoker Is Patient Diabetic Yes Functional Assessment Recent Decline in Ability to Perform Denies Any Declines Culture/Jain/Assistant Boys Track Coach Cultural/Jain Needs that may affect No Treatment Plan Would you allow our hospital nursing support worker to No meet you for the purpose of spiritual/ emotional support? Assistant Boys Track Coach to contact place of sikhism No Teaching: Wound Center Diagnostic Tests Ordered -Person Taught Patient Dressing Your Wound -Person Taught Patient Compression Wraps & Stockings -Person Taught Patient Discharge Instructions -Person Taught Patient (a) 1 - + WC - Nurse 1 - General Ulcer Measurement Start: 11/23/22 10:09 Freq: Status: Active Protocol: Activity Type Activity Date Activity User E-sign Co-sign Detail Recorded Client Recorded Date Recorded By Document 11/23/22 10:15 DL [id number] 11/23/22 10:34 DL 11/23/22 10:15 Wound Center Nurse 1 37 L Med LE -Current Size (cm) - Length 10 -Current Size (cm) - Width 3.3 -Current Size (cm) - Depth 0.1 -Total Square Cm 33.0 -Photo Taken Yes -Exudate Amt Medium -Exudate Type Serosanguineous -Wound Margin Indistinct, Non -Visible -Granulation Amt Medium (34-66%) -Necrosis Amt Medium (34-66%) -Necrotic Tissue Type Adherent Slough -Structure Exposed N/A -Texture (Mary-wound Skin Appearance) Scarring -Moisture (Mary-wound Skin Appearance) Weeping -Color (Mary-wound Skin Appearance) Hemosiderin Staining -Temperature (Mary-wound Skin No Abnormality Appearance) (Pt Warm) -Tenderness on Palpation (Mary-wound No Skin Appearance) -Ulcer Cleansing Soap and Water -Foul Odor after Cleansing No -Anesthetic Used 4% Lidocaine Solution #6 R Brown cluster -Current Size (cm) - Length 8 -Current Size (cm) - Width 5 -Current Size (cm) - Depth 0.1 -Total Square Cm 40 -Photo Taken Yes -Classification - Thickness Full Thickness without Exposed Support Structure -Exudate Amt Medium -Exudate Type Serosanguineous -Wound Margin Distinct, Outline Attached -Granulation Amt Medium (34-66%) -Granulation Quality [place] -Necrosis Amt Medium (34-66%) -Necrotic Tissue Type Adherent Slough -Structure Exposed N/A -Texture (Mary-wound Skin Appearance) Scarring -Moisture (Mary-wound Skin Appearance) Weeping -Color (Mary-wound Skin Appearance) Hemosiderin Staining -Temperature (Mary-wound Skin No Abnormality Appearance) (Pt Warm) -Tenderness on Palpation (Mary-wound No Skin Appearance) -Ulcer Cleansing Soap and Water -Anesthetic Used 4% Lidocaine Solution Right Calf (cm) 46.8 Right Ankle (cm) 25.6 Left Calf (cm) 44.5 Left Ankle (cm) 27 Charges/Coding Visit Charges Office Visits / Consults: 03407 OV L3 Est (25 modifier) Procedures Integumentary 111xxx-113xx: 10552 Amy subq tissue 20 sq cm/< Add On Codes: 93779 Amy subq tissue add-on Assessment/Plan Assessment/Plan (1) Bilateral leg edema: CODE(S): R60.0 - Localized edema (2) Ulcer of right lower extremity: CODE(S): L97.919 - Non-pressure chronic ulcer of unspecified part of right lower leg with unspecified severity PLAN: Plan Patient evaluated at the wound healing center today. Wound care will be adaptic covered by Aquacel-Ag topped with ABD and Kerlix daily. Wash legs and ulcers at the time of the dressing change. Compression - Double tubigrip for compression. A wound culture was obtained today 11/23/22.? A positive culture will necessitate antibiotic therapy. Encouraged patient to keep legs elevated when seated. Encouraged patient to sleep in a bed at night and not a chair. Will have her follow up on Monday. Will consider higher compression such as 3M 2 layer wraps. Greater than 30 minutes spent with evaluating patient, plan of care, educating, reviewing records.
[2022-11-28 08:22] VITALS: BP 169/54; PULSE 52; RESP 16; TEMP 35.6; BMI 42.8
--- NOTE | 2022-11-28 09:24 | PN.PCM_ITS ---
History of Present Illness Date of Service: 11/28/22 Chief Complaint: Right leg ulcer cluster History of Wound: 62 year old female presents to the wound healing center with bilateral leg swelling and right leg ulcer cluster. She states she has been to the wound healing center in the past for these issues. She states that she has not been wearing her compression stockings. She lives in [facility] and they have been placing Aquacel covered with Kerlix to the ulcers. She states that this started a couple months ago. She has a history of breast cancer with mastectomy, PAD, CAD, HTN, COPD, back pain and Epilepsy. She recently was seen by Dr. Mecca Henao's PA on 10/11/22 for wounds on her left leg. She was ordered venous and arterial studies which were never done. She was also give a prescription for compression stockings which she never obtained the compression stockings either. She had venous doppler done in 2017 which showed no incompetence. Today she denies fever, chills, nausea or vomiting. Progress of Wound: Bilateral leg edema with an ulcer cluster on right anterior leg. She now has wound cluster on her left leg today. She continues to have +3-+4 edema. Objective Data Objective Data Vital Signs: Vital Signs Temp Pulse Resp BP O2 Del Method 96.1 F L 52 L 16 169/54 H Room Air 11/28/22 08:22 11/28/22 08:22 11/28/22 08:22 11/28/22 08:22 11/28/22 08:22 Oxygen Delivery Method Room Air Weight: 290 lb 5.448 oz Body Mass Index (BMI) 42.8 Lab / Micro Data Micro: Microbiology 11/23/22 10:55 Wound - Leg, Right Gram Stain - Final 11/23/22 10:55 Wound - Leg, Right Wound Culture - Final Staphylococcus aureus Streptococcus agalactiae (B) Corynebacterium striatum 11/23/22 10:55 Wound - Leg, Right Anaerobic Culture - Final No anaerobic bacteria isolated. Charges/Coding Procedures Integumentary 111xxx-113xx: 86192 Amy subq tissue 20 sq cm/< Add On Codes: 52913 Amy subq tissue add-on (x4) Debridement Note Debridement Note Wound debrided: Anterior lower leg ulcer cluster Laterality: Right Wound Grade/Stage: Stage II Type of Debridement: Excisional debridement Anesthesia Used: 5% Lidocaine Gel Depth: Down to and including healthy tissue and in the subcutaneous layer Percentage of wound debrided: 100 Instrument Used: 5mm curette Tissue Removed: Devitalized tissue and slough Severity: Limited To Skin Breakdown Amount of bleeding with debridement: Mild Bleeding Controlled with: Pressure and Compression and gauze Post-Debridement Measurements and Additional Note: Post-Debridement Measurements/Treatment WC - Nurse 1 - General Ulcer Assessment Start: 11/23/22 10:09 Freq: Status: Active Protocol: MIGUEL Activity Type Activity Date Activity User E-sign Co-sign Detail Recorded Client Recorded Date Recorded By Document 11/23/22 10:15 DL [id number] 11/23/22 10:34 DL Document 11/28/22 08:22 BM [id number] 11/28/22 08:30 BMF 11/23/22 11/28/22 10:15 08:22 - Today's Visit Information Type of service Initial Visit Follow-up Visit (Physician/[facility] [employer] ) Arrival Mode Ambulatory, Ambulatory Wheelchair Transfer Assistance None None Patient Identification Verified (Name & Yes Yes ) Patient Requires Transmission-Based No No Precautions Height and Weight Height 5 ft 9 in Weight 290 lb 5.448 oz Weight in Pounds 290.3 lbs Body Mass Index (BMI) 42.8 42.8 BMI Classification Obese Obese BSA - Mark 2.42 Vital Signs Temperature (97.8 F-99.1 F) 98.3 F 96.1 F L Temperature Source Temporal Temporal Pulse Rate (60-100) 53 L 52 L Pulse Location Monitor Monitor Respiratory Rate (12-18) 20 H 16 Respiratory rate source Observation Observation Oxygen Delivery Method Room Air Blood Pressure (90/60-120/80) 177/74 H 169/54 H Blood Pressure Mean (mm Hg) 108 92 Source Monitor Position Sitting Blood Pressure Location Right Arm History Since Last Visit- (Skip if this is Patient's initial visit) Have you changed medications since your No last visit? Any new allergies or adverse reactions No Had a fall/change in ADL's that may No increase risk of falls Signs or symptoms of abuse and/or No neglect since last visit Have you been in the hospital since your No last visit? Has dressing in place as prescribed Yes Has compression in place as prescribed Yes Has offloadiing in place as prescribed N/A Experienced any changes in pain level or No management Left Footwear Slipper Right Footwear Slipper Pain Scale: 0-10 Numeric Is Patient Pain Free? Yes Yes Lower Extremity Assessment/ Foot Assessment/ Toe Nail Assessment Left -Posterior Tibial Palpable Yes -Dorsalis Pedis Palpable Yes -Extremity Color Hyperpigmented, Hemosiderin -Hair Growth on Legs No -Hair Growth on Toes No -Temperature of Extremity Warm -Capillary Refill Greater than 3 Seconds -Dependent Rubor No -Blanched when Elevated No -Lipodermatosclerosis No -Other Deformity No -Prior Foot Ulcer No -Charcot Joint No -Prior Amputation No -Thick Yes -Discolored Yes -Deformed No -Improper Length & Hygeine No Right -Posterior Tibial Palpable Yes -Dorsalis Pedis Palpable Yes -Extremity Color Hyperpigmented, Hemosiderin -Hair Growth on Legs No -Hair Growth on Toes No -Temperature of Extremity Warm -Capillary Refill Greater than 3 Seconds -Dependent Rubor No -Blanched when Elevated No -Lipodermatosclerosis No -Other Deformity No -Prior Foot Ulcer No -Charcot Joint No -Prior Amputation No -Thick Yes -Discolored Yes -Deformed No -Improper Length & Hygeine No Neuropathy Assessment Feet - Top Side and Bottom <Entered> (a) Communication Assessment Preferred language Armenian Able to Read Yes Able to Write Yes Right Hearing Abillity Normal Left Hearing Abillity Normal Visual Assistive Devices Glasses Teaching Assessment Preferences Verbal,Written, Demonstration Barriers to Learning None Readiness To Learn Fair Willingness to Engage in Self Management Med Activies Readiness to Engage in Self Management Med Activities Anxiety Level Calm Cooperation Cooperative Perception Coherent Interest in Health Problem Asks Questions Education Importance Acknowledges Need Does Patient Smoke tobacco or other Yes substances Smoking Status Current every day smoker Is Patient Diabetic Yes Functional Assessment Recent Decline in Ability to Perform Denies Any Declines Culture/Yazidism/Senior Clinical Consultant Cultural/Yazidism Needs that may affect No Treatment Plan Would you allow our hospital humanities professor to No meet you for the purpose of spiritual/ emotional support? Senior Clinical Consultant to contact place of temple No Teaching: Wound Center Diagnostic Tests Ordered -Person Taught Patient Dressing Your Wound -Person Taught Patient Compression Wraps & Stockings -Person Taught Patient Discharge Instructions -Person Taught Patient (a) 1 - + WC - Nurse 1 - General Ulcer Measurement Start: 11/23/22 10:09 Freq: Status: Active Protocol: Activity Type Activity Date Activity User E-sign Co-sign Detail Recorded Client Recorded Date Recorded By Document 11/23/22 10:15 DL [id number] 11/23/22 10:34 DL Document 11/28/22 08:22 [facility] [id number] 11/28/22 08:30 BMF 11/23/22 11/28/22 10:15 08:22 Wound Center Nurse 1 #7 L Med LE -Combined with other wound No -Current Size (cm) - Length 10 11.6 -Current Size (cm) - Width 3.3 5.2 -Current Size (cm) - Depth 0.1 0.1 -Total Square Cm 33.0 60.32 -Date of Last Picture (Recall this 11/28/22 field) -Photo Taken Yes Yes -Epithelialization None Present -Tunneling No -Undermining/Tunneling No -Circular Undermining No -Exudate Amt Medium Medium -Exudate Type Serosanguineous Serosanguineous -Wound Margin Indistinct, Non Flat & Intact -Visible -Granulation Amt Medium (34-66%) Medium (34-66%) -Granulation Quality Red -Slough/Fibrin Yes -Necrosis Amt Medium (34-66%) Medium (34-66%) -Necrotic Tissue Type Adherent Slough Adherent Slough -Structure Exposed N/A -Texture (Mary-wound Skin Appearance) Scarring Assessed, Scarring -Moisture (Mary-wound Skin Appearance) Weeping Assessed, Maceration -Color (Mary-wound Skin Appearance) Hemosiderin Assessed, Staining Hemosiderin Staining -Temperature (Mary-wound Skin No Abnormality No Abnormality Appearance) (Pt Warm) (Pt Warm) -Tenderness on Palpation (Mary-wound No No Skin Appearance) -Ulcer Cleansing Soap and Water Rinsed/ Irrigated with Saline -Foul Odor after Cleansing No No -Anesthetic Used 4% Lidocaine 4% Lidocaine Solution Solution #6 R Brown cluster -Combined with other wound No -Current Size (cm) - Length 8 8 -Current Size (cm) - Width 5 5.4 -Current Size (cm) - Depth 0.1 0.1 -Total Square Cm 40 43.2 -Date of Last Picture (Recall this 11/28/22 field) -Photo Taken Yes Yes -Epithelialization Small 1-33% -Tunneling No -Undermining/Tunneling No -Circular Undermining No -Classification - Thickness Full Thickness without Exposed Support Structure -Exudate Amt Medium Medium -Exudate Type Serosanguineous Serosanguineous -Wound Margin Distinct, Flat & Intact Outline Attached -Granulation Amt Medium (34-66%) Medium (34-66%) -Granulation Quality [place] Red -Slough/Fibrin Yes -Necrosis Amt Medium (34-66%) Medium (34-66%) -Necrotic Tissue Type Adherent Slough Adherent Slough -Structure Exposed N/A -Texture (Mary-wound Skin Appearance) Scarring Assessed, Scarring -Moisture (Mary-wound Skin Appearance) Weeping Assessed, Maceration -Color (Mary-wound Skin Appearance) Hemosiderin Assessed, Staining Hemosiderin Staining -Temperature (Mary-wound Skin No Abnormality No Abnormality Appearance) (Pt Warm) (Pt Warm) -Tenderness on Palpation (Mary-wound No No Skin Appearance) -Ulcer Cleansing Soap and Water Rinsed/ Irrigated with Saline -Foul Odor after Cleansing No -Anesthetic Used 4% Lidocaine 4% Lidocaine Solution Solution Lower Limb Edema Present Yes Right Calf (cm) 46.8 44.2 Right Ankle (cm) 25.6 24.5 Left Calf (cm) 44.5 42.7 Left Ankle (cm) 27 25 - Nurse 2 - General Ulcer CM Notes Start: 11/23/22 10:09 Freq: Status: Active Protocol: Activity Type Activity Date Activity User E-sign Co-sign Detail Recorded Client Recorded Date Recorded By Document 11/23/22 13:05 REGINALD [id number] 11/23/22 13:07 REGINALD Document 11/28/22 08:53 [id number] 11/28/22 08:57 COLBY 11/23/22 11/28/22 13:05 08:53 Wound Center Nurse 2 #7 L Med LE -Time 08:53 -Correct Patient Yes -Correct Side, Site, Position Yes -Correct Procedure Yes -Procedure Performed No Yes -Type of Procedure Debridement -Clinical Debridement Subcutaneous -Tissue Removed Subcutaneous -Post Debridement (cm) - Length 10 -Post Debridement (cm) - Width 6 -Post Debridement (cm) - Depth 0.1 -Total Square (Post) (cm) 60 -Area of Debridement (cm) - Length 10 -Area of Debridement (cm) - Width 6 -Total Square (Area) (cm) 60 -Tunneling No -Undermining/Tunneling No -Circular Undermining No -Wound/Ulcer Outcome Healed- Not Healed Epithelialized -Ulcer Cleansing Rinsed/ Irrigated with Saline -Foul Odor after Cleansing No -Bioengineered Tissue No -Bleeding Controlled with Pressure -Treatment Response Procedure Tolerated Well -Offloading No -Debridement - Subq, 1st 20sq cm No #6 R Brown cluster -Time 10:48 08:53 -Correct Patient Yes Yes -Correct Side, Site, Position Yes Yes -Correct Procedure Yes Yes -Procedure Performed Yes Yes -Type of Procedure Debridement Debridement -Clinical Debridement Subcutaneous Subcutaneous -Tissue Removed Subcutaneous Subcutaneous -Post Debridement (cm) - Length 8.5 8 -Post Debridement (cm) - Width 3.5 3.5 -Post Debridement (cm) - Depth 0.1 0.1 -Total Square (Post) (cm) 29.75 28.0 -Area of Debridement (cm) - Length 8.5 8 -Area of Debridement (cm) - Width 3.5 3.5 -Total Square (Area) (cm) 29.75 28.0 -Tunneling No No -Undermining/Tunneling No No -Circular Undermining No No -Wound/Ulcer Outcome Not Healed Not Healed -Ulcer Cleansing Rinsed/ Rinsed/ Irrigated with Irrigated with Saline Saline -Foul Odor after Cleansing No No -Bioengineered Tissue No No -Bleeding Controlled with Pressure Pressure -Treatment Response Procedure Procedure Tolerated Well Tolerated Well -Offloading No -Debridement - Subq, 1st 20sq cm Yes Yes -Debridement, SubQ, ea addt'l 20sq cm 1 4 or part thereof Pain Scale: 0-10 Numeric Is Patient Pain Free? Yes Yes WC - Nurse 3 - General Ulcer D/C NN Start: 11/23/22 10:09 Freq: Status: Active Protocol: Activity Type Activity Date Activity User E-sign Co-sign Detail Recorded Client Recorded Date Recorded By Document 11/23/22 12:12 DL [id number] 11/23/22 12:14 DL Document 11/28/22 09:01 DL [id number] 11/28/22 09:02 DL 11/23/22 11/28/22 12:12 09:01 Wound Care Center Nurse 3 #7 L Med LE -Ulcer Cleansing Rinsed/ Rinsed/ Irrigated with Irrigated with Saline Saline -Foul Odor after Cleansing No No -Primary Dressing Applied Aquacel Extra, NonAdherent NonAdherent Contact Layer, Contact Layer Silvercel -Primary Dressing Covered/Secured with Dry Gauze & Dry Gauze & Roll Gauze, Roll Gauze, Secured with Secured with Tape Tape -Aquacel Extra 1 -Silvercel 1 #6 R Brown cluster -Ulcer Cleansing Rinsed/ Rinsed/ Irrigated with Irrigated with Saline Saline -Foul Odor after Cleansing No No -Primary Dressing Applied Aquacel Extra, NonAdherent NonAdherent Contact Layer Contact Layer -Other Dressing silvercell -Primary Dressing Covered/Secured with Dry Gauze & Dry Gauze & Roll Gauze, Roll Gauze, Secured with Secured with Tape Tape -Aquacel Extra 1 kenneth -Multi-Layered Wrap Application Multi-Layer Comp - Bilat ($ ) -Tubular Bandage Single Layer -Size of Tubigrip Used Size E -Size E ($) 1 Treatment Response Procedure Procedure Tolerated Well Tolerated Well Pain Scale: 0-10 Numeric Is Patient Pain Free? Yes Yes WC - Visit Discharge Discharge Condition Stable Stable Ambulatory Status Ambulatory Ambulatory Transportation Private Auto Private Auto Facility Type [facility] Care Facility Orders Sent Yes Additional Wound Wound debrided: posterior leg cluster Laterality: Left Wound Grade/Stage: Stage II Type of Debridement: Excisional debridement Anesthesia Used: 5% Lidocaine Gel Depth: Down to and including healthy tissue and in the subcutaneous layer Percentage of wound debrided: 100 Instrument Used: 5mm curette Tissue Removed: Devitalized tissue and slough Severity: Limited To Skin Breakdown Amount of bleeding with debridement: Mild Bleeding Controlled with: Pressure Patient tolerated procedure: Patient tolerated procedure well Assessment/Plan Assessment/Plan (1) Bilateral leg edema: CODE(S): R60.0 - Localized edema (2) Ulcer of right lower extremity: CODE(S): L97.919 - Non-pressure chronic ulcer of unspecified part of right lower leg with unspecified severity (3) Wound of left lower extremity: CODE(S): S81.802A - Unspecified open wound, left lower leg, initial encounter PLAN: Plan Patient evaluated at the wound healing center today. Wound care will be adaptic covered by Aquacel-Ag topped with ABD and Kerlix daily. Compression - 3M 2 layer wraps bilaterally. She has +2 palpable pedal pulses bilaterally. A wound culture of right leg obtained 11/23/22.? A positive culture will necessitate antibiotic therapy. Encouraged patient to keep legs elevated when seated. Encouraged patient to sleep in a bed at night and not a chair. Will order her venous and arterial studies. She will follow up or Monday for a nurses visit to have 3M 2layer wraps changed to see how she is tolerating them. Follow up one week to see me.
== END 2022-11-28 23:59 | disposition home or self-care (01) ==
LOC: WC 08:30
PROVIDERS: PCP Nurse Practitioner Adult Health; Referring Provider Nurse Practitioner Adult Health; Visit Provider Nurse Practitioner Family
DX: L97.921 Non-pressure chronic ulcer of unspecified part of left lower leg limited to breakdown of skin (principal); J44.9 Chronic obstructive pulmonary disease, unspecified; G40.909 Epilepsy, unspecified, not intractable, without status epilepticus; R60.0 Localized edema; I25.10 Atherosclerotic heart disease of native coronary artery without angina pectoris; I10 Essential (primary) hypertension; Z79.82 Long term (current) use of aspirin; F17.210 Nicotine dependence, cigarettes, uncomplicated; E78.5 Hyperlipidemia, unspecified; G62.9 Polyneuropathy, unspecified; E66.9 Obesity, unspecified; S81.802A Unspecified open wound, left lower leg, initial encounter
CPT/HCPCS: 11042; 11045; 29581; 87070; 87075; 87077; 87186; 87205; 99213; G0463

== ENCOUNTER 2022-12-12 09:15 | Outpatient (RCR) | payer MEDICAID, SELFPAY ==
[2022-11-29 00:26] VITALS: BP 169/54; PULSE 52; RESP 16; TEMP 35.6; BMI 42.8
--- NOTE | 2022-12-02 08:40 | ART_ITS ---
Reason For Study: Ulcer Procedure A bilateral lower extremity continuous wave Doppler with analog waveform analysis,segmental pressures,and ankle brachial indexes without exercise. Left Segmental Pressures Left posterior tibial artery = 239mmHg. Left dorsalis pedis artery = 226mmHg. Left digit = 189 mmHg. The left dorsalis pedis waveforms are triphasic. The left posterior tibial artery waveforms are triphasic. Right Segmental Pressures Right brachial= 177mmHg. Right posterior tibial artery = 199mmHg. Right dorsalis pedis artery = 211mmHg. Right digit = >254 mmHg. The right dorsalis pedis waveforms are triphasic. The right posterior tibial artery waveforms are triphasic. Indices The right ankle brachial index by the dorsalis pedis is 1.19. The right ankle brachial index by the posterior tibial artery is 1.12. The right digital-brachial index is NC. The left ankle brachial index by the dorsalis pedis is 1.28. The left ankle brachial index by the posterior tibial artery is 1.35. The left digital-brachial index is 1.07. VL/Lower Ext Art Exam w/o Exercis Interpretation Summary Triphasic Doppler waveforms are noted at ankle level bilaterally. Pulse-volume recordings appear satisfactory at all levels bilaterally. Resting ankle-brachial indices are norm al bilaterally. The right digital-brachial index could not be determined due to the non-compressibi lity of the vasculature. The left digital-brachial index is normal. There is no evidence of significant arterial occlusive disease in the lower ext remities bilaterally. Ordering Physician: Thalia Harper Referring Physician: Yocasta Portillo Performed By: Janae Chang RVT
--- NOTE | 2022-12-02 08:40 | VDLE_ITS ---
Reason For Study: Bilateral leg swelling RIGHT LEFT CFV is compressible, spontaneous, phasic, CFV is compressible, spontaneous, phasic, competent and demonstrates normal competent, and demonstrates normal augmentation. augmentation. FV is compressible, spontaneous, phasic, FV is compressible, spontaneous, phasic, competent and demonstrates normal competent and demonstrates normal augmentation. augmentation. POP V is compressible, spontaneous, phasic, POP V is compressible, spontaneous, phasic, competent and demonstrates normal competent and demonstrates normal augmentation. augmentation. T/P Trunk is compressible. T/P Trunk is compressible. PTV is compressible. PTV is compressible. RT PerV is compressible. LT PerV is compressible. SFJ is competent and measures 0.93 x 1.06 cm. SFJ is competent and measures 0.86 x 0.80 cm. GSV proximal thigh measures 0.66 x 0.64 cm. GSV proximal thigh measures 0.63 x 0.63 cm. GSV at knee measures 0.49 x 0.46 cm. GSV at knee measures 0.44 x 0.42 cm. GSV is competent throughout. GSV is competent throughout. SSV proximal calf is competent and measures SSV proximal calf is competent and measures 0.37 x 0.40 cm. 0.43 x 0.46 cm. Procedure This is a venous duplex using B-mode, color flow and spectral Doppler. Exam performed in department. A preliminary report was called and/or faxed to . VL/Venous Duplex US - Sher Extrem Interpretation Summary Deep veins of the lower extremities are bilaterally patent and compressible seg mentally. There is no evidence of deep vein thrombosis on either side. Valvular competence appears in tact within the proximal deep venous systems bilaterally. The great saphenous veins appear bila terally patent and compressible segmentally. Sapheno-femoral junctions are bilaterally competent . Valvular competence appears to be intact segmentally within the great saphenous veins bilaterally. Small saphenous veins are patent and competent bilaterally. Ordering Physician: Thalia Harper Referring Physician: Yocasta Portillo Performed By: Janae Chang RVT
[2022-12-02 11:47] VITALS: RESP 20; TEMP 36.3
[2022-12-07 09:15] VITALS: BP 161/76; PULSE 58; RESP 18; TEMP 36.8; BMI 42.8
--- NOTE | 2022-12-07 10:18 | PCM.WC.PN ---
History of Present Illness Date of Service: 12/07/22 Chief Complaint: Right leg ulcer cluster History of Wound: 62 year old female presents to the wound healing center with bilateral leg swelling and right leg ulcer cluster. She states she has been to the wound healing center in the past for these issues. She states that she has not been wearing her compression stockings. She lives in [facility] and they have been placing Aquacel covered with Kerlix to the ulcers. She states that this started a couple months ago. She has a history of breast cancer with mastectomy, PAD, CAD, HTN, COPD, back pain and Epilepsy. She recently was seen by Dr. Mecca Henao's PA on 10/11/22 for wounds on her left leg. She was ordered venous and arterial studies which were never done. She was also give a prescription for compression stockings which she never obtained the compression stockings either. She had venous doppler done in 2017 which showed no incompetence. Arterial studies done 12/02/22 which showed triphasic doppler waveforms. Right FUAD = 1.19 and Left FUAD = 1.35. Venous studies done 12/02/22 which show no DVTs and valvular competence intact bilaterally. All veins are patent and competent bilaterally. Today she denies fever, chills, nausea or vomiting. Progress of Wound: Edema is much improved with wearing the bilateral 3M 2layer wraps this past week. Her ulcers have resolved, with the compression and getting her edema to resolve. She has large plagues of dry skin present. Objective Data Objective Data Vital Signs: Vital Signs Temp Pulse Resp BP 98.2 F 58 L 18 161/76 H 12/07/22 09:15 12/07/22 09:15 12/07/22 09:15 12/07/22 09:15 Weight: 240 lb 1.75 oz Body Mass Index (BMI) 42.8 Charges/Coding Visit Charges Office Visits / Consults: [id number] OV L3 Est Physical Exam Const alert, oriented x3 and no apparent distress General Appearance: cooperative HEENT normocephalic Eyes General Eye: normal appearance of both eyes Neck full ROM Resp normal respiratory effort, normal air movement and clear to auscultation bilaterally Effort and Inspection: able to speak in complete sentences Cardio regular rate and regular rhythm Peripheral Pulses: pulses 2+ throughout GI normal to inspection, nondistended, normoactive bowel sounds, soft to palpation and non-tender Back/Spine normal ROM Extremity normal capillary refill Peripheral Pulses: Yes pulses 2+ throughout Skin Wound Narrative: Right anterior leg ulcer cluster is superficial and draining serous fluid Neuro oriented x3 and moves all extremities Sensorium / Orientation: awake and alert Psych cooperative Psych Narrative: Flat affect Debridement Note Debridement Note No debridement was completed: No debridement was completed today Post-Debridement Measurements and Additional Note: Post-Debridement Measurements/Treatment WC - Nurse 1 - General Ulcer Assessment Start: 12/02/22 11:46 Freq: Status: Active Protocol: JOHN.[email or web address] Activity Type Activity Date Activity User E-sign Co-sign Detail Recorded Client Recorded Date Recorded By Document 12/02/22 11:47 DL [id number] 12/02/22 11:53 DL Document 12/07/22 09:15 PL [id number] 12/07/22 09:16 PL 12/02/22 12/07/22 11:47 09:15 WC - Today's Visit Information Type of service Nurse-only Follow-up Visit Visit (Physician/STAFF AUDITOR ) Arrival Mode Ambulatory, Wheelchair Wheelchair Transfer Assistance None None Patient Identification Verified (Name & Yes ) Patient Requires Transmission-Based No Yes Precautions Safety Precautions NA Height and Weight Weight 240 lb 1.75 oz Weight in Pounds 240.1 lbs Weight Measurement Method Estimated by Patient Body Mass Index (BMI) 42.8 BMI Classification Obese Vital Signs Temperature (97.8 F-99.1 F) 97.4 F L 98.2 F Temperature Source Temporal Temporal Pulse Rate (60-100) 58 L Respiratory Rate (12-18) 20 H 18 Respiratory rate source Observation Blood Pressure (90/60-120/80) 161/76 H Blood Pressure Mean (mm Hg) 104 History Since Last Visit- (Skip if this is Patient's initial visit) Have you changed medications since your No No last visit? Any new allergies or adverse reactions No No Had a fall/change in ADL's that may No No increase risk of falls Signs or symptoms of abuse and/or No No neglect since last visit Have you been in the hospital since your No No last visit? Has dressing in place as prescribed Yes Yes Has compression in place as prescribed Yes Yes Has offloadiing in place as prescribed N/A N/A Experienced any changes in pain level or No No management Pain Scale: 0-10 Numeric Is Patient Pain Free? Yes Yes WC - Nurse 1 - General Ulcer Measurement Start: 12/02/22 11:46 Freq: Status: Active Protocol: Activity Type Activity Date Activity User E-sign Co-sign Detail Recorded Client Recorded Date Recorded By Document 12/02/22 11:47 DL [id number] 12/02/22 11:53 DL 12/02/22 11:47 Wound Center Nurse 1 #7 L Med LE -Exudate Amt Small -Exudate Type Serosanguineous -Wound Margin Indistinct, Non -Visible -Granulation Amt Large (67-100%) -Granulation Quality [place] -Necrosis Amt None Present (0 %) -Structure Exposed N/A -Texture (Mary-wound Skin Appearance) No Abnormality -Moisture (Mary-wound Skin Appearance) No Abnormality -Color (Mary-wound Skin Appearance) No Abnormality -Temperature (Mary-wound Skin No Abnormality Appearance) (Pt Warm) -Ulcer Cleansing Soap and Water #6 R Brown cluster -Exudate Amt Small -Exudate Type Serosanguineous -Wound Margin Indistinct, Non -Visible -Granulation Amt Large (67-100%) -Granulation Quality [place] -Necrosis Amt None Present (0 %) -Texture (Mary-wound Skin Appearance) No Abnormality -Moisture (Mary-wound Skin Appearance) No Abnormality -Color (Mary-wound Skin Appearance) No Abnormality -Temperature (Mary-wound Skin No Abnormality Appearance) (Pt Warm) -Tenderness on Palpation (Mary-wound No Skin Appearance) -Ulcer Cleansing Soap and Water -Foul Odor after Cleansing No Right Calf (cm) 41.5 Right Ankle (cm) 24 Left Calf (cm) 41.3 Left Ankle (cm) 25.2 - Nurse 2 - General Ulcer CM Notes Start: 12/02/22 11:46 Freq: Status: Active Protocol: Activity Type Activity Date Activity User E-sign Co-sign Detail Recorded Client Recorded Date Recorded By Document 12/07/22 09:41 COLBY [id number] 12/07/22 09:43 COLBY 12/07/22 09:41 Wound Center Nurse 2 #7 L Med LE -Correct Patient No -Correct Side, Site, Position No -Correct Procedure No -Procedure Performed No -Post Debridement (cm) - Length 0 -Post Debridement (cm) - Width 0 -Post Debridement (cm) - Depth 0 -Total Square (Post) (cm) 0 -Area of Debridement (cm) - Length 0 -Area of Debridement (cm) - Width 0 -Total Square (Area) (cm) 0 -Wound/Ulcer Outcome Healed- Epithelialized #6 R Brown cluster -Correct Patient No -Correct Side, Site, Position No -Correct Procedure No -Procedure Performed No -Post Debridement (cm) - Length 0 -Post Debridement (cm) - Width 0 -Post Debridement (cm) - Depth 0 -Total Square (Post) (cm) 0 -Area of Debridement (cm) - Length 0 -Area of Debridement (cm) - Width 0 -Total Square (Area) (cm) 0 -Wound/Ulcer Outcome Healed- Epithelialized Pain Scale: 0-10 Numeric Is Patient Pain Free? Yes WC - Nurse 3 - General Ulcer D/C NN Start: 12/02/22 11:46 Freq: Status: Active Protocol: Activity Type Activity Date Activity User E-sign Co-sign Detail Recorded Client Recorded Date Recorded By Document 12/02/22 11:47 DL [id number] 12/02/22 11:53 DL 12/02/22 11:47 Vital Signs Temperature (97.8 F-99.1 F) 97.4 F L Temperature Source Temporal Respiratory Rate (12-18) 20 H Respiratory rate source Observation Pain Scale: 0-10 Numeric Is Patient Pain Free? Yes Wound Care Center Nurse 3 #7 L Med LE -Ulcer Cleansing Soap and Water -Foul Odor after Cleansing No -Primary Dressing Applied NonAdherent Contact Layer, Silvercel -Primary Dressing Covered/Secured with Dry Gauze & Roll Gauze, Secured with Tape -Aquacel AG 4x4 1 -Silvercel 1 #6 R Brown cluster -Ulcer Cleansing Soap and Water -Foul Odor after Cleansing No -Primary Dressing Applied NonAdherent Contact Layer -Other Dressing silvercell -Primary Dressing Covered/Secured with Dry Gauze & Roll Gauze, Secured with Tape kenneth -Multi-Layered Wrap Application Multi-Layer Comp - Bilat ($ ) Treatment Response Procedure Tolerated Well WC - Visit Discharge Discharge Condition Stable Ambulatory Status Ambulatory, Wheelchair Transportation Private Auto Assessment/Plan Assessment/Plan (1) Bilateral leg edema: CODE(S): R60.0 - Localized edema (2) Ulcer of right lower extremity: CODE(S): L97.919 - Non-pressure chronic ulcer of unspecified part of right lower leg with unspecified severity (3) Wound of left lower extremity: CODE(S): S81.802A - Unspecified open wound, left lower leg, initial encounter PLAN: Plan Patient evaluated at the wound healing center today. Ulcers are healed today due to the good compression that she had with the 3M 2layer wraps. Her edema has resolved. Her legs are no longer weeping since the edema has resolved. Place lotion on legs bilaterally to help with the thick, dry plaques of skin. Compression - 3M 2 layer wraps bilaterally. Will order compression stockings. I would like her to keep the 3M 2 layer wraps on until she purchases her compression stockings and bring them in next week so we can educate her on how to wear them. Ordered her 20-30 mmHg stockings that she was measured for today. She can go to [employer] to purchase her compression stockings. Stressed to patient that she will always need to wear compression stockings or her legs will start to swell and she will then start to get ulcers from the amount of edema that she has. A wound culture of right leg obtained 11/23/22 and was positive for Staphylococcus aureus, Streptococcus agalactiae (B), and Corynebacterium striatum. She was started on Augmentin, which she is to complete. Encouraged patient to keep legs elevated when seated. Encouraged patient to sleep in a bed at night and not a chair. Her venous and arterial studies from 12/02/22 were negative for any compromise. Follow up one week to see me.
[2022-12-12 09:32] VITALS: BP 166/51; PULSE 49; RESP 18; TEMP 36.9; BMI 42.8
--- NOTE | 2022-12-12 12:26 | PCM.WC.PN ---
History of Present Illness Date of Service: 12/12/22 Chief Complaint: Right leg ulcer cluster History of Wound: 62 year old female presents to the wound healing center with bilateral leg swelling and right leg ulcer cluster. She states she has been to the wound healing center in the past for these issues. She states that she has not been wearing her compression stockings. She lives in [facility] and they have been placing Aquacel covered with Kerlix to the ulcers. She states that this started a couple months ago. She has a history of breast cancer with mastectomy, PAD, CAD, HTN, COPD, back pain and Epilepsy. She recently was seen by Dr. Mecca Henao's PA on 10/11/22 for wounds on her left leg. She was ordered venous and arterial studies which were never done. She was also give a prescription for compression stockings which she never obtained the compression stockings either. She had venous doppler done in 2016 which showed no incompetence. Arterial studies done 12/02/22 which showed triphasic doppler waveforms. Right FUAD = 1.19 and Left FUAD = 1.35. Venous studies done 12/02/22 which show no DVTs and valvular competence intact bilaterally. All veins are patent and competent bilaterally. Today she denies fever, chills, nausea or vomiting. Progress of Wound: Edema is much improved with wearing the bilateral 3M 2layer wraps. She has not obtained her compression stockings. She states that she could not get them from [place], but someone where she lives was able to order her some and they come in the mail tomorrow. Her ulcers remain healed. Objective Data Objective Data Vital Signs: Vital Signs Temp Pulse Resp BP 98.5 F 49 L 18 166/51 H 12/12/22 09:32 12/12/22 09:32 12/12/22 09:32 12/12/22 09:32 Weight: 240 lb 1.75 oz Body Mass Index (BMI) 42.8 Charges/Coding Visit Charges Office Visits / Consults: [id number] OV L3 Est Physical Exam Const alert, oriented x3 and no apparent distress General Appearance: cooperative HEENT normocephalic Eyes General Eye: normal appearance of both eyes Neck full ROM Resp normal respiratory effort, normal air movement and clear to auscultation bilaterally Effort and Inspection: able to speak in complete sentences Cardio regular rate and regular rhythm Peripheral Pulses: pulses 2+ throughout GI normal to inspection, nondistended, normoactive bowel sounds, soft to palpation and non-tender Back/Spine normal ROM Extremity normal capillary refill Peripheral Pulses: Yes pulses 2+ throughout Skin Skin Narrative: Ulcers remain healed. She has dry plaques of skin present on her legs. Neuro oriented x3 and moves all extremities Sensorium / Orientation: awake and alert Psych cooperative Psych Narrative: Flat affect Debridement Note Debridement Note Post-Debridement Measurements and Additional Note: Post-Debridement Measurements/Treatment - Nurse 1 - General Ulcer Assessment Start: 12/02/22 11:46 Freq: Status: Active Protocol: JOHN.LOWEXT Activity Type Activity Date Activity User E-sign Co-sign Detail Recorded Client Recorded Date Recorded By Document 12/02/22 11:47 DL [id number] 12/02/22 11:53 DL Document 12/07/22 09:15 PL [id number] 12/07/22 09:16 PL Document 12/12/22 09:32 PL [id number] 12/12/22 09:34 PL 12/02/22 12/07/22 12/12/22 11:47 09:15 09:32 - Today's Visit Information Type of service Nurse-only Follow-up Visit Follow-up Visit Visit (Physician/DIRECTOR PAID MEDIA (Physician/DIRECTOR PAID MEDIA ) ) Arrival Mode Ambulatory, Wheelchair Wheelchair Wheelchair Transfer Assistance None None None Patient Identification Verified (Name & Yes Yes ) Patient Requires Transmission-Based No Yes No Precautions Safety Precautions NA Height and Weight Weight 240 lb 1.75 oz Weight in Pounds 240.1 lbs Weight Measurement Method Estimated by Patient Body Mass Index (BMI) 42.8 42.8 BMI Classification Obese Obese Vital Signs Temperature (97.8 F-99.1 F) 97.4 F L 98.2 F 98.5 F Temperature Source Temporal Temporal Temporal Pulse Rate (60-100) 58 L 49 L Respiratory Rate (12-18) 20 H 18 18 Respiratory rate source Observation Blood Pressure (90/60-120/80) 161/76 H 166/51 H Blood Pressure Mean (mm Hg) 104 89 History Since Last Visit- (Skip if this is Patient's initial visit) Have you changed medications since your No No No last visit? Any new allergies or adverse reactions No No No Had a fall/change in ADL's that may No No No increase risk of falls Signs or symptoms of abuse and/or No No No neglect since last visit Have you been in the hospital since your No No No last visit? Has dressing in place as prescribed Yes Yes Has compression in place as prescribed Yes Yes Has offloadiing in place as prescribed N/A N/A Experienced any changes in pain level or No No management Pain Scale: 0-10 Numeric Is Patient Pain Free? Yes Yes Yes WC - Nurse 1 - General Ulcer Measurement Start: 12/02/22 11:46 Freq: Status: Active Protocol: Activity Type Activity Date Activity User E-sign Co-sign Detail Recorded Client Recorded Date Recorded By Document 12/02/22 11:47 DL [id number] 12/02/22 11:53 DL Document 12/12/22 09:41 PL [id number] 12/12/22 09:42 PL 12/02/22 12/12/22 11:47 09:41 Wound Center Nurse 1 #7 L Med LE -Exudate Amt Small -Exudate Type Serosanguineous -Wound Margin Indistinct, Non -Visible -Granulation Amt Large (67-100%) -Granulation Quality [place] -Necrosis Amt None Present (0 %) -Structure Exposed N/A -Texture (Mary-wound Skin Appearance) No Abnormality -Moisture (Mary-wound Skin Appearance) No Abnormality -Color (Mary-wound Skin Appearance) No Abnormality -Temperature (Mary-wound Skin No Abnormality Appearance) (Pt Warm) -Ulcer Cleansing Soap and Water #6 R Brown cluster -Exudate Amt Small -Exudate Type Serosanguineous -Wound Margin Indistinct, Non -Visible -Granulation Amt Large (67-100%) -Granulation Quality [place] -Necrosis Amt None Present (0 %) -Texture (Mary-wound Skin Appearance) No Abnormality -Moisture (Mary-wound Skin Appearance) No Abnormality -Color (Mary-wound Skin Appearance) No Abnormality -Temperature (Mary-wound Skin No Abnormality Appearance) (Pt Warm) -Tenderness on Palpation (Mary-wound No Skin Appearance) -Ulcer Cleansing Soap and Water -Foul Odor after Cleansing No Right Calf (cm) 41.5 Point of measurement (cm from the medial 36 instep) Right Ankle (cm) 24 Point of Measurement (cm from the medial 24 instep) Left Calf (cm) 41.3 Point of measurement (cm from the medial 33 instep) Left Ankle (cm) 25.2 Point of Measurement (cm from the medial 25 instep) WC - Nurse 2 - General Ulcer CM Notes Start: 12/02/22 11:46 Freq: Status: Active Protocol: Activity Type Activity Date Activity User E-sign Co-sign Detail Recorded Client Recorded Date Recorded By Document 12/07/22 09:41 [id number] 12/07/22 09:43 JF Document 12/12/22 09:51 [id number] 12/12/22 09:52 JF 12/07/22 12/12/22 09:41 09:51 Wound Center Nurse 2 #7 L Med LE -Correct Patient No -Correct Side, Site, Position No -Correct Procedure No -Procedure Performed No -Post Debridement (cm) - Length 0 -Post Debridement (cm) - Width 0 -Post Debridement (cm) - Depth 0 -Total Square (Post) (cm) 0 -Area of Debridement (cm) - Length 0 -Area of Debridement (cm) - Width 0 -Total Square (Area) (cm) 0 -Wound/Ulcer Outcome Healed- Epithelialized #6 R Brown cluster -Correct Patient No -Correct Side, Site, Position No -Correct Procedure No -Procedure Performed No -Post Debridement (cm) - Length 0 -Post Debridement (cm) - Width 0 -Post Debridement (cm) - Depth 0 -Total Square (Post) (cm) 0 -Area of Debridement (cm) - Length 0 -Area of Debridement (cm) - Width 0 -Total Square (Area) (cm) 0 -Wound/Ulcer Outcome Healed- Epithelialized Pain Scale: 0-10 Numeric Is Patient Pain Free? Yes Yes WC - Nurse 3 - General Ulcer D/C NN Start: 12/02/22 11:46 Freq: Status: Active Protocol: Activity Type Activity Date Activity User E-sign Co-sign Detail Recorded Client Recorded Date Recorded By Document 12/02/22 11:47 DL [id number] 12/02/22 11:53 DL Document 12/07/22 10:53 PL [id number] 12/07/22 10:53 PL Document 12/12/22 10:00 [facility] [id number] 12/12/22 10:00 BM 12/02/22 12/07/22 12/12/22 11:47 10:53 10:00 Vital Signs Temperature (97.8 F-99.1 F) 97.4 F L Temperature Source Temporal Respiratory Rate (12-18) 20 H Respiratory rate source Observation Pain Scale: 0-10 Numeric Is Patient Pain Free? Yes Yes Yes Wound Care Center Nurse 3 #7 L Med LE -Ulcer Cleansing Soap and Water -Foul Odor after Cleansing No -Primary Dressing Applied NonAdherent Contact Layer, Silvercel -Primary Dressing Covered/Secured with Dry Gauze & Roll Gauze, Secured with Tape -Aquacel AG 4x4 1 -Silvercel 1 #6 R Brown cluster -Ulcer Cleansing Soap and Water -Foul Odor after Cleansing No -Primary Dressing Applied NonAdherent Contact Layer -Other Dressing silvercell -Primary Dressing Covered/Secured with Dry Gauze & Roll Gauze, Secured with Tape kenneth -Multi-Layered Wrap Application Multi-Layer Multi-Layer Comp - Bilat ($ Comp - Bilat ($ ) ) -Tubular Bandage Double Layer -Size of Tubigrip Used Size D -Size D ($) 2 Treatment Response Procedure Procedure Tolerated Well Tolerated Well WC - Visit Discharge Discharge Condition Stable Stable Stable Ambulatory Status Ambulatory, Wheelchair Wheelchair Wheelchair Transportation [facility] Assessment/Plan Assessment/Plan (1) Bilateral leg edema: CODE(S): R60.0 - Localized edema (2) Ulcer of right lower extremity: CODE(S): L97.919 - Non-pressure chronic ulcer of unspecified part of right lower leg with unspecified severity PLAN: Plan Patient evaluated at the wound healing center today. Ulcers remain healed today due to the good compression that she had with the 3M 2layer wraps. Her edema has resolved. Her legs are no longer weeping since the edema has resolved. Place lotion on legs bilaterally to help with the thick, dry plaques of skin. Compression - Double tubigrip bilaterally. She will wear the tubigrip until she gets the 30-40 mmHg stockings. She will need to wear her compression stockings during the day and remove them at night and place them back on first think in the morning. Stressed to patient that she will always need to wear compression stockings or her legs will start to swell and she will then start to get ulcers from the amount of edema that she has. A wound culture of right leg obtained 11/23/22 and was positive for Staphylococcus aureus, Streptococcus agalactiae (B), and Corynebacterium striatum. She was started on Augmentin, which she has completed. Encouraged patient to keep legs elevated when seated. Encouraged patient to sleep in a bed at night and not a chair. Her venous and arterial studies from 12/02/22 were negative for any compromise. Follow up as needed.
== END 2022-12-13 07:57 | disposition home or self-care (01) ==
LOC: WC 09:15
PROVIDERS: PCP Nurse Practitioner Adult Health; Referring Provider Nurse Practitioner Adult Health; Visit Provider Nurse Practitioner Family
DX: L97.811 Non-pressure chronic ulcer of other part of right lower leg limited to breakdown of skin (principal); J44.9 Chronic obstructive pulmonary disease, unspecified; G40.909 Epilepsy, unspecified, not intractable, without status epilepticus; R60.9 Edema, unspecified; I25.10 Atherosclerotic heart disease of native coronary artery without angina pectoris; E66.9 Obesity, unspecified; I10 Essential (primary) hypertension
CPT/HCPCS: 29581; 93923; 93970; 99213; G0463

== ENCOUNTER → 2023-01-30 | Outpatient (CLI) | payer MEDICAID, SELFPAY ==
--- NOTE | 2023-01-30 13:44 | ECHOD_ITS ---
Reason For Study: Bradycardia Procedure This was a 2D Doppler, Color Flow transthoracic echocardiogram. Exam performed in department. Left Ventricle Normal LV size. Mild concentric left ventricular hypertrophy. The left ventricular ejection fraction is 55 %. Diastolic function is indeterminate. Right Ventricle Normal right ventricle. Atria The left atrium is severely enlarged. The right atrium is mildly enlarged. Mitral Valve Mild mitral annular calcification. Trivial mitral valve insufficiency. Tricuspid Valve Mild eccentric tricuspid valve insufficiency. Right ventricular systolic pressure estimated to be 49 mmHg. Aortic Valve Trisinus/trileaflet aortic valve. Pulmonic Valve The pulmonic valve is not well visualized. Trivial pulmonic valve insufficiency. Great Vessels Normal sized aortic root. Pericardium/Pleural No pericardial effusion. MMode/2D Measurements & Calculations LVIDd: 5.1 cm IVSd: 1.3 cm Ao root diam: 3.2 cm LVIDs: 3.4 cm LVPWd: 1.1 cm LA dimension: 4.9 cm FS: 33.0 % LAV(MOD-bp): 94.5 ml LVAd ap4: 37.0 cm2 SV(MOD-sp4): 70.1 ml LAV(MOD-bp) Indexed: 38.5 ml/m2 LVLd ap4: 8.9 cm LAV(MOD-sp2): 97.7 ml EDV(MOD-sp4): 130.3 ml LAV(MOD-sp4): 91.3 ml EDV(sp4-el): 130.6 ml LVAs ap4: 22.2 cm2 LVLs ap4: 7.3 cm ESV(MOD-sp4): 60.2 ml ESV(sp4-el): 57.1 ml EF(MOD-sp4): 53.8 % EF(sp4-el): 56.3 % SV(sp4-el): 73.5 ml LA A4 area: 27.4 cm2 RA A4 area: 24.6 cm2 TAPSE: 2.3 cm Time Measurements MV dec time: 0.18 sec Doppler Measurements & Calculations MV E max nathan: 94.3 cm/sec Lat Peak E' Nathan: 10.4 cm/sec Med Peak E' Nathan: 8.4 cm/sec MV A max nathan: 63.8 cm/sec E/E' lat: 9.1 E/E' med: 11.2 MV E/A: 1.5 MV V2 max: 133.7 cm/sec MV P1/2t max nathan: 131.6 cm/sec Ao V2 max: 140.9 cm/sec MV max P.1 mmHg MV P1/2t: 71.1 msec Ao max P.9 mmHg MV V2 mean: 55.8 cm/sec MV dec slope: 542.4 cm/sec2 Ao V2 mean: 93.4 cm/sec MV mean P.6 mmHg Ao mean P.0 mmHg MV V2 VTI: 39.3 cm MVA(P1/2t): 3.1 cm2 Ao V2 VTI: 37.2 cm AV (velocity ratio): 0.92 LV V1 max: 129.6 cm/sec PA V2 max: 104.5 cm/sec TR max nathan: 292.1 cm/sec LV V1 max P.7 mmHg TR max P.1 mmHg LV V1 mean P.6 mmHg LV V1 mean: 89.4 cm/sec LV V1 VTI: 34.3 cm ECHO/Echo Complete Interpretation Summary Mild concentric left ventricular hypertrophy. The left ventricular ejection fraction is 55 %. Diastolic function is indeterminate. The left atrium is severely enlarged. The right atrium is mildly enlarged. Mild mitral annular calcification. Mild eccentric tricuspid valve insufficiency. Right ventricular systolic pressure estimated to be 49 mmHg. Ordering Physician: Patrick Cruz Referring Physician: Patrick Cruz Performed By: Jamel Coleman RCS
== END | disposition home or self-care (01) ==
LOC: CVS 13:40
PROVIDERS: PCP Nurse Practitioner Adult Health; Referring Provider Internal Medicine Cardiovascular Disease; Visit Provider Internal Medicine Cardiovascular Disease
DX: R00.1 Bradycardia, unspecified (principal); I25.10 Atherosclerotic heart disease of native coronary artery without angina pectoris; I10 Essential (primary) hypertension; E78.5 Hyperlipidemia, unspecified; F17.200 Nicotine dependence, unspecified, uncomplicated
CPT/HCPCS: 93306

== ENCOUNTER → 2025-01-14 | Outpatient (CLI) | payer MEDICAID, SELFPAY | END | disposition home or self-care (01) | LOC: SL 19:46 | PROVIDERS: PCP Nurse Practitioner Adult Health; Referring Provider Nurse Practitioner Family; Visit Provider Nurse Practitioner Family | DX: G47.33 Obstructive sleep apnea (adult) (pediatric) (principal) | CPT/HCPCS: 95811 ==